=== PATIENT | female | born 1985 | race Caucasian/White ===

== ENCOUNTER 2019-04-04 11:52 | Inpatient (IN) | payer OTHER, SELFPAY ==
[2019-04-04 12:27] VITALS: BMI 28.7
[2019-04-04] MEDS: Lactated Ringers 1,000 ML 50 ML IV ×2 (12:40→21:36)
[2019-04-04 13:03] LABS: Absolute Lymphocyte Count 1.14 X10^3/ul (0.83-4.51); Absolute Neutrophil Count 3.7 X10^3/uL (2.0-7.7); Basophil# 0.01 X10^3/uL; Basophil% 0.2 % (0-1); Eosinophil# 0.01 X10^3/uL; Eosinophils% 0.2 % (0-5); Hematocrit 37.2 % (37-47); Hemoglobin 12.5 g/dl (12.0-15.0); Lymphocyte # 1.14 X10^3/ul (4.0); Lymphocyte % 21.6 % (19-41); Mean Corp Hgb Conc 33.6 g/gl (32-36); Mean Corpuscular Hgb 30.5 pg (27.0-32.0); Mean Corpuscular Volume 90.7 fL (81-99); Mean Platelet Vol. 10.7 fl (6.2-12.0); Monocyte% 7.6 % (0-10); Neutrophil # 3.72 X10^3/uL (2.7-7.7); Neutrophil % 70.2 % (47-70); Platelet Count 163 K/mm3 (150-450); RBC Distribution Width CV 12.3 % (11.6-14.6); RBC Distribution Width SD 39.7 fl (35.1-43.9); White Blood Count 5.3 K/mm3 (4.4-11.0)
[2019-04-04 13:09] LABS: POSITIVE COUNT NO; POSITIVE DIFFERENTIAL NO; POSITIVE MORPHOLOGY NO
--- NOTE | 2019-04-04 18:26 | HP.PCM_ITS ---
History Date of Admission: 04/04/19 Final DOLORES: 03/27/19 Final DOLORES Source: US <20 weeks Gestational age: 41 Weeks and 1 Days History of this : This is a 33 year-old, G1, P0 at 41-1/7 weeks gestation with EDC of 03/27/2019 by last menstrual period confirmed by first trimester ultrasound presents for induction of labor. Her has been uncomplicated to date. She has had good movement. No vaginal bleeding or leaking of fluid. Allergies Penicillins Allergy (Verified 04/04/19 12:28) Rash Home Medications: Home Medications Vits [Prenatabs FA] 1 tablet PO DAILY 04/04/19 Smoking Status: Former smoker Alcohol: None Number of Fetus(es): 1 Heart Tracing: Normal baseline, moderate variability, spontaneous accelerations no decelerations. Category 1 and reactive. TOCO Analysis: Now there are frequent mild contractions with some irritability History Past Pregnancies: Past Pregnancies Delivery Date Name GA/Weeks Outcome Route Weight Infant Gender Labor Length Anesthesia Delivery Location Provider FOB Expected Delivery Method: Spontaneous Vaginal Review of Systems Constitutional: Denies: Chills, Fever Eyes: Denies: Blurred vision Cardiovascular: Denies: Chest Pain Respiratory: Denies: Cough Gynecological: Denies: Vaginal bleeding Physical Exam General: Alert, Cooperative, No apparent distress Cardiovascular: Regular rate Lungs: Normal air movement Abdomen: Soft, Non-Distended, Appropriate for Gestational Age Extremities:: Other - edema- trace [employer]: Normal external genitalia Estimated gestational size: Appropriate for gestational size Presentation: Cephalic Cervix Dilation (cm): 0.5 - firm, mid position Station: -2 Effacement (%): 50 Assessment/Plan This is a 33 year-old, avid a 1 para 1 at 41-1/7 weeks gestation for cervical ripening then induction of labor due to late term gestation. Patient received 25 mcg of Cytotec earlier, 50 mcg was placed now. Will return in several hours and see if a King catheter can be placed at that time. Will likely initiate Pitocin after this dose of Cytotec. Estimated weight is less than 4500 g clinically and pelvis is clinically adequate to expect vaginal delivery. Patient may have epidural, Nubain or nitrous oxide as needed for pain control.
[2019-04-04] MEDS: 0.9% Normal Saline 250 ML IV.SOLN. IV (21:00)
--- NOTE | 2019-04-04 21:10 | PCM.PN.BLA ---
Progress Note Some cramping pain, some contractions getting more intense, she has to breathe through some. No other c/o. Had supper. FHTs- normal baseline, moderate variability, no recurrent decels Tocos- ctxs q 2 min Parham placed over stylette in the usual sterile fashion and inflated to 30 cc. Placement over internal os confirmed. Start pitocin if ctxs space out or when parham out and it is 4+ hrs from last cytotec. Patient questions answerd. She is comfortable w/ plan.
[2019-04-04] MEDS: Nalbuphine 10 MG/ML Ampul IV (21:17)
[2019-04-05] MEDS: Nalbuphine 10 MG/ML Ampul IV ×2 (01:21→05:12)
[2019-04-05] MEDS: Ondansetron 4 MG/2 ML Vial IV ×2 (03:15→11:36)
[2019-04-05] MEDS: Oxytocin 30 units/NS 500 ml 30 UNITS/500 ML IV.SOLN IV (04:33)
[2019-04-05] MEDS: Lactated Ringers 1,000 ML 50 ML IV ×2 (06:40→13:22)
[2019-04-05] MEDS: fentaNYL-bupivacaine (epidural) 100 ML BAG EPIDURAL (07:20)
[2019-04-05] MEDS: proCHLORPERazine 10 MG/2 ML Vial IV (12:22)
[2019-04-05] MEDS: Oxytocin 30 units/NS 500 ml 30 UNITS/500 ML IV.SOLN 334 UNITS IV (16:38)
--- NOTE | 2019-04-05 16:59 | PCM.OPRPT ---
Vaginal Delivery Maternal Presentation: Medically Indicated Induction Method of Induction: Pitocin, King Bulb, Cytotec Medical Reason for Induction: - - Late term at 41-2/7 weeks gestation Amniotic Membrane Rupture Type: Spontaneous Amniotic Fluid Description: Clear Final DOLORES: 03/27/19 Gestational age: 41 Weeks and 2 Days Date of Procedure: 04/05/19 Pre-Operative Diagnosis: Labor Post-Operative Diagnosis: Labor Surgery/ Procedure Performed: Spontaneous Vaginal Delivery Type of Anesthesia: Epidural Description of Procedure: A vigorous female was delivered YOBANY over a second-degree perineal laceration. There was a tight nuchal cord, and I was unable to easily reduce it but the shoulder began to deliver spontaneously so the decision was made to deliver through the cord. The remainder the was delivered with maternal pushing and gentle traction only in less than 15 seconds. The Pitocin infusion was initiated for active management of the third stage. The cord was clamped and cut after 1 minute. The infant was attended to by the waiting nursing staff. The placenta was delivered spontaneously and intact. The cervix and vagina were intact. The second-degree perineal laceration was repaired with 3-0 Vicryl suture in a running standard fashion. Sponge and needle counts were correct. A vaginal sweep was completed by me. Presentation: YOBANY Placental Delivery Description: Spontaneous Placenta Disposition: [facility] Cord Vessel Description: 3 Vessels Nuchal Cord Compression: Without compression Cord Entanglement: Around neck x 1, tight Drain: King to straight drain Estimated Blood Loss: 500 Infant A gender: Female (1 minute): 8 (5 minute): 9 Episiotomy Description: None Laceration: 2nd degree Medications given after delivery: IV Pitocin Complications: None
[2019-04-05] MEDS: Oxytocin 30 units/NS 500 ml 30 UNITS/500 ML IV.SOLN 167 UNITS IV (17:08)
[2019-04-05] MEDS: Naproxen 250 MG Tablet 500 MG PO (18:14)
[2019-04-05 21:05] VITALS: BP 111/59; PULSE 68; RESP 16; TEMP 36.9
[2019-04-05] MEDS: Acetaminophen 500 MG Tablet 1000 MG PO (22:43)
[2019-04-06] VITALS (7 sets, daily range): BP systolic 90–135; BP diastolic 53–79; PULSE 58–83; RESP 16–18; TEMP 36.3–36.7; O2SAT 97
[2019-04-06] MEDS: Naproxen 250 MG Tablet 500 MG PO ×2 (04:37→12:11)
--- NOTE | 2019-04-06 08:21 | PCM.PN.OB ---
Subjective: Doing well per patient and nursing staff. Ambulating and taking PO without difficulty. Voiding and passing flatus. Bottle feeding. Denies increased vaginal bleeding or clots. Pain controlled. Planning D/C home tomorrow. - Physical Exam General: Alert HEENT: Atraumatic, Normocephalic Lungs: Clear to auscultation, Normal air movement, No rhonchi, No wheeze Cardiovascular: Regular rate, Regular Rhythm, No murmurs Abdomen: Bowel Sounds Present, - - Fundus firm 2 below U. Extremities: No edema Psych/Mental Status: Normal Affect, Appropriate Vital Signs Temp Pulse Resp BP 97.5 F L 58 L 16 90/63 04/06/19 07:59 04/06/19 07:59 04/06/19 07:59 04/06/19 07:59 Oxygen Delivery Method Room Air Weight: 172 lb 6.424 oz Body Mass Index (BMI) 28.7 Intake and Output for Last 24 Hours 04/04/19 04/05/19 04/06/19 23:59 23:59 23:59 Intake Total 4835 / 4835 Output Total 2049 / 2049 1000 / 1000 Balance 2785 / 2785 -1000 / -1000 Medical Necessity - Tobacco Use Smoking Status: Former smoker Assessment/Plan A: PPD #1 P: 1) Routine PP care 2) Planning D/C home tomorrow.
[2019-04-06] MEDS: Acetaminophen 500 MG Tablet 1000 MG PO ×2 (08:33→18:35)
--- NOTE | 2019-04-06 14:50 | NURSING ---
Received report from Doris Sterling RN. I will assume care of patient at this time.
[2019-04-07 02:36] VITALS: BP 92/56; PULSE 60; RESP 15; TEMP 36.6; O2SAT 97
[2019-04-07] MEDS: Naproxen 250 MG Tablet 500 MG PO (07:18)
--- NOTE | 2019-04-07 07:39 | NURSING ---
This RN has not observed any maternal contact with over night. Pt. has been emotionally involved with infant, talking sweetly to her and asking questions about care, but did not hold, feed, or change any diapers during subacute nurse. Pt. is appropriate, calm, and stable in attitude.
--- NOTE | 2019-04-07 08:26 | PCM.PN.OB ---
Subjective: Seen at bedside doing well. Patient reports good pain control. Mild lochia. Patient is bottlefeeding. No difficulty with urinating. - Physical Exam General: Alert, Oriented x3 Abdomen: Soft, Non Tender, Non-Distended, - - fundus firm Extremities: No Calf Tenderness Vital Signs Temp Pulse Resp BP Pulse Ox 97.9 F 60 15 92/56 L 97 04/07/19 02:36 04/07/19 02:36 04/07/19 02:36 04/07/19 02:36 04/07/19 02:36 Oxygen Delivery Method Room Air Weight: 78.2 kg Body Mass Index (BMI) 28.7 Intake and Output for Last 24 Hours 04/05/19 04/06/19 04/07/19 23:59 23:59 23:59 Intake Total 4835 / 4835 Output Total 2049 / 2049 1000 / 1000 Balance 2785 / 2785 -1000 / -1000 Medical Necessity - Tobacco Use Smoking Status: Former smoker Assessment/Plan PPD#2, doing well routine care pain mgmt ambulation dc home
--- NOTE | 2019-04-07 08:28 | DCINST_ITS ---
Discharge Diet: No Restrictions Discharge Activity: Return to Normal Activity, May not drive while taking narcotic pain medications., May Shower May resume sexual activity in: 4-6 weeks Additional Activity Instructions:: Nothing in the vagina for 4-6 weeks. You may return to work/school in 6 weeks. Call your doctor if your incision/area has: Continuous Slow Oozing, Sudden Increased Bleeding, Increased Pain/ Swelling, Increased Redness, Foul Smelling Discharge Additional Instructions: If you experience any of the following, contact your healthcare provider. * Bleeding that soaks a pad every hour for 2 hours * Fever 100.4 or higher * Unrelieved incision or abdominal pain * Swelling, redness, discharge or bleeding from your incision or episiotomy site * Your incision begins to separate * Problems urinating (including inability to urinate or burning while urinating). * Visual changes * Severe headache * Flu-like symptoms * Pain or redness in one of both of your breasts * Pain, warmth, tenderness or swelling in your legs, especially the calf area * Frequent nausea and vomiting * Symptoms of depression or anxiety If you experience any of the following, call 911 or go to the nearest Emergency Room. * Chest pain * Problems breathing * Seizure activity * Partial or complete paralysis of a body part, slurred speech, weakness or drooping of the face, or a sudden inability to walk or hold your balance Allergies/Adverse Reactions: Allergies Penicillins Allergy (Verified 04/04/19 12:28) Rash Medications to take at Discharge Vits [Prenatabs FA ] 1 tablet PO DAILY 04/04/19 Naproxen [Naprosyn] 500 mg PO Q8H PRN PRN #30 tablet 04/07/19 The following prescriptions were given: Naproxen [Naprosyn] 500 mg PO Q8H PRN PRN #30 tablet PRN Reason: MILD PAIN (1-01/25) When: Call to make an appointment with your doctor in 6 weeks. If you had elevated Blood Pressure or 4th degree laceration you will need to be seen in 2 weeks. Test Results: Test results from this visit will be discussed in further detail at your follow- up appointment, if applicable.
[2019-04-07 08:49] VITALS: BP 114/74; PULSE 71; RESP 18; TEMP 36.6; O2SAT 100
[2019-04-07] MEDS: Senna/Docusate Sodium 1 Tablet PO (09:04)
[2019-04-07] MEDS: Acetaminophen 500 MG Tablet 1000 MG PO (09:04)
[2019-04-07 12:53] VITALS: BP 112/70; PULSE 68; RESP 18; TEMP 36.9; O2SAT 99
--- NOTE | 2019-04-11 14:16 | NURSING ---
No answer on follow up phone call. Unable to leave message.
== END 2019-04-07 14:50 | disposition home or self-care (01) | DRG 807 ==
PROVIDERS: Admitting Provider Obstetrics & Gynecology; Referring Provider Obstetrics & Gynecology; Visit Provider Obstetrics & Gynecology
DX: O48.0 Post-term pregnancy (principal); O70.1 Second degree perineal laceration during delivery; O69.1XX0 Labor and delivery complicated by cord around neck, with compression, not applicable or unspecified; Z88.0 Allergy status to penicillin; Z87.891 Personal history of nicotine dependence; Z3A.41 41 weeks gestation of pregnancy; Z37.0 Single live birth
CPT/HCPCS: 59025; 59050; 85025; 86850; 86900; 99218; J7050; J7120; G0378; J2405

== ENCOUNTER → 2019-09-18 15:22 | Outpatient (CLI) | payer OTHER, SELFPAY ==
[2019-09-18 18:24] LABS: CRP < 2.90 mg/L (0.0-3.0); T4 Total, Thyroxin 6.1 ug/dL (4.8-13.9); Thyroid Stim Hormone (TSH) 2.24 uIU/mL (0.358-3.74)
[2019-09-21 16:07] LABS: Endomysial Antibody IgA Negative (Negative)
[2019-09-21 18:53] LABS: Immunoglobulin A 106 mg/dL (87-352); t-Transglutaminase IgA <2 U/mL (0-3)
== END ==
PROVIDERS: Family Provider Physician Assistant; PCP Physician Assistant; Referring Provider Internal Medicine Gastroenterology; Visit Provider Internal Medicine Gastroenterology
DX: K59.00 Constipation, unspecified (principal); R14.0 Abdominal distension (gaseous)
CPT/HCPCS: 36415; 82784; 83516; 84436; 84443; 86140; 86255

== ENCOUNTER → 2019-11-05 06:01 | Outpatient (CLI) | payer OTHER, SELFPAY ==
--- NOTE | 2019-11-08 03:00 | RAD_ITS ---
HISTORY: Colonic transit study. 5 images of the abdomen. No comparison imaging. Findings: Within the first image multiple metallic loops are present throughout the colon. The first image was performed at 6:05 AM on 11/08/2019. I image 2 and 11/10 there are persistent loops within the colon but less. On image 3 performed on 11/12 there are 3 loops if not one or 2 more remaining. One is within the cecum, and 2 within the sigmoid colon. Another image from 1226 demonstrates one within the splenic flexure. RAD/Colonic Trans GI/w Mul Image IMPRESSION: Study began on 11/08. By 11/12 for rings remain. 1 within the cecum, one within the splenic flexure of colon, and 2 within the sigmoid colon. at 0612 Reported and signed by: Isidro Hobson MD Electronically Signed: Isidro Hobson MD at 6:11 EST Tel , Service support ,
== END ==
PROVIDERS: Family Provider Physician Assistant; PCP Physician Assistant; Referring Provider Internal Medicine Gastroenterology; Visit Provider Internal Medicine Gastroenterology
DX: K59.00 Constipation, unspecified (principal); R10.9 Unspecified abdominal pain
CPT/HCPCS: 74245

== ENCOUNTER → 2020-06-10 10:00 | Outpatient (CLI) | payer OTHER, SELFPAY ==
--- NOTE | 2020-06-10 10:08 | NM_ITS ---
CLINICAL: 35-year-old female with clinically suspected gastroparesis. SEMI-SOLID PHASE 99m Tc SULFUR COLLOID GASTRIC EMPTYING STUDY COMPARISON: None available FINDINGS: The patient was administered 1.1 mCi of 99m Tc sulfur colloid mixed with oatmeal and consumed per os. Image acquisitions in the anterior-posterior projections for a total of sixty minutes. There is prompt visualization of the stomach. There is no gastroesophageal reflux identified. The T1/2 linear fit was calculated to be 35.66 minutes, (Normal: 12-56 minutes). NM/Gastric Emptying Study IMPRESSION: 1. NORMAL 99m Tc sulfur colloid semi-solid phase (oatmeal) gastric emptying imaging examination. A. There is normal and preserved semi-solid phase gastric emptying compared to normal controls. (Abdifatah et al, J Nucl Med Tech 38: 186, 2010). Electronically Signed: Brock Avery DO at 11:09 EDT Tel , Service support ,
== END ==
PROVIDERS: PCP Physician Assistant; Referring Provider Internal Medicine Gastroenterology; Visit Provider Internal Medicine Gastroenterology
DX: K59.00 Constipation, unspecified (principal); R10.84 Generalized abdominal pain
CPT/HCPCS: 78264; A9541

== ENCOUNTER 2022-03-22 08:50 | Day surgery (SDC) | payer OTHER, SELFPAY ==
[2022-03-22] VITALS (7 sets, daily range): BP systolic 85–98; BP diastolic 50–78; PULSE 48–68; RESP 16; TEMP 36.3–36.5; O2SAT 99–100; BMI 22.7
--- NOTE | 2022-03-22 | IMM_PTH ---
PATIENT: MARICHUY LEDEZMA LOC: EN U#:[id number] AGE/SX: 36/F ROOM: RE03/22/[address]: Dr. Navi Decker DO : 1985 BED: DIS: 03/22/2022 SPEC #: [id number] RECD: 03/22/22 12:48 STATUS: MAGDIEL REQ #: [id number] RODOLFO: 03/22/22 00:[address]: Navi Decker DEPT: IMMUNOHISTOCHEMISTRY RECD BY: Mayra Demarco ENTERED: 03/22/22 12:48 SP TYPE: IMMUNO OTHR DR: MARCELLO De La Garza Tissues: Gastric mucous membrane Procedures: H Pylori (initial) PHYSICIAN & INSTITUTION [place] [id number] SPECIMEN INFORMATION: Tissue Source: B - Gastric Antrum Biopsy Clinical Info: IBS Specimen Number: [id number] CPT code: 11995 METHODOLOGY: Deparaffinized sections of prefer/formalin-fixed tissue or PAP/DQ stained slides are incubated with monoclonal/polyclonal antibodies/oligonucleotide probes. Localization is made via biotin free immunoperoxidase method. Appropriate controls are performed and reacted as expected. Results on target cell population are indicated in the following table: RESULTS: ANTIBODY / CLONE RESULT Block B H Pylori (polyclonal) negative These tests were developed and their performance characteristics determined by [facility]. They may not have been cleared or approved by the U.S. Food and Drug Administration. The FDA has determined that such clearance or approval is not necessary. The above immunohistochemical/dualISH markers are ordered and reviewed by the Pathologist. INTERPRETATION: B. Gastric antrum, biopsy: Negative for Helicobacter pylori organisms. SJ:marina 03/23/2022
[2022-03-22 09:15] LABS: Internal QC Validated? YES +Cl - CLEAR BKGD; Pregnancy, Urine Negative Negative
[2022-03-22] MEDS: Lactated Ringers 1,000 ML 15 ML IV (09:24)
--- NOTE | 2022-03-22 10:00 | EGD_PTH ---
PATIENT: MARICHUY LEDEZMA LOC: EN U#:[id number] AGE/SX: 36/F ROOM: RE03/22/[address]: Dr. Navi Decker DO : 1985 BED: DIS: 03/22/2022 SPEC #: [id number] RECD: 03/22/22 10:49 STATUS: MAGDIEL REAngel #: [id number] RODOLFO: 03/22/22 10:[address]: Navi Decker DEPT: SURGICAL PATHOLOGY RECD BY: Mayra eDmarco ENTERED: 03/22/22 11:46 SP TYPE: EGD BIOPSY OT DR: MARCELLO De La Garza Tissues: A - Duodenum, NOS B - Gastric mucous membrane C - Esophagus, NOS Procedures: Special Stain Group II Surgery Specimen Level IV Alcian Blue/PAS (control) HEADER OPERATION: [place] [place]OP DIAGNOSIS: Irritable bowel syndrome TISSUE SUBMITTED: A ? Duodenum biopsy, B - Gastric Antrum for H. pylori and pathology, C - Distal Esophagus biopsy MICROSCOPIC DIAGNOSIS A. Duodenum, biopsy: Fragments of duodenal mucosa, no pathologic diagnosis. B. Gastric antrum, biopsy: Mild gastritis. See microscopic description and comment. C. Distal esophagus, biopsy: Fragments of gastroesophageal mucosa with mild chronic inflammation. Intestinal metaplasia (goblet cell metaplasia) not identified. See comment. SJ:rg 03/23/2022 COMMENT B. The results of immunohistochemistry for Helicobacter pylori will be reported separately ([id number]). C. Alcian blue/PAS stain with matched control is used in the evaluation of the specimen. MICROSCOPIC DESCRIPTION Slides are reviewed. B. The specimen shows fragments of gastric mucosa with chronic inflammatory cell infiltrates in the lamina propria consisting of lymphocytes and plasma cells, consistent with mild chronic gastritis. GROSS DESCRIPTION A - Received in fixative is one container labeled with the patient's name and designated biopsy duodenum. The specimen consists of multiple irregular fragments of light hoffmann soft tissue that in aggregate measure 1.3 x 0.3 x 0.1 cm. The specimen is totally submitted in one cassette. B - Received in fixative is one container labeled with the patient's name and designated gastric antrum biopsy. The specimen consists of two irregular fragments of light hoffmann soft tissue that in aggregate measure 0.3 x 0.3 x 0.1 cm. The specimen is totally submitted in one cassette. C - Received in fixative is one container labeled with the patient's name and designated biopsy distal esophagus. The specimen consists of multiple irregular fragments of light hoffmann soft tissue that in aggregate measure 0.5 x 0.4 x 0.1 cm. The specimen is totally submitted in one cassette. / SJ:rg 03/22/2022 TC:3 CPT: 57309 x3, 78019
--- NOTE | 2022-03-22 10:04 | PCM.HP.BLA ---
History and Physical Date of Admission: 03/22/22 AICHA LEDEZMA, is a 36 F who presents to the office today for 6-week follow-up IBS with constipation She states she feels exhausted. Her middle insomnia has worsened. The insomnia began after we started her on duloxetine for her IBS. Duloxetine has not helped with her GI symptoms. Her anxiety is worse than before. She would like to go off the duloxetine. GI sxs about the same. Feels best in AM, then worse in afternoon and evening--bloating, feet get cold, nausea, gas, not pain but uncomfortable across mid and lower abd, brain fog. Had EGD age 21, diagnosed hiatal hernia. She is interested in updating the EGD. Acid reflux occurs at night, maybe once a week, she avoids foods that cause this for her. GI History: Diagnosed with IBS. She has been evaluated by 2 gastroenterologists prior to coming to [facility]. She has tried Linzess, Amitiza, Motegrity, and Zelnorm; Zelnorm is reported as effective but too expensive. Her testing has been negative for celiac disease. History of parasitic infection following travel to the [place] resulting in diarrhea in 2018. Then constipation began. Colonic transit study performed 1218--imaging found persistent loops within the colon. Sitzmarker test--4 markers remained at [address] Lyles performed colonoscopy with reported normal results in 2019 Gastric Emptying study performed 2019 found to be normal at 35.66 minutes (normal 12-56). ROS Const Constitutional: Positive for fatigue and weakness; No fever(s), headache(s), weight change, sleep problems, abnormal sleep pattern or change in appetite ENT ENT: No headache(s), difficulty swallowing, hoarseness or sore throat Resp Respiratory: No cough, hemoptysis or shortness of breath Cardio Cardiology: No chest pain at rest or generalized swelling Gastro GI: Positive for abdominal pain, bloating, constipation, diarrhea, heartburn and nausea/dyspepsia; No belching, change in bowel habits, change in stool character, coffee ground emesis, cramping, difficulty swallowing, feeling full early, incontinent of stools, Vomiting blood/hematemesis, Blood in stool, loose stools, Black,tarry stools, pain with swallowing or vomiting Genitourinary-Female: Positive for urinary frequency and urinary urgency Musc Musculoskeletal: Positive for back pain and stiffness; No joint pain, joint swelling, numbness or tingling Skin Skin: No itchy eyes or rash Neuro Neurology: Positive for weakness; No behavioral changes, confusion, headache(s), numbness or tingling Psych Psychiatric: No abnormal sleep pattern, Positive for anxiety, No behavioral changes, No change in appetite, No confusion, No depression, Positive for hyperactivity, Positive for inattentiveness and Positive for obsessions/compulsions Endo Endocrine: Positive for fatigue; No cold intolerance, heat intolerance, increased thirst/drinking or weight change Aller/Imm Allergy/Immunologic: No food intolerance or itchy eyes Jeffery/Lymp Hematologic/Lymphatic: Positive for easy bruising; No easy bleeding or enlarged lymph nodes Exam Const General: cooperative, well developed, well groomed, acute distress (tearful and upset at end of visit) and anxious Quality Reporting Tobacco Screening ([facility] 138) Smoking Status: Former smoker Assessment and Plan Assessment and Plan (1) IBS (irritable bowel syndrome): Status: Acute Qualifiers: Irritable bowel syndrome type: with constipation Qualified Code(s): K58.1 - Irritable bowel syndrome with constipation Plan: Aicha became tearful when I told her the first available EGD appt is 03/21/22. She states she will f/u with her PCP, and would like to go elsewhere for GI care. We had already discussed plan to taper off duloxetine since GI sxs not improved and she now has insomnia--40 mg daily x 7 days, then 20 mg daily x 7 days, then stop. Plan Details Other Medications: New: duloxetine 20 mg PO; 40 mg (2 capsules) daily x 1 wk, then 20 mg (1 capsule) daily x 1 wk, then stop 21 caps 0RF
--- NOTE | 2022-03-22 10:45 | OP.CCLET_ITS ---
08/17/2022 Lisa Hadley Re : Upper GI endoscopy procedure for Aicha Smith Butch Hadley This procedure was performed on March. My impressions and recommendations are as follows: Impressions : - LA Grade A reflux esophagitis. Biopsied. - Erythematous mucosa in the stomach. Biopsied. - Erythematous duodenopathy. Recommendations : - Discharge patient to home. - Resume previous diet. - Continue present medications. - Await pathology results. - Repeat upper endoscopy in 1 year for surveillance based on pathology results. - Return to GI office in 1 week. My findings are described in the full procedure note, which is enclosed. If I can be of further assistance, please feel free to contact me at . Sincerely, Navi Decker, 03/22/2022 10:44:48 AM This report has been signed electronically.
--- NOTE | 2022-03-22 10:45 | OP.EGD_ITS ---
Patient Name: Aicha Smith Procedure Date: 03/22/2022 10:15 AM Date of : 1985 Age: 36 Procedure: Upper GI endoscopy Indications: Epigastric abdominal pain, Heartburn Providers: Navi Decker DO Medicines: Monitored Anesthesia Care Patient Profile: This is a 36 year old female. Refer to note in patient chart for documentation of history and physical. Patient has symptoms of chronic abdominal cramping, chronic abdominal distention, acute epigastric abdominal pain and chronic dyspepsia. Complications: No immediate complications. Procedure: Pre-Anesthesia Assessment: - Prior to the procedure, a History and Physical was performed, and patient medications and allergies were reviewed. The patient is competent. The risks and benefits of the procedure and the sedation options and risks were discussed with the patient. All questions were answered and informed consent was obtained. Patient identification and proposed procedure were verified by the physician in the pre-procedure area. Mental Status Examination: alert and oriented. Airway Examination: normal oropharyngeal airway and neck mobility. Respiratory Examination: clear to auscultation. CV Examination: normal. Prophylactic Antibiotics: The patient does not require prophylactic antibiotics. Prior Anticoagulants: The patient has taken no previous anticoagulant or antiplatelet agents. ASA Grade Assessment: II - A patient with mild systemic disease. After reviewing the risks and benefits, the patient was deemed in satisfactory condition to undergo the procedure. The anesthesia plan was to use moderate sedation / analgesia (conscious sedation). Immediately prior to administration of medications, the patient was re-assessed for adequacy to receive sedatives. The heart rate, respiratory rate, oxygen saturations, blood pressure, adequacy of pulmonary ventilation, and response to care were monitored throughout the procedure. The physical status of the patient was re-assessed after the procedure. After obtaining informed consent, the endoscope was passed under direct vision. Throughout the procedure, the patient's blood pressure, pulse, and oxygen saturations were monitored continuously. The gastroscope was introduced through the mouth, and advanced to the second part of duodenum. The upper GI endoscopy was accomplished without difficulty. The patient tolerated the procedure well. Scope In: 10:19:45 AM Scope Out: 10:26:02 AM Total Procedure Duration Time 0 hours 6 minutes 17 seconds Findings: LA Grade A (one or more mucosal breaks less than 5 mm, not extending between tops of 2 mucosal folds) esophagitis with no bleeding was found 36 to 39 cm from the incisors. Biopsies were taken with a cold forceps for histology. Verification of patient identification for the specimen was done. Estimated blood loss was minimal. Patchy mildly erythematous mucosa without bleeding was found in the stomach. Biopsies were taken with a cold forceps for histology. Verification of patient identification for the specimen was done. Estimated blood loss was minimal. Localized mildly erythematous mucosa without active bleeding and with no stigmata of bleeding was found in the duodenal bulb. Impression: - LA Grade A reflux esophagitis. Biopsied. - Erythematous mucosa in the stomach. Biopsied. - Erythematous duodenopathy. Recommendation: - Discharge patient to home. - Resume previous diet. - Continue present medications. - Await pathology results. - Repeat upper endoscopy in 1 year for surveillance based on pathology results. - Return to GI office in 1 week. Procedure Code(s): --- Professional --- 95211, LT, Esophagogastroduodenoscopy, flexible, transoral; with biopsy, single or multiple CPT copyright 2017 [employer]. All rights reserved. The codes documented in this report are preliminary and upon welt wheeler review may be revised to meet current compliance requirements. Navi Decker DO 03/22/2022 10:44:48 AM This report has been signed electronically. Number of Addenda: 1 Note Initiated On: 03/22/2022 10:15 AM Addendum Number: 1 Addendum Date: 08/17/2022 6:29:49 AM MAC was used as sedation for this procedure. Navi Decker DO 08/17/2022 6:29:55 AM This report has been signed electronically.
== END 2022-03-22 11:17 | disposition home or self-care (01) ==
LOC: EN 08:55 → AC 08:55
PROVIDERS: Anesthesiology; PCP Physician Assistant; Referring Provider Physician Assistant; Visit Provider Internal Medicine Gastroenterology
PROC: 0DJ08ZZ Inspection of Upper Intestinal Tract, Via Natural or Artificial Opening Endoscopic (ICD-10-PCS; CPT 43235; principal; 2022-03-22 09:55)
DX: K21.00 Gastro-esophageal reflux disease with esophagitis, without bleeding (principal); K58.1 Irritable bowel syndrome with constipation; R12 Heartburn; F41.9 Anxiety disorder, unspecified; Z87.891 Personal history of nicotine dependence; K29.70 Gastritis, unspecified, without bleeding
CPT/HCPCS: 43239; 81025; 88305; 88313; 88342; J7120; J2405

== ENCOUNTER → 2022-04-07 | Outpatient (CLI) | payer OTHER, SELFPAY ==
[2022-04-07 07:45] LABS: Absolute Lymphocyte Count 1.37 X10^3/uL (0.83-4.51); Absolute Neutrophil Count 3.1 X10^3/uL (2.0-7.7); Basophil# 0.03 X10^3/uL; Basophil% 0.6 % (0-1); Eosinophil# 0.15 X10^3/uL; Hematocrit 39.1 % (37-47); Lymphocyte # 1.37 X10^3/ul (0.83-4.51); Lymphocyte % 27.1 % (19-41); Mean Corp Hgb Conc 33.2 g/dL (32-36); Mean Corpuscular Hgb 30.4 pg (27.0-32.0); Mean Corpuscular Volume 91.6 fL (81-99); Mean Platelet Vol. 10.1 fl (6.2-12.0); Monocyte# 0.39 X10^3/uL; Monocyte% 7.7 % (0-10); NRBC Flagged by Analyzer 0 % (0-5); Neutrophil % 61.2 % (47-70); Platelet Count 206 K/mm3 (150-450); RBC Distribution Width CV 11.5 % (11.6-14.6); RBC Distribution Width SD 38.5 fl (35.1-43.9); Red Blood Count 4.27 M/mm3 (4.2-5.4); White Blood Count 5.1 K/mm3 (4.4-11.0)
[2022-04-07 07:48] LABS: Erythrocyte Sedimentation Rate 1 mm/hr (0-30)
[2022-04-07 08:03] LABS: ALB/GLOB Ratio 1.2 RATIO (0.9-2.4); AST(SGOT) 14 U/L (15-37); Alanine Aminotransfer ALT/SGPT 14 U/L (13-56); Alkaline Phosphatase 27 U/L (45-117); Amylase 54 U/L (25-115); Anion Gap 2 (5-15); BUN 16 mg/dL (7-18); BUN/Creat Ratio 16.7 RATIO (10-20); CRP < 2.90 mg/L (0.0-3.0); Calcium,Total 9.1 mg/dL (8.5-10.1); Chloride 105 mmol/L (98-107); Creatinine, Serum 0.96 mg/dL (0.55-1.02); EST Glomerular Filtration Rate 71 mL/min (>60); Est Glom Filt Rate - Afr Amer 85 mL/min (>60); Globulin 3.3 g/dL (2.2-4.2); Glucose 84 mg/dL (74-106); LDH 155 U/L (84-246); Lipase 118 U/L (73-393); Potassium 3.9 mmol/L (3.5-5.1); Protein, Total 7.3 g/dL (6.4-8.2); Sodium Level 139 mmol/L (136-145)
[2022-04-09 14:09] LABS: Anti-Centromere B Ab <0.2 AI (0.0-0.9); Anti-Chromatin 0.2 AI (0.0-0.9); Anti-Jo <0.2 AI (0.0-0.9); Anti-Scleroderma-70 AB <0.2 AI (0.0-0.9); RNP Ab <0.2 AI (0.0-0.9); SJOGREN'S Anti-SS-A test < 0.2 AI (0.0-0.9); SJOGREN'S Anti-SS-B test < 0.2 AI (0.0-0.9); Smith Ab <0.2 AI (0.0-0.9)
[2022-04-09 18:46] LABS: Anti-dsDNA Ab <1 IU/mL (0-9)
[2022-04-15 16:07] LABS: Albumin 4.3 g/dL (2.9-4.4); Alpha-1-Globulins 0.2 g/dL (0.0-0.4); Alpha-2-Globulins 0.6 g/dL (0.4-1.0); Cytoplasmic Ab (C-ANCA) <1:20 titer (Neg:<1:20); Gamma Globulin 1.1 g/dL (0.4-1.8); Immunoglobulin A 113 mg/dL (87-352); Immunoglobulin E 81 IU/mL (6-495); Immunoglobulin G 1058 mg/dL (586-1602); Immunoglobulin M 83 mg/dL (26-217); PROEL- TOTAL PROTEIN 7.1 g/dL (6.0-8.5)
[2022-04-16 16:46] LABS: Perinuclear Ab (P-ANCA) <1:20 titer (Neg:<1:20)
== END | disposition home or self-care (01) ==
LOC: LAB 07:04
PROVIDERS: PCP Physician Assistant; Referring Provider Internal Medicine Gastroenterology; Visit Provider Internal Medicine Gastroenterology
DX: R19.7 Diarrhea, unspecified (principal)
CPT/HCPCS: 36415; 80053; 82150; 82784; 82785; 83615; 83690; 84165; 85025; 85652; 86140; 86225; 86235; 86256; 86334

== ENCOUNTER → 2022-04-08 | Outpatient (CLI) | payer OTHER, SELFPAY ==
[2022-04-11 10:20] LABS: Giardia Lamblia, Stool EIA Negative (Negative)
[2022-04-11 19:45] LABS: Calprotectin, Stool 35 ug/g (0-120)
== END | disposition home or self-care (01) ==
LOC: LAB 11:55
PROVIDERS: PCP Physician Assistant; Referring Provider Internal Medicine Gastroenterology; Visit Provider Internal Medicine Gastroenterology
DX: K58.9 Irritable bowel syndrome, unspecified (principal); R19.7 Diarrhea, unspecified
CPT/HCPCS: 83630; 83993; 87177; 87209; 87329; 87493; 87506

== ENCOUNTER → 2022-05-08 | Outpatient (CLI) | payer OTHER, SELFPAY ==
--- NOTE | 2022-05-08 17:32 | CT_ITS ---
EXAM: CT ABDOMEN AND PELVIS WITH INTRAVENOUS CONTRAST CLINICAL INDICATION: lower abdominal pain, diarrhea, constipation -- Oral and IV TECHNIQUE: Helically acquired images were obtained of the abdomen and pelvis with intravenous contrast. This CT exam was performed using one or more of the following dose reduction techniques: automated exposure control, adjustment of the mA and/or kV according to patient size, and/or use of iterative reconstruction technique. This report was created using [employer] report generation technology. CONTRAST: 100 cc of Isovue-300. Redicat oral contrast. RADIATION DOSE: CTDIvol = 13.45 mGy, DLP = 523.63 mGy-cm. COMPARISON: None. FINDINGS: LOWER THORAX: Unremarkable. Lung bases are clear. No cardiomegaly. No significant pericardial effusion. ABDOMEN: LIVER: Unremarkable. Homogeneous. No focal mass. GALLBLADDER AND BILE DUCTS: Unremarkable. No calcified gallstones. No gallbladder distention or wall edema. No intra- or extrahepatic biliary ductal dilation. PANCREAS: Unremarkable. No focal cystic or solid mass. SPLEEN: Unremarkable. Normal size without focal cystic or solid mass. ADRENALS: Unremarkable. No nodules. KIDNEYS AND URETERS: Unremarkable. Normal renal size and position. No hydronephrosis. STOMACH AND BOWEL: Unremarkable. No stomach or bowel distention. No focal inflammatory change. PELVIS: APPENDIX: No evidence of acute appendicitis. BLADDER: Unremarkable. REPRODUCTIVE: Unremarkable as visualized. No mass. ABDOMEN and PELVIS: INTRAPERITONEAL SPACE: Trace nonspecific low density free fluid in the low pelvis. No free air. BONES/JOINTS: Unremarkable. No suspicious lytic or blastic abnormality. SOFT TISSUES: Unremarkable. No discrete abdominal or pelvic wall hernia. VASCULATURE: Unremarkable. Abdominal aorta is non-dilated. LYMPH NODES: Unremarkable. No enlarged lymph nodes. CT/Abdomen/Pelvis WITH Contrast IMPRESSION: Trace nonspecific low density free fluid in the low pelvis. No specific acute abdominal pelvic abnormality. Electronically Signed: Fady Nation MD at 4:56 EDT ,
== END | disposition home or self-care (01) ==
PROVIDERS: PCP Physician Assistant; Referring Provider Nurse Practitioner Adult Health; Visit Provider Nurse Practitioner Adult Health
DX: R10.30 Lower abdominal pain, unspecified (principal); R19.7 Diarrhea, unspecified; K59.00 Constipation, unspecified
CPT/HCPCS: 74177; Q9967

== ENCOUNTER → 2022-07-11 | Outpatient (CLI) | payer OTHER, SELFPAY ==
--- NOTE | 2022-07-11 06:42 | MRI_ITS ---
STUDY: MRI BRAIN WITH AND WITHOUT CONTRAST REASON FOR EXAM: Female, 37 years old. DIZZINESS, HEADACHES TECHNIQUE: Standardized multiplanar fat and water weighted pulse sequences were obtained. IV 13ml Clariscan was administered for the contrast portion of the examination. COMPARISON: None. FINDINGS: Normal size of the ventricles and extra-axial spaces for the patient''s age. Normal white matter tracts of the supratentorial brain. Normal bilateral basal ganglia. Normal thalami. There is no extra-axial fluid accumulation. Normal flow voids within the major intracranial circulation suggesting patency by spin echo criteria. Normal venous enhancement. There is no enhancing intra-axial or extra-axial abnormality. Normal sella turcica, pituitary gland, infundibular stalk, optic chiasm and hypothalamus. Normal tectal plate and pineal gland. Normal midbrain, keaton and medulla. Normal cerebellum. Normal basal cisterns. Normal bilateral temporal bones. Normal bilateral internal auditory canals. No demonstrated orbital abnormality, within the constraints of a routine brain study. Normal visualized paranasal sinuses. Normal calvarium and skull base. Normal visualized soft tissue structures. Normal visualized upper cervical spine. MRI/Brain W/WO Contrast IMPRESSION: Normal unenhanced and enhanced MRI of the brain. Electronically Signed: Hernán Espinoza MD at 8:47 EDT ,
--- NOTE | 2022-07-11 06:42 | MRI_ITS ---
STUDY: MRA OF THE HEAD WITHOUT CONTRAST REASON FOR EXAM: Female, 37 years old. DIZZINESS, HEADACHES TECHNIQUE: 3-D [id number] (TOF) imaging was performed with MIPs. The study was performed unenhanced. COMPARISON: None. FINDINGS: Normal bilateral petrous carotid arteries. Normal right cavernous carotid artery with a normal supraclinoid bifurcation. Normal left cavernous carotid artery with a normal supraclinoid bifurcation. Normal right A1 segment of the anterior cerebral artery. Normal left A1 segment of the anterior cerebral artery. Normal intact anterior communicating artery (ACOM). Normal bilateral A2 segments of the anterior cerebral arteries. Normal right M1 and M2 segments of the middle cerebral arteries, with a normal M1 bifurcation. Normal left M1 and M2 segments of the middle cerebral arteries, with a normal M1 bifurcation. Normal right posterior communicating artery (PCOM). Normal left posterior communicating artery (PCOM). Normal bilateral vertebral arteries. The right vertebral artery is hypoplastic. Normal basilar artery with a normal basilar bifurcation. The right superior cerebellar artery is hypoplastic when compared to the left. Normal bilateral P1, P2 and visualized P3 segments of the posterior cerebral arteries. There is no demonstrated aneurysm of the [place] of [place]. There is no major vessel occlusion or hemodynamically significant stenosis. There is no demonstrated abnormality of the visualized brain. MRI/MRA Head ONLY without Contrast IMPRESSION: Normal MRA of the head Electronically Signed: Hernán Espinoza MD at 8:45 EDT ,
== END | disposition home or self-care (01) ==
LOC: MRI 06:26
PROVIDERS: PCP Physician Assistant; Visit Provider Psychiatry & Neurology Neurology
DX: R42 Dizziness and giddiness (principal); R51.9 Headache, unspecified
CPT/HCPCS: 70544; 70553; A9575

== ENCOUNTER → 2022-07-12 | Outpatient (CLI) | payer OTHER, SELFPAY ==
--- NOTE | 2022-07-12 08:29 | ECHOD_ITS ---
Reason For Study: Dizziness Procedure This was a 2D Doppler, Color Flow transthoracic echocardiogram. Exam performed in department. Left Ventricle Normal LV size. The estimated ejection fraction is 55 %. No evidence for diastolic dysfunction. No regional wall motion abnormalities noted. Right Ventricle Normal RV size. Normal systolic function. Atria Normal left atrium. Normal right atrium. No doppler evidence for ASD. Mitral Valve There is no mitral valve stenosis. No mitral valve insufficiency. Tricuspid Valve There is no tricuspid stenosis. Trivial tricuspid valve insufficiency. Pulmonary artery systolic pressure is 15 mmHg. Aortic Valve Trisinus/trileaflet aortic valve. There is no aortic stenosis. No aortic valve insufficiency. Pulmonic Valve There is no pulmonic valvular stenosis. No pulmonic valve insufficiency. Great Vessels Normal aortic root. Pericardium/Pleural No pericardial effusion. MMode/2D Measurements & Calculations LVIDd: 4.8 cm IVSd: 0.70 cm Ao root diam: 3.2 cm LVIDs: 3.4 cm LVPWd: 0.60 cm LA dimension: 2.8 cm RVDd: 3.1 cm FS: 29.3 % LAV(MOD-bp): 27.7 ml LA A4 area: 13.7 cm2 RA A4 area: 12.4 cm2 LAV(MOD-bp) Indexed: 16.2 ml/m2 LAV(MOD-sp2): 24.4 ml LAV(MOD-sp4): 30.2 ml Time Measurements MV dec time: 0.25 sec Doppler Measurements & Calculations MV E max gama: 60.1 cm/sec Lat Peak E' Gama: 15.3 cm/sec Med Peak E' Gama: 13.3 cm/sec MV A max gama: 39.4 cm/sec E/E' lat: 3.9 E/E' med: 4.5 MV E/A: 1.5 MV V2 max: 80.0 cm/sec MV P1/2t max gama: 80.0 cm/sec Ao V2 max: 80.4 cm/sec MV max P.6 mmHg MV P1/2t: 107.4 msec Ao max P.6 mmHg MV V2 mean: 36.9 cm/sec MV dec slope: 218.0 cm/sec2 Ao V2 mean: 58.6 cm/sec MV mean P.71 mmHg MVA(P1/2t): 2.0 cm2 Ao mean P.5 mmHg MV V2 VTI: 28.0 cm Ao V2 VTI: 20.2 cm LV V1 max: 68.0 cm/sec PA V2 max: 67.5 cm/sec TR max gama: 151.7 cm/sec LV V1 max P.8 mmHg PA V2 mean: 47.9 cm/sec TR max P.3 mmHg ECHO/Echo Complete Interpretation Summary The estimated ejection fraction is 55 %. No evidence for diastolic dysfunction. Ordering Physician: SONYA YANEZ Referring Physician: SONYA YANEZ Performed By: Noel Phoenix RCS
--- NOTE | 2022-07-12 09:22 | TELEMED_ITS ---
[facility] has confirmed receipt of a request for visit. This document confirms receipt of the order initiating the consult. To find the results of the consultation, please view the patient's reports for the scanned Telemed Consult.
== END | disposition home or self-care (01) ==
LOC: CVS 08:25
PROVIDERS: PCP Physician Assistant; Referring Provider Psychiatry & Neurology Neurology; Visit Provider Psychiatry & Neurology Neurology
DX: R42 Dizziness and giddiness (principal)
CPT/HCPCS: 93306; 95819

== ENCOUNTER → 2022-10-25 | Outpatient (CLI) | payer OTHER, SELFPAY ==
[2022-10-25 14:55] LABS: hCG Titer Quant., Serum < 1 mIU/mL (1-3)
[2022-10-25 14:57] LABS: Free T3 1.8 pg/mL (2.18-3.98); T4 Free Direct 0.82 ng/dL (0.76-1.46); Thyroid Stim Hormone (TSH) 1.51 uIU/mL (0.358-3.74)
[2022-10-30 00:07] LABS: Endomysial Antibody IgA Negative (Negative); Immunoglobulin A 109 mg/dL (87-352); Thyroid Stim Immunoglob <0.10 IU/L (0.00-0.55)
[2022-10-30 16:35] LABS: Anti-Thyroglobulin AB < 1.0 IU/mL (0.0-0.9); Thyroglobulin, Serum Qt. 27.2 ng/mL (1.5-38.5); Thyroid Peroxidase AB 74 IU/mL (0-34); t-Transglutaminase IgA <2 U/mL (0-3)
== END | disposition home or self-care (01) ==
PROVIDERS: PCP Physician Assistant
DX: E06.3 Autoimmune thyroiditis (principal); K63.9 Disease of intestine, unspecified
CPT/HCPCS: 36415; 82784; 83516; 84432; 84439; 84443; 84445; 84481; 84702; 86255; 86376; 86800

== ENCOUNTER → 2023-09-07 | Outpatient (CLI) | payer OTHER, SELFPAY ==
--- NOTE | 2023-09-07 10:43 | US_ITS ---
STUDY: ABDOMINAL ULTRASOUND REASON FOR EXAM: Female, 38 years old. ABD PAIN TECHNIQUE: Transabdominal ultrasound was performed with real-time and static cole scale imaging. TECHNICAL QUALITY: Adequate. COMPARISON: None. FINDINGS: Liver: The liver measures 17.3 cm. There is normal echogenicity of the liver. The bile ducts are within normal limits. There is hepatic color flow. The direction of portal flow is hepatopetal. There is no demonstrated mass lesion. Portal vein measurement: Gallbladder: Normal distended gallbladder. The gallbladder wall measures 2 mm. There is a negative sonographic Enriquez''s sign. There is no pericholecystic fluid. There are no gallstones. Common Bile Duct (C.B.D.): The common bile duct measures 3 mm. Pancreas: Normal size of the head, body and tail of the pancreas. There is normal echogenicity of the pancreas. There is no demonstrated pancreatic mass or cyst. Spleen: Normal size of the spleen. The spleen measures 9.3 cm. Right Kidney: Normal size of the right kidney. The right kidney measures 11.4 cm. Normal renal cortex. The right cortex measures 1.9 cm. There is no demonstrated renal mass or cyst. There is no right hydronephrosis. Left Kidney: Normal size of the left kidney. The left kidney measures 11.7 cm. Normal renal cortex. The left cortex measures 1.7 cm. There is no demonstrated renal mass or cyst. There is no left hydronephrosis. Aorta: No aortic aneurysm. I.V.C.: The IVC is patent. There is no ascites. US/Abdomen Complete IMPRESSION: Normal abdominal ultrasound examination. Electronically Signed: Brock Fishman MD at 15:47 EDT ,
== END | disposition home or self-care (01) ==
LOC: US 10:40
PROVIDERS: PCP Physician Assistant; Visit Provider Internal Medicine Gastroenterology
DX: R10.9 Unspecified abdominal pain (principal)
CPT/HCPCS: 76700

== ENCOUNTER → 2023-09-10 | Outpatient (CLI) | payer OTHER, SELFPAY ==
--- NOTE | 2023-09-10 09:49 | NM_ITS ---
CLINICAL: 38-year-old female with history of abdominal pain. RADIONUCLIDE HEPATOBILIARY SCINTIGRAPHY COMPARISON: Abdominal ultrasound report 09/07/2023 FINDINGS: Following the intravenous administration of 5.0 mCi of 99m Tc Mebrofenin, hepatobiliary images reveal: 1. Relatively prompt and homogeneous radiopharmaceutical concentration is noted by a normal sized liver. No parenchymal defects are identified. 2. Gallbladder activity is identified at 60 minutes post radiopharmaceutical administration. 3. Small intestinal tract is observed at 20 minutes following tracer injection. 4. Washout of the radiopharmaceutical by the hepatic parenchyma is qualitatively normal. 5. There is transient duodenal-gastric reflux initiating at approximately 30 minutes post tracer injection and not visualized on the 90 minute pre-CCK acquisition. Cholecystokinin (0.02 ug/kg) was administered intravenously over a 30-minute period. The post CCK gallbladder ejection fraction calculated at 20 minutes following Cholecystokinin administration was noted to be < 5 % (normal greater than 35%). VT/Hepatobilliary Img w/Pharm Int IMPRESSION: 1. ABNORMAL 99m Tc Mebrofenin hepatobiliary imaging examination with Cholecystokinin. A. A gallbladder ejection fraction calculated to be less than 35% following the administration of Cholecystokinin is consistent with the presence of functional hepatobiliary disease (gallbladder and/or sphincter of Oddi dyskinesia) and/or organic hepatobiliary disease (chronic acalculous cholecystitis and/or cystic duct syndrome) in patients with intermediate to high pretest probabilities of hepatobiliary illness. (Jovani Garcia et al, Journal of Nuclear Medicine 32:1695, 1991). B. Transient duodenal gastric-reflux is demonstrated prior to cholecystokinin injection. Electronically Signed: Brock Avery DO at 22:44 EDT ,
== END | disposition home or self-care (01) ==
LOC: NM 09:46
PROVIDERS: PCP Physician Assistant; Referring Provider Internal Medicine Gastroenterology; Visit Provider Internal Medicine Gastroenterology
DX: R10.9 Unspecified abdominal pain (principal); K29.60 Other gastritis without bleeding; R19.7 Diarrhea, unspecified
CPT/HCPCS: 78227; A9537; J2805

== ENCOUNTER 2023-11-01 10:11 | Day surgery (SDC) | payer OTHER, SELFPAY ==
[2023-11-01] VITALS (8 sets, daily range): BP systolic 88–144; BP diastolic 55–99; PULSE 55–75; RESP 16; TEMP 36.9–37.4; O2SAT 94–100; BMI 38.9
--- NOTE | 2023-11-01 | GALL_PTH ---
PATIENT: MARICHUY LEDEZMA LOC: [facility] [place] U#:[id number] AGE/SX: 38/F ROOM: RE11/01/[address]: Dr. Fady Zamora MD : 1985 BED: DIS: 11/01/2023 SPEC #: [id number] RECD: 11/01/23 14:28 STATUS: MAGDIEL HARDEN #: [id number] RODOLFO: 11/01/23 00:[address]: Fady Zamora DEPT: SURGICAL PATHOLOGY RECD BY: Nito Cruz ENTERED: 11/04/23 09:30 SP TYPE: AKI STEVENS DR: MARCELLO De La Garza Tissues: Gallbladder, NOS Procedures: Surgery Specimen Level III HEADER OPERATION: Laparoscopic cholecystectomy with IOC PRE-OP DIAGNOSIS: Abnormal biliary HIDA scan, Gastritis bile acid reflux TISSUE SUBMITTED: Gallbladder MICROSCOPIC DIAGNOSIS Gallbladder, cholecystectomy: Chronic cholecystitis. See comment. OZ:marina 11/05/2023 COMMENT No stones are identified in the container or in the gallbladder. MICROSCOPIC DESCRIPTION Slides are reviewed. GROSS DESCRIPTION Received is one container labeled with the patient's name and designated gallbladder. The specimen consists of a gallbladder measuring 9.0 cm in length and up to 4.0 cm in diameter. The external surface is pink-hoffmann, smooth and glistening for the most part. Focally it is granular, hemorrhagic and contains cautery artifact. The gallbladder contains green-yellow mucoid bile and a small amount of sludge material. No stones are identified in the container or in the gallbladder. The mucosa is bile-stained and without any mass lesions. The gallbladder wall measures 0.1 cm in thickness. Lawn Sprinkler Installer sections from the gallbladder and the cystic duct are submitted in one cassette. / SJ:marina 11/04/2023 TC:3 CPT: 43392
--- NOTE | 2023-11-01 10:36 | EKG12_ITS ---
Test Reason : PRE-OP Blood Pressure : / mmHG Vent. Rate : 061 BPM Atrial Rate : 061 BPM P-R Int : 162 ms QRS Dur : 076 ms QT Int : 410 ms P-R-T Axes : 055 076 071 degrees QTc Int : 412 ms Normal sinus rhythm Normal ECG No previous ECGs available Confirmed by KIRSTIE DELACRUZ, TYRON ([id number]), digital editor ISSA ROUSSEAU ([id number]) on 11/05/2023 11:25:33 AM Referred By: Fady Zamora Confirmed By:TYRON THACKER MD
[2023-11-01 10:54] LABS: Internal QC Validated? YES +Cl - CLEAR BKGD
[2023-11-01 10:55] LABS: Pregnancy, Urine Negative Negative
[2023-11-01] MEDS: Lactated Ringers 1,000 ML 15 ML IV (10:59)
--- NOTE | 2023-11-01 11:55 | HP.PCM_ITS ---
History and Physical Date of Admission: 11/01/23 OFFICE VISIT Date of Service: 10/08/23 MR#: [id number] Acct: [id number] Name: MARICHUY SMITH Rep #: [id number] : 1985 Provider: Dr. 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: No Is patient in pain?: No Allergies Penicillins Allergy (Verified 10/08/23 13:48) Rash Medications lactobacillus combination no.4 3 billion cell capsule (Probiotic) 3,000 mmu c ells PO DAILY 03/19/22 [History Confirmed 10/08/23] lactulose 20 gram/30 mL oral solution 20 g (30 mL) PO DAILY 30 days #900 mL 09/13/23 [Rx Confirmed 10/08/23] ursodiol 300 mg capsule 300 mg PO BID 30 days #60 caps 09/13/23 [Rx Confirmed 10/08/23] PFSH Medical History Abdominal pain Alcohol use Anxiety Back pain Bloating Constipation Easy bruising Former smoker Gastritis, bile acid reflux Mak's thyroiditis History of IBS History of irregular heartbeat Lower abdominal pain Surgical History Hx of tonsillectomy Social History Smoking Status: Former smoker HPI HPI HPI: Patient is a 38-year-old female who presents for evaluation of her gallbladder after abnormal HIDA imaging. They are referred for surgical consultation from Dr. Decker of gastroenterology. Patient states that she has been under work-up for GI symptoms since a 2018 [place] trip. She notes that 2 months after this trip she began with unexplained diarrhea and was ultimately diagnosed with a parasite and treated. She is uncertain whether or not she was tested for eradication, but then in a follow-up gastroenterology evaluation she was treated with a second round of medications that were geared at eliminating any possibility of a parasite. As part of this latter work-up she completed the colonoscopy that was read as unremarkable. She has also completed gastric emptying study, CT imaging,, ultrasound imaging, and most recently an EGD with Dr. Decker where she was found to have some bile reflux gastritis as well as a mild hiatal hernia. Attempting to further investigate her symptoms for a cause she underwent HIDA imaging on 09/10/2023. This was read by nuclear medicine as abnormal due to calculated ejection fraction of less than 5%. Patient describes her symptoms as pain wrapping around her low back or ribs. She notes that it is not necessarily one side or another. It is associated with constipation, bloating, and gas. She denies any association consistently with nausea. She notes that the symptoms occur with ingestion of any food. She does confirm that it is worse with fatty foods, but reports that she has been uncomfortable for so long and at this time begins to become tearful. She denies any weight loss and notes that she may have actually gained some weight recent ly, but states that this is likely due to her ongoing stress. She also believes her newly appreciated fatigue is related to the stress. Mrs. Smith confirms that her pain was reproduced like when it is at its worst during her HIDA imaging and that she has had some benefit with her ursodiol. She shares that although she was prescribed pantoprazole she has gone off this medication because she does not believe she has true reflux. She also shares that she is using lactulose as needed for some constipation with a mixed result. ROS General General: Yes weight change and fatigue; No appetite, colon cancer, breast cancer or weakness HEENT HEENT: No difficulty swallowing, eye injury, eye surgery, swollen glands or hoarseness Endo Endocrine: No thyroid disease, diabetes mellitus, thyroid cancer, Hair loss, heat intolerance or cold intolerance Skin Skin: No rash or changing moles Breast Breast: No left breast lump, right breast lump, nipple discharge, breast pain, abnormal mammogram, abnormal US or breast enlargement Musc Musculoskeletal: No back problems, arthritis, rheumatoid arthritis, gout or joint pain Cardio Cardiovascular: No murmur, pacemaker, heart disease, atrial fibrillation, high blood pressure, heart attack, heart stent, palpitations, shortness of breat with exertion or chest pain Psych Psychiatric: Yes anxiety; No depression or hearing voices Resp Respiratory: No shortness of breath, No sleep apnea, No cough, No COPD, No asthma, No emphysema and No wheezing Gastro Gastrointestinal: Yes abdominal pain, No nausea or vomiting, No diarrhea, Yes constipation, No blood in stool, No acid reflux, Yes hemorrhoids, No ulcers, No gallbladder problem and No black,tarry stools Jeffery Hematologic: No blood thinners, No blood disorders, No bleeding, No anemia and No blood clots Neuro Neurologic: No system reviewed and no additional complaints, except as documented, No as per HPI, No abnormal gait, No abnormal hearing, No abnormal movements, No abnormal speech, No behavioral changes, No burning sensations, No confusion, No convulsions, No disequilibrium, No dizziness, No localized weakness, No frequent falls, No headache(s), No lack of coordination, No loss of vision, No memory loss, Yes numbness, No other visual disturbances, No radicular pain, No restless legs, No sensory deficit, No syncope, Yes tingling, No tremor(s), No weakness and No other Exam Const General: cooperative and anxious Orientation: alert, awake and oriented x3 Resp Effort & Inspection: normal respiratory effort GI Other: Normal habitus, no scars, no visible herniation, soft, nondistended, mildly tender to palpation over the epigastrium as well as the right upper quadrant. Negative Enriquez sign. Assessment and Plan Assessment and Plan (1) Abnormal biliary HIDA scan: Status: Acute Comment: This is a 38-year-old female with approximately 5-year history of abdominal pain and some associated symptoms that have undergone significant work-up but without clear cause. She presents today after HIDA imaging 09/10/2023 was markedly abnormal with an ejection fraction calculated less than 5%. I have tried to share with Mrs. Smith that she should be careful about becoming overly optimistic about cholecystectomy being a singular treatment for her symptoms?especially given their duration and variability, but she does confirm that her symptoms were reproduced in the presence of cholecystokinin during her imaging. I have shared with her that both this fact and her positive response to ursodiol point favorably to a positive postoperative outcome following cholecystectomy. The procedure and its attendant risks were discussed in detail. Patient is accepting of this information and wishes to proceed as described. Plan: Laparoscopic cholecystectomy with intraoperative cholangiography planned with outpatient disposition (2) Gastritis, bile acid reflux: Status: Acute Comment: Patient confirms diagnosis of bile reflux gastritis. Currently only taking ursodiol to manage this diagnosis. I have shared with her that I would recommend more faithful use of a proton pump inhibitor?especially until we can complete her surgery. Additionally, I shared that this condition can be brought on in a postcholecystectomy state and it was difficult to determine what cholecystectomy may mean for her symptoms. She was receptive of this information and, as above, wishes to proceed with scheduling surgery I have examined the patient the following changes are noted: Patient presented to preop earlier this morning and I am told her had a unresponsive event followed by convulsions representing his first seizure activity ever. He is promptly taken to the emergency department for further evaluation. Mrs. Smith shares that her was reportedly feeling unwell yesterday and had some vomiting, but was feeling better this morning. She also notes some sicknesses and her children. However, she herself denies feeling poorly and wishes to be underway with surgery. Upon reexamining her, I do identify a petechial rash across her lower chest, her upper back, her bilateral hips, and down the tibial part of both legs. She denies any irritation from this rash and relates that she experiences rashes rather frequently that seem to go [id number] with stress. She remains more convinced that this is the cause than viral etiology. It is reported by preop nursing that patient has only had administration of lactated Ringer's so it is felt unlikely that this represents a drug reaction. Still, to exclude atopy I have requested anesthesia administer some Benadryl. If the rash improves or remains the same and patient is willing to proceed we will proceed to the operating room, however, otherwise we will look to reschedule. Update: Patient's rash remains stable and distribution and she strongly wishes to proceed with surgery. She repeatedly declares that she is feeling fine and asymptomatic. I have discussed with patient possible further case to try to proceed when she is perhaps feeling better. She shares that she believes the rash is simply due to a stress response and she states that her stress will only be worsened as she is denied surgery today. Without any further demonstrable, clinical contraindications I have agreed to proceed as originally planned.
[2023-11-01] MEDS: Clindamycin 900 MG/50 ML BAG 75 MG IV (12:24)
--- NOTE | 2023-11-01 12:45 | RAD_ITS ---
INDICATION: LAP MARCOS WITH IOC EXAMINATION/TECHNIQUE: Intraoperative cholangiogram. Total Fluoroscopic Time: 23.5 seconds AND CINE Fluoroscopic Images were obtained COMPARISON: Abdominal ultrasound of 09/07/2023. FINDINGS: The common bile duct was cannulated and injected with contrast. Normal caliber common bile duct. No definite constant filling defect is seen. There is no biliary ductal dilatation. There is free passage into the duodenum. RAD/Cholangiogram/ O R,Initial IMPRESSION: No evidence of biliary dilatation or constant filling defect/retained stones. Electronically Signed: Jose Jimenez MD at 14:51 EST ,
[2023-11-01] MEDS: Bupivacaine Mpf 0.5% 30 ML VIAL (13:40)
--- NOTE | 2023-11-01 13:40 | OP.PCM_ITS ---
Report of Operation Date of Procedure: 11/01/23 Pre-Operative Diagnosis: Chronic abdominal pain with abnormal HIDA imaging show ing depressed ejection fraction Post-Operative Diagnosis: Same Surgery/Procedure Performed:: Laparoscopic cholecystectomy with intraoperative cholangiogram Description of Surgical Findings:: ? Gallbladder with minimal inflammatory change and single cystic duct/double cystic artery ? Cholangiogram showing slightly long cystic duct terminating into a nondilated common bile duct and free fluid drainage into the duodenum. Retrograde flow is seen into the common hepatic and proper hepatic ducts Surgeon: Fady Zamora supervisor dog license officer: Joao Simpson Type of Anesthesia: General/Supplemental Anesthesiologist: Herve Cheema Specimen's removed: Gallbladder Drains: None Estimated Blood Loss (mL): 20 Description of Procedure: After proper identification in the preoperative holding area the patient was brought to the operating room where she was positioned supine on the operating room table. Preoperatively SCDs were placed and antibiotics were administered with clindamycin given patient's reported penicillin allergy. General anesthesia was then induced and patient was intubated. It was noted that her rash across her upper abdomen/lower chest had cleared, but she had new findings proximal to her IV site. Patient's abdomen was prepped and draped in usual sterile fashion. A formal timeout was conducted to confirm both patient and the procedure. Procedure was begun with a supraumbilical incision which was extended deeply down to the level of the fascia. The fascia was elevated and incised, as well as the peritoneum. A finger sweep was performed to ensure there were no underlying adhesions and a 12 mm balloon trocar was inserted. Pneumoperitoneum was established at 15 mmHg. 3 additional trocars were placed in the epigastrium (5 mm) and in the right upper quadrant (2 x 5 mm). Inspection of the peritoneum revealed no inadvertent injury to the viscera below. The gallbladder was visualized with minimal inflammation. The gallbladder fundus was then grasped and elevated cephalad. Then, using careful dissection the peritoneum was opened and the structures of the hepatocystic triangle were delineated. Once the critical view of safety was obtained, the cystic duct was singly clipped and partially divided with a ductotomy. The proximal duct was milked of any debris until there was droplets of bile at the ductotomy. A cholangiocatheter was fed into the proximal segment of the cystic duct and clipped into place. Using an Peng Gely clamp, a cholangiocatheter was fed into the proximal segment of the cystic duct and clamped into place. Under fluoroscopy a cholangiogram was then obtained showing a slightly elongated, but nondilated cystic duct flowing into a nondilated common bile duct with unobstructed antegrade flow of contrast into the duodenum. There was also retrograde flow through the common hepatic duct into the right and left hepatic ducts. Satisfied with this result, the cholangiocatheter was withdrawn and the proximal cystic duct was sealed with clips and the cystic duct was completely transected. The same process was used for the cystic artery. There are numerous soft tissue attachments between the cystic plate and the gallbladder and 1 of these appeared to represent a secondary posterior cystic artery as it terminated in the gallbladder which was likewise clipped and divided. The gallbladder was then removed from the gallbladder fossa with the use of electrocautery. Selective electrocautery was used to obtain hemostasis in the gallbladder fossa. The gallbladder was placed in an Endo Catch bag and removed from the peritoneum. Morison's pouch was irrigated and the effluent was suctioned free of the peritoneum. Hemostasis was again confirmed. Pneumoperitoneum was evacuated and the fascia of the 12 mm port supraumbilical site was closed with #1Vicryl in a [id number] fashion. A total of 30 mL of anesthetic was i njected at the port sites for postoperative pain control. The skin of each port site was then closed in subcuticular fashion using 4-0 Monocryl. Steri-Strips and bandages were applied as dressings. Patient tolerated the procedure well without any apparent complications. On emergence from their anesthetic the patient was taken to PACU for ongoing recovery. Complications None Procedures Digestive [id number]: [id number] Laparo cholecystectomy/graph
--- NOTE | 2023-11-01 13:47 | DCINST_ITS ---
Discharge Instructions Diet Discharge Diet: No restrictions Activity Discharge Activity: May Not Drive (No driving while using narcotic pain medication) and May Shower (Postoperative day 1) May shower in (days): 2 Ice area for (Minutes): 20 Lifting Restrictions: No lifting greater than 15 pounds for 2 weeks after surgery Dressing / Incision Call your doctor if your incision/area has: Continuous Slow Oozing, Increased Pain/ Swelling, Increased Redness, Foul Smelling Discharge and Swelling at the incision site Call your doctor if you observe: Fever of 101 or Higher Remove Dressing in: 2 days (Please leave Steri-Strips intact until they fall off spontaneously or are taken off at your follow-up visit) Cleanse incision/area with: Soap & Water Follow Up Care Please Follow Up With: Fady Zamora MD When: 10-14 days postop Test Results: Test results from this visit will be discussed in further detail at your follow- up appointment, if applicable. Discharge Plan Admission Primary Reason for Your Visit: Cholecystectomy Attending Provider: Fady Zamora Primary Care Provider: Lisa Hadley Discharge Orders/Prescriptions Prescriptions: New oxycodone 5 mg tablet 5 mg PO Q6H PRN (Reason: pain) 3 Days Qty: 10 0RF Continued lactulose 20 gram/30 mL solution 20 g PO DAILY 30 Days Qty: 900 3RF Discontinued ursodiol 300 mg capsule 300 mg PO BID 30 Days Qty: 60 3RF Referrals / Follow Up: Fady Zamora MD [Med Staff - Active Staff] - Lisa Hadley PA [Primary Care Provider] - Disposition Disposition (needs filled in before D/C Order can be placed): Home, Self Care
[2023-11-01] MEDS: oxyCODONE 5 MG Tablet PO (15:10)
== END 2023-11-01 16:00 | disposition home or self-care (01) ==
LOC: SDC 10:13 → AC 10:15
PROVIDERS: Anesthesiology; PCP Physician Assistant; Referring Provider Surgery; Visit Provider Surgery
PROC: (CPT 47610; principal; 2023-11-01 11:40)
DX: K81.1 Chronic cholecystitis (principal); Z87.891 Personal history of nicotine dependence; G89.29 Other chronic pain; K29.60 Other gastritis without bleeding; Z87.19 Personal history of other diseases of the digestive system
CPT/HCPCS: 47563; 00790; 74300; 76000; 81025; 88304; 93005; J7120; J2405

== ENCOUNTER → 2024-11-21 | Outpatient (CLI) | payer OTHER, SELFPAY ==
--- NOTE | 2024-11-21 08:18 | US_ITS ---
STUDY: THYROID ULTRASOUND REASON FOR EXAM: Female, 39 years old. MARLON''S DISEASE TECHNIQUE: Ultrasound evaluation of the thyroid was performed with real-time and static cole-scale imaging. COMPARISON: None. FINDINGS: RIGHT LOBE: The right lobe of the thyroid gland is enlarged and measures 5.6 cm x 1.8 cm x 1.3 cm. There is a heterogeneous echotexture. There are no demonstrated solid, cystic or complex lesions. LEFT LOBE: The left lobe of the thyroid gland is enlarged and measures 5.2 cm x 1.9 cm x 1.3 cm. There is a heterogeneous echotexture. There are no demonstrated solid, cystic or complex lesions. ISTHMUS: The isthmus measures 2 mm. The regional lymph nodes are normal. US/Thyroid IMPRESSION: There is evidence of heterogeneous enlargement of both lobes of the thyroid gland. Electronically Signed: Ramy Allen MD at 11:09 EST ,
[2024-11-21 09:11] LABS: Free T3 1.5 pg/mL (2.18-3.98); T4 Free Direct 0.74 ng/dL (0.76-1.46)
== END | disposition home or self-care (01) ==
PROVIDERS: PCP Physician Assistant
DX: E06.3 Autoimmune thyroiditis (principal)
CPT/HCPCS: 36415; 76536; 84439; 84443; 84481

== ENCOUNTER → 2025-03-26 | Outpatient (CLI) | payer OTHER, SELFPAY ==
[2025-03-26 08:37] LABS: Free T3 1.9 pg/mL (2.18-3.98)
== END | disposition home or self-care (01) ==
PROVIDERS: PCP Physician Assistant
DX: E06.3 Autoimmune thyroiditis (principal)
CPT/HCPCS: 84439; 84443; 84481

== ENCOUNTER → 2025-07-31 | Outpatient (CLI) | payer OTHER, SELFPAY ==
--- OUTSIDE RECORDS SUMMARY | 2025-07-31 07:31 | XMS RPT_ITS | CCD ---
Author Organization [facility] Care Team Providers Care Bass Viol Repairer Name Role Phone MARCELLO Armendariz Primary Care Provider MARCELLO Armendariz Referring Provider Carrington HEATH, DIRECTOR OF RETAIL MARKETING-C Kinza Sherwood Attending Provider Dr. Shae Portillo Attending Provider MARCELLO Armendariz Primary Care Provider MARCELLO Armendariz Referring Provider Carrington HEATH, DIRECTOR OF RETAIL MARKETING-C Kinza Sherwood Attending Provider Dr. Nuzhat Solis Attending Provider MARCELLO Armendariz Primary Care Provider Dr. Nuzhat Solis Attending Provider Unavailable Primary Care Provider Unavailabl e MARCELLO Armendariz Primary Care Provider MARCELLO Armendariz Referring Provider Dr. Shae Portillo Attending Provider LISA HADLEY Consulting Unavailable PATRICIA PHILLIPS Attending Unavailable PATRICIA PHILLIPS Primary Care Unavailable PATRICIA PHILLIPS Admitting Unavailable PROVIDER, UNKNOWN Consulting Unavailable SHAE PORTILLO Attending Unavailable SHAE PORTILLO Primary Care Unavailable SHAE PORTILLO Admitting Unavailable LISA HADLEY Consulting Unavailable PROVIDER, UNKNOWN Consulting Unavailable Jomar FLOYD, Lisa J Unavailable Shara Hadley PA-Cissa J Unavailable Gastroenterology Provider Unavailable Maria Guadalupe navarro Neurology Provider Unavailable Unavailable Brianne, Dr. Mcelroy Unavailable Endocrinology Provider Unavailable Unavailab amor Pickens RADIOLOGIC TECHNOLOGIST, Klyah Unavailable Dean FLOYD, Kinza Park Unavailable Whitney ROMANO, Lesley Unavailable Unavailable Krzysztof RN, Marisol Hernandez Unavailable Unavaila kb Mayes MA, Emily Unavailable Unavailable Hoda FINISH PAINTER, Esther Unavailable Unavailable Darien RADIOLOGIC TECHNOLOGIST, Az M Unavailable Unavailab amor Padilla MA, Temitope Unavailable Unavailable Wengerd RADIOLOGIC TECHNOLOGIST, Taylor Unavailable Unavailabl e Unavailable Unavailable Kelsey ELIZALDEN, Nanette Unavailable Unavailabl e Unavailable Primary Care Provider Unavailabl e MARCELLO Armendariz Primary Care Provider MARCELLO Armendariz Referring Provider Dr. Shae Portillo Attending Provider Dr. Fady Zamora Attending Provider Dr. Shae Portillo Referring Provider Dr. Fady Zamora Referring Provider [phone] Dr. Fady Zamora Other Provider Lita Schofield Unavailable Unavailable Lisa Armendariz Primary Care Provider JEREMI PHILLIPS Attending Provider JEREMI PHILLIPS Referring Provider GOODMAN DELACRUZ~[id number] PATRICIA Admitting Unavailable GOODMAN DELACRUZ~[id number] PATRICIA Attending Unavailable LISA HADLEY Primary Care Unavailable PATRICIA PHILLIPS MD Consulting Unavailable PATRICIA PHILLIPS MD Consulting Unavailable GOODMAN DELACRUZ~[id number] PATRICIA Admitting Unavailable GOODMAN DELACRUZ~[id number] PATRICIA Attending Unavailable PATRICIA PHILLIPS MD Consulting Unavailable LISA HADLEY Primary Care Unavailable PATRICIA PHILLIPS MD Consulting Unavailable Trung KINSEY, Temitope Unavailable Unavailable SABINO FARIA Attending Unavailable GALE COPELAND Attending Unavailable GALE COPELAND Attending Unavailable SABINO FARIA Attending Unavailable POOJA SEALS Referring Unavailable POOJA SEALS Attending Unavailable Lisa Armendariz Primary Care Unavailable PATRICK HAWKINS Attending Unavailable PATRICK HAWKINS Referring Unavailable Lisa Armendariz Primary Care Unavailable PATRICK HAWKINS Attending Unavailable Lisa Armendariz Primary Care Unavailable PATRICK HAWKINS Attending Unavailable PATRICK HAWKINS Referring Unavailable Allergies Allergy Classification Reported Allergen(s) Allergy Type Date of Onset Reaction(s) Facility (20 sources) Penicillins; Translations: [PENICILLINS] Allergy to substance 01-06-2013 Rash [facility] Work Phone: (1 source) Penicillin Drug Allergy [facility] Repository (20 sources) Penicillin V Drug Allergy [facility] Medications Current Medications Medication Drug Class(es) Dates Sig (Normalized) Sig (Original) Advanced Trs (11 sources) Start: 03-19-2022 take 1 spray(s) by mouth once daily Advanced Trs Active 1 SPRAY SL/PO DAILY March 19, 2022 12:46pm Start: 03-19-2022 End: 10-08-2023 Advanced Trs Discontinued 1 NMA SL/PO DAILY March 19, 2022 12:00am October 08, 2023 2:48pm Start: 03-19-2022 End: 10-08-2023 take 1 spray(s) by mouth once daily Advanced Trs Discontinued 1 SPRAY SL/PO DAILY March 18, 2022 11:00pm October 08, 2023 1:48pm Start: 03-19-2022 take 1 spray(s) by m outh once daily Advanced Trs Active 1 SPRAY SL/PO DAILY March 18, 2022 11:00pm Start: 03-19-2022 take 1 spray(s) by m outh once daily Advanced Trs Active 1 SPRAY SL/PO DAILY March 19, 2022 12:00am busPIRone hydrochloride 5 mg oral tablet (20 sources) Start: 02-26-2025 End: 06-17-2025 busPIRone 5 mg tablet ; 1 (one) tablet BID for 0 days Quantity: 60 {Tablet} Refills: 1 Ordered: 26-Feb-2025 MARIEL Hadley Start: 26-Feb-2025 digestive enzymes combo no.7 (SUPERIOR DIGESTIVE ENZYME) cap (18 sources) digestive enzyme s combo no.7 (SUPERIOR DIGESTIVE ENZYME) cap Take by mouth. Active iodine 0.15 mg oral tablet (18 sources) take 1 tablet by mouth once daily iodine (KELP, IODINE,) 150 mcg tab Take 150 tablets by mouth once daily. Active Lactobacillus Combination No.4 (Probiotic) 3 billion cell Capsule (9 sources) Start: 03-19-2022 take 3 capsules by mouth once daily Lactobacillus Combination No.4 (Probiotic) 3 billion cell Capsule Active 3000 MMU CELLS PO DAILY March 19, 2022 12:46pm Start: 03-19-2022 take 3 capsules by m outh once daily Lactobacillus Combination No.4 (Probiotic) 3 billion cell Capsule Active 3000 MMU CELLS PO DAILY March 18, 2022 11:00pm Start: 03-19-2022 take 3 capsules by m outh once daily Lactobacillus Combination No.4 (Probiotic) 3 billion cell Capsule Active 3000 MMU CELLS PO DAILY March 19, 2022 12:00am lactulose 667 mg/ml oral solution (4 sources) Osmotic Laxative Start: 09-13-2023 take 20 g by mouth once daily Lactulose 20 gram/30 mL solution Active 20 g PO DAILY September 13, 2023 12:00am Magnesium (20 sources) Magnesium 200 mg tab Take by mouth. Active take 1 tablet by mouth once rebecca y Magnesium 200 MG Oral Tablet ; 1 daily (200 MG) Magnesium 200 mg tab Take by mouth. 0 Active Comment on above: Take by mouth. magnesium glycinate 100 mg oral tablet (18 sources) Magnesium Glycin ate 100 mg tab Take by mouth. Active melatonin 10 mg oral capsule (18 sources) melatonin 10 mg cap Take by mouth. Active nystatin [id number] unt/ml oral suspension (8 sources) Polyene Antifungal Start: 5 take 1 mL by mouth every six hours nystatin (MYCOSTATIN) 100,000 units/mL oral liquid Take 1 mL by mouth every 6 hours. 200 mL 2 06/16/2025 Active oxyCODONE hydrochloride 5 mg oral tablet (2 sources) Opioid Agonist Start: 3 take 1 tablet by mouth every six hours as needed for pain Oxycodone 5 mg tablet Active 5 mg PO EVERY 6 HOURS as needed for pain 10 3 November 01, 2023 Super B Maxi Complex 0.4 mg tablet (11 sources) Super B Maxi Com plex 0.4 mg tablet ; daily (0.4 mg) Tenapanor (Ibsrela) 50 mg tablet (2 sources) Start: take 1 tablet by mouth once daily at dinner Tenapanor (Ibsrela) 50 mg tablet Active 50 mg PO TWICE A DAY 60 May 05, 2024 10:49am must administer immediately before first meal of day/breakfast and dinner Start: 01-22-2024 End: 05-05-2024 take 1 tablet by mouth once daily at dinner Tenapanor (Ibsrela) 50 mg tablet Discontinued 50 mg PO TWICE A DAY 60 January 22, 2024 1:00am May 05, 2024 10:50am must administer immediately before first meal of day/breakfast and dinner vitamin b12 1 mg/ml injectable solution (20 sources) Vitamin B12 Start: 05-19-2025 cyanocobalamin , vitamin B-12, 1,000 mcg/mL kit Indications: B12 deficiency 1 dose by INJECTION(UNSPECIFIED PARENTERAL ROUTES) route one time a week. B12 injection weekly for 1 month= total of 4 injections in 1 month 1 kit 05/19/2025 Active Start: 05-14-2025 cyanocobalamin , vitamin B-12, 1,000 mcg/mL kit Indications: B12 deficiency 1 dose by INJECTION(UNSPECIFIED PARENTERAL ROUTES) route one time a week. 1 kit 05/14/2025 Active Start: 05-13-2025 End: 04-21-2026 cyanocobalamin 1,000 mcg inj ection Completed/Discontinued Medications Medication Drug Class(es) Dates Sig (Normalized) Sig (Original) amphetamine aspartate 1.25 mg / amphetamine sulfate 1.25 mg / dextroamphetamine saccharate 1.25 mg / dextroamphetamine sulfate 1.25 mg oral tablet (20 sources) Central Nervous System Stimulant Start: 05-04-2025 End: 06-03-2025 AdderalL 5 mg tablet ; 1 (one) tablet BID for 30 days Quantity: 60 {Tablet} Refills: 0 Ordered: 04-May-2025 Start: 04-May-2025 End: 03-Jun-2025 Status: Inactive Start: 02-24-2025 End: 03-26-2025 AdderalL 5 mg tablet ; 1 (on e) tablet BID for 30 days Quantity: 60 {Tablet} Refills: 0 Ordered: 24-Feb-2025 MARIEL Hadley Start: 24-Feb-2025 End: 26-Mar-2025 Status: Inactive Start: 12-21-2024 End: 01-20-2025 AdderalL 5 mg tablet ; 1 (on e) tablet BID for 30 days Quantity: 60 {Tablet} Refills: 0 Ordered: 21-Dec-2024 MARIEL Hadley Start: 21-Dec-2024 End: 20-Jan-2025 Status: Inactive Start: 11-23-2024 AdderalL 5 mg tablet ; 1 (one) tablet BID for 30 days Quantity: 60 {Tablet} Refills: 0 Ordered: 23-Nov-2024 AMELIE Ledezma Start: 23-Nov-2024 Start: 11-16-2024 End: 11-21-2024 AdderalL 5 mg tablet ; 1 (on e) tablet BID for 5 days Quantity: 10 {Tablet} Refills: 0 Ordered: 16-Nov-2024 MARIEL Hadley Start: 16-Nov-2024 End: 21-Nov-2024 Status: Inactive End: 06-17-2025 take 1 tablet by mouth once daily dextroamphetamine-amphetamine (ADDERALL) 5 mg tablet Take 5 mg by mouth once daily. 0 06/17/2025 Discontinued (Course of therapy completed) azithromycin 250 mg oral tablet (20 sources) Macrolide Antimicrobial Start: 09-15-2020 End: 12-28-2020 Zithromax Z-Abel 250 MG Oral Tablet ; 2 (two) Tabs day one, then one daily for 4 days for 0 days Quantity: 1 {Package} Refills: 0 Ordered: 28-Dec-2020 MARIEL Hadley Start: 15-Sep-2020 End: 28-Dec-2020 Status: Inactive calcium carbonate 800 mg / famotidine 10 mg / magnesium hydroxide 165 mg chewable tablet (20 sources) Histamine-2 Receptor Antagonist take 1 tablet by mouth twice daily Pepcid Complete 10-800-165 MG Oral Tablet Chewable ; 1 bid (10-800-165 MG) Status: Inactive cefdinir 300 mg oral capsule (20 sources) Cephalosporin Antibacterial Start: 06-14-2022 End: 06-24-2022 take 1 capsule by mouth twice daily Cefdinir 300 MG Oral Capsule ; 1 (one) Capsule BID for 10 days Quantity: 20 {Capsule} Refills: 0 Ordered: 14-Jun-2022 MARIEL Hadley Start: 14-Jun-2022 End: 24-Jun-2022 Status: Inactive cephalexin 500 mg oral tablet (20 sources) Cephalosporin Antibacterial Start: 05-01-2018 End: 05-01-2018 take 1 tablet by mouth three times daily Cephalexin 500 MG Oral Tablet ; 1 (one) Tablet TID for 7 days Quantity: 21 {Tablet} Refills: 0 Ordered: 01-May-2018 MARIEL Hadley Start: 01-May-2018 End: 01-May-2018 Status: Inactive doxycycline hyclate 100 mg oral tablet (20 sources) Tetracycline-class Drug Start: 06-08-2022 End: 06-14-2022 take 1 tablet by mouth twice daily Doxycycline Hyclate 100 MG Oral Tablet ; 1 (one) Tablet two times daily for 10 days Quantity: 20 {Tablet} Refills: 0 Ordered: 14-Jun-2022 MARIEL Hadley Start: 08-Jun-2022 End: 14-Jun-2022 Status: Inactive DULoxetine 20 mg delayed release oral capsule (11 sources) Serotonin and Norepinephrine Reuptake Inhibitor Start: 10-27-2021 End: 01-19-2022 take 1 capsule by mouth once daily Duloxetine 20 mg capsule,delayed release(DR/EC) Discontinued 20 mg PO DAILY October 27, 2021 1:00am January 19, 2022 11:08am escitalopram 10 mg oral tablet (20 sources) Serotonin Reuptake Inhibitor Start: 07-09-2023 End: 02-05-2024 Lexapro 10 mg tablet ; 1 (one) Tablet daily for 0 days Quantity: 30 {Tablet} Refills: 5 Ordered: 05-Feb-2024 AMELIE Ledezma Start: 09-Jul-2023 End: 05-Feb-2024 Status: Inactive FLUoxetine 20 mg oral tablet (20 sources) Serotonin Reuptake Inhibitor Start: 10-22-2024 End: 12-03-2024 FLUoxetine 20 mg tablet ; 1 (one) tablet daily for 0 days Quantity: 30 {Tablet} Refills: 5 Ordered: 03-Dec-2024 MARIEL Hadley Start: 22-Oct-2024 End: 03-Dec-2024 Status: Inactive Comments: Dose increase 10/22/24 Start: 09-21-2024 End: 05-13-2025 FLUoxetine 10 mg tablet 110 02/202405/13/2025 Discontinued (Course of therapy completed) Comment on above: Dose increase Lactobac no.41/Bifidobact no.7 (PROBIOTIC-10 ORAL) (1 source) End: 02-28-2023 Lactobac no.41/Bifidobact no.7 (PROBIOTIC-10 ORAL) Take by mouth. 0 02/28/2023 Discontinued Comment on above: Take by mouth. Lactobacillus acidophilus (3 sources) Start: 03-19-2022 End: 05-13-2025 Lactobacillus acidophilus (PROBIOTIC ORAL) Take by mouth. 03/19/2022 05/13/2025 Discontinued (Course of therapy completed) Start: 03-19-2022 Lactobacillus acidophilus (PROBIOTIC ORAL) Take by mouth. 03/19/2022 Active metroNIDAZOLE (20 sources) Nitroimidazole Antimicrobial MetroNIDAZOLE ; 1 tid Status: Inactive naproxen 250 mg oral tablet (11 sources) Nonsteroidal Anti-inflammatory Drug Start: 04-07-20 End: 12-01-19 take 2 tablets by mouth every eight hours as needed for pain Naproxen 250 MG tablet Discontinued 500 mg PO EVERY 8 HOURS NEEDED as needed for MILD PAIN (-01/25) April 07, 2019 12:00am December 01, 2021 10:48am Start: 04-07-2019 End: 12-01-2021 take 500 mg by mouth every eight hours as needed Naproxen Discontinued 500 MG PO EVERY 8 HOURS NEEDED April 06, 2019 11:00pm December 01, 2021 9:48am omeprazole 40 mg delayed release oral capsule (20 sources) Proton Pump Inhibitor Start: 01-19-2021 End: 08-14-2021 Omeprazole 40 MG Oral Capsule Delayed Release ; 1 (one) Capsule 30 minutes before first meal of day for 0 days Quantity: 30 {Capsule} Refills: 1 Ordered: 14-Aug-2021 MARIEL Hadley Start: 19-Jan-2021 End: 14-Aug-2021 Status: Inactive pantoprazole 40 mg delayed release oral tablet (20 sources) Proton Pump Inhibitor Start: 05-31-2022 End: 10-08-2023 take 1 tablet by mouth once daily in the morning Pantoprazole (Protonix) 40 mg tablet,delayed release (DR/EC) Discontinued 40 mg PO EVERY MORNING May 31, 2022 10:33am October 08, 2023 2:48pm Start: 03-27-2022 End: 05-31-2022 Pantoprazole (Protonix) 40 m g tablet,delayed release (DR/EC) Discontinued 40 mg PO TWICE A DAY March 27, 2022 12:00am May 31, 2022 10:34am take two times a day for eight weeks then daily Comment on above: Dr. Portillo predniSONE 20 mg oral tablet (20 sources) Start: 05-01-2018 End: 05-15-2018 take 3 tablets by mouth once daily, then take 2 tablets by mouth once daily, then take 1 tablet by mouth once daily, then take 0.5 tablet by mouth once daily PredniSONE 20 MG Oral Tablet ; 1 (one) Tablet as directed for 0 days Quantity: 20 {Tablet} Refills: 0 Ordered: 15-May-2018 AMELIE Gonzalez Start: 01-May-2018 End: 15-May-2018 Status: Inactive Comments: Take 3tabs qd for 3 days thenTake 2tabs qd for 3 days thenTake 1tab qd for 3 days thenTake 1/2tab qd for 4 days. Comment on above: Take 3tabs qd for 3 days thenTake 2tabs qd for 3 days thenTake 1tab qd for 3 days thenTake 1/2tab qd for 4 days. Vit,[id number] c (Prenatabs Fa) 1 TABLET tablet (11 sources) Start: 04-04-2019 End: 12-01-2021 take 1 tablet by mouth once daily Vit,[id number]-Lvtsl (Prenatabs Fa) 1 TABLET tablet Discontinued 1 TABLET PO DAILY April 04, 2019 12:29pm December 01, 2021 10:48am Start: 04-04-2019 End: 12-01-2021 take 1 tablet by mouth once daily Vit,[id number]-Eypfm (Prenatab s Fa) 1 TABLET tablet Discontinued 1 {tbl} PO DAILY April 04, 2019 12:00am December 01, 2021 10:48am Start: 04-04-2019 End: 12-01-2021 take 1 tablet by mouth once daily Vit,[id number]-Boblm (Prenatab s Fa) 1 TABLET tablet Discontinued 1 TABLET PO DAILY April 03, 2019 11:00pm December 01, 2021 9:48am Start: 04-04-2019 End: 12-01-2021 take 1 tablet by mouth once daily Vit,[id number]-Tejv-Uoyag (Prenatab s Fa) 1 TABLET tablet Discontinued 1 TABLET PO DAILY April 04, 2019 12:00am December 01, 2021 10:48am [id number] 27 mg iron- 1 mg-400 mg cap (1 source) Start: 07-31-2018 End: 02-28-2023 take 1 capsule by mouth once daily [id number] 27 mg iron- 1 mg-400 mg cap Take 1 capsule by mouth once daily. 30 capsule 11 07/31/2018 02/28/2023 Discontinued Comment on above: Take 1 capsule by [facility] once daily. raNITIdine 150 mg oral tablet (20 sources) Histamine-2 Receptor Antagonist Start: 05-15-2018 End: 2018 take 1 tablet by mouth twice daily RaNITidine HCl 150 MG Oral Tablet ; 1 (one) Tablet BID for 5 days Quantity: 10 {Tablet} Refills: 0 Ordered: 15-May-2018 MARIEL Hadley Start: 15-May-2018 End: 20-May-2018 Status: Inactive sertraline 50 mg oral tablet (16 sources) Serotonin Reuptake Inhibitor Start: 12-03-2024 End: 02-26-2025 sertraline 50 mg tablet ; 1 (one) tablet daily for 0 days Quantity: 30 {Tablet} Refills: 5 Ordered: 26-Feb-2025 MARIEL Hadley Start: 03-Dec-2024 End: 26-Feb-2025 Status: Inactive Comments: Pt is doing direct switch from fluoxetine to zoloft Comment on above: Pt is doing direct s witch from fluoxetine to zoloft sucralfate 1000 mg oral tablet (20 sources) Aluminum Complex Start: 03-28-2022 End: 05-31-2022 take 1 tablet by mouth before mealtime Sucralfate 1 gram tablet Discontinued 1 g PO before meals March 28, 2022 12:00am May 31, 2022 10:34am Start: 03-27-2022 End: 03-28-2022 Sucralfate 100 mg/mL suspens ion Discontinued 10 mL PO before meals 999March 27, 2022 12:00am March 28, 2022 1:45pm take one hour before meals and two hours away from other medication three times a day for thirty days. Start: 03-27-2022 End: 03-28-2022 Sucralfate Discontinued 10 M L PO before meals 999March 26, 2022 11:00pm March 28, 2022 12:45pm take one hour before meals and two hours away from other medication three times a day for thirty days. sulfamethoxazole 800 mg / trimethoprim 160 mg oral tablet (20 sources) Dihydrofolate Reductase Inhibitor Antibacterial, Sulfonamide Antimicrobial Start: 05-01-2018 End: 05-08-2018 take 1 tablet by mouth twice daily Bactrim DS 800-160 MG Oral Tablet ; 1 (one) Tablet BID for 7 days Quantity: 14 {Tablet} Refills: 0 Ordered: 01-May-2018 MARIEL Hadley Start: 01-May-2018 End: 08-May-2018 Status: Inactive triamcinolone acetonide 1 mg/ml topical cream (20 sources) Corticosteroid Start: 04-28-2018 End: 05-15-2018 Triamcinolone Acetonide 0.1 % External Cream ; 1 (one) Application to affected areas QID for 0 days Quantity: 60 {Gram} Refills: 0 Ordered: 15-May-2018 AMELIE Gonzalez Start: 28-Apr-2018 End: 15-May-2018 Status: Inactive ursodiol 300 mg oral capsule (4 sources) Bile Acid Start: 09-13-2023 End: 11-01-2023 take 1 capsule by mouth twice daily Ursodiol 300 mg capsule Discontinued 300 mg PO TWICE A DAY 60 September 13, 2023 12:00am November 01, 2023 2:48pm Problems Active Problems Problem Classification Problem Date Documented Date Episodic/Chronic Abdominal hernia (20 sources) Hiatal hernia; Translations: [Diaphragmatic hernia without obstruction or gangrene] 05-15-2018 Episodic Abdominal pain (20 sources) Abdominal pain; Translations: [Unspecified abdominal pain] 06-14-2022 Episodic Administrative/socia l admission (6 sources) Patient encounter status; Translations: [Persons encountering health services in other specified circumstances] 05-17-2025 Episodic Allergic reactions (20 sources) Inflammatory dermatosis; Translations: [Dermatitis, unspecified] 05-01-2018 Episodic Anxiety disorders (20 sources) Anxiety; Translations: [Anxiety disorder, unspecified] Chronic Attention-deficit, conduct, and disruptive behavior disorders (20 sources) Attention deficit hyperactivity disorder; Translations: [Attention-deficit hyperactivity disorder, unspecified type] 11-16-2024 Chronic Conditions associated with dizziness or vertigo (20 sources) Lightheadedness; Translations: [Dizziness and giddiness] 05-16-2022 Episodic Gastritis and duodenitis (20 sources) Bile-induced gastritis; Translations: [Other gastritis without bleeding] Episodic Immunizations and screening for infectious disease (20 sources) Autoantibody titer positive; Translations: [Other specified abnormal immunological findings in serum] 11-08-2023 Episodic Malaise and fatigue (20 sources) Chronic fatigue syndrome; Translations: [Chronic fatigue syndrome] 11-08-2023 Chronic Malaise and fatigue (20 sources) Fatigue; Translations: [Other fatigue] 06-14-2022 Episodic Mood disorders (20 sources) Depressive disorder; Translations: [Depressive disorder, not elsewhere classified] 11-08-2023 Chronic Mycoses (1 source) Candidiasis; Translations: [Candidiasis, unspecified] 06-16-2025 Episodic Nutritional deficiencies (4 sources) Cobalamin deficiency; Translations: [Deficiency of other specified B group vitamins] Onset: 025 05-13-2025 Episodic Other gastrointestinal disorders (11 sources) Irritable bowel syndrome; Translations: [Irritable bowel syndrome without diarrhea] 12-01-2021 Chronic Other gastrointestinal disorders (15 sources) Irritable bowel syndrome without diarrhea; Translations: [Irritable bowel syndrome] Chronic Other gastrointestinal disorders (4 sources) Irritable bowel syndrome characterized by constipation; Translations: [Irritable bowel syndrome with constipation] 05-13-2025 Chronic Other gastrointestinal disorders (20 sources) Diarrhea; Translations: [Diarrhea, unspecified] 08-28-2023 Episodic Other gastrointestinal disorders (20 sources) Finding of abdomen; Translations: [Other specified symptoms and signs involving the digestive system and abdomen] 06-14-2022 Episodic Other gastrointestinal disorders (20 sources) Constipation; Translations: [Constipation, unspecified] 09-07-2018 Episodic Other gastrointestinal disorders (1 source) Small bowel bacterial overgrowth syndrome; Translations: [Small intestinal bacterial overgrowth] 06-16-2025 Episodic Other gastrointestinal disorders (1 source) Slow transit constipation; Translations: [Slow transit constipation] 06-16-2025 Episodic Other gastrointestinal disorders (2 sources) Abdominal bloating; Translations: [Abdominal distension (gaseous)] 06-16-2025 Episodic Other nervous system disorders (20 sources) Paresthesia of hand ; Translations: [Anesthesia of skin] 06-14-2022 Episodic Other screening for suspected conditions (not mental disorders or infectious disease) (20 sources) Imaging of biliary tract abnormal; Translations: [Abnormal results of function studies of other organs and systems] 09-13-2023 Episodic Comment on above: This is a 38-year-ol d female with approximately 5-year history of abdominal pain and some associated symptoms that have undergone significant work-up but without clear cause. She presents today after HIDA imaging 09/10/2023 was markedly abnormal with an ejection fraction calculated less than 5%. I have tried to share with Mrs. Ledezma that she should be careful about becoming overly optimistic about cholecystectomy being a singular treatment for her symptoms especially given their duration and variability, but she does confirm that her symptoms were reproduced in the presence of cholecystokinin during her imaging. I have shared with her that both this fact and her positive response to ursodiol point favorably to a positive postoperative outcome following cholecystectomy. The procedure and its attendant risks were discussed in detail. Patient is accepting of this information and wishes to proceed as described. Other upper respiratory disease (20 sources) Nasal congestion; Translations: [Nasal congestion] 06-14-2022 Episodic Other upper respiratory disease (1 source) Congestion of nasal sinus; Translations: [Nasal congestion] 06-16-2025 Episodic Other upper respiratory infections (20 sources) Maxillary sinusitis; Translations: [Chronic maxillary sinusitis] 11-08-2023 Chronic Other upper respiratory infections (20 sources) Acute sinusitis; Translations: [Acute sinusitis, unspecified] 06-08-2022 Episodic Residual codes; unclassified (20 sources) Heterozygous methylenetetrahydrofolate reductase mutation; Translations: [Genetic susceptibility to other disease] 12-03-2024 Episodic Residual codes; unclassified (1 source) Hereditary disorder of endocrine system; Translations: [Genetic susceptibility to other disease] 06-16-2025 Episodic Thyroid disorders (7 sources) Autoimmune thyroiditis; 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 Unclassified (20 sources) Vertigo - The onset of the vertigo has been acute and has been occurring in an intermittent pattern for 5 days. The course has been decreasing. The vertigo is characterized as feeling in the head (when she moves too fast). The symptoms include headache. The symptoms are exacerbated by head turning. Note for Vertigo: Pt had sore throat last week for 2 days and then other sx started. Had some nasal congestion for about a day. Was really tired until Saturday. Still has a bit of a stiff neck. Had a headache in back of head last night. No fever. No rash. No known tick bite.H/o of covid about 1 year ago.Did at home covid test on Saturday (would have been on day 2 of symptoms at that time) - it was negative; didn't do the repeat.Feels like it is a bit harder to concentrate - has to think more intently on what she is doing.No known tick bite.Weight is down 12 pounds since Dec --- has been seeing natural doctor and doing dietary changes which has been helping with her chronic abd pain. 08-14-2021 Unclassified (20 sources) Abdominal pain - The onset of the abdominal pain has been gradual and has been occurring in a persistent pattern for 1 week. The course has been decreasing. The pain is described as a mild (was severe) pressure sensation (has moments of sharp pain- upper abdomen). The pain is located in the upper abdomen (it started in her back last week; does have times that it is at her sides of her abdomen and they are dull feeling). The symptoms are aggravated by meals (1/2 to 1 hour after eating) (anything with seasoning; states ok with bland food). The symptoms have been associated with diarrhea, heartburn and nausea, while the symptoms have not been associated with constipation (at first), dysuria, fever, hematuria or vomiting. Note for Abdominal pain: Still has gallbladder. Tried pepto bismol which did help.Initially stooling was 6 times a day and it is down to only about once a day but watery/loose with mucous. No blood. The smell is not the same as normal stool; light brown/green.+ bloating; chronic (worse now).Has a hiatal hernia.Early April she was seen at urgent care and O and P showed a parasite. She was treated with flagyl.Was on bactrim recently.Had chills yesterday but didn't check her temp. 05-15-2018 Unclassified (20 sources) Follow up for chronic condition - The patient is here for follow-up of depression. The patient always takes the prescribed medications. No side effects noted. The patient engages in regular exercise program 3-5 times per week. The patient states that weight has decreased and mood is unchanged. The patient states that the disease has no overall impact. Note for Chronic condition follow-up: Does admit to anxiety.Feels like she has a lot of tabs open in her mind and constantly goes back and forth. Was on a stimulant approx 10 years ago without improvement. Mom on anti-depressant and more of a nervous person. Maternal gpa is on lithium for bipolar. 10-22-2024 Unclassified (1 source) Follow up for multiple chronic conditions - The patient is here for follow-up of depression and other condition(s) (ADHD). The patient always takes the prescribed medications. No side effects noted (started taking Adderall BID is helping mentally but is having trouble sleeping since taking it in the afternoon). The patient engages in regular exercise program 3-5 times per week. The patient states that there is no recent angina or dyspnea, weight has decreased and they do not have headaches. The patient states that the disease has no overall impact. Note for Multiple chronic conditions follow-up: Has appt with Dr. Phillips next week for f/u on thyroid US and labs. 11-26-2024 Unclassified (17 sources) Follow up for multiple chronic conditions - The patient is here for follow-up of depression and other condition(s) (ADHD). The patient always takes the prescribed medications. No side effects noted (started taking Adderall BID is helping mentally but is having trouble sleeping since taking it in the afternoon). The patient engages in regular exercise program 3-5 times per week. The patient states that there is no recent angina or dyspnea, weight has decreased and they do not have headaches. The patient states that the disease has no overall impact. Note for Multiple chronic conditions follow-up: Has appt with Dr. Phillips next week for f/u on thyroid US and labs.Has noticed improvement in the past couple of days since taking adderall BID but has had trouble sleeping since doing that. 11-26-2024 Past or Other Problems Problem Classification Problem Date Documented Da te Episodic/Chronic Genitourinary symptoms and ill-defined conditions (20 sources) Increased frequency of urination; Translations: [Frequency of micturition] Onset: 03-15-2023 Episodic Other connective tissue disease (20 sources) Muscle weakness; Translations: [Muscle weakness (generalized)] Onset: 03-15-2023 Episodic Other gastrointestinal disorders (20 sources) H/O: abdominal hernia; Translations: [Personal history of other diseases of the digestive system] Onset: 07-31-2018 07-31-2018 Episodic Other gastrointestinal disorders (3 sources) Diarrhea, unspecified; Translations: [Diarrhea] 08-28-2023 Episodic Other and delivery including normal (20 sources) Normal in primigravida; Translations: [Encounter for supervision of normal first , unspecified trimester] Onset: 07-31-2018 Resolved: 02-24-2019 02-24-2019 Episodic Residual codes; unclassified (20 sources) Other specified health status; Translations: [Other specified conditions influencing health status] Onset: 07-31-2018 07-31-2018 Episodic Screening and history of mental health and substance abuse codes (20 sources) H/O: anxiety state; Translations: [Personal history of other mental and behavioral disorders] Onset: 07-31-2018 07-31-2018 Episodic Unclassified (20 sources) Cold Symptoms - Symptoms include nasal congestion, runny nose, ear fullness, hoarseness, dry cough, headache and facial pain, but do not include productive cough, wheezing, fever, chills or general malaise. The onset was gradual 5 day(s) ago. The symptoms occur frequently. The patient describes this as moderate in severity and worsening. Current treatment includes acetaminophen. The patient has been exposed to an individual with similar symptoms (Family members). Medical history includes recurrent sinusitis and tonsillectomy, but patient denies history of seasonal allergies, recurrent strep pharyngitis or recurrent ear infections. 11-08-2023 Unclassified (20 sources) Follow up for chronic condition - The patient is here for follow-up of depression. The patient has an active lifestyle but no regular exercise program. Note for Chronic condition follow-up: Discontinued Lexapro as it didn't seem like it was helping and it was keeping her awake at night.Also having sinus symptoms - scratchy throat, nasal congestion, feels like it is in her chest a little tight for the past weekhas taken flonase, mucinex. Improving.Feels is doing really good with retraining limbic system.All workup from neuro was normal.Still planning to see endo next month as scheduled.Fatigue has lifted unless is feeling stressed.Sleeping better.No more dizziness. 09-20-2022 Unclassified (20 sources) Depression (Follow-up) - The last clinic visit was 1 month(s) ago. Since diagnosis the disease has been unchanged. The patient describes this as unchanged. Symptoms are exacerbated by emotional stress. By report there is good compliance with treatment. The first initial diagnosis of depression was 1 month(s) ago. Note for Depression: has not noticed any change since starting the medicationalso is still having sinus symptoms would like checked again - given rx for doxy but never started it.Does feel like she has improved since starting counseling - doing a retraining of her mindset.Saw neuro - is going to have EEG, brain MRI, and labs done. If normal will have a tilt table test.Endo appt is scheduled in October. 06-14-2022 Unclassified (20 sources) Ear pain - The onset of the pain has been sudden and has been occurring in a persistent pattern for 2 days. The course has been constant. The pain is described as a moderate sharp pain. The pain is described as being located in the inner ear and behind the ear (over mastoid). The pain is felt in both ears. The symptoms have been associated with non-purulent discharge from ear (did notice some clear ear drainage but did put some drops in her ear yesterday), sore throat (for the past day has felt sore along with post nasal drainage), runny nose (some sinus pressure and nasal congestion for the past 1-2 weeks.) and vertigo, while the symptoms have not been associated with chills, decreased hearing, fever, purulent discharge from ear, cough or tinnitus. Medical History includes seasonal allergies (seems to be struggling more with seasonal allergies the past few years), but there is no history of ear infections or recurrent sinusitis. Note for Ear pain: Been taking Ibuprofen. Did try taking Joy yesterday. For the past 1 1/2 weeks being doing saline nasal rinse. 06-04-2022 Unclassified (20 sources) Follow up laboratory test results - Lab results returned on : (04/07/2022) . Current symptoms include other (Brain fog, difficulty concentrating and feels like she is going to pass out.). Note for Laboratory test results follow-up: Symptoms have been worse over the past 10 days or so.Was on cymbalta per GI which helped but she had trouble sleeping on it so stopped taking it.Symptoms are worsened by cognitive activity especially. does notice some slower response times to answers on occasion. Sleep is not refreshing - even on nights when she sleeps well.Has f/u with GI in a couple of weeks. 05-16-2022 Unclassified (20 sources) Abdominal pain - The onset of the abdominal pain has been gradual and has been occurring in a persistent pattern for 2 years. The course has been constant. The pain is described as a moderate pressure sensation and fullness. Note for Abdominal pain: Pt had been treated for parasite several years ago and since then has trouble with bloating and discomfort after eating certain foods. Pt has decreased energy over the past 3 weeks (not sleepy). Pt had colonoscopy last year -normal. Pt saw 2 [address] Dr's for this.Sitz Marker Study was normal.Negative celiac testing. Normal TSH and CRP.Has taken probiotics, linzess, motegrity (felt like it helped but not worth the cost), amitiza, zelnorm, and xifaxan. H/o hiatal hernia around age [age]. Feels bad within 10 min of eating - feels like food just sits in upper abd and doesn't get digested.No problem with liquids. Worse with greasy foods, apples, and nuts - but this varies and sometimes these foods do not bother her. Bloated.Heartburn x few weeks.Hot tea and having a BM do give relief until she eats again. 12-28-2020 Unclassified (20 sources) Cold Symptoms - Symptoms include nasal congestion, runny nose, headache and facial pain, but do not include sneezing, purulent discharge, ear pain, ear fullness, sore throat, dry cough, productive cough, wheezing, fever, chills or general malaise. The onset was 5 day(s) ago. The symptoms occur constantly. The patient describes this as unchanged. Current treatment includes non-prescription cold medication (Patient states that this is not helping much) and NSAIDs. The patient has been exposed to an individual with similar symptoms (Patient states that has similar symptoms). Medical history includes seasonal allergies, but patient denies history of recurrent sinusitis. Note for Upper respiratory infection: Patient denies being in contact with anyone who as tested positive for COVID-19. 09-13-2020 Unclassified (20 sources) Hand pain - The onset of the hand pain has been gradual (3 wks -numbness of right hand -digits 2-4- says its worse if she is laying on her right side at night and when she wakes; does get better some as day goes on but then by afternoon it's starting back. 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 The hand pain is characterized as a moderate. There has been no associated painful ROM. There have been no previous diagnostic tests. Previous evaluations have been completed by a chiropractor. There has been no previous occupational therapy. There have been no previous surgeries. There has been no use of assistive devices. Note for Hand pain: No meds taken. Did hit her neck and had some neck discomfort after that. Initially had some numbness/tingling even in upper arm but that has resolved with health care social worker. 06-21-2019 Unclassified (20 sources) Back pain - The onset of the back pain has been gradual and has been occurring in a persistent pattern for 1 week (Was seen back in April for abdominal pain and had a parasite which she had treated (and repeat urine studies were negative). She has constipation - no further diarrhea. Just never felt like gut returned to normal.). The course has been increasing. The pain is characterized as a dull ache (earlier this week was a sharp stabbing pain). The pain is located in the lower back (and hips) and radiates to the upper abdomen (somtimes). The symptoms have no relieving factors. The pain has been associated with abdominal pain (constipation), while there has been no associated dysuria or fever. Note for Back pain: She also sometimes feels bloated. She is 11wks (had US and eveything is normal; seeing CC in [place]).Bloated a lot. Exercise and having a BM helps with this. Often doesn't feel like she empties completely. Back pain down to buttocks. No numbness/tingling. Nausea but now having pain. 09-07-2018 Unclassified (20 sources) Rash - The onset of the rash has been acute and has been occurring in a persistent pattern for 4 days. The course has been constant. The rash is characterized as red and raised above the skin. The rash was first seen on the upper extremity (anterior left arm). There has been no progression. There has been associated itching, erythema and edema. Note for Rash: Used cortizone cream yesterday but not helping.No bites but [place] the bike trail [place] lot and the mosquitoes have been bad so not sure about that.On flagyl for intestinal infection - only has 2 days left; stomach issues have resolved. 04-28-2018 Unclassified (1 source) Well adult female 02-05-2024 Unclassified (20 sources) Well adult female - The patient does not feel well, has decreased energy level and is sleeping well. The patient is not using any method of contraception at this time. The patient has a balanced diet and takes supplemental vitamins. The patient exercises daily. The patient sleeps 7 hours per night. Note for Well adult female: Pt had gallbladder removed in Oct and had no improvement. Has f/u appt with Dr. Portillo mid February - apparently there is another medication that they might try on her.Pt stopped taking Lexapro, had insomnia while taking thisPap smears are done through [facility]. 02-05-2024 Unclassified (1 source) Well adult female - The patient feels well with minor complaints (still having G.I issues), has decreased energy level and is sleeping well. The first day of the last menstrual period was : (02/04/25). The patient is not using any method of contraception at this time. The patient has a balanced diet and takes supplemental vitamins. The patient exercises daily. The patient sleeps 7 hours per night. 02-26-2025 Unclassified (10 sources) Well adult female - The patient feels well with minor complaints (still having GI issues), has decreased energy level and is sleeping well. The first day of the last menstrual period was : (02/04/25). The patient is not using any method of contraception at this time. The patient has a balanced diet and takes supplemental vitamins. The patient exercises daily. The patient sleeps 7 hours per night. 02-26-2025 Results Test Name Value Interpretation Reference Range Facility [facility] 05-18-2025 [facility] Telephone ([facility]) AICHA LEDEZMA ([id number]) 1985 F Date Time Provider Department 05/18/25 SABINO FARIA [facility] During your visit today, we recorded the following information about you: Guerita Hull 05/18/2025 10:59 AM Signed Name of caller: PATIENT: Aicha Ledezma Call back name: Aicha Acevedolabach Call back number: [phone] Patient called last week for clarification of B12 injection and needle size. The [facility] pharmacy has not gotten the information Pharmacy # [phone] Routed to: JUAN ANTONIO Hull 05/18/2025 Allergies As of Date: 05/18/2025 Noted Allergy Reaction PENICILLINS 01/06/2013 2 - Rash Date Reviewed: 05/13/2025 Reviewed by: Luz Marina Casey OCCA - Fully Assessed Order(s):cyanocobalami n 1,000 mcg injectionDisp: Rfl: Prescriptions as of 2025 - Safety Dumas (BD SAFETYGLIDE NEEDLE) 25 gauge x 1 ndle 1 syringe one time a week. - cyanocobalamin, vitamin B-12, 1,000 mcg/mL kit 1 dose by INJECTION(UNSPECIFIED PARENTERAL ROUTES) route one time a week. B12 injection weekly for 1 month= total of 4 injections in 1 month - Syringe with Needle, Disp, (MONOJECT SYRINGE) 3 mL 21 gauge x 1 1/2 syrg 1 syringe one time a week. - iodine (KELP, IODINE,) 150 mcg tab Take 150 tablets by mouth once daily. - busPIRone (BUSPAR) 5 mg tablet Take 5 mg by mouth two times a day. - dextroamphetamine-amph etamine (ADDERALL) 5 mg tablet Take 5 mg by mouth once daily. - Magnesium Glycinate 100 mg tab Take by mouth. - melatonin 10 mg cap Take by mouth. - digestive enzymes combo no.7 (SUPERIOR DIGESTIVE ENZYME) cap Take by mouth. - Magnesium 200 mg tab Take by mouth. Facility-Administered Medications as of 2025 - cyanocobalamin 1,000 mcg injection Problem List As Of Date 05/18/2025 Noted Resolved History of anxiety [Z86.59] 07/31/2018 Patient travels [Z78.9] 07/31/2018 History of hiatal hernia [Z87.19] 07/31/2018 Supervision of normal first [Z34.00] 07/31/2018 02/24/2019 care, antepartum [Z34.90] 07/31/2018 09/12/2018 Urinary frequency [R35.0] 03/15/2023 Muscle weakness [M62.81] 03/15/2023 Prescriptions ordered this encounter Disp Refills Start End CYANOCOBALAMIN (VIT B-12) 1,000 MCG/* 2025 04/21/2026 Route: IM Encounter Status:Closed by SABINO FARIA on 05/20/25 [facility] Adriana 05-14-2025 [facility] Telephone ([facility]) AICHA LEDEZMA ([id number]) 1985 F Date Time Provider Department 05/14/25 SABINO FARIA During your visit today, we recorded the following information about you: Guerita Hull 05/14/2025 11:26 AM Signed Name of caller: PHARMACY: Reason: Medication order clarification Pharmacy name: [facility] pharmacy Pharmacy phone number: [phone] Call back name: Cr Medication in question: Has a question on the dosage for the B12 injection and also needs clarification on the needles ordered. Routed to: JUAN ANTONIO Hull 05/14/2025 Aldo Coto MA 05/14/2025 11:46 AM Signed Called back the [facility] pharmacy ([phone]) They need a clarification on the 1 kit for B12 injections RX. What is the quantity? And how often, is it 1 time per week? Also the syringes ordered are too big for IM for the patient. They stated the recommended syringes are 3 mL 25 gauge x 1 inch. Will update / Te. Spoke with Cr. JUAN ANTONIO Andrews Wei, MA 2025 6:01 PM Signed Contacted [facility] pharmacy to clarify that new prescription for B12 injections and Syringes were sent on 05/19/2025. Patient already picked up the medication. Carmine Hou MA Allergies As of Date: 05/14/2025 Noted Allergy Reaction PENICILLINS 01/06/2013 2 - Rash Date Reviewed: 05/13/2025 Reviewed by: Luz Marina Casey OCCA - Fully Assessed Reason for Visit: Pharmacy request for call, clarification on B12 RX [Other] Prescriptions as of 2025 - Safety Dumas (BD SAFETYGLIDE NEEDLE) 25 gauge x 1 ndle 1 syringe one time a week. - cyanocobalamin, vitamin B-12, 1,000 mcg/mL kit 1 dose by INJECTION(UNSPECIFIED PARENTERAL ROUTES) route one time a week. B12 injection weekly for 1 month= total of 4 injections in 1 month - Syringe with Needle, Disp, (MONOJECT SYRINGE) 3 mL 21 gauge x 1 1/2 syrg 1 syringe one time a week. - iodine (KELP, IODINE,) 150 mcg tab Take 150 tablets by mouth once daily. - busPIRone (BUSPAR) 5 mg tablet Take 5 mg by mouth two times a day. - dextroamphetamine-amph etamine (ADDERALL) 5 mg tablet Take 5 mg by mouth once daily. - Magnesium Glycinate 100 mg tab Take by mouth. - melatonin 10 mg cap Take by mouth. - digestive enzymes combo no.7 (SUPERIOR DIGESTIVE ENZYME) cap Take by mouth. - Magnesium 200 mg tab Take by mouth. Facility-Administered Medications as of 2025 - cyanocobalamin 1,000 mcg injection Problem List As Of Date 05/14/2025 Noted Resolved History of anxiety [Z86.59] 07/31/2018 Patient travels [Z78.9] 07/31/2018 History of hiatal hernia [Z87.19] 07/31/2018 Supervision of normal first [Z34.00] 07/31/2018 02/24/2019 care, antepartum [Z34.90] 07/31/2018 09/12/2018 Urinary frequency [R35.0] 03/15/2023 Muscle weakness [M62.81] 03/15/2023 Encounter Status:[facility] (MEDN ) AICHA LEDEZMA ([id number]) 1985 F Date Time Provider Department 05/13/25 8:45 AM SABINO FARIA MEDN During your visit today, we recorded the following information about you: Pulse Blood pressure Weight Height 75/minute 101/64 60.2 kg 1.651 m Sabino Faria, 05/13/2025 10:07 AM Signed FUNCTIONAL MEDICINE INITIAL ASSESSMENT Patient: Aicha Ledezma Recording using ambient AI software for draft documentation of the visit was discussed with the patient/authorized inside sales account representative; all questions welcomed and answered. Patient/authorized inside sales account representative agreed to proceed Assessment and Plan: Using a systems biology approach and matching our assessment to the patient stated goals of care, we have detected historical evidence for Aicha Ledezma is a 39-year-old female with a history of Marlon's thyroiditis, anxiety, and IBS-C, presenting for evaluation of chronic digestive issues, brain fog, and anxiety. . DIAGNOSIS/ASSESSMENT: Digestive Issues: - Chronic digestive issues x7 years, including diarrhea, constipation, and bloating. - Initial symptoms began after a trip to the [place] and exposure to cow manure, followed by a Giardia infection. - Treated with antibiotics for Giardia; symptoms persisted. - Diagnosed with IBS-C by a housekeeping and laundry team leader; multiple medications tried with no relief. - Underwent colonoscopy and endoscopy; both were clear except for mucus and heartburn. - Cholecystectomy in October 2023 did not improve symptoms. - Reports mucus in stool and bloating, especially in the lower abdomen. - Avoids processed, greasy, and high-fat foods; experiences bloating and discomfort with certain foods like avocado and peanut butter. - Drinks black coffee and water; prefers cooked vegetables over raw. - Takes digestive enzymes with meals. - Reports feeling better in the mornings and worse after eating. - Has tried various treatments, including pelvic floor therapy and chiropractic adjustments, with temporary relief. - Recent stool test showed gut dysbiosis. Brain Fog: - Reports significant brain fog, difficulty concentrating, and memory issues. - Feels unable to express thoughts clearly and struggles with stress management. - Taking Adderall 10 mg in the morning; initially noticed improvement, but now unsure of its effectiveness. - Has tried various supplements, including a super B complex, with no improvement. Anxiety: - Longstanding history of anxiety, worsened by chronic digestive issues. - Feels restless, on edge, and easily irritated. - Previously took fluoxetine 20 mg, but no longer on this medication. - Recent chest tightness led to an ER visit; MRI showed concerning findings, but neurologist deemed it within normal limits. Marlon's Thyroiditis: - Diagnosed with Marlon's thyroiditis; sees an fisher trawl line regularly. - Recent labs showed improvement in thyroid levels; next appointment in 4 months. - Taking an iodine supplement for low iodine levels. Family History: - Mother had thyroid cancer; otherwise healthy during Aicha's childhood. - Father has sarcoidosis, back and neck surgeries, and low energy levels. - Aicha is the youngest of three siblings. Social History: - Lives in [place], [place]. - Works in [employer] at [employer]; describes job as busy and stressful. - Exercises daily. - Enjoys reading and spending time on a [employer] boat. - Drinks alcohol occasionally (about once a month, one beer). - No history of drug abuse. - Has a supportive relationship with her , who is present during the visit. Systems-based discussion: 1. B12 deficiency (E53.8) - Recent lab results indicate low B12 levels at 254 pg/mL (normal range: 250-911 pg/mL). - Initiated B12 injections, 1 injection per week for 4 weeks to replenish B12 stores. - Advised patient to obtain injections from primary care office or urgent care. - Discussed importance of B12 in energy metabolism and cognitive function. - Follow-up in one month to reassess B12 levels and overall progress. Sabino Faria DO [facility] Wellness and Preventive Medicine Board Certified AB, AOBFP - History of Present Illness: The patient states a current chief concern of Aicha Ledezma is a 39-year-old female with a history of Marlon's thyroiditis, anxiety, and IBS-C, presenting for evaluation of chronic digestive issues, brain fog, and anxiety. . To support this assessment a medical timeline approach was utilized. Were you born vaginal delivery? , term Were you breastfed?no Were you exposed to secondhand smoke? Mother did not smoke. Father did drugs. Were you in and out of a doctor's care for illnesses, such as for i (more content not included)... Normal [facility] Adriana [facility]13[facility] DARIENAICHA ([id number]) 1985 F Date Time Provider Department 05/13/25 SABINO FARIA During your visit today, we recorded the following information about you: Avani Hawkins 05/13/2025 3:17 PM Signed Name of caller: PATIENT: Orders for cyanocobalamin 1,000 mcg injection Patient stated Dr. Faria sent over a medication for B12 injection but she stated when she contacted the pharmacy they never received an order but she wanted to confirm was the medication sent over to the correct pharmacy. [address] [address] Call back name: Aicha Ledezma Call back number: [phone] Routed to: JUAN ANTONIO Griffithmellisa Yosef 05/13/2025 Allergies As of Date: 05/13/2025 Noted Allergy Reaction PENICILLINS 01/06/2013 2 - Rash Date Reviewed: 05/13/2025 Reviewed by: Luz Marina Casey OCCA - Fully Assessed Prescriptions as of 05/13/2025 - iodine (KELP, IODINE,) 150 mcg tab Take 150 tablets by mouth once daily. - busPIRone (BUSPAR) 5 mg tablet Take 5 mg by mouth two times a day. - dextroamphetamine-amph etamine (ADDERALL) 5 mg tablet Take 5 mg by mouth once daily. - Magnesium Glycinate 100 mg tab Take by mouth. - melatonin 10 mg cap Take by mouth. - digestive enzymes combo no.7 (SUPERIOR DIGESTIVE ENZYME) cap Take by mouth. - Magnesium 200 mg tab Take by mouth. Facility-Administered Medications as of 05/13/2025 - cyanocobalamin 1,000 mcg injection Problem List As Of Date 05/13/2025 Noted Resolved History of anxiety [Z86.59] 07/31/2018 Patient travels [Z78.9] 07/31/2018 History of hiatal hernia [Z87.19] 07/31/2018 Supervision of normal first [Z34.00] 07/31/2018 02/24/2019 care, antepartum [Z34.90] 07/31/2018 09/12/2018 Urinary frequency [R35.0] 03/15/2023 Muscle weakness [M62.81] 03/15/2023 Encounter Status:Closed by ALDO COTO on 05/13/25 [facility] Adriana 04-16-2025 [facility] AICHA LEDEZMA ([id number]) 1985 F Date Time Provider Department 04/16/25 SABINO FARIA [facility] During your visit today, we recorded the following information about you: Allergies As of Date: 04/16/2025 Noted Allergy Reaction PENICILLINS 01/06/2013 2 - Rash Date Reviewed: 10/02/2024 Reviewed by: Pooja Seals MD - Fully Assessed Prescriptions as of 04/16/2025 - FLUoxetine 10 mg tablet - Lactobacillus acidophilus (PROBIOTIC ORAL) Take by mouth. - Magnesium 200 mg tab Take by mouth. Problem List As Of Date 04/16/2025 Noted Resolved History of anxiety [Z86.59] 07/31/2018 Patient travels [Z78.9] 07/31/2018 History of hiatal hernia [Z87.19] 07/31/2018 Supervision of normal first [Z34.00] 07/31/2018 02/24/2019 care, antepartum [Z34.90] 07/31/2018 09/12/2018 Urinary frequency [R35.0] 03/15/2023 Muscle weakness [M62.81] 03/15/2023 Encounter Status:Closed by CARMINE HOU on 04/16/25 [facility] [id number] 03-30-2025 [facility] Misc. COMMENT Normal . [facility] Comment on above: Order Comment: ROOM TEMP [id number] IODINE, URINE RANDOM Result Comment: Test Ordered: [id number] Iodine, Random Urine Test(s) [id number], Urine was developed and its performance characteristics determined by [employer]. It has not been cleared or approved by the Food and Drug Administration. Iodine, Urine 28.5 ug/L Reference Range: 28.0-544.0 Limit of quantitation = 20 Performed at: [address] [id number] Receiving Tank Operator: Polo Miller MD, Phone: [phone] Performed at: [address] [id number] Receiving Tank Operator: Cj Woodall PhD, Phone: [phone] Performed By: #### L 501.9520, L506.0400, L3410.9992, L501.44966 #### [facility] [address] [place], [address] Free T3on 03-26-2025 Free T3 [Mass/Vol] 1.9 pg/mL Low 2.18-3.98 [facility] Comment on above: Performed By: #### L 501.9520, L506.0400, L3410.9992, L501.88374 #### [facility] [address] [place], [address] Free T3 [Mass/Vol] 1.9 pg/mL Low 2.18-3.98 [facility] T4 Free Directon 03-26-2025 T4 FREE DIRECT 1.10 ng/dL Normal 0.76-1.46 [facility] Comment on above: Performed By: #### L 501.9520, L506.0400, L3410.9992, L501.45474 #### [facility] [address] [place], [address] T4 freeon 03-26-2025 Free T4 [Mass/Vol] 1.10 ng/dL 0.76-1.46 [facility] TSH DL <= 0.005 mIU/L Qnon 0 03-26-2025 TSH Qn 2.690 uIU/mL 0.300-4.200 [facility] Thyroid Stim Hormone (TSH)on 03-26-2025 TSH 2.690 uIU/mL Normal 0.300-4.200 [facility] Comment on above: Performed By: #### L 501.9520, L506.0400, L3410.9992, L501.13250 #### [facility] [address] [place], [address] COMPREHENSIVE METABOLIC PANE Titi 02-17-2025 Albumin [Mass/Vol] 4.9 g/dL Normal 3.6-5.1 [facility] Comment on above: Performed By: #### 7 600, 87137, 10691, 496, 466 #### [facility] [place] [address] Community Health Worker: Alfredo Rodriguez MD Albumin/Globulin [Mass ratio] 2.1 {ratio} Normal 1.0-2.5 [facility] Comment on above: Performed By: #### 7 600, 36592, 82638, 496, 466 #### [facility] [place] [address] Community Health Worker: Alfredo Rodriguez MD ALP [Catalytic activity/Vol] 26 U/L Low 31-125 [facility] Comment on above: Performed By: #### 7 600, 72950, 58315, 496, 466 #### [facility] [place] [address] Community Health Worker: Alfredo Rodriguez MD ALT [Catalytic activity/Vol] 12 U/L Normal 6-29 [facility] Comment on above: Performed By: #### 7 600, 30596, 56086, 496, 466 #### [facility] [place] [address] Community Health Worker: Alfredo Rodriguez MD AST [Catalytic activity/Vol] 20 U/L Normal 10-30 [facility] Comment on above: Performed By: #### 7 600, 47877, 68268, 496, 466 #### [facility] [place] [address] Community Health Worker: Alfredo Rodriguez MD Bilirubin [Mass/Vol] 0.4 mg/dL Normal 0.2-1.2 [facility] Comment on above: Performed By: #### 7 600, 35125, 43888, 496, 466 #### [facility] [place] [address] Community Health Worker: Alfredo Rodriguez MD BUN/CREATININE RATIO SEE NOTE: Normal 6-22 [facility] Comment on above: Result Comment: Not Reported: BUN and Creatinine are within reference range. Performed By: #### 7 600, 68217, 25856, 496, 466 #### [facility] [place] [address] Community Health Worker: Alfredo Rodriguez MD Calcium [Mass/Vol] 9.4 mg/dL Normal 8.6-10.2 [facility] Comment on above: Performed By: #### 7 600, 69083, 95553, 496, 466 #### [facility] [place] [address] Community Health Worker: Alfredo Rodriguez MD Chloride [Moles/Vol] 102 mmol/L Normal 98-110 [facility] Comment on above: Performed By: #### 7 600, 15650, 53711, 496, 466 #### [facility] [place] [address] Community Health Worker: Alfredo Rodriguez MD CO2 [Moles/Vol] 29 mmol/L Normal 20-32 [facility] Comment on above: Performed By: #### 7 600, 67478, 66981, 496, 466 #### [facility] [place] [address] Community Health Worker: Alfredo Rodriguez MD Creatinine [Mass/Vol] 0.80 mg/dL Normal 0.50-0.[address] [facility] Comment on above: Performed By: #### 7 600, 81441, 40641, 496, 466 #### [facility] [place] [address] Community Health Worker: Alfredo Rodriguez MD GFR/1.73 sq M.predicted among non-blacks MDRD (S/P/Bld) [Vol rate/Area] 97 mL/min/{1.73_m2} Normal > OR = 60 [facility] Comment on above: Performed By: #### 7 600, 55578, 95196, 496, 466 #### [facility] [place] [address] Community Health Worker: Alfredo Rodriguez MD Globulin (S) [Mass/Vol] 2.3 g/dL Normal 1.9-3.7 [facility] Comment on above: Performed By: #### 7 600, 84686, 23646, 496, 466 #### [facility] [place] [address] Community Health Worker: Alfredo Rodriguez MD Glucose [Mass/Vol] 81 mg/dL Normal 65-99 [facility] Comment on above: Result Comment: Fasting reference interval Performed By: #### 7 600, 59232, 47243, 496, 466 #### [facility] [place] [address] Community Health Worker: Alfredo Rodriguez MD Potassium [Moles/Vol] 4.2 mmol/L Normal 3.5-5.[address] [facility] Comment on above: Performed By: #### 7 600, 82673, 82177, 496, 466 #### [facility] [place] [address] Community Health Worker: Alfredo Rodriguez MD Protein [Mass/Vol] 7.2 g/dL Normal 6.1-8.1 [facility] Comment on above: Performed By: #### 7 600, 59701, 66213, 496, 466 #### [facility] [address] Community Health Worker: Alfredo Rodriguez MD Sodium [Moles/Vol] 139 mmol/L Normal 135-146 [facility] Comment on above: Performed By: #### 7 600, 86858, 33135, 496, 466 #### [facility] [address], [address] [place] [address] Community Health Worker: Alfredo Rodriguez MD Urea nitrogen [Mass/Vol] 14 mg/dL Normal 7-25 [facility] Comment on above: Performed By: #### 7 600, 65677, 79136, 496, 466 #### [facility] [address], [address] [place] [address] Community Health Worker: Alfredo Rodriguez MD FOLATE, SERUMon 02-17-2025 Folate [Mass/Vol] 8.5 ng/mL Normal [facility] Comment on above: Result Comment: Refe rence Range Low: <3.4 Borderline: 3.4-5.4 Normal: >5.4 Performed By: #### 7 600, 06584, 40226, 496, 466 #### [facility] [address], [address] [place] [address] Community Health Worker: Alfredo Rodriguez MD HEMOGLOBIN A1con 02-17-2025 HEMOGLOBIN A1c 5.1 % of total Hgb Normal <5.7 [facility] Comment on above: Result Comment: For the purpose of screening for the presence of diabetes: <5.7% Consistent with the absence of diabetes 5.7-6.4% Consistent with increased risk for diabetes (prediabetes) > or =6.5% Consistent with diabetes This assay result is consistent with a decreased risk of diabetes. Currently, no consensus exists regarding use of hemoglobin A1c for diagnosis of diabetes in children. According to [place] Diabetes Association (ADA) guidelines, hemoglobin A1c <7.0% represents optimal control in non- diabetic patients. Different metrics may apply to specific patient populations. Standards of Medical Care in Diabetes(ADA). Performed By: #### 7 600, 47381, 04743, 496, 466 #### [facility] [address], [address] [place] [address] Community Health Worker: Alfredo Rodriguez MD HOMOCYSTEINEon 02-17-2025 HOMOCYSTEINE 11.2 umol/L High <10.4 [facility] Comment on above: Result Comment: Homo cysteine is increased by functional deficiency of folate or vitamin B12. Testing for methylmalonic acid differentiates between these deficiencies. Other causes of increased homocysteine include renal failure, folate antagonists such as methotrexate and phenytoin, and exposure to nitrous oxide. Emily Park, et al., Chica Filler Sifter Helper Med. 1999;131(5):331-9. Performed By: #### 7 600, 15666, 86550, 496, 466 #### [facility] [address], [address] [place] [address] Community Health Worker: Alfredo Rodriguez MD LIPID PANEL, STANDARDon Cholesterol [Mass/Vol] 196 mg/dL Normal <200 [facility] Comment on above: Performed By: #### 7 600, 71529, 05132, 496, 466 #### [facility] [place] [address] Community Health Worker: Alfredo Rodriguez MD Cholesterol in HDL [Mass/Vol] 58 mg/dL Normal > OR = 50 [facility] Comment on above: Performed By: #### 7 600, 05452, 62866, 496, 466 #### [facility] [place] [address] Community Health Worker: Alfredo Rodriguez MD Cholesterol in LDL [Mass/Vol] 123 mg/dL High [facility] Comment on above: Result Comment: Refe rence range: <100 Desirable range <100 mg/dL for primary prevention; <70 mg/dL for patients with CHD or diabetic patients with > or = 2 CHD risk factors. LDL-C is now calculated using the Raf calculation, which is a validated novel method providing better accuracy than the Friedewald equation in the estimation of LDL-C. Cl MAC et al. OTILIO. 2013;310(19): 2884-2046 (http://education.Excorda.Pixim/faq/DDF591) Performed By: #### 7 600, 85938, 35242, 496, 466 #### [facility] [address], [address] [place] [address] Community Health Worker: Alfredo Rodriguez MD Cholesterol.total/Choles terol in HDL [Mass ratio] 3.4 {ratio} Normal <5.0 [facility] Comment on above: Performed By: #### 7 600, 11920, 83199, 496, 466 #### [facility] [address], [address] [place] [address] Community Health Worker: Alfredo Rodriguez MD NON HDL CHOLESTEROL 138 mg/dL (calc) High <130 [facility] Comment on above: Result Comment: For patients with diabetes plus 1 major ASCVD risk factor, treating to a non-HDL-C goal of <100 mg/dL (LDL-C of <70 mg/dL) is considered a therapeutic option. Performed By: #### 7 600, 42864, 92615, 496, 466 #### [facility] [place] [address] Community Health Worker: Alfredo Rodriguez MD Triglyceride [Mass/Vol] 55 mg/dL Normal <150 [facility] Comment on above: Performed By: #### 7 600, 23088, 80979, 496, 466 #### [facility] [place] [address] Community Health Worker: Alfredo Rodriguez MD Laboratory - Chemistry and C hemistry - challengeon 02-16-2025 Albumin [Mass/Vol] 4.9 g/dL Normal 3.6 - 5.1 g/dL [facility], [facility] Albumin/Globulin [Mass ratio] 2.1 {ratio} Normal 1.0 - 2.5 [facility], [facility].; [facility] ALP [Catalytic activity/Vol] 26 U/L Abnormal 31 - 125 U/L [facility], [facility].; [facility] ALT [Catalytic activity/Vol] 12 U/L Normal 6 - 29 U/L [facility], [facility].; [place] [facility] AST [Catalytic activity/Vol] 20 U/L Normal 10 - 30 U/L [facility], [facility].; [facility], [facility]. Bilirubin [Mass/Vol] 0.4 mg/dL Normal 0.2 - 1 .2 mg/dL [facility], [facility].; [facility], [facility]. Calcium [Mass/Vol] 9.4 mg/dL Normal 8.6 - 10. 2 mg/dL [facility], [facility].; [facility], [facility]. Chloride [Moles/Vol] 102 mmol/L Normal 98 - 11 0 mmol/L [facility], [facility].; [facility] Cholesterol [Mass/Vol] 196 mg/dL Normal [facility].; [facility], [facility] Cholesterol in HDL [Mass/Vol] 58 mg/dL Normal [facility], [facility].; [facility], [facility]. Cholesterol in LDL [Mass/Vol] 123 mg/dL Abnormal [facility], [facility].; [facility], [facility]. CO2 [Moles/Vol] 29 mmol/L Normal 20 - 32 mmol/L [facility], [facility].; [facility], [facility]. Creatinine [Mass/Vol] 0.80 mg/dL Normal 0.50 - 0.97 mg/dL [facility], [facility].; [facility], [facility]. Folate [Mass/Vol] 8.5 ng/mL Normal [facility], [facility].; [place] [facility], [facility]. GFR/1.73 sq M.predicted among non-blacks MDRD (S/P/Bld) [Vol rate/Area] 97 mL/min/{1.73_m2} Normal [facility], [facility].; [facility] Glucose [Mass/Vol] 81 mg/dL Normal 65 - 99 mg/dL [facility], [facility].; [place] [facility] Potassium [Moles/Vol] 4.2 mmol/L Normal 3.5 - 5.3 mmol/L [facility], [facility].; [facility] Protein [Mass/Vol] 7.2 g/dL Normal 6.1 - 8.1 g/dL [facility], [facility].; [place] [facility] Sodium [Moles/Vol] 139 mmol/L Normal 135 - 146 mmol/L [facility], [facility].; [facility], [facility]. Triglyceride [Mass/Vol] 55 mg/dL [facility].; [facility], [facility] Urea nitrogen [Mass/Vol] 14 mg/dL Normal 7 - 25 mg/dL [facility], [facility]. Laboratory - Hematology and Cell countson 02-16-2025 HbA1c (Bld) [Mass fraction] 5.1 % Normal [facility].; [facility] No Panel Informationon 02-16 BUN/CREATININE RATIO SEE NOTE: Normal 6 - 22 [facility] [place] [facility], [facility]. CHOL/HDLC RATIO 3.4 Normal [facility]; [facility], [facility]. GLOBULIN 2.3 Normal 1.9 - 3.7 [facility].; [facility], [facility] HOMOCYSTEINE 11.2 umol/L Abnormal [facility].; [place] [facility], [facility] NON HDL CHOLESTEROL 138 Abnormal [facility] [place] [facility], [facility]. Free T3on 11-21-2024 Free T3 [Mass/Vol] 1.5 pg/mL Low 2.18-3.98 [facility] Comment on above: Order Comment: N Performed By: #### L 506.0400, L501.29860, L501.9520 #### [facility] [address] [place], [address] T4 Free Directon 11-21-2024 T4 FREE DIRECT 0.74 ng/dL Low 0.76-1.46 [facility] Comment on above: Order Comment: N Performed By: #### L 506.0400, L501.97769, L501.9520 #### [facility] [address] [place], [address] Thyroidon 11-21-[address] [facility] Imaging Services [address] [place], [place] [id number] Thyroid MR#: [id number] Acct: [id number] Name: AICHA LEEDZMA #: [id number] : 1985 F 39 From: Ramy jackson MD PCP: MARCELLO De La Garza Status: REG CLI Study: Thyroid Date of Exam: 11/21/24 Exam# [id number] Ordering Dr: PATRICIA PHILLIPS [id number] STUDY: THYROID ULTRASOUND REASON FOR EXAM: Female, 39 years old. MARLON''S DISEASE TECHNIQUE: Ultrasound evaluation of the thyroid was performed with real-time and static cole-scale imaging. COMPARISON: None. FINDINGS: RIGHT LOBE: The right lobe of the thyroid gland is enlarged and measures 5.6 cm x 1.8 cm x 1.3 cm. There is a heterogeneous echotexture. There are no demonstrated solid, cystic or complex lesions. LEFT LOBE: The left lobe of the thyroid gland is enlarged and measures 5.2 cm x 1.9 cm x 1.3 cm. There is a heterogeneous echotexture. There are no demonstrated solid, cystic or complex lesions. ISTHMUS: The isthmus measures 2 mm. The regional lymph nodes are normal. US/Thyroid IMPRESSION: There is evidence of heterogeneous enlargement of both lobes of the thyroid gland. Electronically Signed: Ramy Allen MD at 11:09 EST , CC: PATRICIA PHILLIPS; MARCELLO De La Garza Hand Plate Stacker: Signed Normal [facility] Thyroid Stim Hormone (TSH)on 11-21-2024 TSH 1.760 uIU/mL Normal 0.358-3.740 [facility] Comment on above: Order Comment: N Performed By: #### L 506.0400, L501.18229, L501.9520 #### [facility] [place], [address] CNOVon 10-02-2024 CNOV Office Visit (OBGYWM ) AICHA LEDEZMA ([id number]) 1985 F Date Time Provider Department 10/02/24 3:40 PM [facility] During your visit today, we recorded the following information about you: Blood pressure Weight Height Last Period 100/62 64.9 kg 1.651 m 09/11/24 Pooja Seals MD 10/02/2024 3:55 PM Signed Aicha is a 39 year old who presents for an annual gynecologic exam. Menses: cycles every 28-30 days and 7 days of flow. 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 History LMP: 09/11/2024 (Within Days), Having periods Age at Menarche: Age at First : Age at Menopause: Erp Engineer History Comments: Sexual Activity: Yes; Male Contraception: Condom PAST MEDICAL HISTORY Diagnosis Date Abnormal Pap smear of cervix 2012 LGSIL Anxiety Giardia 02/2018 Hiatal hernia Mental disorder PAST SURGICAL HISTORY Procedure Laterality Date EGD REMOVAL GALLBLADDER 10/2023 TONSILLECTOMY HX FAMILY HISTORY Problem Relation Age of Onset other (thyroid cancer) Mother Diabetes Father other (hydrocephalus) Father No Known Problems Sister No Known Problems Sister No Known Problems Maternal Grandmother Bipolar disorder Maternal Grandfather Heart Attack Paternal Grandmother Diabetes Paternal Grandfather SOCIAL HISTORY Social History Tobacco Use Smoking status: Former Current packs/day: 0.00 Types: Cigarettes Start date: 11/18/2007 Quit date: 11/18/2009 Years since quittin.8 Smokeless tobacco: Never Vaping Use Vaping status: Never Used Substance Use Topics Alcohol use: Yes Drug use: No REVIEW OF SYSTEMS Abdomen:stable GI issues - working with PCP Bladder: No dysuria, gross hematuria, urinary frequency, urinary urgency, or incontinence. Breast: No breast lumps, nipple d/c, overlying skin changes, redness or skin retraction. Allergies and current medication updated:Yes SENSITIVE EXAM: The sensitive examination was discussed with the Patient or Patient's Authorized Certified Ethical Hacker. As applicable, any other physician, advance practice provider, medical student, or other health professional student that will be observing or involved in the sensitive examination for educational or training purposes was discussed with the Patient or Authorized Certified Ethical Hacker. The Patient or Authorized Certified Ethical Hacker has agreed to proceed with the sensitive examination. (Sensitive examination includes inspection and/or palpation of the breasts, pelvis, prostate and anorectal regions). EXAM: BP 100/62 Ht 5' 5 (1.65m) Wt 143 lb (64.9kg) LMP 09/11/2024 BMI 23.80 kg/(m2). GENERAL: pleasant, female in no apparent distress BREAST: soft, non-tender, symmetric, no dominant mass, normal nipple-areolar complex, no lymphadenopathy, and no nipple discharge CHEST: Normal inspiratory effort ABDOMEN: soft, non-tender, and no masses PELVIC: external genitalia normal, normal Bartholin's glands, urethra, Woody's glands, no vulvar lesions, no cervical lesions, good vaginal support, physiologic discharge present, normal appearing perineal body and perianal region BIMANUAL: uterus normal size, shape and consistency, no adnexal masses, and non-tender RECTOVAGINAL: deferred. NEURO: alert and oriented x3,exam grossly non-focal EXTREMITIES: normal ASSESSMENT/PLAN: 1) Health maintenance: Pap done with HPV. Mammogram starting age 40. Nutrition, exercise and routine health maintenance exams reviewed. 2) Contraception: condoms. Contraceptive options reviewed and information provided. 3) Follow up one year or sooner as needed Pooja Seals MD Referring Provider: POOJA SEALS [[id number]] Allergies As of Date: 10/02/2024 Noted Allergy Reaction PENICILLINS 01/06/2013 2 - Rash Date Reviewed: 10/02/2024 Reviewed by: Pooja Seals MD - Fully Assessed Reason for Visit: Yearly Exam [187] Primary Visit Diagnosis:Encounter for gynecological examination (general) (routine) without abnormal findings [Z01.419] Other Visit Diagnoses:Encounter for screening for malignant neoplasm of cervix [Z12.4] Special screening examination for human papillomavirus (HPV) [Z11.51] Abnormal glandular Papanicolaou smear of cervix [R87.619] Order(s):PAP TEST [DOF2813] Order #: [id number] Prescriptions as of 10/02/2024 - FLUoxetine 10 mg tablet - Lactobacillus acidophilus (PROBIOTIC ORAL) Take by mouth. - Magnesium 200 mg tab Take by mouth. Problem List As Of Date 10/02/2024 Noted Resolved History of anxiety [Z86.59] 07/31/2018 Patient travels [Z78.9] 07/31/2018 History of hiatal hernia [Z87.19] 07/31/2018 Supervision of normal first [Z34.00] (more content not included)... Normal [facility] HIGH RISK HUMAN PAPILLOMA MERLE (HPV), PCR FOR DETECTION AND GENOTYPINGon 10-02-2024 HPV 16 Ag Ql (Unsp spec) Not detected Normal Not detected [facility] Comment on above: Order Comment: Speci men Type: FLUID SPECIMENOrdering Facility: [facility] Address: [address] [place] [address] Performed By: #### H PVHRT ####[facility] LABIA [id number] [place] [address] [place] HPV 18 Ag Ql (Unsp spec) Not detected Normal Not detected [facility] Comment on above: Order Comment: Speci men Type: FLUID SPECIMENOrdering Facility: [facility] Address: [address] [place] [address] Performed By: #### H PVHRT ####[facility] LABIA [id number] [place] [address] [place] HPV 31+33+35+39+45+51+52+56+ 58+59+66+68 DNA DANETTE+probe Ql (Cvx) Not detected Normal Not detected [facility] Comment on above: Order Comment: Speci men Type: FLUID SPECIMENOrdering Facility: [facility] Address: [address] [place] [address] Result Comment: High Risk HPV Other Type includes HPV types 31, 33, 35, 39, 45, 51, 52, 56, 58, 59, 66 and 68. Performed By: #### H PVHRT ####[facility] LABCLIA [id number] [place] [address] [place] PAP TESTon 10-02-2024 ADEQUACY Satisfactory for interpretation. Normal [facility] Comment on above: Order Comment: Speci men Type: FLUID SPECIMENOrdering Facility: [facility] Address: [address] [place] [address] Performed By: #### L [id number] ####[facility] LABCLIA [id number] [place] [address] [place] CASE REPORT Normal [facility] Comment on above: Order Comment: Speci men Type: FLUID SPECIMENOrdering Facility: [facility] Address: [address] [place] [address] Result Comment: Gyne cologic Cytology Report Case: [id number] Authorizing Provider: Pooja Seals MD Collected: 10/02/2024 04:07 PM Ordering Location: OB/Gynecology Received: 10/02/2024 04:33 PM First Screen: Flores, [place]ox[place], CT, ASCP Specimen: Pap Test, ThinPrep, Cervix Performed By: #### L [id number] ####[facility] LABCLIA [id number] [place] [address] [place] CLINICAL HISTORY, CYTOLOGY, LUGGAGE REPAIRER Routine Exam Normal [facility] Comment on above: Order Comment: Speci men Type: FLUID SPECIMENOrdering Facility: [facility] Address: [address] [place] [address] Result Comment: Prev ious Abnormal Pap Performed By: #### L [id number] ####[facility] LABCLIA [id number] [place] [address] [place] FINAL PERFORMING LAB Normal [facility] Comment on above: Order Comment: Speci men Type: FLUID SPECIMENOrdering Facility: [facility] Address: [address] [place] [address] Result Comment: Tech nical component, conversion worker screening performed at [facility], [address] [place] [address] CLIA# [id number] Diagnostic interpretation performed at [facility], [address] [facility] [address] CLIA# [id number] Certified Medical Coder: Ilya Corona M.D. Performed By: #### L [id number] ####[facility] LABCLIA [id number] [place] [address] [place] INTERPRETATION, CYTOLOGY, LUGGAGE REPAIRER Normal [facility] Comment on above: Order Comment: Speci men Type: FLUID SPECIMENOrdering Facility: [facility] Address: [address] [place] [address] Result Comment: Nega tive for intraepithelial lesion or malignancy. Performed By: #### L [id number] ####[facility] LABCLIA [id number] [place] [address] [place] LMP 09/11/2024 Normal [facility] Comment on above: Order Comment: Speci men Type: FLUID SPECIMENOrdering Facility: [facility] Address: [address] [place] [address] Performed By: #### L [id number] ####[facility] LABCLIA [id number] [place] [address] [place] PAP DISCLAIMER COMMENT The Pap Smear is a screening test for cervical cancer. False negative results occur with all screening tests, emphasizing the need for rescreening at recommended intervals, and clinical correlation. Normal [facility] Comment on above: Order Comment: Speci men Type: FLUID SPECIMENOrdering Facility: [facility] Address: [address] [place] [address] Performed By: #### L [id number] ####[facility] LABCLIA [id number] [place] [address] [place] PAP REFERENCE TEST CLERK COMMENT This specimen has be en analyzed by the ThinPrep Imaging System, an automated imaging and review system, which assists the laboratory in evaluating cells on ThinPrep Pap tests. Following automated imaging, selected harris from every slide are reviewed by a conversion worker. Normal [facility] Comment on above: Order Comment: Speci men Type: FLUID SPECIMENOrdering Facility: [facility] Address: [address] [place] [address] Performed By: #### L [id number] ####[facility] LABCLIA [id number] [place] Laboratory - Chemistry and C hemistry - challengeon 01-28-2024 Albumin [Mass/Vol] 5.5 g/dL Abnormal 3.6 - 5.1 g/dL [facility], [facility].; [employer], [facility]. Albumin/Globulin [Mass ratio] 2.4 {ratio} Normal 1.0 - 2.5 [place] [employer], [facility].; [employer] ALP [Catalytic activity/Vol] 26 U/L Abnormal 31 - 125 U/L [facility], [facility].; [employer] ALT [Catalytic activity/Vol] 16 U/L Normal 6 - 29 U/L [employer], [facility].; [employer] AST [Catalytic activity/Vol] 22 U/L Normal 10 - 30 U/L [facility], [facility].; [employer] Bilirubin [Mass/Vol] 0.6 mg/dL Normal 0.2 - 1 .2 mg/dL [facility] [facility], [facility].; [employer] Calcium [Mass/Vol] 10.0 mg/dL Normal 8.6 - 10. 2 mg/dL [facility] [facility], [facility].; [employer] Chloride [Moles/Vol] 98 mmol/L Normal 98 - 11 0 mmol/L [facility].; [facility], [employer]. Cholesterol [Mass/Vol] 260 mg/dL Abnormal [facility], [facility].; [facility], [facility] Cholesterol in HDL [Mass/Vol] 77 mg/dL Normal [facility].; [facility], [facility]. Cholesterol in LDL [Mass/Vol] 167 mg/dL Abnormal [facility], [facility].; [facility], [facility] CO2 [Moles/Vol] 28 mmol/L Normal 20 - 32 mmol/L [facility], [facility].; [facility], [facility]. Creatinine [Mass/Vol] 0.77 mg/dL Normal 0.50 - 0.97 mg/dL [facility], [facility].; [facility], [facility]. Free T4 [Mass/Vol] 0.9 ng/dL Normal 0.8 - 1.8 ng/dL [facility], [facility].; [facility], [facility]. GFR/1.73 sq M.predicted among non-blacks MDRD (S/P/Bld) [Vol rate/Area] 102 mL/min/{1.73_m2} Normal [facility], [facility].; [place] [employer] [facility] Glucose [Mass/Vol] 76 mg/dL Normal 65 - 99 mg/dL [facility], [facility].; [facility], [facility]. Potassium [Moles/Vol] 4.1 mmol/L Normal 3.5 - 5.3 mmol/L [facility], [facility].; [facility], [facility]. Protein [Mass/Vol] 7.8 g/dL Normal 6.1 - 8.1 g/dL [facility], [facility].; [place] [employer] Sodium [Moles/Vol] 135 mmol/L Normal 135 - 146 mmol/L [facility], [facility].; [place] [employer] [facility], [facility]. Triglyceride [Mass/Vol] 64 mg/dL Normal [facility], [facility].; [place] [employer] [facility], [facility]. TSH Qn 1.55 m[IU]/L Normal [facility], [facility].; [place] [employer] [facility] Urea nitrogen [Mass/Vol] 15 mg/dL Normal 7 - 25 mg/dL [facility], [facility].; [place] [employer], [facility]. Laboratory - Hematology and Cell countson 01-28-2024 Basophils (Bld) [#/Vol] 0.029 10*3/uL Normal 0 - 200 {cells/uL} [facility].; [facility] Basophils/100 WBC (Bld) 0.7 % Normal [facility].; [facility], [facility] Eosinophils (Bld) [#/Vol] 0.109 10*3/uL Normal 15 - 500 {cells/uL} [facility].; [facility] Eosinophils/100 WBC (Bld) 2.6 % Normal [facility].; [facility], [facility] Erythrocyte distribution width (RBC) [Ratio] 12.6 % Normal 11.0 - 15.0 % [facility].; [facility], [facility] Hematocrit (Bld) [Volume fraction] 43.1 % Normal 35.0 - 45.0 % [facility], [facility].; [facility], [facility] Hemoglobin (Bld) [Mass/Vol] 14.0 g/dL Normal 11.7 - 15.5 g/dL [facility].; [facility], [facility] Lymphocytes (Bld) [#/Vol] 1.365 10*3/uL Normal 850 - 3900 {cells/uL} [facility].; [facility], [facility] Lymphocytes/100 WBC (Bld) 32.5 % Normal [facility].; [place] [employer], [facility] MCH (RBC) [Entitic mass] 29.9 pg Normal 27. 0 - 33.0 pg [facility].; [place] [employer], [facility]. MCHC (RBC) [Mass/Vol] 32.5 g/dL Normal 32.0 - 36.0 g/dL [facility], [facility].; [place] [employer] [facility], [facility]. MCV (RBC) [Entitic vol] 92.1 fL Normal 80.0 - 100.0 fL [facility].; [place] [employer] [facility], [facility]. Monocytes (Bld) [#/Vol] 0.273 10*3/uL Normal 200 - 950 {cells/uL} [facility].; [place] [employer] Monocytes/100 WBC (Bld) 6.5 % Normal [facility].; [facility] Neutrophils (Bld) [#/Vol] 2.423 10*3/uL Normal 1500 - 7800 {cells/uL} [facility].; [place] [employer] [facility], [facility]. Neutrophils/100 WBC (Bld) 57.7 % Normal [facility].; [place] [employer] [facility], [facility] Platelet mean volume (Bld) [Entitic vol] 10.5 fL Normal 7.5 - 12.5 fL [facility].; [place] [employer], [facility] Platelets (Bld) [#/Vol] 230 10*3/uL Normal 140 - 400 [facility]; [place] [employer] [facility], [facility]. RBC (Bld) [#/Vol] 4.68 10*6/uL Normal 3.80 - 5.1 0 {Million/uL } [facility].; [place] [employer], [facility]. WBC (Bld) [#/Vol] 4.2 10*3/uL Normal 3.8 - 10.8 [facility].; [place] [employer] No Panel Informationon 01-27 BUN/CREATININE RATIO SEE NOTE: Normal 6 - 22 [facility].; [place] [employer] [facility], [facility]. CHOL/HDLC RATIO 3.4 Normal [facility]; [place] [employer] GLOBULIN 2.3 Normal 1.9 - 3.7 [facility].; [place] [employer], [facility] NON HDL CHOLESTEROL 183 Abnormal [facility].; [place] [employer] [facility]. T3, FREE [CCL]on 11-15-2023 Free T3 [Mass/Vol] 2.2 pg/mL Low 2.3-4.1 [facility] Comment on above: Result Comment: [address] [address] Ilya Corona III, M.D. [id number] Performed By: #### 2 [id number] #### [facility],[address] [place] [address] T4-FREE (FREE THYROXINE)on 01-15-2023 Free T4 [Mass/Vol] 0.83 ng/dL Normal 0.76 - 1.46 [facility] Comment on above: Result Comment: P otential of falsely elevated results when biotin concentrations are > 10 ng/mL. Performed By: #### 2 [id number] #### [facility],[address] [place] [address] TSHon 11-14-2023 TSH Qn 2.08 m[IU]/L Normal 0.35 - 3.74 [facility] Comment on above: Performed By: #### 2 [id number] #### [facility],[address] [place], [place] [id number] Laboratory - Chemistry and C hemistry - challengeOrdered By: Herve Cheema on 11-01-2023 HCG ( test) Ql (U) Negative [facility] Comment on above: Very dilute urine sp ecimens, as indicated by a low specificgravity, may not contain inside sales account representative levels of hCG. If is still suspected, a first morning urinespecimen should be collected 48 hours later and tested. PANCREATIC ELASTASE, FECAL [ CCL]on 07-08-2023 Panc Elastase, Fecal 686 ug/g Normal >=100 [facility] Comment on above: Result Comment: REFE RENCE INTERVAL: Pancreatic Elastase Fecal by Immunoassay Less than 100 ug/g............Severe insufficiency 100 - 199 ug/g................Moderate insufficiency 200 ug/g or greater...........Normal INTERPRETIVE INFORMATION: Pancreatic Elastase Fecal by Immunoassay Reference intervals do not apply for infants less than one month old. Performed By: [employer] [address] [place] [address] Certified Medical Coder: Rafy Hadley MD, PhD CLIA Number: [id number] [facility] [address] [place] [address] Ilya Corona III, M.D. [id number] Performed By: #### 2 [id number] #### [facility],[address] [id number] UA DIP, URINE (POC)on 2022 BILIRUBIN UA (POCT) Negative Negative [facility] CLARITY UA (POCT) Clear [facility] COLOR UA (POCT) Yellow [facility] GLUCOSE UA (POCT) Negative Negative mg/dL [facility] HEMOGLOBIN/BLOOD UA (POCT) Negative Negative [facility] KETONE UA (POCT) Negative Negative mg/dL [facility] LEUKOCYTES UA (POCT) Negative Negative [facility] NITRITE UA (POCT) Negative Negative [facility] PH UA (POCT) 5.5 4.5 - 8.0 [facility] Protein Ql (U) Negative Negative mg/dL [facility] SPECIFIC GRAVITY UA (POCT) <=1.005 Abnormal 1.005 - 1.030 [facility] UROBILINOGEN UA (POCT) 0.2 E.U./dL Jagruti l E.U./dL [facility] Laboratory - Chemistry and C hemistry - challengeon 10-25-2022 Free T4 [Mass/Vol] 0.82 ng/dL 0.76-1.46 [facility] Work Phone: No Panel Informationon 10-25 Endomysial IgA Antibody Negative Negative [facility] Work Phone: Free Triiodothyronine (T3) pg/dL 1.8 pg/mL 2.18-3.98 [facility] Work Phone: Thyroglobulin Antibody < 1.0 IU/mL 0.0-0.9 [facility] Work Phone: Comment on above: Thyroglobulin Antibo dy measured by Abhijit [employer] Thyroglobulin Level 27.2 ng/mL 1.5-38.5 [facility] Work Phone: Comment on above: According to the [facility] Academy of Clinical Biochemistry,the reference interval for Thyroglobulin (TG) should berelated to euthyroid patients and not for patients whounderwent thyroidectomy. TG reference intervals for thesepatients depend on the residual mass of the thyroid tissueleft after surgery. Establishing a post-operative baselineis recommended. The assay limit of quantitation is 0.1ng/mLThyroglobulin measured by Abhijit Floris [employer] Thyroid Stimulating Hormone (TSH) 1.51 uIU/mL 0.358-3.74 [facility] Work Phone: Serum IgA measurement (units /volume)on 10-25-2022 IgA Qn (S) 109 mg/dL 87-352 [facility] Work Phone: Serum or plasma choriogonado tropin detectionon 10-25-2022 HCG ( test) Ql < 1 mIU/mL <4 W [facility] Work Phone: Comment on above: hCG levels with Gest ational AgeGestational Age hCG mIU/mL (IU/L)0.2 - 1 week 5 - 501-2 weeks 50 - 5002-3 weeks 100 - 49047-6 weeks 500 - 427889-8 weeks 1000 - 074022-1 weeks 94720 - 100,0006-8 weeks 47857 - 200,0002-3 months 87688 - 100,000 Serum or plasma thyroperoxid ase antibody assay (units/volume)on 10-25-2022 TPO Ab Qn 74 [IU]/mL 0-34 [facility] Work Phone: Comment on above: Performed at: [address] [id number] Director: Cj Woodall PhD, Phone: [phone] at: [facility] Lab[address] [id number] Director: Polo Miller MD, Phone: [phone] Serum tissue transglutaminas e IgA antibody assay (units/volume)on 10-25-2022 tTG IgA Qn (S) <2 U/mL 0-3 [facility] Work Phone: Comment on above: Negative 0 - 3 Weak Positive 4 - 10 Positive >10 Tissue Transglutaminase (tTG) has been identified as the endomysial antigen. Studies have demonstr- ated that endomysial IgA antibodies have over 99% specificity for gluten sensitive enteropathy. Thyroid stimulating immunogl obulins detectionon 10-25-2022 Thyroid stimulating immunoglobulins Ql (S) <0.10 IU/L 0.00-0.55 [facility] Work Phone: Laboratory - Chemistry and C hemistry - challengeon 05-27-2022 Creatinine [Mass/Vol] 37 mg/dL Normal [facility], [facility].; [facility], [facility] Creatinine [Mass/Vol] 38 mg/dL Normal [facility].; [facility] No Panel Informationon 05-27 Catecholamines, UrineInterp See Note Normal [facility].; [facility]. Creatinine Ur, per 24h 962 mg/d Normal 700 - 1600 mg/d [facility].; [place] [employer] [facility], [employer]. Creatinine Ur, per 24h 988 mg/d Normal 700 - 1600 mg/d [facility].; [place] [employer], [employer]. Dopamine, Urine per 24hour 133 ug/d Normal 71 - 485 ug/d [facility].; [place] [employer], [employer]. Dopamine, Urine pervolume 51 ug/L Normal [facility].; [place] [employer]. Dopamine, Urine ratio toCRT 138 {ug/g_CRT} Normal 0 - 250 {ug/g_CRT} [facility].; [place] [employer], [employer]. Epinephrine, Urine geu55ar <3 Normal 1 - 14 ug/d [facility].; [place] [employer], [employer]. Epinephrine, Urine pervolume <1 Normal [facility].; [place] [employer], [employer]. Epinephrine, Urine ratioto COAT FELLER <3 Normal 0 - 20 {ug/g_CRT} [facility].; [employer], [employer]. Hours Collected 24 {hr} Normal [facility] [facility].; [place] [employer] Metanephrines,Urine 62 {ug/24_hr} Normal 52 - 34 1 {ug/24_hr} [facility], [employer].; [place] [employer] Norepinephrine, Urineper 24hr 21 ug/d Normal 14 - 120 ug/d [facility].; [place] [employer] Norepinephrine, Urineper volume 8 ug/L Normal [employer] Norepinephrine, Urineratio to COAT FELLER 22 {ug/g_CRT} Normal 0 - 45 {ug/g_CRT} [employer] NORMETANEPHRINES, UR 117 {ug/24_hr} Normal 88 - 444 {ug/24_hr} [employer]. Period (HRS) 24 {hours} Normal [facility] [employer] [facility].; [employer]. Total Metanephrines 179 {ug/24_hr} Normal 140 - 785 {ug/24_hr} [employer]. Total Volume 2600 mL Normal [employer] [facility].; [employer]. UR Octavio Free Interp See Note Normal [facility] [employer] [facility].; [employer]. UR Octavio Free ug/d 36.7 ug/d Normal [employer]. UR Octavio Free ug/L 14.10 ug/L Normal [employer]. UR Cortisol ug/g university librarian 37.11 {ug/g_CRT} Normal [employer]. Volume (ML) 2600 mL Normal [employer]. Giardia lamblia ag stool EIA on 04-08-2022 G. lamblia Ag IA Ql (Stl) Negative Negative [facility] Work Phone: Comment on above: Performed at: [facility] [address] [id number] Director: Cj Woodall PhD, Phone: [phone] No Panel Informationon 04-08 Stool Calprotectin 35 ug/g 0-120 [facility] Work Phone: Comment on above: Concentration Interp retation Follow-Up<16 - 50 ug/g Normal None>50 -120 ug/g Borderline Re-evaluate in 4-6 weeks >120 ug/g Abnormal Repeat as clinically indicatedPerformed at: [facility] - [facility] [id number] Director: Polo Miller MD, Phone: [phone] Enteric Bacteriology [facility] Work Phone: Absolute lymphocyte counton 04-07-2022 Lymphocytes Auto (Unsp spec) [#/Vol] 1.37 10*3/uL 0.83-4.51 [facility] Work Phone: Albumin Elph [Mass/Vol]on Albumin [Mass/Vol] 4.3 g/dL 2.9-4.4 [facility] Work Phone: Atypical perinuclear antineu trophil cytoplasmic antibodies measurementon 04-07-2022 Neutrophil cytoplasmic Ab.perinuclear.atypical IF (S) [Titer] <1:20 titer Neg:<1:20 [facility] Work Phone: Comment on above: The atypical pANCA p attern has been observed in asignificant percentage of patients with ulcerative colitis,primary sclerosing cholangitis and autoimmune hepatitis.Performed at: [facility] [employer] [id number] Director: Cj Woodall PhD, Phone: [phone] at: [employer] [id number] Director: Polo Miller MD, Phone: [phone] Basophil percentageon 2021 Amylase [Catalytic activity/Vol] 54 U/L 25-115 [facility] Work Phone: Basophil percentage < 0.2 AI 0.0-0.9 [facility] Work Phone: Basophils/100 WBC (Bld) 0.6 % 0-1 [facility] Work Phone: Bilirubin [Mass/Vol] 0.30 mg/dL 0.20-1.00 [facility] Work Phone: Comment on above: For patients on eltr ombopag therapy, use of Dimension [place] TBIL is not recommended. Chloride [Moles/Vol] 105 mmol/L 98-107 [facility] Work Phone: Eosinophils/100 WBC (Bld) 3.0 % 0-5 [facility] Work Phone: Glucose [Mass/Vol] 84 mg/dL 74-106 [facility] Work Phone: [phone] Neutrophils (Bld) [#/Vol] 3.1 10*3/uL 2.0-7.7 [facility] Work Phone: Neutrophils/100 WBC (Bld) 61.2 % 47-70 [facility] Work Phone: Potassium [Moles/Vol] 3.9 mmol/L 3.5-5.1 [facility] Work Phone: [phone] Protein [Mass/Vol] 7.3 g/dL 6.4-8.2 [facility] Work Phone: [phone] Sodium [Moles/Vol] 139 mmol/L 136-145 [facility] Work Phone: [phone] WBC (Bld) [#/Vol] 5.1 10*3/uL 4.4-11.0 [facility] Work Phone: [phone] Blood erythrocytes count (nu mber/volume)on 04-07-2022 RBC (Bld) [#/Vol] 4.27 10*6/uL 4.2-5.4 [facility] Work Phone: [phone] Blood hemoglobin measurement (mass/volume)on 04-07-2022 Hemoglobin (Bld) [Mass/Vol] 13.0 g/dL 12.0-15.0 [facility] Work Phone: Blood lymphocytes/100 leukoc yteson 04-07-2022 Lymphocytes/100 WBC (Bld) 27.1 % 19-41 [facility] Work Phone: Blood monocytes/100 leukocyt eson 04-07-2022 Monocytes/100 WBC (Bld) 7.7 % 0-10 W [facility] Work Phone: Blood platelet mean volumeon 04-07-2022 Platelet mean volume (Bld) [Entitic vol] 10.1 fL 6.2-12.0 [facility] Work Phone: Determination of erythrocyte mean corpuscular volume (MCV)on 04-07-2022 MCV (RBC) [Entitic vol] 91.6 fL 81-99 W [facility] Work Phone: Erythrocyte sedimentation ra richard 04-07-2022 ESR (Bld) [Velocity] 1 mm/h 0-30 [facility] Work Phone: Hematocrit Auto (Bld) [Volum e fraction]on 04-07-2022 Hematocrit (Bld) [Volume fraction] 39.1 % 37-47 [facility] Work Phone: Interpretation of serum or p lasma protein pattern by immunofixation (narrative resulton 04-07-2022 Protein Fractions Immunofixation Demetrius [Interp] See comment [facility] Work Phone: Comment on above: NOT OBSERVED Laboratory - Chemistry and C hemistry - challengeon 04-07-2022 ALP [Catalytic activity/Vol] 27 U/L 45-117 [facility] Work Phone: ALT [Catalytic activity/Vol] 14 U/L 13-56 [facility] Work Phone: CO2 [Moles/Vol] 32.0 mmol/L 21.0-32.0 [facility] Work Phone: Globulin (S) [Mass/Vol] 3.3 g/dL 2.2-4.2 W [facility] Work Phone: Lipase [Catalytic activity/Vol] 118 U/L 73-393 [facility] Work Phone: Urea nitrogen/Creatinine [Mass ratio] 16.7 mg/mg 10-20 [facility] Work Phone: Laboratory - Hematology and Cell countson 04-07-2022 Erythrocyte distribution width (RBC) [Entitic vol] 38.5 fL 35.1-43.9 [facility] Work Phone: Erythrocyte distribution width (RBC) [Ratio] 11.5 % 11.6-14.6 [facility] Work Phone: Immature granulocytes/100 WBC (Bld) 0.400 % 0.0-0.9 [facility] Work Phone: Comment on above: IG% - Immature Granu locytes (promyelocytes, myelocytes and metamyelocytes) > 1% indicates that a LEFT SHIFT is Present. MCH (RBC) [Entitic mass] 30.4 pg 27.0-32.0 [facility] Work Phone: Nucleated RBC/100 WBC (Bld) [Ratio] 0 % 0-5 [facility] Work Phone: MCHC Auto (RBC) [Mass/Vol]on 04-07-2022 MCHC (RBC) [Mass/Vol] 33.2 g/dL 32-36 [facility] Work Phone: No Panel Informationon 04-07 Addendum Document Comment . [facility] Work Phone: Comment on above: Protein electrophore sis scan will follow via computer,mail, or certified alcohol drug counselor delivery. Centromere B Antibody <0.2 AI 0.0-0.9 [facility] Work Phone: Estimated GFR (MDRD) Amer 85 mL/min >60 [facility] Work Phone: Comment on above: GFR Calc Estimated GFR (MDRD) Non-Af Amer 71 mL/min >60 [facility] Work Phone: Comment on above: Non- GFR Calc Immunoglobulin E 81 IU/mL 6-495 [facility] Work Phone: INSTRUMENT SHOP SUPERVISOR Antibody <0.2 AI 0.0-0.9 [facility] Work Phone: Platelets bldon 04-07-2022 Platelets (Bld) [#/Vol] 206 10*3/uL 150-450 [facility] Work Phone: Serum DNA double strand anti body assay (units/volume)on 04-07-2022 DNA double strand Ab Qn (S) [IU]/mL 0-9 [facility] Work Phone: Comment on above: Negative <5 Equivoca l 5 - 9 Positive >9 Serum Jolly-1 antibody assay (u nits/volume)on 04-07-2022 Jolly-1 extractable nuclear Ab Qn (S) <0.2 AI 0.0-0.9 [facility] Work Phone: Serum Scl-70 extractable nuc lear antibody assay (units/volume)on 04-07-2022 SCL-70 extractable nuclear Ab Qn (S) <0.2 AI 0.0-0.9 [facility] Work Phone: Serum Bass extractable nucl ear antibody detectionon 04-07-2022 Bass extractable nuclear Ab Ql (S) <0.2 AI 0.0-0.9 [facility] Work Phone: Serum [id number]-[id number] measu rement by electrophoresison 04-07-2022 Alpha 1 globulin Elph [Mass/Vol] 0.2 g/dL 0.0-0.4 [facility] Work Phone: Alpha 1 globulin Elph [Mass/Vol] 0.6 g/dL 0.4-1.0 [facility] Work Phone: Serum classic neutrophil cyt oplasmic antibody assay (units/volume)on 04-07-2022 Neutrophil cytoplasmic Ab.classic Qn (S) <1:20 titer Neg:<1:20 [facility] Work Phone: Serum globulin measurement ( mass/volume)on 04-07-2022 Globulin (S) [Mass/Vol] 2.8 g/dL 2.2-3.9 W [facility] Work Phone: Serum or plasma C reactive p rotein measurement (mass/volume)on 04-07-2022 CRP [Mass/Vol] mg/L 0.0-3.0 [facility] Work Phone: Comment on above: C-Reactive Protein ( CRP) provides useful information for thediagnosis, therapy and monitoring of inflammatory processesand associated diseases. For the evaluation of Relative Riskfor Cardiovascular Disease, a High Sensitivity CRP (HSCRP)should be ordered. Serum or plasma IgA measurem ent (mass/volume)on 04-07-2022 IgA [Mass/Vol] 113 mg/dL 87-352 [facility] Work Phone: Serum or plasma IgG measurem ent (mass/volume)on 04-07-2022 IgG [Mass/Vol] 1058 mg/dL [phone] [facility] Work Phone: Serum or plasma IgM measurem ent (mass/volume)on 04-07-2022 IgM [Mass/Vol] 83 mg/dL 26-217 [facility] Work Phone: Serum or plasma albumin kirsten urement (mass/volume)on 04-07-2022 Albumin [Mass/Vol] 4.0 g/dL 3.2-5.0 [facility] Work Phone: Serum or plasma albumin/glob ulin mass ratioon 04-07-2022 Albumin/Globulin [Mass ratio] 1.2 {ratio} 0.9-2.4 [facility] Work Phone: Serum or plasma beta globuli n measurement by electrophoresis (mass/volume)on 04-07-2022 Beta globulin Elph [Mass/Vol] 0.8 g/dL 0.7-1.3 [facility] Work Phone: Serum or plasma calcium kirsten urement (mass/volume)on 04-07-2022 Calcium [Mass/Vol] 9.1 mg/dL 8.5-10.1 [facility] Work Phone: Serum or plasma creatinine m easurement (mass/volume)on 04-07-2022 Creatinine [Mass/Vol] 0.96 mg/dL 0.55-1.02 [facility] Work Phone: Comment on above: The validity of the calculated GFR & GFRAA in patients over 70 years has not been determined. Clinical correlation is essential. Serum or plasma gamma globul in measurement by electrophoresis (mass/volume)on 04-07-2022 Gamma globulin Elph [Mass/Vol] 1.1 g/dL 0.4-1.8 [facility] Work Phone: Serum or plasma immunoelectr ophoresis interpretation (nominal result)on 04-07-2022 Interpretation IEP [Interp] Comment . [facility] Work Phone: Comment on above: No monoclonality det ected. Serum or plasma urea nitroge n measurement (mass/volume)on 04-07-2022 Urea nitrogen [Mass/Vol] 16 mg/dL 7-18 [facility] Work Phone: Serum perinuclear neutrophil cytoplasmic antibody titer by immunofluorescenceon 04-07-2022 Neutrophil cytoplasmic Ab.perinuclear IF (S) [Titer] <1:20 titer Neg:<1:20 [facility] Work Phone: Comment on above: The presence of posi tive fluorescence exhibiting P-ANCA orC-ANCA patterns alone is not specific for the diagnosis ofWegener's Granulomatosis (WG) or microscopic polyangiitis.Decisions about treatment should not be based solely onANCA IFA results. The [employer] ANCA [employer] Consensusrecommends follow up testing of positive sera with both LA-3 and MPO-ANCA enzyme immunoassays. As many as 5% serumsamples are positive only by EIA. Ref. AM J Clin Mxzfyp2390;111:507-513. Thin prep Papanicolaou smear with manual screeningon 04-07-2022 Thin prep Papanicolaou smear with manual screening 14 U/L 15-37 [facility] Work Phone: Thin prep Papanicolaou smear with manual screening 2 5-15 [facility] Work Phone: Thin prep Papanicolaou smear with manual screening 155 U/L 84-246 [facility] Work Phone: Thin prep Papanicolaou smear with manual screening 1.6 0.7-1.7 [facility] Work Phone: Total protein bloodon 2021 Protein [Mass/Vol] 7.1 g/dL 6.0-8.5 [facility] Work Phone: Laboratory - Chemistry and C hemistry - challengeon 03-22-2022 HCG ( test) Ql (U) Negative [facility] Work Phone: Comment on above: Very dilute urine sp ecimens, as indicated by a low specificgravity, may not contain inside sales account representative levels of hCG. If is still suspected, a first morning urinespecimen should be collected 48 hours later and tested. Laboratory - Chemistry and C hemistry - challengeon 02-21-2022 Cobalamin (Vitamin B12) [Mass/Vol] 329 pg/mL Normal 200 - 1100 pg/mL [facility], [facility].; [facility], [facility] Free T4 [Mass/Vol] 0.9 ng/dL Normal 0.8 - 1.8 ng/dL [facility].; [facility], [facility]. TSH Qn 1.56 m[IU]/L Normal [facility]; [place] [employer], [facility]. Laboratory - Hematology and Cell countson 02-21-2022 Basophils (Bld) [#/Vol] 0.03 10*3/uL Normal 0 - 200 {cells/uL} [facility], [facility].; [facility] [employer], [facility]. Basophils/100 WBC (Bld) 0.8 % Normal [facility].; [facility], [facility] Eosinophils (Bld) [#/Vol] 0.137 10*3/uL Normal 15 - 500 {cells/uL} [facility], [facility].; [facility] [employer], [facility]. Eosinophils/100 WBC (Bld) 3.7 % Normal [facility].; [place] [employer], [facility] Erythrocyte distribution width (RBC) [Ratio] 12.4 % Normal 11.0 - 15.0 % [facility], [facility].; [employer] [place] [employer], [employer] Hematocrit (Bld) [Volume fraction] 39.6 % Normal 35.0 - 45.0 % [facility].; [facility], [facility]. Hemoglobin (Bld) [Mass/Vol] 12.9 g/dL Normal 11.7 - 15.5 g/dL [facility], [facility].; [facility], [facility]. Lymphocytes (Bld) [#/Vol] 1.188 10*3/uL Normal 850 - 3900 {cells/uL} [facility], [facility].; [facility], [facility]. Lymphocytes/100 WBC (Bld) 32.1 % Normal [facility], [facility].; [facility], [facility]. MCH (RBC) [Entitic mass] 30.5 pg Normal 27. 0 - 33.0 pg [facility], [facility].; [place] [employer] [facility], [facility]. MCHC (RBC) [Mass/Vol] 32.6 g/dL Normal 32.0 - 36.0 g/dL [facility], [facility].; [place] [employer], [facility]. MCV (RBC) [Entitic vol] 93.6 fL Normal 80.0 - 100.0 fL [facility], [facility].; [facility], [facility]. Monocytes (Bld) [#/Vol] 0.248 10*3/uL Normal 200 - 950 {cells/uL} [facility], [facility].; [place] [employer], [facility]. Monocytes/100 WBC (Bld) 6.7 % Normal [facility].; [facility], [facility]. Neutrophils (Bld) [#/Vol] 2.098 10*3/uL Normal 1500 - 7800 {cells/uL} [facility], [facility].; [place] [employer], [facility]. Neutrophils/100 WBC (Bld) 56.7 % Normal [facility].; [place] [employer], [facility]. Platelet mean volume (Bld) [Entitic vol] 11.1 fL Normal 7.5 - 12.5 fL [facility], [facility].; [place] [employer], [facility]. Platelets (Bld) [#/Vol] 200 10*3/uL Normal 140 - 400 [facility], [facility].; [place] [employer], [facility]. RBC (Bld) [#/Vol] 4.23 10*6/uL Normal 3.80 - 5.1 0 {Million/uL } [place] [employer] [facility]; [facility] WBC (Bld) [#/Vol] 3.7 10*3/uL Abnormal 3.8 - 10.8 [facility]; [facility] No Panel Informationon 02-21 CHRISSY PATTERN Nuclear, Speckled Abnormal [facility]; [facility], [facility] Work Phone: CHRISSY SCREEN, IFA Positive Abnormal [facility]; [facility] CHRISSY TITER 1:80 Abnormal [facility]; [facility] Work Phone: VITAMIN D,25-OH,TOTAL,IA 34 ng/mL Normal 30 - 100 ng/mL [facility]; [facility] Laboratory - Chemistry and C hemistry - challengeon 12-28-2020 Cobalamin (Vitamin B12) [Mass/Vol] 359 pg/mL Normal 200 - 1100 pg/mL [facility]; [facility] TSH Qn 1.64 m[IU]/L Normal [facility]; [place] [employer] [facility] Laboratory - Hematology and Cell countson 12-28-2020 Basophils (Bld) [#/Vol] 0.022 10*3/uL Normal 0 - 200 {cells/uL} [facility]; [facility]. Basophils/100 WBC (Bld) 0.4 % Normal [facility]; [facility] Eosinophils (Bld) [#/Vol] 0.078 10*3/uL Normal 15 - 500 {cells/uL} [facility].; [facility] Eosinophils/100 WBC (Bld) 1.4 % Normal [facility]; [facility] Erythrocyte distribution width (RBC) [Ratio] 12.3 % Normal 11.0 - 15.0 % [facility]; [facility], [facility] Hematocrit (Bld) [Volume fraction] 40.4 % Normal 35.0 - 45.0 % [facility]; [facility] [employer] Hemoglobin (Bld) [Mass/Vol] 13.7 g/dL Normal 11.7 - 15.5 g/dL [facility], [facility].; [facility], [facility]. Lymphocytes (Bld) [#/Vol] 1.574 10*3/uL Normal 850 - 3900 {cells/uL} [facility], [facility].; [facility] [employer] Lymphocytes/100 WBC (Bld) 28.1 % Normal [facility], [facility].; [facility], [facility]. MCH (RBC) [Entitic mass] 30.9 pg Normal 27. 0 - 33.0 pg [facility], [facility].; [place] [employer], [facility]. MCHC (RBC) [Mass/Vol] 33.9 g/dL Normal 32.0 - 36.0 g/dL [facility], [facility].; [place] [employer], [facility]. MCV (RBC) [Entitic vol] 91.0 fL Normal 80.0 - 100.0 fL [facility], [facility].; [facility], [facility]. Monocytes (Bld) [#/Vol] 0.381 10*3/uL Normal 200 - 950 {cells/uL} [facility], [facility].; [place] [employer] Monocytes/100 WBC (Bld) 6.8 % Normal [facility].; [facility], [facility]. Neutrophils (Bld) [#/Vol] 3.545 10*3/uL Normal 1500 - 7800 {cells/uL} [facility], [facility].; [place] [employer], [facility]. Neutrophils/100 WBC (Bld) 63.3 % Normal [facility], [facility].; [place] [employer], [facility]. Platelet mean volume (Bld) [Entitic vol] 10.9 fL Normal 7.5 - 12.5 fL [place] [employer], [facility].; [place] [employer], [facility]. Platelets (Bld) [#/Vol] 216 10*3/uL Normal 140 - 400 [facility], [facility].; [place] [employer] RBC (Bld) [#/Vol] 4.44 10*6/uL Normal 3.80 - 5.1 0 {Million/uL } [place] [employer] [facility] [place] [employer] WBC (Bld) [#/Vol] 5.6 10*3/uL Normal 3.8 - 10.8 [facility].; [place] [employer] No Panel Informationon 12-28 CHRISSY PATTERN Nuclear, Speckled Abnormal [facility]; [place] [employer] [facility] Work Phone: CHRISSY PATTERN Nuclear, Discrete Nuclear Dots Abnormal [facility]; [place] [employer] Work Phone: CHRISSY SCREEN, IFA Positive Abnormal [facility]; [place] [employer] CHRISSY TITER 1:80 Abnormal [facility]; [place] [employer] Work Phone: THYROID PEROXIDASE ANTIBODIES 79 {IU/mL} Abnormal [facility]; [place] [employer] VITAMIN D,25-OH,TOTAL,IA 30 ng/mL Normal 30 - 100 ng/mL [facility]; [place] [employer] Laboratory - Chemistry and C hemistry - challengeon 05-16-2018 Lactoferrin LA Ql (Stl) LACTOFERRIN, QUALITATIVE, STOOL Normal [facility]; [place] [employer] Laboratory - Microbiology an d Antimicrobial susceptibilityon 05-16-2018 Ova and parasites identified Trichrome stain Nom (Stl) Normal [facility] [facility]; [employer] No Panel Informationon 05-16 CULTURE STOOL, C&Y Normal [facility]; [place] [employer] [facility] External Ctrl done? YES Normal [facility]; [place] [employer] [facility] Observation duration PASS [facility]; [place] [employer] [facility] Vital Signs Date Time Vital Sign Value Performing Clinician Facility 05-13-2025 08:21-0400 Body height 165.1 cm dbTwang Work Phone: [facility] 05-13-2025 08:21-0400 Body mass index (BMI) [Ratio] 22.09 kg/m2 [employer]Twang Work Phone: [facility] 05-13-2025 08:21-0400 Body weight 60.2 kg Sabino Faria DO Work Phone: [facility] 05-13-2025 08:21-0400 Diastolic blood pressure 64 mm[Hg] Sabino Faria DO Work Phone: [facility] 05-13-2025 08:21-0400 Heart rate 75 /min Sabino Faria DO Work Phone: [facility] 05-13-2025 08:21-0400 Systolic blood pressure 101 mm[Hg] Sabino Faria DO Work Phone: [facility] 02-26-2025 08:29-0400 Body height 166.37 cm Lita Lopez [facility], [facility].; [facility], [facility]. 02-26-2025 08:29-0400 Body mass index (BMI) [Ratio] 22.29 kg/m2 Lita Edwinlinda [facility].; [facility], [facility]. 02-26-2025 08:29-0400 Body surface area Derived from formula 1.69 m2 Lita Lopez [facility], [facility].; [place] [employer] [facility], [facility]. 02-26-2025 08:29-0400 Body weight 61.69 kg Lita Paullinda [facility], [facility].; [facility], [facility] 02-26-2025 08:29-0400 Diastolic blood pressure 65 mm[Hg] Lita Lopez [facility] [employer] [facility] Comment on above: Patient Position: Sitting; Cuff Location : Left Arm; Cuff Size: Standard 02-26-2025 08:29-0400 Heart rate 80 /min Lita John [facility] [employer] Comment on above: Pattern: Regular 02-26-2025 08:29-0400 Systolic blood pressure 94 mm[Hg] Lita John [facility] [employer] Comment on above: Patient Position: Sitting; Cuff Location : Left Arm; Cuff Size: Standard 11-26-2024 07:10-0500 Body height 166.37 cm Az M Darien RADIOLOGIC TECHNOLOGIST [facility].; [facility], [facility]. 11-26-2024 07:10-0500 Body mass index (BMI) [Ratio] 22.94 kg/m2 Az Cunhaach [facility], [facility].; [facility], [facility] 11-26-2024 07:10-0500 Body surface area Derived from formula 1.71 m2 Az Sherwood D[place]en [facility].; [place] [employer] [facility], [facility]. 11-26-2024 07:10-0500 Body weight 63.5 kg Az Ledezma [facility], [facility].; [place] [employer] [facility], [facility]. 11-26-2024 07:10-0500 Diastolic blood pressure 75 mm[Hg] Az Ledezma [facility], [facility].; [employer] Comment on above: Patient Position: Sitting; Cuff Location : Left Arm; Cuff Size: Standard 11-26-2024 07:10-0500 Heart rate 83 /min Az Sherwood D[place] [facility], [facility].; [employer]. Comment on above: Pattern: Regular 11-26-2024 07:10-0500 Systolic blood pressure 107 mm[Hg] Az Ledezma [facility], [facility].; [place] [employer] [facility], [employer]. Comment on above: Patient Position: Sitting; Cuff Location : Left Arm; Cuff Size: Standard 10-22-2024 07:46-0500 Body height 166.37 cm Az Cunhaach RADIOLOGIC TECHNOLOGIST [facility], [facility].; [place] [employer] [facility]. 10-22-2024 07:46-0500 Body mass index (BMI) [Ratio] 23.43 kg/m2 Az Ledezma [facility], [facility].; [place] [employer] [facility], [facility]. 10-22-2024 07:46-0500 Body surface area Derived from formula 1.72 m2 Az Sherwood [place] [facility], [facility].; [place] [employer] [facility], [facility]. 10-22-2024 07:46-0500 Body weight 64.86 kg Az [facility], [facility].; [place] [employer] [facility] 10-22-2024 07:46-0500 Diastolic blood pressure 70 mm[Hg] Az Ledezma LPN [facility], [facility].; [facility]. Comment on above: Patient Position: Sitting; Cuff Location : Left Arm; Cuff Size: Standard 10-22-2024 07:46-0500 Heart rate 66 /min Az Ledezma LPN [facility], [facility].; [employer] Comment on above: Pattern: Regular 10-22-2024 07:46-0500 Systolic blood pressure 104 mm[Hg] Az Ledezma LPN [facility], [facility].; [place] [employer] [facility]. Comment on above: Patient Position: Sitting; Cuff Location : Left Arm; Cuff Size: Standard 10-02-2024 15:35-0500 Body height 165.1 cm Pooja Seals MD Work Phone: [facility] 10-02-2024 15:35-0500 Body mass index (BMI) [Ratio] 23.8 kg/m2 Pooja Seals MD Work Phone: [facility] 10-02-2024 15:35-0500 Body weight 64.86 kg Pooja Seals MD Work Phone: [facility] 10-02-2024 15:35-0500 Diastolic blood pressure 62 mm[Hg] Pooja Seals MD Work Phone: [facility] 10-02-2024 15:35-0500 Systolic blood pressure 100 mm[Hg] Pooja Seals MD Work Phone: [facility] 02-05-2024 13:11-0400 Body height 166.37 cm Az Ledezma LPN [facility], [facility].; [place] [employer] [facility]. 02-05-2024 13:11-0400 Body mass index (BMI) [Ratio] 24.25 kg/m2 Az Ledezma LPN [facility].; [place] [employer] [facility] 02-05-2024 13:11-0400 Body surface area Derived from formula 1.75 m2 Az Ledezma LPN [facility] Inc.; [employer] [facility]. 02-05-2024 13:110400 Body weight 67.13 kg Az Sherwood [place] [employer] [facility], [facility].; [facility]. 02-05-2024 13:11-0400 Diastolic blood pressure 55 mm[Hg] Az M [place] [employer] [facility].; [place] [employer] [facility]. Comment on above: Patient Position: Sitting; Cuff Location : Left Arm; Cuff Size: Standard 02-05-2024 13:11-0400 Heart rate 68 /min Az Ledezma LPN [facility].; [facility] [employer]. Comment on above: Pattern: Regular 02-05-2024 13:11-0400 Systolic blood pressure 105 mm[Hg] Az Kaela Ledezma LPN [facility].; [facility] [employer]. Comment on above: Patient Position: Sitting; Cuff Location : Left Arm; Cuff Size: Standard 11-08-2023 09:130500 Body height 166.37 cm Lesley Olson MA [facility].; [facility]. 11-08-2023 09:13-0500 Body mass index (BMI) [Ratio] 24.25 kg/m2 Lesley Olson MA [facility].; [facility], [facility]. 11-08-2023 09:130500 Body surface area Derived from formula 1.75 m2 Lesley Olson MA [facility].; [facility]. 11-08-2023 09:130500 Body temperature 97.2 [degF] Lesley Olson MA [facility].; [place] [employer] [facility]. Comment on above: Method: Tympanic 11-08-2023 09:130500 Body weight 67.13 kg Lesley Olson MA [facility].; [facility]. 11-08-2023 09:130500 Diastolic blood pressure 67 mm[Hg] Lesley Olson MA [facility].; [place] [employer]. Comment on above: Patient Position: Sitting; Cuff Location : Left Arm; Cuff Size: Standard 11-08-2023 09:13-0500 Heart rate 93 /min Lesley Olson MA [facility].; [facility]. Comment on above: Pattern: Regular 11-08-2023 09:13-0500 Inhaled oxygen concentration 20 % Lesley Olson MA [facility].; [facility]. Comment on above: Room air 11-08-2023 09:13-0500 Inhaled oxygen concentration 21 % Lesley Olson MA [facility].; [facility]. Comment on above: Room air 11-08-2023 09:13-0500 SaO2% (BldA) [Mass fraction] 100 % Lesley Olson MA [facility].; [facility]. 11-08-2023 09:13-0500 Systolic blood pressure 93 mm[Hg] Lesley Olson MA [facility].; [facility]. Comment on above: Patient Position: Sitting; Cuff Location : Left Arm; Cuff Size: Standard 11-01-2023 15:53-0500 Body temperature 99 [degF] PA Lisa Hadley PA Work Phone: [facility] 11-01-2023 15:53-0500 Diastolic blood pressure 70 mm[Hg] PA Lisa Hadley PA Work Phone: [facility] 11-01-2023 15:53-0500 Heart rate 75 /min PA Lisa Hadley PA Work Phone: [facility] 11-01-2023 15:53-0500 Respiratory rate 16 /min PA Lisa Hadley PA Work Phone: [facility] 11-01-2023 15:53-0500 SaO2% (BldA) [Mass fraction] 100 % PA Lisa Hadley PA Work Phone: [facility] 11-01-2023 15:53-0500 Systolic blood pressure 104 mm[Hg] PA Lisa Hadley PA Work Phone: [facility] 11-01-2023 10:54-0500 Body height 165.1 cm PA Lisa Hadley PA Work Phone: [facility] 11-01-2023 10:54-0500 Body mass index (BMI) [Ratio] 38.9 kg/m2 PA Lisa Hadley PA Work Phone: [facility] 11-01-2023 10:54-0500 Body weight 106 kg PA Lisa Hadley PA Work Phone: [facility] 10-08-2023 13:46-0500 Body mass index (BMI) [Ratio] 25 kg/m2 PA Lisa Hadley PA Work Phone: [facility] 10-08-2023 13:46-0500 Body weight 68.03 kg PA Lisa Hadley PA Work Phone: [facility] 10-08-2023 13:46-0500 Diastolic blood pressure 73 mm[Hg] PA Lisa Hadley PA Work Phone: [facility] 10-08-2023 13:46-0500 Respiratory rate 16 /min PA Lisa Hadley PA Work Phone: [facility] 10-08-2023 13:46-0500 Systolic blood pressure 110 mm[Hg] PA Lisa Hadley PA Work Phone: [facility] 03-15-2023 08:00-0400 Diastolic blood pressure 78 mm[Hg] Teresemellisa TapiaJewell PT Work Phone: [facility] 03-15-2023 08:00-0400 Systolic blood pressure 114 mm[Hg] Teresemellisa TapiaJewell PT Work Phone: [facility] 02-28-2023 14:41-0400 Body height 165.1 cm Pooja Seals MD Work Phone: [facility] 02-28-2023 14:41-0400 Body weight 66.36 kg Pooja Seals MD Work Phone: [facility] 02-28-2023 14:41-0400 Diastolic blood pressure 66 mm[Hg] Pooja Seals MD Work Phone: [facility] 02-28-2023 14:41-0400 Systolic blood pressure 98 mm[Hg] Pooja Seals MD Work Phone: [facility] 09-20-2022 10:110400 Body height 166.37 cm Temitope Padilla MA [facility], [facility].; [facility]. 09-20-2022 10:110400 Body mass index (BMI) [Ratio] 23.43 kg/m2 Temitope Padilla MA [facility], [facility].; [facility]. 09-20-2022 10:110400 Body surface area Derived from formula 1.72 m2 Temitope Padilla MA [facility].; [facility]. 09-20-2022 10:11040 Body temperature 99 [degF] Temitope Padilla MA [facility].; [facility]. Comment on above: Method: Tympanic 09-20-2022 10:040 Body weight 64.86 kg Temitope Padilla MA [facility].; [facility]. 09-20-2022 10:11040 Diastolic blood pressure 68 mm[Hg] Temitope Padilla MA [facility].; [facility]. Comment on above: Patient Position: Sitting; Cuff Location : Left Arm; Cuff Size: Standard 09-20-2022 10:110400 Heart rate 60 /min Temitope Padilla MA [facility].; [place] [employer] [facility]. Comment on above: Pattern: Regular 09-20-2022 10:040 Systolic blood pressure 101 mm[Hg] Temitope Padilla MA [facility].; [facility]. Comment on above: Patient Position: Sitting; Cuff Location : Left Arm; Cuff Size: Standard 06-14-2022 10:57-0400 Body height 166.37 cm Temitope Padilla MA [facility].; [facility]. 06-14-2022 10:57-0400 Body mass index (BMI) [Ratio] 22.61 kg/m2 Temitope Padilla MA [facility].; [facility]. 06-14-2022 10:57-0400 Body surface area Derived from formula 1.7 m2 Temitope Padilla MA [facility].; [facility]. 06-14-2022 10:57-0400 Body weight 62.6 kg Temitope Padilla MA [facility].; [facility]. 06-14-2022 10:57-0400 Diastolic blood pressure 67 mm[Hg] Temitope Padilla MA [facility].; [place] [employer] [facility]. Comment on above: Patient Position: Sitting; Cuff Location : Left Arm; Cuff Size: Standard 06-14-2022 10:57-0400 Heart rate 72 /min Temitope Padilla MA [facility].; [place] [employer]. Comment on above: Pattern: Regular 06-14-2022 10:57-0400 Systolic blood pressure 98 mm[Hg] Temitope Padilla MA [facility].; [place] [employer] [facility]. Comment on above: Patient Position: Sitting; Cuff Location : Left Arm; Cuff Size: Standard 06-04-2022 13:45-0400 Body height 166.37 cm Marisol Blankenship RN [facility].; [employer]. 06-04-2022 13:45-0400 Body mass index (BMI) [Ratio] 23.11 kg/m2 Marisol Blankenship RN [place] [employer] [facility].; [employer]. 06-04-2022 13:45-0400 Body surface area Derived from formula 1.71 m2 Marisol Blankenship RN [facility].; [employer] [facility]. 06-04-2022 13:45-0400 Body temperature 99 [degF] Marisol Blankenship RN [place] [employer] [facility].; [employer]. Comment on above: Method: Tympanic 06-04-2022 13:45-0400 Body weight 63.96 kg Marisol Blankenship RN [place] [employer] [facility].; [employer]. 06-04-2022 13:45-0400 Diastolic blood pressure 64 mm[Hg] Marisol Blankenship RN [place] [employer] [facility].; [employer]. Comment on above: Patient Position: Sitting; Cuff Location : Left Arm; Cuff Size: Standard 06-04-2022 13:45-0400 Heart rate 67 /min Marisol Blankenship RN [facility].; [facility]. Comment on above: Pattern: Regular 06-04-2022 13:45-0400 Inhaled oxygen concentration 20 % Marisol Blankenship RN [facility].; [facility]. Comment on above: Room air 06-04-2022 13:45-0400 Inhaled oxygen concentration 21 % Marisol Blankenship RN [facility].; [facility]. Comment on above: Room air 06-04-2022 13:45-0400 SaO2% (BldA) [Mass fraction] 97 % Marisol Blankenship RN [facility].; [facility]. 06-04-2022 13:45-0400 Systolic blood pressure 97 mm[Hg] Marisol Blankenship RN [facility].; [facility]. Comment on above: Patient Position: Sitting; Cuff Location : Left Arm; Cuff Size: Standard 05-31-2022 10:05-0400 Body height 165.1 cm PA Lisa Hadley PA Work Phone: [facility] Work Phone: 05-31-2022 10:05-0400 Body mass index (BMI) [Ratio] 23.6 kg/m2 PA Lisa Hadley PA Work Phone: [facility] Work Phone: 05-31-2022 10:05-0400 Body weight 64.41 kg PA Lisa Hadley PA Work Phone: [facility] Work Phone: 05-31-2022 10:05-0400 Diastolic blood pressure 74 mm[Hg] PA Lisa Hadley PA Work Phone: [facility] Work Phone: 05-31-2022 10:05-0400 Heart rate 63 /min PA Lisa Hadley PA Work Phone: [facility] Work Phone: 05-31-2022 10:05-0400 SaO2% (BldA) [Mass fraction] 98 % PA Lisa Hadley PA Work Phone: [facility] Work Phone: 05-31-2022 10:05-0400 Systolic blood pressure 109 mm[Hg] PA Lisa Hadley PA Work Phone: [facility] Work Phone: 05-16-2022 10:39-0400 Body height 166.37 cm Lisa Park Hadley PA-C Work Phone: [employer]; [employer] 05-16-2022 10:39-0400 Body mass index (BMI) [Ratio] 23.17 kg/m2 Lisa [place] Hadley PA-C Work Phone: [employer]; [employer]. 05-16-2022 10:39-0400 Body surface area Derived from formula 1.72 m2 Lisa [place] Hadley PA-C Work Phone: [employer]. 05-16-2022 10:39-0400 Body weight 64.13 kg Lisa [place] Hadley PA-C Work Phone: [employer]; [employer] 05-16-2022 10:39-0400 Diastolic blood pressure 64 mm[Hg] Lisa Park Hadley PA-C Work Phone: [employer]. Comment on above: Patient Position: Sitting; Cuff Location : Left Arm; Cuff Size: Standard 05-16-2022 10:39-0400 Heart rate 64 /min Lisa [place] Hadley PA-C Work Phone: [employer]. Comment on above: Pattern: Regular 05-16-2022 10:39-0400 Systolic blood pressure 100 mm[Hg] Lisa J Hadley PA-C Work Phone: [facility] [employer] [facility]. Comment on above: Patient Position: Sitting; Cuff Location : Left Arm; Cuff Size: Standard 04-10-2022 08:42-0400 Body height 165.1 cm PA Lisa Hadley PA Work Phone: [facility] Work Phone: 04-10-2022 08:42-0400 Body mass index (BMI) [Ratio] 22.9 kg/m2 PA Lisa Hadley PA Work Phone: [facility] Work Phone: 04-10-2022 08:42-0400 Body weight 62.59 kg PA Lisa Hadley PA Work Phone: [facility] Work Phone: 04-10-2022 08:42-0400 Diastolic blood pressure 70 mm[Hg] PA Lisa Hadley PA Work Phone: [facility] Work Phone: 04-10-2022 08:42-0400 Heart rate 67 /min PA Lisa Hadley PA Work Phone: [facility] Work Phone: 04-10-2022 08:42-0400 Systolic blood pressure 110 mm[Hg] PA Lisa Hadley PA Work Phone: [facility] Work Phone: 04-10-2022 08:42-0400 Body height 165.1 cm PA Lisa Hadley PA Work Phone: [facility] Work Phone: 04-10-2022 08:42-0400 Body mass index (BMI) [Ratio] 22.9 kg/m2 PA Lisa Hadley PA Work Phone: [facility] Work Phone: 04-10-2022 08:42-0400 Body weight 62.59 kg PA Lias Hadley PA Work Phone: [facility] Work Phone: 04-10-2022 08:42-0400 Diastolic blood pressure 70 mm[Hg] PA Lisa Hadley PA Work Phone: [facility] Work Phone: 04-10-2022 08:42-0400 Heart rate 67 /min PA Lisa Hadley PA Work Phone: [facility] Work Phone: 04-10-2022 08:42-0400 Systolic blood pressure 110 mm[Hg] PA Lisa Hadley PA Work Phone: [facility] Work Phone: 03-22-2022 10:47-0400 Body temperature 97.7 [degF] PA Lisa Hadley PA Work Phone: [facility] Work Phone: 03-22-2022 10:47-0400 Diastolic blood pressure 51 mm[Hg] PA Lisa Hadley PA Work Phone: [facility] Work Phone: 03-22-2022 10:47-0400 Heart rate 55 /min PA Lisa Hadley PA Work Phone: [facility] Work Phone: 03-22-2022 10:47-0400 Respiratory rate 16 /min PA Lisa Hadley PA Work Phone: [facility] Work Phone: 03-22-2022 10:47-0400 SaO2% (BldA) [Mass fraction] 100 % PA Lisa Hadley PA Work Phone: [facility] Work Phone: 03-22-2022 10:47-0400 Systolic blood pressure 91 mm[Hg] PA Lisa Hadley PA Work Phone: [facility] Work Phone: 03-22-2022 09:19-0400 Body height 165.1 cm PA Lisa Hadley PA Work Phone: [facility] Work Phone: 03-22-2022 09:19-0400 Body mass index (BMI) [Ratio] 22.7 kg/m2 PA Lisa Hadley PA Work Phone: [facility] Work Phone: 03-22-2022 09:[id number] Body weight 62 kg PA Lisa Hadley PA Work Phone: [facility] Work Phone: 08-14-2021 14:55-0400 Body height 166.37 cm Az Ledezma LPN [facility], [facility].; [facility], [facility]. 08-14-2021 14:55-0400 Body mass index (BMI) [Ratio] 22.12 kg/m2 Az Ledezma LPN [facility], [facility].; [place] [employer] [facility], [facility]. 08-14-2021 14:55-0400 Body surface area Derived from formula 1.68 m2 Az Ledezma LPN [facility], [facility].; [place] [employer] [facility], [facility]. 08-14-2021 14:55-0400 Body temperature 98.3 [degF] Az Ledezma LPN [facility], [facility].; [employer] [facility] Comment on above: Method: Tympanic 08-14-2021 14:55-0400 Body weight 61.24 kg Az Ledezma LPN [facility], [facility].; [employer] [facility] 08-14-2021 14:55-0400 Diastolic blood pressure 66 mm[Hg] Az Ledezma LPN [facility], [facility].; [employer] [facility] Comment on above: Patient Position: Sitting; Cuff Location : Left Arm; Cuff Size: Standard 08-14-2021 14:55-0400 Heart rate 64 /min Az Ledezma LPN [facility], [facility].; [place] [employer] [facility]. Comment on above: Pattern: Regular 08-14-2021 14:55-0400 Systolic blood pressure 108 mm[Hg] Az Ledezma RADIOLOGIC TECHNOLOGIST [facility], [facility].; [employer] [facility]. Comment on above: Patient Position: Sitting; Cuff Location : Left Arm; Cuff Size: Standard 12-28-2020 13:37-0500 Body height 166.37 cm Az Ledezma [facility].; [place] [employer] [facility] 12-28-2020 13:37-0500 Body mass index (BMI) [Ratio] 24.09 kg/m2 Az Cunhaach [facility].; [place] [employer], [facility]. 12-28-2020 13:37-0500 Body surface area Derived from formula 1.75 m2 Az Sherwood Darien [facility].; [place] [employer] [facility], [employer]. 12-28-2020 13:37-0500 Body weight 66.68 kg Az Sherwood Darien [facility].; [place] [employer] [facility], [facility]. 12-28-2020 13:37-0500 Diastolic blood pressure 63 mm[Hg] Az Ledezma RADIOLOGIC TECHNOLOGIST [facility], [facility].; [employer]. Comment on above: Patient Position: Sitting; Cuff Location : Left Arm; Cuff Size: Standard 12-28-2020 13:37-0500 Heart rate 61 /min Az Ledezma [facility] [employer] Comment on above: Pattern: Regular 12-28-2020 13:37-0500 Systolic blood pressure 101 mm[Hg] Az Cunhaach RADIOLOGIC TECHNOLOGIST [facility], [facility].; [employer]. Comment on above: Patient Position: Sitting; Cuff Location : Left Arm; Cuff Size: Standard 09-13-2020 10:05-0400 Body height 166.37 cm Emily Mayes MA [facility], [employer].; [employer]. 09-13-2020 10:05-0400 Body mass index (BMI) [Ratio] 23.6 kg/m2 Emily Mayes MA [facility], Inc.; [employer]. 09-13-2020 10:05-0400 Body surface area Derived from formula 1.73 m2 Emily [facility]es MA [facility].; [employer]. 09-13-2020 10:05-0400 Body temperature 98.3 [degF] Emily Gerber [facility].; [place] [employer]. 09-13-2020 10:05-0400 Body weight 65.32 kg Emily Maeys MA [facility].; [place] [employer]. 09-13-2020 10:05-0400 Diastolic blood pressure 76 mm[Hg] Emily Mayes MA [facility].; [employer]. Comment on above: Patient Position: Sitting; Cuff Location : Left Arm; Cuff Size: Standard 09-13-2020 10:05-0400 Heart rate 72 /min Emily Mayes MA [facility], [employer].; [employer]. Comment on above: Pattern: Regular 09-13-2020 10:05-0400 Inhaled oxygen concentration 20 % Emily Mayes MA [facility].; [employer]. Comment on above: Room air 09-13-2020 10:05-0400 Inhaled oxygen concentration 21 % Emily Mayes MA [facility].; [employer]. Comment on above: Room air 09-13-2020 10:05-0400 SaO2% (BldA) [Mass fraction] 99 % Emily Mayes MA [facility].; [employer]. 09-13-2020 10:05-0400 Systolic blood pressure 110 mm[Hg] Emily Mayes MA [facility].; [employer]. Comment on above: Patient Position: Sitting; Cuff Location : Left Arm; Cuff Size: Standard 06-19-2019 [id number] Body height 166.37 cm Taylor Gonzalez LPN [facility], [employer].; [employer]. 06-19-2019 09:07-0400 Body mass index (BMI) [Ratio] 24.58 kg/m2 Taylor Gonzalez LPN [facility], Inc.; [employer]. 06-19-2019 09:07-0400 Body surface area Derived from formula 1.76 m2 Taylor Gonzalez LPN [facility] [employer] 06-19-2019 09:07-0400 Body weight 68.04 kg Taylor Weantonio KINSEY [facility], [facility].; [employer] 06-19-2019 09:07-0400 Diastolic blood pressure 68 mm[Hg] Taylor Gonzalez LPN [facility], [facility].; [employer] Comment on above: Patient Position: Sitting; Cuff Location : Left Arm; Cuff Size: Standard 06-19-2019 09:07-0400 Heart rate 75 /min Taylor Gonzalez LPN [place] [employer] [facility] [employer] Comment on above: Pattern: Regular 06-19-2019 09:07-0400 Systolic blood pressure 96 mm[Hg] Taylor Gonzalez LPN [place] [employer] [facility].; [employer] Comment on above: Patient Position: Sitting; Cuff Location : Left Arm; Cuff Size: Standard 09-05-2018 11:30-0400 Body height 166.37 cm Taylor Gonzalez LPN [place] [employer] [facility], [facility].; [employer] 09-05-2018 11:30-0400 Body mass index (BMI) [Ratio] 24.91 kg/m2 Taylor Gonzalez LPN [place] [employer] [facility].; [employer] 09-05-2018 11:30-0400 Body surface area Derived from formula 1.77 m2 Taylor Gonzalez LPN [place] [employer] [facility].; [employer] 09-05-2018 11:30-0400 Body weight 68.95 kg Taylor Lisa [employer] [place] [employer], Inc.; [employer] 09-05-2018 11:30-0400 Diastolic blood pressure 78 mm[Hg] Taylor Gonzalez LPN [place] [employer], [employer].; [employer] Comment on above: Patient Position: Sitting; Cuff Location : Left Arm; Cuff Size: Standard 09-05-2018 11:30-0400 Heart rate 76 /min Taylor Gonzalez LPN [place] [employer], [employer].; [employer] Comment on above: Pattern: Regular 09-05-2018 11:30-0400 Systolic blood pressure 115 mm[Hg] Taylor Abeljoserosalina AMELIE [facility], [facility].; [place] [employer], [employer] Comment on above: Patient Position: Sitting; Cuff Location : Left Arm; Cuff Size: Standard 05-15-2018 13:05-0400 Body height 166.37 cm Taylor Lisa KINSEY [facility], [facility].; [place] [employer] 05-15-2018 13:05-0400 Body mass index (BMI) [Ratio] 23.97 kg/m2 Taylor Lisa [facility] [place] [employer], [employer] 05-15-2018 13:05-0400 Body surface area Derived from formula 1.74 m2 Tayloremily Gonzalez LPN [place] [employer] [facility].; [employer] 05-15-2018 13:05-0400 Body temperature 100.1 [degF] Taylor Coltenantonio K[employer] [place] [employer] [facility].; [employer] Comment on above: Method: Tympanic 05-15-2018 13:05-0400 Body weight 66.34 kg Taylor Weantonio [employer] [place] [employer] [facility].; [employer] 05-15-2018 13:05-0400 Diastolic blood pressure 85 mm[Hg] Taylor Lisa KINSEY [place] [employer] [facility].; [employer] Comment on above: Patient Position: Sitting; Cuff Location : Left Arm; Cuff Size: Standard 05-15-2018 13:05-0400 Heart rate 79 /min Taylor Lisa K[employer]SEY [place] [employer] [facility].; [employer], [employer]. Comment on above: Pattern: Regular 05-15-2018 13:05-0400 Systolic blood pressure 115 mm[Hg] Taylor Lisa KINSEY [place] [employer] [facility].; [employer], [employer]. Comment on above: Patient Position: Sitting; Cuff Location : Left Arm; Cuff Size: Standard 04-28-2018 11:39-0400 Body height 166.37 cm Tayloremily Gonzalez LPN [facility], [facility].; [employer] 04-28-2018 11:39-0400 Body mass index (BMI) [Ratio] 24.29 kg/m2 Tayloremily Gonzalez LPN [facility], Inc.; [employer] 04-28-2018 11:39-0400 Body surface area Derived from formula 1.75 m2 Taylor Gonzalez LPN [place] [employer] [facility].; [employer] 04-28-2018 11:39-0400 Body weight 67.25 kg Tayloremily Gonzalez LPN [place] [employer] [facility], [facility].; [employer], [employer]. 04-28-2018 11:39-0400 Diastolic blood pressure 72 mm[Hg] Tayloremily [facility], [facility].; [employer], [employer]. Comment on above: Patient Position: Sitting; Cuff Location : Left Arm; Cuff Size: Standard 04-28-2018 11:39-0400 Heart rate 64 /min Taylor Gonzalez LPN [place] [employer] [facility], [employer].; [employer]. Comment on above: Pattern: Regular 04-28-2018 11:39-0400 Systolic blood pressure 106 mm[Hg] Taylor Lisa [facility] Addictive [facility], [facility].; [employer], [employer]. Comment on above: Patient Position: Sitting; Cuff Location : Left Arm; Cuff Size: Standard Encounters Encounter Date Encounter Type Care Provider Facility Start: 08-06-2025 ambulatory GOODMAN PATRICIA PHILLIPS MD~[id number] Facility:[facility] Start: 07-27-2025 ambulatory Lisa ARMENDARIZ Facil ity:[facility] Start: 07-12-2025 End: 07-14-2025 ambulatory Sabino Sherwood Faria DO Work Phone: Functional Medicine Comment on above: Question for Sabino Faria Start: 07-10-2025 End: 07-12-2025 ambulatory Sabino M Faria DO Work Phone: Functional Medicine Comment on above: Question for Sabino Faria Start: 07-07-2025 End: 07-07-[address] Nutrition therapy Gale Cop[address] RD Work Phone: Functional Medicine Comment on above: Irritable bowel synd serena with constipation (Primary Dx); Nutritional counseling; Marlon's thyroiditis; Bloating Start: 07-07-2025 End: 07-07-2025 Telemedicine consultation with patient Gale Copeland RD Work Phone: Functional Medicine Start: 07-07-2025 End: 07-07-2025 ambulatory GALE COPELAND Facility:[facility] Start: 07-03-2025 End: 07-05-2025 ambulatory Sabino Faria DO Work Phone: Functional Medicine Comment on above: Waiting List Start: 07-02-2025 End: 07-02-2025 ambulatory Sabino Faria DO Work Phone: Functional Medicine Start: 07-02-2025 End: 07-02-2025 Patient encounter procedure Sabino Faria DO Work Phone: Functional Medicine Comment on above: Next appointment-Vir tual option Start: 06-28-2025 End: 06-28-2025 Telemedicine consultation with patient [facility] ED Work Phone: Functional Medicine Start: 06-28-2025 End: 06-28-2025 ambulatory [facility] ED Work Phone: Functional Medicine Comment on above: Encounter for person encountering health services (Primary Dx) Start: 06-17-2025 End: 06-17-2025 ambulatory Sabino Faria DO Work Phone: Functional Medicine Comment on above: Prescription- Pharma cy Needs Clarification Start: 06-16-2025 End: 06-16-2025 Office outpatient visit 25 minutes Sabino Faria DO Work Phone: Functional Medicine Comment on above: Small intestinal yu terial overgrowth; Carlee infection; Slow transit constipation; Methylenetetrahydrofolate reductase (MTHFR) gene mutation; Marlon's thyroiditis; Generalized anxiety disorder; Sinus congestion; Bloating Start: 06-16-2025 End: 06-16-2025 ambulatory SABINO FARIA Facility:[facility] Start: 06-14-2025 End: 06-14-2025 ambulatory Sabino Faria DO Work Phone: Functional Medicine Comment on above: Fax number for medic al records Start: 06-10-2025 End: 06-10-2025 [facility] Start: 06-10-2025 End: 06-10-2025 ambulatory Az [facility] Work Phone: Functional Medicine Comment on above: Encounter for person encountering health services (Primary Dx) Start: 06-08-2025 End: 06-09-2025 Orders Lisa Salgadoer PA-C Work Phone: [employer] Start: 06-01-2025 End: 06-02-2025 Orders Lisa Salgadoer PA-C Work Phone: [employer] Start: 05-27-2025 End: 05-27-2025 [facility] Start: 05-27-2025 End: 05-27-2025 ambulatory [facility] ED Work Phone: Functional Medicine Comment on above: Encounter for person encountering health services (Primary Dx) Start: 05-26-2025 End: 05-26-2025 Nutrition therapy Gale Sisee RD Work Phone: Functional Medicine Comment on above: Irritable bowel synd serena with constipation (Primary Dx); Nutritional counseling Start: 05-26-2025 End: 05-26-2025 Telemedicine consultation with patient Gale Mckinleyuda RD Work Phone: Functional Medicine Start: 05-26-2025 End: 05-26-2025 ambulatory GALE SIUDA Facility:[facility] Start: 05-25-2025 End: 05-26-2025 Orders Lisa Salgadoer PA-C Work Phone: [employer] Start: 05-19-2025 End: 05-19-2025 Orders Lisa Salgadoer PA-C Work Phone: [employer] Start: 05-18-2025 End: 2025 Telephone encounter Sabino Faria DO Work Phone: Functional Medicine Start: 05-17-2025 End: 05-17-2025 Telemedicine consultation with patient Az [facility] Work Phone: Functional Medicine Start: 05-17-2025 End: 05-17-2025 ambulatory Az [facility] Work Phone: Functional Medicine Comment on above: Encounter for person encountering health services (Primary Dx) Start: 05-14-2025 End: 2025 Telephone encounter Sabino Faria DO Work Phone: Functional Medicine Comment on above: Pharmacy request for call, clarification on B12 RX Start: 05-13-2025 End: 05-13-2025 Telephone encounter Sabino Faria DO Work Phone: Functional Medicine Start: 05-13-2025 End: 05-13-2025 Office outpatient visit 40 minutes Sabino Faria DO Work Phone: Functional Medicine Comment on above: B12 deficiency (Prim darell Dx); Irritable bowel syndrome with constipation Start: 05-13-2025 End: 05-14-2025 ambulatory Sabino Faria DO Work Phone: Functional Medicine Comment on above: Prescription Status Start: 04-16-2025 End: 04-16-2025 Telephone encounter Sabino Faria DO Work Phone: Functional Medicine Start: 04-05-2025 End: 04-05-2025 Historical Summary Lisa Hadley PA-C Work Phone: [employer]. Start: 04-01-2025 ambulatory GOODMAN PATRICIA PHILLIPS MD~[id number] Facility:[facility] Start: 03-26-2025 End: 03-26-2025 ambulatory Lisa ARMENDARIZ Work Phone: [facility] Work Phone: Start: 03-26-2025 End: 03-26-2025 Patient encounter procedure Lisa ARMENDARIZ Work Phone: -Laboratory Work Phone: Start: 03-26-2025 End: 03-26-2025 ambulatory Lisa ARMENDARIZ Facility:[facility] Start: 02-26-2025 End: 02-26-2025 Patient encounter status Lisa Hadley PA-C Work Phone: [employer] [facility] [employer]. Start: 02-26-2025 End: 02-26-2025 Periodic preventive med est patient 18-39 yrs Lisa Hadley PA-C Work Phone: [employer]. Start: 02-26-2025 Review Lisa Salgadoer PA-C Work Phone: [employer]. Start: 02-24-2025 End: 02-24-2025 Medication Lisa Salgadoer PA-C Work Phone: [employer]. Start: 02-16-2025 End: 02-17-2025 Orders Lisa Salgadoer PA-C Work Phone: [employer]. Start: 01-07-2025 End: 01-07-2025 Orders Lisa Salgadoer PA-C Work Phone: [employer]. Start: 12-21-2024 End: 12-21-2024 Medication Lisa Sagladoer PA-C Work Phone: [employer]. Start: 12-03-2024 End: 12-03-2024 Orders Lisa Salgadoer PA-C Work Phone: [employer]. Start: 11-26-2024 Follow-up encounter Lisa Armendariz lmer PA-C Work Phone: [employer]. Start: 11-26-2024 End: 11-26-2024 Office outpatient visit 15 minutes Lisa Salgadoer PA-C Work Phone: [employer]. Start: 11-23-2024 End: 11-23-2024 Medication Lisa Salgadoer PA-C Work Phone: [employer] Start: 11-21-2024 End: 11-21-2024 ambulatory Lisa Hadley MARCELLO Facility:[facility] Start: 11-16-2024 End: 11-16-2024 Medication Lisa Hadley PA-C Work Phone: [employer] Start: 10-22-2024 End: 10-22-2024 Office outpatient visit 15 minutes Lisa Hadley PA-C Work Phone: [employer] Start: 10-02-2024 End: 10-02-2024 ambulatory POOJA SEALS Facility:[facility] Start: 10-02-2024 End: 10-02-2024 Patient encounter procedure Pooja Seals MD Work Phone: OB/Gynecology Comment on above: Encounter for gyneco logical examination (general) (routine) without abnormal findings (Primary Dx); Encounter for screening for malignant neoplasm of cervix; Special screening examination for human papillomavirus (HPV); Abnormal glandular Papanicolaou smear of cervix Start: 10-02-2024 End: 10-02-2024 Patient encounter status Pooja Seals MD Work Phone: [facility] Start: 09-21-2024 End: 09-21-2024 Orders Lisa Hadley PA-C Work Phone: [employer] Start: 02-05-2024 End: 02-03-2024 Historical Summary Lisa Hadley PA-C Work Phone: [employer] Start: 02-05-2024 End: 02-05-2024 Patient encounter procedure Lisa Hadley PA-C Work Phone: [employer]; [employer]. Start: 02-05-2024 End: 02-05-2024 Periodic preventive med est patient 40-64yrs Lisa Salgadoer PA-C Work Phone: [employer] Start: 02-05-2024 Patient encounter status Az Ledezma LPN [facility].; [facility] Start: 02-05-2024 Review Lisa Hadley PA-C Work Phone: [facility]. Start: 01-28-2024 End: 01-29-2024 Orders Lisamaribell Salgadoer PA-C Work Phone: [facility] Start: 01-22-2024 End: 01-22-2024 Orders Lisa Hadley PA-C Work Phone: [facility] Start: 11-14-2023 End: 11-14-2023 ambulatory LISA HADLEY [facility] Start: 11-08-2023 End: 11-08-2023 Office outpatient visit 15 minutes Lisa Hadley PA-C Work Phone: [facility] Start: 11-01-2023 Non-patient / Non-visit PA Shara ARMENDARIZ Work Phone: [facility] Start: 11-01-2023 End: 11-01-2023 Admission to same day surgery center PA Lisamaribell Salgadojama ARMENDARIZ Work Phone: [facility] Start: 11-01-2023 End: 11-01-2023 ambulatory PA Lisamaribell Salgadojama ARMENDARIZ Work Phone: [facility] Work Phone: Start: 10-08-2023 End: 10-08-2023 Patient encounter procedure PA Lisamaribell Salgadoer PA Work Phone: [facility] Work Phone: Start: 09-10-2023 End: 09-10-2023 ambulatory PA Lisamaribell Salgadoer PA Work Phone: [facility] Work Phone: Start: 09-10-2023 End: 09-10-2023 Patient encounter procedure PA Lisa ARMENDARIZ Work Phone: [facility]-Nuclear Medicine, [facility] Work Phone: Start: 09-07-2023 End: 09-07-2023 ambulatory MARCELLO ARMENDARIZ Work Phone: [facility] Work Phone: Start: 09-07-2023 End: 09-07-2023 Patient encounter procedure MARCELLO ARMENDARIZ Work Phone: [facility] Work Phone: Start: 08-28-2023 End: 08-28-2023 Patient encounter procedure MARCELLO ARMENDARIZ Work Phone: [facility] [facility] Work Phone: Start: 07-09-2023 End: 07-09-2023 Medication Lisa ARMENDARIZ-C Work Phone: [facility] Start: 07-04-2023 End: 07-04-2023 ambulatory SHAE STONY RIDGE Andrew [facility] Start: 04-19-2023 End: 04-19-2023 ambulatory Terese Tapiaell PT Work Phone: [facility] Comment on above: Urinary frequency (P rimary Dx); Muscle weakness Start: 03-29-2023 End: 03-29-2023 ambulatory Terese Jewell PT Work Phone: [facility] Comment on above: Urinary frequency (P rimary Dx); Muscle weakness Start: 03-15-2023 End: 03-15-2023 ambulatory Terese Jewell PT Work Phone: [facility] Comment on above: Urinary frequency (P rimary Dx); Muscle weakness Start: 02-28-2023 End: 02-28-2023 Patient encounter procedure Pooja Seals MD Work Phone: OB/Gynecology Comment on above: Encounter for gyneco logical examination without abnormal finding (Primary Dx); Urinary frequency Start: 02-28-2023 End: 02-28-2023 Patient encounter status Pooja Seals MD Work Phone: OB/Gynecology Start: 10-25-2022 End: 10-25-2022 ambulatory PA Lisamaribell Hadley PA Work Phone: [facility] Work Phone: Start: 10-25-2022 End: 10-25-2022 Patient encounter procedure PA Lisa Hadley PA Work Phone: [facility]-Laboratory Start: 09-20-2022 End: 09-20-2022 Patient encounter procedure Lisa Hadley PA-C Work Phone: [facility] Start: 07-12-2022 Non-patient / Non-visit PA Shara Hadley PA Work Phone: [facility] Start: 07-12-2022 End: 07-12-2022 ambulatory PA Lisamaribell Salgadoer PA Work Phone: [facility] Work Phone: Start: 07-12-2022 End: 07-12-2022 Patient encounter procedure PA Lisa Hadley PA Work Phone: [facility]-Cardiovascular Services Start: 07-11-2022 End: 07-11-2022 ambulatory PA Lisamaribell Salgadoer PA Work Phone: [facility] Work Phone: Start: 07-11-2022 End: 07-11-2022 Patient encounter procedure PA Lisa Hadley PA Work Phone: [facility] Start: 06-14-2022 End: 06-14-2022 Patient encounter procedure Lisa Hadley PA-C Work Phone: [employer] [facility]. Start: 06-08-2022 End: 06-08-2022 Medication Lisa Hadley PA-C Work Phone: [employer] [facility]. Start: 06-04-2022 End: 06-04-2022 Office outpatient visit 15 minutes Lisa Hadley PA-C Work Phone: [facility]. Start: 05-31-2022 End: 05-31-2022 Patient encounter procedure MARCELLO ARMENDARIZ Work Phone: [facility] Start: 05-28-2022 End: 05-29-2022 Orders Lisa ARMENDARIZ-C Work Phone: [facility]. Start: 05-24-2022 End: 05-24-2022 Telephone follow-up Lisa ARMENDARIZ-Tamara Work Phone: [employer]. Start: 05-23-2022 End: 05-23-2022 Orders Lisa ARMENDARIZ-C Work Phone: [facility] [employer]. Start: 05-23-2022 End: 05-23-2022 Orders Lisa ARMENDARIZ-C Work Phone: [facility] [employer] Start: 05-16-2022 End: 05-16-2022 Office outpatient visit 25 minutes Lisa ARMENDARIZ-Tamara Work Phone: [facility] [employer] Start: 05-08-2022 End: 05-08-2022 Patient encounter procedure MARCELLO ARMENDARIZ Work Phone: [facility] Start: 04-30-2022 End: 04-30-2022 Orders Lisa ARMENDARIZ-C Work Phone: [facility] [employer]. Start: 04-10-2022 End: 04-10-2022 Patient encounter procedure MARCELLO ARMENDARIZ Work Phone: [facility] Gastroenterology Start: 04-08-2022 End: 04-08-2022 Patient encounter procedure MARCELLO ARMENDARIZ Work Phone: [facility]-Laboratory Start: 04-07-2022 End: 04-07-2022 Patient encounter procedure MARCELLO ARMENDARIZ Work Phone: [facility]-Laboratory Start: 03-22-2022 Non-patient / Non-visit MARCELLO ARMENDARIZ Work Phone: [facility]-BG[facility] Start: 03-22-2022 End: 03-22-2022 Admission to same day surgery center MARCELLO ARMENDARIZ Work Phone: [facility]-Endoscopy Start: 02-21-2022 End: 02-21-2022 Orders Lisa Hadley PA-C Work Phone: [employer]. Start: 01-19-2022 End: 01-19-2022 Patient encounter procedure PA Lisa ARMENDARIZ Work Phone: [facility] Gastroenter[facility] Start: 12-01-2021 End: 12-01-2021 Patient encounter procedure PA Lisa ARMENDARIZ Work Phone: [facility] G[facility] Start: 10-04-2021 End: 10-04-2021 Orders Lisa Salgadoer PA-C Work Phone: [employer]. Start: 08-14-2021 End: 08-14-2021 Office outpatient visit 15 minutes Lsia Hadley PA-C Work Phone: [employer]. Start: 12-28-2020 End: 12-28-2020 Patient encounter procedure Lisa Hadley PA-C Work Phone: [employer]. Start: 09-15-2020 End: 09-15-2020 Medication Lisa Hadley PA-C Work Phone: [employer]. Start: 09-13-2020 End: 09-13-2020 Office outpatient visit 15 minutes Lisa Hadley PA-C Work Phone: [employer]. Start: 07-14-2020 End: 07-14-2020 Historical Summary Lisa Hadley PA-C Work Phone: [employer] Start: 01-13-2020 End: 01-13-2020 Historical Summary Lisa Hadley PA-C Work Phone: [employer] Start: 12-10-2019 End: 12-10-2019 Orders Lisa Hadley PA-C Work Phone: [employer]. Start: 08-12-2019 End: 08-12-2019 Orders Lisa Hadley PA-C Work Phone: [employer]. Start: 06-19-2019 End: 06-21-2019 Office outpatient visit 15 minutes Lisa Hadley PA-C Work Phone: [employer]. Start: 04-08-2019 End: 04-08-2019 Telephone follow-up Lisa Hadley PA-C Work Phone: [employer]. Start: 09-05-2018 End: 09-07-2018 Office outpatient visit 15 minutes Lisa Hadley PA-C Work Phone: [employer]. Start: 05-15-2018 End: 05-15-2018 Office outpatient visit 15 minutes Lisa Hadley PA-C Work Phone: [employer]. Start: 05-01-2018 End: 05-01-2018 Medication Lisa Hadley PA-C Work Phone: [employer]. Start: 05-01-2018 End: 05-01-2018 Medication Lisa Hadley PA-C Work Phone: [employer]. Start: 04-28-2018 End: 04-28-2018 Office outpatient new 10 minutes Lisa Hadley PA-C Work Phone: [employer]. Follow-up encounter Lisa Armendariz lmer PA-C Work Phone: [employer]. Follow-up encounter Lisa Park Marcello lmer PA-C Work Phone: [employer]. Patient encounter procedure Lita NIEVES [employer]. Procedures Date Procedure Procedure Detail Performing Clinician Start: 06-08-2025 End: 06-08-2025 Vitamin b12 injection Lisa J Hadley MARCELLO-C Work Phone: Start: 06-01-2025 End: 06-01-2025 Vitamin b12 injection Lisa Hadley PA-C Work Phone: Start: 05-25-2025 End: 05-25-2025 Vitamin b12 injection Lisa Hadley PA-C Work Phone: Start: 05-19-2025 End: 05-19-2025 Vitamin b12 injection Lisa Hadley PA-C Work Phone: Start: 03-26-2025 Procedure Lisa Hadley MARCELLO Work Phone: Comment on above: Test Ordered: [id number] Iodine, Random Urin eTest(s) [id number], Urinewas developed and its performance characteristicsdetermined by [employer]. It has not been cleared or approvedby the Food and Drug Administration.Iodine, Urine 28.5 ug/L Reference Range: 28.0-544.0 Limit of quantitation = 20Performed at: [facility] [employer] [id number] Director: Polo Miller MD, Phone: [phone] at: [facility] [employer] [id number] Director: Cj Woodall PhD, Phone: [phone] Start: 02-26-2025 End: 02-26-2025 Depression screening Lisa Park Jomar ARMENDARIZ-Tamara Work Phone: Start: 02-26-2025 End: 02-26-2025 Pos clin depres scrn f/u doc Lisa Park Jeovanny ARMENDARIZ-Tamara Work Phone: Start: 12-02-2024 End: 12-02-2024 Most Recent Endo Report Lisa Jomar ARMENDARIZ-C Work Phone: Start: 02-05-2024 End: 02-05-2024 Depression screening Lisa Park Jomar ARMENDARIZ-C Work Phone: Start: 02-05-2024 End: 02-05-2024 No Known Past Surgical History Az Kaela Ledezma LPN Start: 02-05-2024 End: 02-05-2024 Pos clin depres scrn f/u doc Lisa Up tanvi PA-C Work Phone: Start: 02-05-2024 End: 02-05-2024 Scr dep neg, no plan reqd Lisa Salgado jama PA-C Work Phone: Start: 01-28-2024 End: 01-28-2024 Lab findings surveillance Az Kaela Ledezma LPN Comment on above: 76 CMP Start: 01-28-2024 End: 01-28-2024 Lipid panel Az Ledezma LPN Comment on above: TC 260, HDL 77, LDL 167, Trig 64 Start: 01-28-2024 End: 01-28-2024 Thyrotropin [Units/volume] in Serum or Plasma Az Ledezma LPN Comment on above: 1.55 Start: 11-01-2023 Cholangiogram PA Lisa Hadley PA Work Phone: Start: 11-01-2023 Fluoroscopic guidance PA Lisa Hadley PA Work Phone: Start: 11-01-2023 Total cholecystectomy and exploration of common bile duct PA Lisa Hadley PA Work Phone: Start: 10-18-2023 End: 10-18-2023 Cholecystectomy Az Kaela Ledezma LPN Start: 09-10-2023 Radionuclide imaging of liver and/or biliary tract using radioactive isotope PA Lisa Hadley PA Work Phone: Start: 09-07-2023 CT of abdomen PA Lisa Hadley PA Work Phone: Start: 02-28-2023 Urnls dip stick/tablet rgnt auto w/o microscopy Pooja Seals MD Work Phone: Start: 07-11-2022 Magnetic resonance angiography of head without contrast PA Lisa Hadley PA Work Phone: Start: 07-11-2022 MRI of brain with contrast MARCELLO OlmedoLisamaribell Salgadojama ARMENDARIZ Work Phone: Start: 05-28-2022 End: 06-14-2022 Us soft tissue head & neck real time imge docm Lisa Hadley MARIEL Work Phone: Start: 05-16-2022 End: 05-25-2022 Ecg routine ecg w/least 12 lds i&r only Lisa Hadley MARCELLO-Tamara Work Phone: Comment on above: Sinus bradycardia. Start: 05-08-2022 Computed tomography of abdomen and pelvis with contrast MARCELLO Lisa Jomar ARMENDARIZ Work Phone: Start: 04-08-2022 End: 04-08-2022 Clostridium difficile detection MARCELLO Deloris hogan Jomar ARMENDARIZ Work Phone: Start: 04-08-2022 Enteric Bacteriology MARCELLO Lisa Salgadojama ARMENDARIZ Work Phone: Start: 04-08-2022 End: 04-08-2022 Lactoferrin measurement MARCELLO Lisa Jomar ARMENDARIZ Work Phone: Start: 03-22-2022 Esophagogastroduodenoscopy MARCELLO OlmedoLisa Jomar ARMENDARIZ Work Phone: Start: 11-18-2021 End: 11-18-2021 Microscopic examination of cervical Papanicolaou smear Az Ledezma LPN Comment on above: [facility] Shea Start: 07-14-2020 End: 07-14-2020 Physical/Wellness Esther Drummond CMA Comment on above: Refused. Start: 01-06-2020 End: 01-06-2020 Screening colonoscopy Esther Drummond CMA Comment on above: diagnostic-Trevor Guerrero MD Start: 04-28-2018 End: 04-28-2018 No Known Past Surgical History Marisol Blankenship RN History of cholecystectomy S/P l aparoscopic cholecystectomy MARCELLO ARMENDARIZ Work Phone: Ova OR parasites identification MARCELLO ARMENDARIZ Work Phone: Plan of Treatment Date Care Activity Detail Author Start: 10-02-2029 Screening for malign ant neoplasm of cervix Cervical Cancer Screening [facility] Start: 02-13-2029 Urine microalbumin profile [facility] Start: 09-28-2026 HPV TESTING HPV TESTING [facility] Start: 09-28-2026 PAP TESTING PAP TESTING [facility] Start: 09-28-2026 Screening for malign ant neoplasm of cervix Cervical Cancer Screening [facility] Start: 08-09-2025 End: 08-09-2025 Nutrition therapy 08/09/2025 11:45 AM EDT [facility] Functional Medicine [address] [address] Gale Copeland, DEENA [address] [place] [address] nutrition f/up Functional Medicine Comment on above: nutrition f/up Start: 08-04-2025 End: 08-04-2025 Patient encounter procedure 08/04/2025 3:15 PM EDT Office Visit Functional Medicine [address] [place] [id number] [place] [address] [place] [phone] follow up Functional Medicine Comment on above: follow up Start: 07-29-2025 End: 07-29-2025 Patient encounter procedure 07/29/2025 4:20 PM EDT Office Visit OB/Gynecology [address] [place] [address] Pooja Seals MD [address] [place] [address] Missed menses - requesting hormone testing. Not sexually active OB/Gynecology Comment on above: Missed menses - requ esting hormone testing. Not sexually active Start: 07-21-2025 End: 07-21-2025 ambulatory 07/21/2025 11:30 AM EDT [facility] Functional Medicine [address] [place] [address] [facility] [address] [place] [address] health polo coach fu weekly goals Functional Medicine Comment on above: health polo coach fu week ly goals Start: 07-19-2025 [facility] Start: 07-07-2025 End: 07-07-2025 Nutrition therapy 07/07/2025 3:45 PM EDT [facility] [address] [address] Gale Copeland, RD [address] [place] [address] Nutrition Functional Medicine Comment on above: Nutrition Start: 06-28-2025 End: 06-28-2025 ambulatory 06/28/2025 5:15 PM EDT [facility] [address] [place] [address] [facility] [address] [place] [address] health polo coach fu weekly goals Functional Medicine Comment on above: health polo coach fu week ly goals Start: 06-16-2025 End: 06-16-2025 Follow-up encounter 06/16/2025 2:45 PM EDT [facility] [address] [place] [phone] [place] [address] [place] [address] follow up 1 month Functional Medicine Comment on above: follow up 1 month Start: 06-10-2025 End: 06-10-2025 ambulatory 06/10/2025 5:15 PM EDT [facility] [address] [place] [address] Az Morrow, [facility] ED [address] [place] [address] health polo coach fu set 3 months Functional Medicine Comment on above: health polo coach fu set 3 months Start: 06-08-2025 Nursing evaluation o f patient and report Medical; Nurse visit - b12 [facility] Start: 08-Jun-2025 08:00-04:00 NURSE, FLOAT Appointment Request [employer]. Start: 06-01-2025 Nursing evaluation o f patient and report Medical; Nurse visit - b12 [employer]. Start: 01-Jun-2025 08:20-04:00 NURSE FLOAT Appointment Request [employer]. Start: 05-27-2025 End: 05-27-2025 ambulatory 05/27/2025 4:30 PM EDT [facility] [address] [place] [address] Az Morrow, [facility] ED [address] [place] [address] health polo coach alexandru wobruce Functional Medicine Comment on above: health polo coach alexandru wow Start: 05-26-2025 End: 05-26-2025 ambulatory 05/26/2025 1:55 PM EDT [facility] [address] [address] Gale Copeland, RD [address] [place] [address] new fmi Functional Medicine Comment on above: new fmi Start: 05-25-2025 Nursing evaluation o f patient and report Medical; Nurse visit - b12 [employer]. Start: 25-May-2025 08:00-04:00 NURSE, ERASTOAT Appointment Request [employer]. Start: 05-17-2025 End: 05-17-2025 ambulatory 05/17/2025 4:30 PM EDT [facility] [address] [place] [address] Az Morrow, Health ED [address] [place] [address] new fmi Functional Medicine Comment on above: new fmi Start: 05-13-2025 End: 05-13-2025 ambulatory 05/13/2025 9:45 AM EDT Results Only [facility] [address] [place] [address] lab [facility] Comment on above: lab Start: 05-13-2025 End: 05-13-2025 Patient encounter procedure 05/13/2025 8:45 AM EDT Office Visit Functional Medicine [address] [address] [place] [address] [facility] [place] [phone] est care - chronic fatigue and chronic abd pain, pos thryroid antibody and MDD Functional Medicine Comment on above: est care - chronic f atigue and chronic abd pain, pos thryroid antibody and MDD Start: 02-26-2025 Patient encounter procedure Medical; PHYSICAL - physical [employer]. Start: 26-Feb-2025 08:20-04:00 MARIEL Hadley Appointment Request [employer]. Start: 02-16-2025 Comprehensive metabo lic panel CMP w/ GFR* (62370) Start: 16-Feb-2025 09:02-04:00 Request [employer]. Start: 02-16-2025 Hemoglobin glycosyla aidan a1c HEMOGLOBIN A1C* (00728) Start: 16-Feb-2025 09:02-04:00 Request [employer].; [employer]. Start: 02-16-2025 Lipid panel LIPID PANEL (8 0061) Start: 16-Feb-2025 09:02-04:00 Request [employer].; [employer]. Start: 02-16-2025 Assay of homocysteine Homocyst kendal Blood (85049) Start: 16-Feb-2025 09:02-04:00 Request [employer]. Start: 02-16-2025 Assay of folic acid serum FOLATE (56691) Start: 16-Feb-2025 09:02-04:00 Request [employer].; [employer]. Start: 02-16-2025 Nursing evaluation o f patient and report Medical; Nurse visit - fasting labs--MJP [employer]. Start: 16-Feb-2025 09:00-04:00 NURSE, FLOAT Appointment Request [employer] Start: 01-16-2025 Assay of folic acid serum FOLATE (86352) Start: 16-Jan-2025 Request [employer]; [employer]. Start: 01-16-2025 Assay of homocysteine Homocyst kendal Blood (22393) Start: 16-Jan-2025 Request [employer].; [employer]. Start: 01-16-2025 Comprehensive metabo lic panel CMP w/ GFR* (60184) Start: 16-Jan-2025 Request [employer]. Start: 01-16-2025 Hemoglobin glycosyla aidan a1c HEMOGLOBIN A1C* (13938) Start: 16-Jan-2025 Request [employer]. Start: 01-16-2025 Lipid panel LIPID PANEL (8 0061) Start: 16-Jan-2025 Request [employer]; [employer]. Start: 11-26-2024 Patient encounter procedure [place] [employer] Start: 07-19-2024 Covid-19 Vaccine ( season) Covid-19 Vaccine () [facility] Start: 07-19-2024 Influenza vaccination Influenza Vacc ine (#1) [facility] Start: 02-05-2024 Patient encounter procedure Medical; PHYSICAL - awv [employer] Start: 05-Feb-2024 13:10-04:00 MARIEL Hadley Appointment Request [employer] Start: 02-05-2024 Cytp cerv/vag auto t hin layer prep mnl screen [employer]; [employer]. Start: 01-28-2024 Assay of free thyroxine T4 ARTURO E (92648) Start: 28-Jan-2024 Request [employer]; [employer]. Start: 01-28-2024 Assay of thyroid stimulating hormone tsh TSH (THYROID STIMULATING HORMONE) (38854) Start: 28-Jan-2024 Request [employer]; [employer]. Start: 01-28-2024 Blood count complete auto&auto difrntl wbc CBC, PLATELETS & AUT DIFF (F) (60227) Start: 28-Jan-2024 Request [employer]; [employer]. Start: 01-28-2024 Comprehensive metabo lic panel CMP w/ GFR* (33770) Start: 28-Jan-2024 Request [employer]; [employer]. Start: 01-28-2024 Lipid panel LIPID PANEL (8 0061) Start: 28-Jan-2024 Request [employer]; [employer]. Start: 01-28-2024 Nursing evaluation o f patient and report Medical; [facility] [employer]. Start: 28-Jan-2024 08:30-04:00 ROOM, PROCEDURE (DRAW) Appointment Request [employer] Start: 11-01-2023 Patient discharge [facility] Start: 07-19-2023 Influenza vaccination INFLUENZA (Sea son Ended) [facility] Start: 11-18-2022 DEPRESSION ASSESSMENT [facility] Start: 10-25-2022 Procedure [facility] Work Phone: Start: 03-22-2022 Egd transoral biopsy single/multiple EGD BIOPSY SINGLE/MULTIPLE [facility] Work Phone: Start: 11-24-2021 COVID-19 VACCINE (3 - Booster for Moderna series) COVID-19 VACCINE (3 - Booster for Moderna series) [facility] Start: 2014 HPV Vaccine (1 - 3-d ose SCDM series) HPV Vaccine (1 - 3-dose SCDM series) [facility] Start: 2006 Hepatitis B Vaccine (1 of 3 - 19+ 3-dose series) Hepatitis B Vaccine (1 of 3 - 19+ 3-dose series) [facility] Start: 2005 Anxiety Screening Anxiety Screening [facility] Start: 2005 [facility] Start: 2005 HEPATITIS C SCREENING HEPATITIS C [facility] Start: 2005 Hepatitis C screening Hepatitis C [facility] Start: 1987 HEPATITIS B (1 of 3 - 3-dose series) HEPATITIS B (1 of 3 - 3-dose series) [facility] CT Abdomen [facility] PAP TEST PAP TEST Lab Mariama greenberg Encounter for gynecological examination (general) (routine) without abnormal findings Encounter for screening for malignant neoplasm of cervix Special screening examination for human papillomavirus (HPV) Abnormal glandular Papanicolaou smear of cervix 10/02/2024 4:07 PM EST [facility] Work Phone: Patient referral [facility] Work Phone: Procedure [facility] Work Phone: [facility] cyanocobalamin ( vit B-12) 1,000 mcg/mL injection solution Ordered: 19-May-2025 MARIEL Hadley [facility] cyanocobalamin ( vit B-12) 1,000 mcg/mL injection solution Ordered: 25-May-2025 MARIEL Hadley [facility] cyanocobalamin ( vit B-12) 1,000 mcg/mL injection solution Ordered: 01-Jun-2025 MARIEL Hadley [facility] cyanocobalamin ( vit B-12) 1,000 mcg/mL injection solution Ordered: 08-Jun-2025 MARIEL Hadley [facility] Immunizations Immunization Date Immunization Notes Care Provider Agus pfeiffer 09-29-2021 COVID-Moderna (100 MCG/0.5 ML) Lisa Hadley PA-C Work Phone: [facility]. 08-31-2021 COVID-Moderna (100 MCG/0.5 ML) Lisa Hadley PA-C Work Phone: [facility] 02-13-2019 Diptheria,Tetanus,Pe rtu ssis Vaccine MARCELLO ARMENDARIZ Work Phone: [facility] 02-13-2019 tetanus toxoid, redu rodrigo diphtheria toxoid, and acellular pertussis vaccine, adsorbed Pooja Seals MD Work Phone: [facility] Payers Date Payer Category Payer Self-pay [id number] 2024 Self-pay [id number] 2020 Private Health Insurance [employer] [id number] 2020 Unknown [id number] 2020 Unknown [id number] 1987 Unknown [id number] 1987 Unknown [id number] 1987 Unknown [id number] 1987 Unknown [id number] Unknown [id number] Unknown [id number] Unknown [id number] Social History Date Type Detail Facility [facility] Work Phone: Start: 03-19-2022 End: 10-16-2023 Tobacco smoking status [facility] Unknown if ever smoked [facility] Start: 04-04-2019 None [facility] Start: 1985 Sex Assigned At Female [facility] Start: 02-28-2023 End: 02-26-2024 Tobacco smoking status [facility]IS Ex-smoker [facility] Start: 11-18-2007 End: 11-18-2009 History of tobacco use Current smoker [facility] Start: 11-18-2007 End: 11-18-2009 History of tobacco use Cigarette Smoker [facility] Start: 02-28-2023 Tobacco use and exposure Smokeless tobacco non-user [facility] Start: 02-28-2023 End: 10-02-2024 Alcohol intake Current drinker of alcohol (finding) [facility] Start: 1987 Sex Assigned At Not on file [facility] Start: 10-02-2024 End: 05-13-2025 [facility]. 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 [id number] Start: 05-14-2025 1 syringe one time a week. [id number] Start: 05-19-2025 End: 06-18-2025 Goals Date Patient Goal Desired Activity /State Functional Status Date Assessment Result Facility 02-28-2015 Are you deaf, or do you have serious difficulty hearing No 02/28/2015 1:07 PM EDT Edda Martin RN No [facility] 02-28-2015 Are you blind, or do you have serious difficulty seeing, even when wearing glasses No 02/28/2015 1:07 PM EDT Edda Martin RN No [facility] 02-28-2015 Do you have serious difficulty walking or climbing stairs No 02/28/2015 1:07 PM EDT Edda Martin RN No [facility] 02-28-2015 Do you have difficul ty dressing or bathing No 02/28/2015 1:07 PM EDT Edda Martin RN No [facility] 02-28-2015 Because of a physica l, mental, or emotional condition, do you have difficulty doing errands alone such as visiting a physician's office or shopping No 02/28/2015 1:07 PM EDT Edda Martin RN No [facility] Mental Status Date Assessment Result Facility 11-01-2023 Cognitive function Level Of Cons ciousness Awake;Appropriate [facility] Work Phone: 11-01-2023 Cognitive function Voice/Name [facility] Work Phone: 03-22-2022 Cognitive function Voice/Name [facility] Work Phone: 02-28-2015 Because of a physica l, mental, or emotional condition, do you have serious difficulty concentrating, remembering, or making decisions No 02/28/2015 1:07 PM EDT Edda Martin, ANA No [facility] Clinical Notes 07-31-2018 to 07-07-[address] - 07/07/2025 3:46 PM EDTPatient [facility]ructions[facility] - 06/28/2025 5:15 PM EDTPatient Sabino Justice DO - 06/16/2025 3:02 PM EDT Note Date & Type Note Facility 07-07-[address] - 07/07/2025 5:30 PM EDT [facility] MEDICINE FOLLOW UP NUTRITION INSTRUCTIONS Nutrition Follow-up: In [address] Your Prescribed Nutrition Plan: Food Plan: Gluten Free, Dairy Free[4week trial], Core Limit to 1 total tablespoon suhial seeds daily 2. Incorporate one of the following daily for 1 week 1 kiwi 3 prunes 1/2 cup berries 3. Incorporate eating strategies to aid digestion: Take 3 deep breaths before a meal Eat slowly and chew food well Maintain a calm eating environment Limit liquids consumed during meals Give digestion a head start Soft meats: cooked in broth, fluid Ground meats Fish Eggs Soak and/or cook beans longer; Try mashed or pureed beans Cook (steam, sautee) or blend vegetables to improve digestibility Choose nut/seed butters or powders, instead of whole nuts & seeds Soak nuts and seeds Incorporate gentle movement after meals to aid digestion: https://www.yogajournal.com/poses/yoga -by-benefit/digestion 4. Increase daily movement to promote motility Set a concrete goal to increase by x amount of minutes or steps daily 5. Continue gluten free 6. Please Keep A Food-Symptom Journal For At Least 1-2 Weeks Food symptom journals can help individuals identify patterns between their diet and symptoms, making it easier to pinpoint potential triggers or intolerances. By tracking meals, ingredients, and reactions, people can make informed decisions to improve their health and well-being. Log the following information each day: All food Drinks Supplements Medications Alcoholic intake Document the presence of any of the following symptoms each day, if they are applicable to you: Bowel movements, or absence of Diarrhea, constipation Abdominal pain Nausea/vomiting Acid reflux Occurrence of headaches Joint pain Symptoms of anxiety/anxiousness Congestion/sinus flare ups Brain fog Energized Fatigue Other types of pain Any other relevant symptoms 7. Please avoid all dairy-containing foods for a 4 week trial Avoid These Foods Butter Cheese- all types Cottage cheese Cream Curds Custards Dairy Creamer Ghee Half & Half Ice Cream Milk- non fat, fat free, low fat, skim, whole Nougat Pudding Sherbert Sour Cream Yogurt, Yogurt Powder Whey - all forms of whey Chocolate Margarine Mayonnaise Artificial butter, butter flavor Consider using: Dairy Free Products Nut milk (Carson, Three Trees, Malk) Coconut milk Hemp milk Coconut yogurt- siggis, cocoyo, cocojune ADDITIONAL INSTRUCTIONS: How to Contact Your Functional Medicine Team (Open M-F 8am-5pm): 1. MyChart is the BEST form of communication to reach the Functional Medicine Team, see test results and request refills. Please allow 72 business hours for a response. Directions for signing up are included in your New Patient Folder. (Or you can go to [email or web address]) 2. For nutrition related questions or concerns, [employer] message your physician and include Attn: Gale Copeland RD at the top of the message. [employer] messaging is meant to support implementation of previously outlined nutrition care plans. In the interest of safe, effective and personalized care, you are asked to schedule a follow-up appointment if: It has been >6 months since your last nutrition appointment Your question requires reassessment or involves a new plan of care Your question concerns a new diagnosis, symptoms(s) and/or health concern documented in this encounter [facility] 07-07-2025 Note HNO ID: [id number] Author: GALE COPELAND RD Service: ? Author Type: Registered Dietitian Type: Progress Notes Filed: 07/07/2025 17:30 Note Text: [facility] [place] for Functional Medicine Nutrition Therapy: Follow-Up Assessment (Individual) VIRTUALVISITPN I have communicated my name and active licensure. The patient's identity and physical location were verified at the time of this visit. Either the patient or their legal inside sales account representative has been informed of the risks and benefits of -- and alternatives to -- treatment through a remote evaluation and consents to proceed with the evaluation remotely. Patient is located in the [facility] at the time of the virtual visit. Patient Name: Aicha Ledezma Past Medical History: PAST MEDICAL HISTORY Diagnosis Date Abnormal Pap smear of cervix 2012 LGSIL Anxiety Giardia 02/2018 Hiatal hernia Mental disorder Allergies: Penicillins Current Medications/Supplements Current Outpatient Medications on File Prior to Visit Medication Sig nystatin (MYCOSTATIN) 100,000 units/mL oral liquid Take 1 mL by mouth every 6 hours. cyanocobalamin, vitamin B-12, 1,000 mcg/mL kit 1 dose by INJECTION(UNSPECIFIED PARENTERAL ROUTES) route one time a week. B12 injection weekly for 1 month= total of 4 injections in 1 month Syringe with Needle, Disp, (MONOJECT SYRINGE) 3 mL 21 gauge x 1 1/2 syrg 1 syringe one time a week. iodine (KELP, IODINE,) 150 mcg tab Take 150 tablets by mouth once daily. Magnesium Glycinate 100 mg tab Take by mouth. melatonin 10 mg cap Take by mouth. digestive enzymes combo no.7 (SUPERIOR DIGESTIVE ENZYME) cap Take by mouth. Magnesium 200 mg tab Take by mouth. Current Facility-Administered Medications on File Prior to Visit Medication cyanocobalamin 1,000 mcg injection Primary ICD-10 Diagnosis Addressed: Irritable bowel syndrome with constipation [K58.1] Provider Nutrition Notes:35g fiber daily Status of Chief Concerns 1. IBS-C 2. Hashimotos 3. Brain fog Nutrition Assessment (updated 07/07/25) Feeling bloating had decreased, lead to better sleep the first week, but currently does not feel rested when wakes up in the morning, does not stay asleep Pt states she has not had a menstrual cycle for 6 weeks Digestive- Currently feels bloated and constipated Fiber sources- suhail seeds, black beans Pt states she eats fast Takes digestive enzymes with ox bile, takes with peanut butter and every meal Denies belching while eating, notices undigested food particles in stools Has avoided drinking as much during meals- a little less bloated by doing this Over eating= more bloating PA- treadmill, youtube workouts, yoga, tries to walk around, 5k steps per day Eats 4x-5x daily From 05-26-25 Digestive symptoms: Every other day BM - Treated with antibiotics for Giardia; symptoms exacerbated - Cholecystectomy in October 2023 did not improve symptoms. Reports mucus in stool and bloating, especially in the lower abdomen. Other relevant symptoms: Supplements-digestive enzymes (with ox bile), iodine, mct oil, magnesium, melatonin, neuro needs, pepzin gi Symptoms- fatigue, chest tightness, brain fog Feels afraid to eat due to not knowing if they will cause symptoms PA- works out daily 30-40 minutes daily (weights, bands, abs squats, treadmill), standing desk at work, but does not move that much during day Pt states she was told by Dr. Faria that she has yeast overgrowth based on visual mouth exam From provider 05-13 MTHFR - advised patient to DC premier protein shakes due to cyanocobalamin and folic acid ingredients Food and Nutrition History (special diet(s) or nutritional program): Gluten free, dairy free, sugar free, alcohol free- felt less bloated but did not help brain fog Adverse Reactions to Foods: - Avoids processed, greasy, and high-fat foods; bloating and discomfort- avocado and peanut butter (had in a snack). Diet Recall: Yes 24 Hour Recall Breakfast: truvani protein powder shake with banana and mct oil and coconut milk or 1 tablespoon suhail Lunch: pumpkin suhail pudding 1 tbs suhail seeds, walnuts, peanut butter Dinner: chicken fajitas with cassva flour tortillas, watermelon Snacks: chocolate Beverages: 2-3 of the 32 oz Anthropometrics LMP 09/11/2024 (Within Days) Last Height: Last 1 Encounter Ht Readings: Date: Ht: 05/13/2025 165.1 cm (5' 5) Last Weight: Last Wt 05/13/25 : 60.2 kg (132 lb 11.5 oz) 10/02/24 : 64.9 kg (143 lb) 02/28/23 : 66.4 kg (146 lb 4.8 oz) Wt: 60.2 kg (132 lb 11.5 oz) BMI: 22.09 kg/(m2) Learning Needs Assessment: Barriers to Learning: Ready to Learn (no barriers noted) Assessed motivation to learn: high Biochemical and Laboratory Data Conventional/Advanced Testing No new relevant/available Laboratory Values Addressed: None addressed today Nutrition Prescription Energy: Resting Metabolic Rate: 1285 Protein: 1.0g/ (more content not included)... [facility] 07-07-2025 History of Present illness Narrative [facility] [place] for Functional Medicine Nutrition Therapy: Follow-Up Assessment (Individual) VIRTUALVISITPN I have communicated my name and active licensure. The patient's identity and physical location were verified at the time of this visit. Either the patient or their legal inside sales account representative has been informed of the risks and benefits of -- and alternatives to -- treatment through a remote evaluation and consents to proceed with the evaluation remotely. Patient is located in the [facility] at the time of the virtual visit. Patient Name: Aicha Ledezma Past Medical History: PAST MEDICAL HISTORY Diagnosis Date Abnormal Pap smear of cervix 2012 LGSIL Anxiety Giardia 02/2018 Hiatal hernia Mental disorder Allergies: Penicillins Current Medications/Supplements Current Outpatient Medications on File Prior to Visit Medication Sig nystatin (MYCOSTATIN) 100,000 units/mL oral liquid Take 1 mL by mouth every 6 hours. cyanocobalamin, vitamin B-12, 1,000 mcg/mL kit 1 dose by INJECTION(UNSPECIFIED PARENTERAL ROUTES) route one time a week. B12 injection weekly for 1 month= total of 4 injections in 1 month Syringe with Needle, Disp, (MONOJECT SYRINGE) 3 mL 21 gauge x 1 1/2 syrg 1 syringe one time a week. iodine (KELP, IODINE,) 150 mcg tab Take 150 tablets by mouth once daily. Magnesium Glycinate 100 mg tab Take by mouth. melatonin 10 mg cap Take by mouth. digestive enzymes combo no.7 (SUPERIOR DIGESTIVE ENZYME) cap Take by mouth. Magnesium 200 mg tab Take by mouth. Current Facility-Administered Medications on File Prior to Visit Medication cyanocobalamin 1,000 mcg injection Primary ICD-10 Diagnosis Addressed: Irritable bowel syndrome with constipation [K58.1] Provider Nutrition Notes:35g fiber daily Status of Chief Concerns 1. IBS-C 2. Hashimotos 3. Brain fog Nutrition Assessment (updated 07/07/25) Feeling bloating had decreased, lead to better sleep the first week, but currently does not feel rested when wakes up in the morning, does not stay asleep Pt states she has not had a menstrual cycle for 6 weeks Digestive- Currently feels bloated and constipated Fiber sources- suhail seeds, black beans Pt states she eats fast Takes digestive enzymes with ox bile, takes with peanut butter and every meal Denies belching while eating, notices undigested food particles in stools Has avoided drinking as much during meals- a little less bloated by doing this Over eating= more bloating PA- treadmill, youtube workouts, yoga, tries to walk around, 5k steps per day Eats 4x-5x daily From 05-26-25 Digestive symptoms: Every other day BM - Treated with antibiotics for Giardia; symptoms exacerbated - Cholecystectomy in October 2023 did not improve symptoms. Reports mucus in stool and bloating, especially in the lower abdomen. Other relevant symptoms: Supplements-digestive enzymes (with ox bile), iodine, mct oil, magnesium, melatonin, neuro needs, pepzin gi Symptoms- fatigue, chest tightness, brain fog Feels afraid to eat due to not knowing if they will cause symptoms PA- works out daily 30-40 minutes daily (weights, bands, abs squats, treadmill), standing desk at work, but does not move that much during day Pt states she was told by Dr. Faria that she has yeast overgrowth based on visual mouth exam From provider 05-13 MTHFR - advised patient to DC premier protein shakes due to cyanocobalamin and folic acid ingredients Food and Nutrition History (special diet(s) or nutritional program): Gluten free, dairy free, sugar free, alcohol free- felt less bloated but did not help brain fog Adverse Reactions to Foods: - Avoids processed, greasy, and high-fat foods; bloating and discomfort- avocado and peanut butter (had in a snack). Diet Recall: Yes 24 Hour Recall Breakfast: truvani protein powder shake with banana and mct oil and coconut milk or 1 tablespoon suhail Lunch: pumpkin suhail pudding 1 tbs suhail seeds, walnuts, peanut butter Dinner: chicken fajitas with cassva flour tortillas, watermelon Snacks: chocolate Beverages: 2-3 of the 32 oz Anthropometrics LMP 09/11/2024 (Within Days) Last Height: Last 1 Encounter Ht Readings: Date: Ht: 05/13/2025 165.1 cm (5' 5) Last Weight: Last Wt 05/13/25 : 60.2 kg (132 lb 11.5 oz) 10/02/24 : 64.9 kg (143 lb) 02/28/23 : 66.4 kg (146 lb 4.8 oz) Wt: 60.2 kg (132 lb 11.5 oz) BMI: 22.09 kg/(m^2) Learning Needs Assessment: Barriers to Learning: Ready to Learn (no barriers noted) Assessed motivation to learn: high Biochemical and Laboratory Data Conventional/Advanced Testing No new relevant/available Laboratory Values Addressed: None addressed today Nutrition Prescription Energy: Resting Metabolic Rate: 1285 Protein: 1.0g/kg Nutrients of Concern: fiber Nutrition Diagnosis: Altered GI Difficulty related to dysbiosis as evidenced by IBS-C, constipation Status: Ongoing Nutrition Intervention (New and Reinforcement): Current Nutrition Goal(s): reduce diet-related inflammation or food sensitivities suspected as symptom trigger and improve nutritional inadequacies suspected as symptom or disease contributor Food Plan: Gluten Free, Dairy Free[4week trial], Core Limit to 1 total tablespoon suhail seeds daily 2. Incorporate one of the following daily for 1 week 1 kiwi 3 prunes 1/2 cup berries 3. Incorporate eating strategies to aid digestion: Take 3 deep breaths before a meal Eat slowly and chew food well Maintain a calm eating environment Limit liquids consumed during meals Give digestion a head start Soft meats: cooked in broth, fluid Ground meats Fish Eggs Soak and/or cook beans longer; Try mashed or pureed beans Cook (steam, sautee) or blend vegetables to improve digestibility Choose nut/seed butters or powders, instead of whole nuts & seeds Soak nuts and seeds Incorporate gentle movement after meals to aid digestion: https://www.yogajournal.com/poses/yoga -by-benefit/digestion 4. Increase daily movement to promote motility Set a concrete goal to increase by x amount of minutes or steps daily 5. Continue gluten free 6. Please Keep A Food-Symptom Journal For At Least 1-2 Weeks Food symptom journals can help individuals identify patterns between their diet and symptoms, making it easier to pinpoint potential triggers or intolerances. By tracking meals, ingredients, and reactions, people can make informed decisions to improve their health and well-being. Log the following information each day: All food Drinks Supplements Medications Alcoholic intake Document the presence of any of the following symptoms each day, if they are applicable to you: Bowel movements, or absence of Diarrhea, constipation Abdominal pain Nausea/vomiting Acid reflux Occurrence of headaches Joint pain Symptoms of anxiety/anxiousness Congestion/sinus flare ups Brain fog Energized Fatigue Other types of pain Any other relevant symptoms 7. Please avoid all dairy-containing foods for a 4 week trial Avoid These Foods Butter Cheese- all types Cottage cheese Cream Curds Custards Dairy Creamer Ghee Half & Half Ice Cream Milk- non fat, fat free, low fat, skim, whole Nougat Pudding Sherbert Sour Cream Yogurt, Yogurt Powder Whey - all forms of whey Chocolate Margarine Mayonnaise Artificial butter, butter flavor Consider using: Dairy Free Products Nut milk (Carson, Three Trees, Malk) Coconut milk Hemp milk Coconut yogurt- siggis, cocoyo, cocojune Resources/Educational Materials Provided not applicable Adherence Potential to Goals/Care Plan: High Nutrition Monitoring & Evaluation: bloating, Bms Future considerations: probiotic, ra, elimination, fodmaps Criteria: Laboratory Data, MSQ, Dietary Recall Follow up: 4 weeks Time Spent with patient: 35 minutes (3:52-4:27) Consult Billing Type: Reassessment/15 minutes, 2 increment(s), 30 minutes Number of Increments: 2 (30 minutes) Referred/Supervised by: Sabino Faria DO Signed by: Gale Copeland RD documented in this encounter [facility] 06-28-2025 Instructions Az [facility]row, [facility] - 06/28/2025 5:37 PM EDT From this visit: New Weekly Goals Jun 29 - Jul 3 Write at least one thing I am grateful for in my Gratitude Journal at lunchtime at least 3 days each week In the evening at least 3 days a week, put the phone aside and work on my sewing project for at least 20 minutes. Move to a space where I can be alone. Set a timer. Put the phone away between 7-8pm Mon-Fri and be present with my daughter. Yours in health, Nicole Morrow, [facility] [employer] documented in this encounter [facility] 06-28-2025 History of Present illness Narrative [facility] Health Coaching Session VIRTUALVISITPN Patient was part of an individual health polo coach session. Patient participated in discussion about modifiable lifestyle factors, healthy habits and goal setting within the functional medicine model and the Wheel of Wellness. Other topics of discussion included review of progress toward lifestyle goals and strengths, values and environments patient will leverage to move forward. ...................................... ...................................... ........................... See details in After Visit Summary Recommended Follow-up: as scheduled Time Spent with patient: 30 minutes Consult Billing Type: 1 increment (30 minutes) Number of Increments: 1 (30 minutes) Signed by: Az Morrow, [facility] [employer] ---- Notes Health Coaching - accountability Daughter 6 yrs old One Change that would have biggest impact on my current health and wellbeing: Mindset shift so I can get out of my head What are you currently doing to support your health and wellbeing? - Exercises daily at 430a;mix of cardio and strength. (in bed by 10p) - Takes supplements, meditates, gives self several hours in the day to myself - Enjoys reading and spending time on a [employer] ([employer] boat. TOP 2-3 AREAS OF FOCUS: Stress Resilience, Mindset Wellness Vision (desired outcomes) I don't think about my health because I feel well I am excited about the day, looking forward to going to work I play with my daughter happily and with energy I go on dates with my I enjoy food; not afraid of choices I want to make I am social and spend time with family and others I am present and don't avoid situations I confidently handle any situation I trust my decisions and my choices I feel well Brainstorm -- actions I can take that will help me realize my desired outcomes (Vision) Focus my attention on mindful activities Plan dates with Get to bed by 930p every night Eat GF Continue to exercise daily Daily breathing practice 2 times a day Stop researching health things and substitute something else Connect with family members at least 2 times a week via text, etc Try one new recipe every 2 weeks' Meal planning 4 meals each week Three Month Goals Jun - Sep Every day, do 1 Mindful activity for at least 15 minutes, broken up through the day. Until Jul 07, eat GF for all meals and snacks. Follow RDs recommendations. Read labels to be sure no gluten. Try one new dinner recipe for the family each week and one recipe just for me New Weekly Goals Jun 29 - Jul 3 Write at least one thing I am grateful for in my Gratitude Journal at lunchtime at least 3 days each week In the evening at least 3 days a week, put the phone aside and work on my [employer] project for at least 20 minutes. Move to a space where I can be alone. Set a timer. Put the phone away between 7-8pm Mon-Fri and be present with my daughter. documented in this encounter [facility] 06-28-2025 Note HNO ID: [id number] Author: AZ MORRWO [facility] Service: ? Author Type: Health Educator Type: Progress Notes Filed: 06/28/2025 17:38 Note Text: [facility] Coaching Session VIRTUALVISITPN Patient was part of an individual health polo coach session. Patient participated in discussion about modifiable lifestyle factors, healthy habits and goal setting within the functional medicine model and the Wheel of Wellness. Other topics of discussion included review of progress toward lifestyle goals and strengths, values and environments patient will leverage to move forward. ...................................... ...................................... .... ....................... See details in After Visit Summary Recommended Follow-up: as scheduled Time Spent with patient: 30 minutes Consult Billing Type: 1 increment (30 minutes) Number of Increments: 1 (30 minutes) Signed by: Az Morrow, [facility] [employer] ---- Notes Health Coaching - accountability Daughter 6 yrs old One Change that would have biggest impact on my current health and wellbeing: Mindset shift so I can get out of my head What are you currently doing to support your health and wellbeing? - Exercises daily at 430a;mix of cardio and strength. (in bed by 10p) - Takes supplements, meditates, gives self several hours in the day to myself - Enjoys reading and spending time on a [employer] ([employer] boat. TOP 2-3 AREAS OF FOCUS: Stress Resilience, Mindset Wellness Vision (desired outcomes) I don't think about my health because I feel well I am excited about the day, looking forward to going to work I play with my daughter happily and with energy I go on dates with my I enjoy food; not afraid of choices I want to make I am social and spend time with family and others I am present and don't avoid situations I confidently handle any situation I trust my decisions and my choices I feel well Brainstorm -- actions I can take that will help me realize my desired outcomes (Vision) Focus my attention on mindful activities Plan dates with Get to bed by 930p every night Eat GF Continue to exercise daily Daily breathing practice 2 times a day Stop researching health things and substitute something else Connect with family members at least 2 times a week via text, etc Try one new recipe every 2 weeks' Meal planning 4 meals each week Three Month Goals Jun - Sep Every day, do 1 Mindful activity for at least 15 minutes, broken up through the day. Until Jul 07, eat GF for all meals and snacks. Follow RDs recommendations. Read labels to be sure no gluten. Try one new dinner recipe for the family each week and one recipe just for me New Weekly Goals Jun 29 - Jul 3 Write at least one thing I am grateful for in my Gratitude Journal at lunchtime at least 3 days each week In the evening at least 3 days a week, put the phone aside and work on my [employer] project for at least 20 minutes. Move to a space where I can be alone. Set a timer. Put the phone away between 7-8pm Mon-Fri and be present with my daughter. [facility] 06-17-2025 Instructions Sabino Faria, DO - 06/17/2025 7:45 AM EDT - Nystatin oral suspension 1 mL every 6 hours: swish on your tongue and swallow for 2 weeks; sent to [facility]. - Take Nu-Ease supplement once a day when your gut is bothering you. - Finish the current Neuroneeds Active Needs powder this month and note any benefit; do not reorder unless it helps. If you notice improvement, switch afterward to Neuroneeds Energy Needs capsules. - Continue licorice root and slippery elm tea each morning and evening. - Use magnesium glycinate in the evening (avoid magnesium citrate or oxide to prevent diarrhea and bloating). - Continue melatonin in the evening as you have been. - Keep taking MCT oil twice daily (morning and evening) at the dose you tolerate. - Take zinc carnosine morning and evening for 2-3 months for gut healing; you can stop after that period. - For sinus congestion, use oregano tablets twice a day to help loosen mucus. - Work toward 35 grams of fiber daily--track your intake, include high-fiber foods (for example, suhail seeds), and avoid protein bars or artificial sweeteners that may worsen gut symptoms. - Maintain a gluten-free, dairy-free diet as recommended. - Use methylated folate and methylated B12 during episodes of anxiety, brain fog, or when you feel unwell, given your MTHFR C677T heterozygosity. - Keep your follow-up appointment with the dietitian on July 07. - Schedule a return visit in about 2 months to review your gut-healing progress, supplement effects, and diet changes. documented in this encounter [facility] 06-16-2025 Note HNO ID: [id number] Author: SABINO FARIA DO Service: ? Author Type: Physician Type: Progress Notes Filed: 06/17/2025 07:46 Note Text: FUNCTIONAL MEDICINE INITIAL ASSESSMENT Patient: Aicha Ledezma I have communicated my name and active licensure. The patient's identity and physical location were verified at the time of this visit. Either the patient or their legal inside sales account representative has been informed of the risks and benefits of -- and alternatives to -- treatment through a remote evaluation and consents to proceed with the evaluation remotely. Recording using City Notes software for draft documentation of the visit was discussed with the patient/authorized inside sales account representative; all questions welcomed and answered. Patient/authorized inside sales account representative agreed to proceed Assessment and Plan: Using a systems biology approach and matching our assessment to the patient stated goals of care, we have detected historical evidence for Aicha Ledezma is a 40-year-old female with a history of Marlon's thyroiditis, anxiety, and digestive issues, presenting for follow-up. . DIAGNOSIS/ASSESSMENT: Digestive Issues: - Recent dietary changes include going gluten-free, initially improving sleep but later causing bloating and discomfort. - Reports a significant release of symptoms on Saturday, describing it as awful and great at the same time. - Experiences daily bowel movements but feels incomplete evacuation; recent consumption of an oatmeal bar worsened symptoms. - Current symptoms include lower abdominal bloating and a weird taste in the mouth. - Taking licorice root and Ahuja Elm Tea, magnesium, melatonin, MCT oil, and zinc carnosine. - Recent B12 injections did not result in noticeable improvement. - Following a ad setter's advice, consuming 2 tablespoons of suhail seeds daily; Aicha has a follow-up appointment with the ad setter on July 07. - Taking Neuroneeds by Active Needs, 3 scoops daily, without significant improvement; reports high cost of $122 per container. Anxiety: - Recently discontinued Adderall and buspirone without noticing a difference in symptoms. Sinus Congestion: - Reports frequent sinus congestion, stuffiness, mucus, and sinus pressure. Systems-based discussion: 1. Small intestinal bacterial overgrowth (K63.8219) 2. Carlee infection (B37.9) 3. Slow transit constipation (K59.01) 4. Bloating (R14.0) - Ongoing GI symptoms with partial improvement on gluten-free diet; persistent bloating and incomplete evacuation. - Start nystatin 1 mL Q6H PO for 2 weeks; swish and swallow. - Increase dietary fiber intake to 35 grams/day; avoid artificial sweeteners. - Continue zinc carnosine BID; discontinue after 2-3 months if improved. - Use Nu-Ease supplement PRN for symptomatic relief. - Continue licorice root and slippery elm tea BID. - Switch to magnesium glycinate for constipation management. - Follow-up in 2 months to reassess GI symptoms and response to interventions. 5. 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 - Advised to continue methylated B12 and folic acid supplementation. - Finish current supply of Neuroneeds by Active Needs; may switch to Energy Needs capsules if beneficial effects noted. - Educated on importance of avoiding processed foods to reduce symptom burden. 6. 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 Generalized anxiety disorder (F41.1) - Advised to use methylated B12 and folic acid supplementation for anxiety and brain fog as needed. 8. Sinus congestion (R09.81) - Advised to take oregano tablets BID for symptomatic relief. Sabino Faria DO [facility] Board Certified ABFM, AOBFP ____ History of Present Illness: The patient states a current chief concern of Aicha Ledezma is a 40-year-old female with a history of Marlon's thyroiditis, anxiety, and digestive issues, presenting for follow-up. . ____ Patient Entered Questionnaires PROMIS Global Health Summary 03/14/2023 05/06/2025 06/10/2025 Physical Health Summary Score Components Physical health GOOD FAIR GOOD Everyday physical activity Completely Completely Mostly Fatigue Moderate Moderate Moderate Pain 4 4 4 Social activities and roles Fair Fair Good Physical Health T-Score 44.9 (Good) 42.3 (Good) 42.3 (Good) Physical Health Percentile 31 22 22 Patient-reported 03/14/2023 05/06/2025 06/10/2025 Physical Health Summary Score Components Physical health GOOD FAIR GOOD Everyday physical activity Completely Completely Mostly Fatigue Moderate Moderate Moderate Pain 4 4 4 Social activities and roles Fair Fair Good Physical Health (more content not included)... [facility] 06-16-2025 History of Present illness Narrative Images from the original note were not included. FUNCTIONAL MEDICINE INITIAL ASSESSMENT Patient: Aicha Ledezma I have communicated my name and active licensure. The patient's identity and physical location were verified at the time of this visit. Either the patient or their legal inside sales account representative has been informed of the risks and benefits of -- and alternatives to -- treatment through a remote evaluation and consents to proceed with the evaluation remotely. Recording using City Notes software for draft documentation of the visit was discussed with the patient/authorized inside sales account representative; all questions welcomed and answered. Patient/authorized inside sales account representative agreed to proceed Assessment and Plan: Using a systems biology approach and matching our assessment to the patient stated goals of care, we have detected historical evidence for Aicha Ledezma is a 40-year-old female with a history of Marlon's thyroiditis, anxiety, and digestive issues, presenting for follow-up. . DIAGNOSIS/ASSESSMENT: Digestive Issues: - Recent dietary changes include going gluten-free, initially improving sleep but later causing bloating and discomfort. - Reports a significant release of symptoms on Saturday, describing it as awful and great at the same time. - Experiences daily bowel movements but feels incomplete evacuation; recent consumption of an oatmeal bar worsened symptoms. - Current symptoms include lower abdominal bloating and a weird taste in the mouth. - Taking licorice root and Ahuja Elm Tea, magnesium, melatonin, MCT oil, and zinc carnosine. - Recent B12 injections did not result in noticeable improvement. - Following a ad setter's advice, consuming 2 tablespoons of suhail seeds daily; Aicha has a follow-up appointment with the ad setter on July 07. - Taking Neuroneeds by Active Needs, 3 scoops daily, without significant improvement; reports high cost of $122 per container. Anxiety: - Recently discontinued Adderall and buspirone without noticing a difference in symptoms. Sinus Congestion: - Reports frequent sinus congestion, stuffiness, mucus, and sinus pressure. Systems-based discussion: 1. Small intestinal bacterial overgrowth (K63.8219) 2. Carlee infection (B37.9) 3. Slow transit constipation (K59.01) 4. Bloating (R14.0) - Ongoing GI symptoms with partial improvement on gluten-free diet; persistent bloating and incomplete evacuation. - Start nystatin 1 mL Q6H PO for 2 weeks; swish and swallow. - Increase dietary fiber intake to 35 grams/day; avoid artificial sweeteners. - Continue zinc carnosine BID; discontinue after 2-3 months if improved. - Use Nu-Ease supplement PRN for symptomatic relief. - Continue licorice root and slippery elm tea BID. - Switch to magnesium glycinate for constipation management. - Follow-up in 2 months to reassess GI symptoms and response to interventions. 5. 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 - Advised to continue methylated B12 and folic acid supplementation. - Finish current supply of Neuroneeds by Active Needs; may switch to Energy Needs capsules if beneficial effects noted. - Educated on importance of avoiding processed foods to reduce symptom burden. 6. 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 Generalized anxiety disorder (F41.1) - Advised to use methylated B12 and folic acid supplementation for anxiety and brain fog as needed. 8. Sinus congestion (R09.81) - Advised to take oregano tablets BID for symptomatic relief. Sabino Faria DO [facility] Board Certified AB, AOASHLEIGHP History of Present Illness: The patient states a current chief concern of Aicha Ledezma is a 40-year-old female with a history of Marlon's thyroiditis, anxiety, and digestive issues, presenting for follow-up. . Patient Entered Questionnaires PROMIS Global Health Summary 03/14/2023 05/06/2025 06/10/2025 Physical Health Summary Score Components Physical health GOOD FAIR GOOD Everyday physical activity Completely Completely Mostly Fatigue Moderate Moderate Moderate Pain 4 4 4 Social activities and roles Fair Fair Good Physical Health T-Score 44.9 (Good) 42.3 (Good) 42.3 (Good) Physical Health Percentile 31 22 22 Patient-reported 03/14/2023 05/06/2025 06/10/2025 Physical Health Summary Score Components Physical health GOOD FAIR GOOD Everyday physical activity Completely Completely Mostly Fatigue Moderate Moderate Moderate Pain 4 4 4 Social activities and roles Fair Fair Good Physical Health T-Score 44.9 (Good) 42.3 (Good) 42.3 (Good) Physical Health Percentile 31 22 22 Patient-reported 03/14/2023 05/06/2025 06/10/2025 Mental Health Summary Score Components Quality of life Fair Poor Fair Mental health (mood, thinking) Poor Poor Poor Social satisfaction Fair Poor Fair Emotional problems (anxious,depressed) Often Always Always Mental Health T-Score 31.3 (Fair) 21.2 (Poor) 28.4 (Poor) Mental Health Percentile 3 0 2 Patient-reported 03/14/2023 05/06/2025 06/10/2025 Other In general, health is: Good Fair Fair 05/06/2025 PROMIS NEUROQOL COGNITIVE T-SCORE PROMIS Neuroqol Cognitive T-Score 22 (severe dysfunction) 03/14/2023 04/18/2023 PROMIS PHYSICAL FUNCTION T-SCORE PROMIS Physical Function T-Score 56 (within normal limits) 48 (within normal limits) 05/06/2025 PROMIS PAIN INTERFERENCE T-SCORE PROMIS Pain Interference T-Score 59 (mild) Anxiety Screening(KWAN-7) 05/06/2025 KWAN-7 Score 21 (Severe Anxiety Disorder) 05/06/2025 Sleep Apnea Probability Snores loudly: No Tired, fatigued or sleepy in daytime: Yes Stops breathing or choking/gasping during sleep: No High blood pressure: No Sleep Apnea Probability Score: (Sleep study not recommended) 05/06/2025 Sleep Apnea Probability Score Probability (%) 7 (Sleep study not recommended) Depression Screening (PHQ-9) 05/06/2025 PHQ-9 Score 17 05/06/2025 PHQ-9 Self Harm Question 9 Not at all PHQ-9 Levels: PHQ-9 Self-Harm (Item 9) response options: 0-4 Minimal depression 0 Not at all 5-9 Mild depression 1 Several days 10-14 Moderate depression 2 More than half the days 15-19 Moderately severe depression 3 Nearly every day 20-27 Severe depression ANTHROPOMETRICS: BMI: There is no height or weight on file to calculate BMI. RMR: Resting Metabolic Rate: 1285 Height: Last 1 Encounter Ht Readings: Date: Ht: 05/13/2025 165.1 cm (5' 5) Waist measurement: No waist measurement recorded. BP: There were no vitals filed for this visit. OTHER: ALLERGIES: Penicillins OUTPATIENT MEDS: Current Outpatient Medications Medication Sig Dispense Refill nystatin (MYCOSTATIN) 100,000 units/mL oral liquid Take 1 mL by mouth every 6 hours. 200 mL 2 Safety Dumas (BD SAFETYGLIDE NEEDLE) 25 gauge x 1 ndle 1 syringe one time a week. 4 each 0 cyanocobalamin, vitamin B-12, 1,000 mcg/mL kit 1 dose by INJECTION(UNSPECIFIED PARENTERAL ROUTES) route one time a week. B12 injection weekly for 1 month= total of 4 injections in 1 month 1 kit 0 Syringe with Needle, Disp, (MONOJECT SYRINGE) 3 mL 21 gauge x 1 1/2 syrg 1 syringe one time a week. 10 each 2 iodine (KELP, IODINE,) 150 mcg tab Take 150 tablets by mouth once daily. busPIRone (BUSPAR) 5 mg tablet Take 5 mg by mouth two times a day. dextroamphetamine-amphetamine (ADDERALL) 5 mg tablet Take 5 mg by mouth once daily. 0 Magnesium Glycinate 100 mg tab Take by mouth. melatonin 10 mg cap Take by mouth. digestive enzymes combo no.7 (SUPERIOR DIGESTIVE ENZYME) cap Take by mouth. Magnesium 200 mg tab Take by mouth. Current Facility-Administered Medications Medication Dose Route Frequency Provider Last Rate Last Admin cyanocobalamin 1,000 mcg injection 1,000 mcg INTRAMUSCULAR q 4 WEEKS Sabino Faria DO PMH: PAST MEDICAL HISTORY Diagnosis Date Abnormal Pap smear of cervix 2012 LGSIL Anxiety Giardia 02/2018 Hiatal hernia Mental disorder PSHx: PAST SURGICAL HISTORY Procedure Laterality Date EGD REMOVAL GALLBLADDER 10/2023 TONSILLECTOMY HX Social History: Social History Tobacco Use Smoking status: Former Current packs/day: 0.00 Types: Cigarettes Start date: 11/18/2007 Quit date: 11/18/2009 Years since quittin.5 Smokeless tobacco: Never Vaping Use Vaping status: Never Used Substance Use Topics Alcohol use: Yes Drug use: No EVALUATION: SUBJECTIVE ROS: Ears/Nose/Mouth/Throat: (+) nasal congestion, (+) sinus pressure, (+) increased nasal mucus, (+) dysgeusia Gastrointestinal: (+) abdominal bloating, (+) sensation of incomplete evacuation Neurological: (+) cognitive difficulty MSQ Initial Ears/Nose/Mouth/Throat: (+) nasal congestion, (+) sinus pressure, (+) increased nasal mucus, (+) dysgeusia Gastrointestinal: (+) abdominal bloating, (+) sensation of incomplete evacuation Neurological: (+) cognitive difficulty PHYSICAL EXAM: Dual Rate Supervisor offered: Patient declines. GENERAL: NAD, alert and oriented. SKIN: Unremarkable, no rash or skin lesions. HEAD: Normocephalic. EYES: PERRLA, EOMI, conjunctiva clear. EARS: External ears normal, canals clear, TM's normal. NOSE/SINUSES: Nares normal. Septum midline. OROPHARYNX: Lips, mucosa, and tongue normal, good dentition. No oral lesions noted. NECK: Supple, no lymphadenopathy, normal thyroid, no carotid bruits. LUNGS: Clear to auscultation bilaterally, no wheezes/rhonchi/rales. HEART: Regular rate and rhythm, no murmurs. No ectopy. EXTREMITIES: Normal, no deformities, no skin discoloration, no edema. NEURO: Awake, alert and oriented x3, cranial nerves II-XII grossly intact, normal gait, no involuntary motions. Sabino Faria, DO Time spent with patient: I spent a total of 20 minutes on the date of the service which included preparing to see the patient, [id number] patient care, completing clinical documentation, obtaining and/or reviewing separately obtained history, performing a medically appropriate examination, counseling and educating the patient/family/caregiver, and ordering medications, tests, or procedures. Follow Up Instructions: - Nystatin oral suspension 1 mL every 6 hours: swish on your tongue and swallow for 2 weeks; sent to [facility]. - Take Nu-Ease supplement once a day when your gut is bothering you. - Finish the current Neuroneeds Active Needs powder this month and note any benefit; do not reorder unless it helps. If you notice improvement, switch afterward to Neuroneeds Energy Needs capsules. - Continue licorice root and slippery elm tea each morning and evening. - Use magnesium glycinate in the evening (avoid magnesium citrate or oxide to prevent diarrhea and bloating). - Continue melatonin in the evening as you have been. - Keep taking MCT oil twice daily (morning and evening) at the dose you tolerate. - Take zinc carnosine morning and evening for 2-3 months for gut healing; you can stop after that period. - For sinus congestion, use oregano tablets twice a day to help loosen mucus. - Work toward 35 grams of fiber daily--track your intake, include high-fiber foods (for example, suhail seeds), and avoid protein bars or artificial sweeteners that may worsen gut symptoms. - Maintain a gluten-free, dairy-free diet as recommended. - Use methylated folate and methylated B12 during episodes of anxiety, brain fog, or when you feel unwell, given your MTHFR C677T heterozygosity. - Keep your follow-up appointment with the dietitian on July 07. - Schedule a return visit in about 2 months to review your gut-healing progress, supplement effects, and diet changes. documented in this encounter [facility] 06-10-2025 Instructions Az Morrow, [facility] - 06/10/2025 5:58 PM EDT From this visit: Three Month Goals Jun - Sep 18 Every day, do 1 Mindful activity for at least 15 minutes, broken up through the day. Until Jul 07, eat GF for all meals and snacks. Follow RDs recommendations. Read labels to be sure no gluten. Try one new dinner recipe for the family each week and one recipe just for me Weekly Goals June 11 - Jun 28 Write at least one thing I am grateful for in my Gratitude Journal in the evening before bed at least 3 days each week Plan one in-person event and reach out to at least one person (besides my ) and invite Yours in health, Nicole Morrow, [facility] [employer] documented in this encounter [facility] 06-10-2025 History of Present illness Narrative [facility] Health Coaching Session VIRTUALVISITPN Patient was part of an individual health polo coach session. Patient participated in discussion about modifiable lifestyle factors, healthy habits and goal setting within the functional medicine model and the Wheel of Wellness. Other topics of discussion included review of progress toward lifestyle goals and strengths, values and environments patient will leverage to move forward. ...................................... ...................................... ........................... See details in After Visit Summary Recommended Follow-up: as scheduled Time Spent with patient: 30 minutes Consult Billing Type: 1 increment (30 minutes) Number of Increments: 1 (30 minutes) Signed by: Az Morrow, [facility] [employer] ---- Notes Health Coaching - accountability Daughter 6 yrs old One Change that would have biggest impact on my current health and wellbeing: Mindset shift so I can get out of my head What are you currently doing to support your health and wellbeing? - Exercises daily at 430a;mix of cardio and strength. (in bed by 10p) - Takes supplements, meditates, gives self several hours in the day to myself - Enjoys reading and spending time on a [employer] boat. TOP 2-3 AREAS OF FOCUS: Stress Resilience, Mindset Wellness Vision (desired outcomes) I don't think about my health because I feel well I am excited about the day, looking forward to going to work I play with my daughter happily and with energy I go on dates with my I enjoy food; not afraid of choices I want to make I am social and spend time with family and others I am present and don't avoid situations I confidently handle any situation I trust my decisions and my choices I feel well Brainstorm -- actions I can take that will help me realize my desired outcomes (Vision) Focus my attention on mindful activities Plan dates with Get to bed by 930p every night Eat GF Continue to exercise daily Daily breathing practice 2 times a day Stop researching health things and substitute something else Connect with family members at least 2 times a week via text, etc Try one new recipe every 2 weeks' Meal planning 4 meals each week Three Month Goals Jun - Sep Every day, do 1 Mindful activity for at least 15 minutes, broken up through the day. Until Jul 07, eat GF for all meals and snacks. Follow RDs recommendations. Read labels to be sure no gluten. Try one new dinner recipe for the family each week and one recipe just for me Weekly Goals June 11 - Jun 28 Write at least one thing I am grateful for in my Gratitude Journal in the evening before bed at least 3 days each week Plan one in-person event and reach out to at least one person (besides my ) and invite documented in this encounter [facility] 06-10-2025 Note HNO ID: [id number] Author: AZ MORROW [facility] Service: ? Author Type: Health Educator Type: Progress Notes Filed: 06/10/2025 17:59 Note Text: [facility] Functional Medicine Health Coaching Session VIRTUALVISITPN Patient was part of an individual health polo coach session. Patient participated in discussion about modifiable lifestyle factors, healthy habits and goal setting within the functional medicine model and the Wheel of Wellness. Other topics of discussion included review of progress toward lifestyle goals and strengths, values and environments patient will leverage to move forward. ...................................... ...................................... .... ....................... See details in After Visit Summary Recommended Follow-up: as scheduled Time Spent with patient: 30 minutes Consult Billing Type: 1 increment (30 minutes) Number of Increments: 1 (30 minutes) Signed by: Az Morrow [facility] [employer] ---- Notes Health Coaching - accountability Daughter 6 yrs old One Change that would have biggest impact on my current health and wellbeing: Mindset shift so I can get out of my head What are you currently doing to support your health and wellbeing? - Exercises daily at 430a;mix of cardio and strength. (in bed by 10p) - Takes supplements, meditates, gives self several hours in the day to myself - Enjoys reading and spending time on a [employer] TOP 2-3 AREAS OF FOCUS: Stress Resilience, Mindset Wellness Vision (desired outcomes) I don't think about my health because I feel well I am excited about the day, looking forward to going to work I play with my daughter happily and with energy I go on dates with my I enjoy food; not afraid of choices I want to make I am social and spend time with family and others I am present and don't avoid situations I confidently handle any situation I trust my decisions and my choices I feel well Brainstorm -- actions I can take that will help me realize my desired outcomes (Vision) Focus my attention on mindful activities Plan dates with Get to bed by 930p every night Eat GF Continue to exercise daily Daily breathing practice 2 times a day Stop researching health things and substitute something else Connect with family members at least 2 times a week via text, etc Try one new recipe every 2 weeks' Meal planning 4 meals each week Three Month Goals Jun - Sep Every day, do 1 Mindful activity for at least 15 minutes, broken up through the day. Until Jul 07, eat GF for all meals and snacks. Follow RDs recommendations. Read labels to be sure no gluten. Try one new dinner recipe for the family each week and one recipe just for me Weekly Goals June 11 - Jun 28 Write at least one thing I am grateful for in my Gratitude Journal in the evening before bed at least 3 days each week Plan one in-person event and reach out to at least one person (besides my ) and invite [facility] 05-27-[address] - 05/27/2025 6:14 PM EDT [facility] FUNCTIONAL MEDICINE FOLLOW UP NUTRITION INSTRUCTIONS Nutrition Follow-up: In [address]. Your Prescribed Nutrition Plan: Food Plan: Gluten Free, Core Continue Dr. Faria's recommendation for gut-soothing tea daily combining raw licorice root, slippery elm bark, and zinc carnosine. Discard the first boil, then steep again. Add cup of aloe juice, and drink 4 oz in the morning and 4 oz in the evening 2. Ways to Improve Constipation, Which Is Needed To Detoxify Increase movement by 2000 steps per day, on top of your current physical activity routine 1 tablespoon suhail seeds daily for 2 weeks to start, continue if helpful Continue digestive enzymes with ox bile 15 minutes before meals ro foods with fat Space apart eating windows about every 4 hours. This may help to allow the migrating motor complex to sweep contents through the digestive tract, which may help improve bowel movements. 3. Protein powder recommendations as alternatives to Premier Protein Passed Consumer Labs heavy metals test* *-Now Sports Pea Protein -Pure Unflavored *-Truvani PlantBased Protein -Vanilla Flavored *-Nutiva HempProtein Powder *-Orgain OrganicProtein -CreamyChocolateFudge Flavored *-PlantFusion CompleteProtein - Vanilla 4. Incorporate more prebiotic rich foods into your diet to stimulate the growth of short chain fatty acids: Incorporate 2 servings daily. -Apple (with the peel) -Asparagus -Banana (green-tinged peel) -[place]ock -Chicory -[place] -Carob -Dandelion greens -Eggplant -Endive -Flaxseed -Garlic -Honey -Elliott artichoke (sunchoke) -Jicama -Konjac -Misael -Legumes -Onion -Peas -Radicchio -Whole grains -Yacon Food-Based Ideas for Incorporation of pre-biotic rich foods: Dandelion greens: add to stir-lutz or in salad Endive: enjoy as appetizer with goat cheese Chicory or Dandelion Root: consume as hot beverage (Case Teeluis): https://RedSeguro/products/croatian-r bhoz-eparqf-uxoqsf [place]: 90-100% dark chocolate after meals Radicchio: toss in a salad before a meal Recipes: Endive & radicchio salad with citrus: https://www.The Pocket Agency/endive-sa lad/ Braised white beans and leeks: https://www.gastronotherapy.com/braise d-nvtzl-abxal-leeks/#recipe Baked jicama fries: https://AGNITiOpesPrecision for Medicine/jicama -fries/#recipe Roasted sunchokes: https://www.Spiration.Pixim/roaste d-sunchokes/ Konjac (miracle noodle) Pad Vietnamese: https://Webjam/Blog/lchf/easy -kufmy-gzi-ndik#preptime 5. Emphasize Antifungal Food Compounds: Aim for 2 tsp total daily -Clove -Oregano -Garlic -Thyme -Cinnamon -Cumin -Chamomile -Peppermint -[place] peel -Lemon grass -Oregano -Yojana -Peppercorn -Cloves -Bedford oil -Coconut -Cranberry -Mushrooms (shitake, oyster, white button, crimini, portobello) -Apple Cider Vinegar -Tea (black, green, oolong) 6.Please avoid gluten containing grains during your food plan due to Hashimotos Thyroiditis and to help decrease inflammation Avoid Eat (substitutes for gluten-containing grains) Barley Bulgar (bulgur) Chapatti flour Couscous Durum Silvia Rod Malt (malt beverages, extract, flavoring, syrup, vinegar, etc.) Oats not certified GF (incl. oat bran, oat syrup) [place] Seitan ( wheat meat ) [place]olina Spelt Textured vegetable protein (typically contains gluten) Triticale Wheat, all varieties (bran, germ, starch) Amaranth Arrowroot Moran flours (garbanzo, sakshi, Valadez, etc.) Buckwheat, buckwheat groats (kasha) Cassava flour Suhail seeds Flax Manioc flour [place] flour Millet Nut flours and meals (almond, coconut, hazelnut, etc.) Oats (gluten-free) Quinoa Rice (all) Tapioca flour Teff [place] Certified gluten free labels will indicate that the product is gluten free, or, check that the product is made from only from the Eat column. Read labels closely to ensure that none of the 'avoid' words are listed in your foods' ingredient lists. Minimally Refined gluten-free bread/wrap options Keep in mind that many gluten-free bread substitutes are nutrient-poor. By using whole grains, nuts, and seeds you can increase the nutritional benefit! Traditionally made (gluten-free) sourdough bread (without yeast), due to the fermentation process, also tends to have less available starch and a lower blood sugar impact. Tortillas/Wraps Brands Very Venice Art for Life Brown Rice Tortillas: https://www.Signpost/product/to rtillas/fsvjg-qkoe-tjcfzcjnb Siete [place] Flour Tortillas: https://Munogenics/products/6-pack -xtrfbe-pbktb-drvmecavo Nuco Coconut Wraps: http://www.PlanviewutmetraTec/coconut-wraps / Gluten-Free Pastas Banza Chickpea Pasta: https://www.PassivSystems/ Jovial Brand Brown Rice Pasta: https://Hotelicopter/gluten-free/br oni-sbji-mzywa/ Jovial Brand Cassava Pasta: https://Hotelicopter/grain-free/nadira sava-pasta/ Explore Cuisine Moran Based Pastas: https://Sava TransmediacuGridco/ (skip edamame) Multimedia Plus | QuizScore Brown Rice Pasta: https://Teros.View2Gether/products/org pqob-goikn-lucw-spaghetti-pasta Helmi Technologies 100% Buckwheat Noodles:https://store.Wildfire Korea/so ob-194-wpjdbifle/ Angy Foods Sun Diagnostics : Angy Foods Organic Millet and Brown Rice Ramen Noodles - Gluten Free Instant Ramen Noodles, Vegan, Low Sodium, Made with Brown Rice Flour and Millet Flour, Ready in 4 Minutes - 10 Oz Bag (Pack of 1) : Grocery & Gourmet Food Recipes Cassava Flour Tortillas (Downshiftology): https://Calendly.Pixim/recipes/nadira awka-xefpj-dwdslmplc/ Brown Rice Tortillas (Salted [place]): https://Voxeet.Pixim/aewht-sdgl-um hvcwhpf-xlzwue-dkcy-vegan/ [place] Flour Tortillas (Nutrition Refined): https://nutritionrefined.com/almond-fl our-tortillas/ Coconut Flour Tortillas (PowerHungry): https://www.Kintech Lab.Pixim//2- lwynbgugme-lvwwson-ofvov-tortillas-veg an/ Breads Brands Base Culture Bread (contains eggs): https://AthleteNetwork.Pixim/collections/sl iced-bread/products/0-waa-vnog-bread?v lnqbmo=56155904589038 Bread SRSLY: https://breadsrsAerify Media/ New Grains Gluten-free Sourdough: https://HubCast.Pixim/product/gluten-f vma-dvbf-rxpjw/ Simple Kneads Gluten-Free Sourdough: https://www.Energid Technologiesds.Pixim/ Food for Life: ttps://www.Signpost/products/gl uten-free Odd Bagel: https://www.Musikki/shop Mixes JoCotyal Brand Whole Grain Gluten Free Bread Mix: https://MyMiniLife.Pixim/uukez-ltjya-lv odho-puiq-fherf-flour/ Simple Shaw Artisan Bread Mix (asks for eggs): https://www.Marinelayer/Shop/Produ ct/Zsgcogu-Pnqwg-Wwc.aspx Recipes Gluten-free Sourdough (Cultures for Health): https://www.Longfan Media.Pixim/lear n/recipe/vn-pbsxnjgjl-ptjpszg/gluten-f mrn-bilpqjryt-jsyqv-ffmad-aidgt-foenuw ch-bread/ Nourishing Nut & Seed Bread (Nutrition Stripped): https://nutritionstripped.com/nourishi zc-wvs-jodx-bread/ Paleo [place] Bread (Paleo Running Momma): https://www.paleorunningFundgrazing.Pixim/pale n-vkbhftdl-nwieu/ Resources Yella Rewards Gluten-free Sourdough Starter: https://Teros.Secpanel/pro ducts/wbbzgd-wesf-edemnfhwe-starter Gluten-free Artisan bread in 5 minutes per day: https://wwwXimoXi/book/show/19 001293-xfqikr-ciml-btwzlrb-brmle-wa-br lp-yasbsrp-x-day Simple Shaw- all products (crackers, pizza dough, snacks) The following is an example list of Foods that MAY contain GLUTEN unless labeled gluten free: Ales/Lagers/Joiner Helper s Yeast Broth/Boullion Candy / Licorice Communion wafer Condiments Croutons Dates (rolled in oat flour) Gravies Green Powders Flavored Nuts Flavored Teas and coffee Food Starch Imitation Seafood Imitation Cole Marinades Matzoh Miso Natural Juices Non Dairy Creamer Soba Noodles Salad Dressings/Sauces Soy Sauce / Tamari (use gluten free soy sauce or coconut aminos instead) Spices: Single spices are safer than mixed Processed Meats (Cole/Deli Meat) Rice Pilaf Soup stock Supplements Wheat Starch GLUTEN FREE APPS: Eating Out G-Free: Offers tips on how to find a gluten-free menu, create a gluten-free shopping list, lists of foods to avoid and how to stay gluten-free while dining away from the home. Supplements The G-Free Diet, by Aminata Esparza Gluten Free Daily: An online guide built to provide education and resources about following a gluten-free diet Find Me Gluten Free: Lists restaurants ratings and reviews based on how gluten-friendly the businesses are in the area Gluten Freed-Gluten Free Dining for Health and Celiac: Acts as a gluten-free restaurant finder for those with celiac disease or gluten intolerance. Adapted from: http://www.eatright.org/Media/content DINING OUT AND TRAVEL WEBSITES: (See apps above) www.glutenfreeAvro Technologiesbook.com www.xgipwf-qjbwc-ghjeldeqt.com www.glutenfreepassport.com www.allergyfreepassport.com www.triumphdining.com www.glutenfreerestaurantsawarenessprog cristopher.com. www.glutenfreetravelsite.com www.glutenfreeregistry.com www.allergymagazine.com - Allergy magazine www.Intrallect.Pixim -Gluten free and dairy free recipes ADDITIONAL INSTRUCTIONS: How to Contact Your Functional Medicine Team (Open M-F 8am-5pm): 1. Three Screen Gameshart is the BEST form of communication to reach the Functional Medicine Team, see test results and request refills. Please allow 72 business hours for a response. Directions for signing up are included in your New Patient Folder. (Or you can go to [email or web address]) 2. For nutrition related questions or concerns, ThermoAura message your physician and include Attn: Gale Copeland RD at the top of the message. ThermoAura messaging is meant to support implementation of previously outlined nutrition care plans. In the interest of safe, effective and personalized care, you are asked to schedule a follow-up appointment if: It has been >6 months since your last nutrition appointment Your question requires reassessment or involves a new plan of care Your question concerns a new diagnosis, symptoms(s) and/or health concern documented in this encounter [facility] 05-27-2025 Instructions Az Morrow [facility] ED - 05/27/2025 5:20 PM EDT Images from the original note were not included. Check this out for easy Meal Planning: https://www.Ceram Hyd.Pixim/ [facility] HEALTH ENVIRONMENTAL SOLUTIONS ENGINEER FOLLOW-UP Staff Health President Finance Company Follow-Up: In 2 weeks with AZ MORROW [facility]. Schedule through ThermoAura or by calling the Center for Functional Medicine. [phone] option #1 TOP 2-3 AREAS OF FOCUS: Stress Resilience, Mindset Wellness Vision (desired outcomes) I don't think about my health because I feel well I am excited about the day, looking forward to going to work I play with my daughter happily and with energy I go on dates with my I enjoy food; not afraid of choices I want to make I am social and spend time with family and others I am present and don't avoid situations I confidently handle any situation I trust my decisions and my choices I feel well Brainstorm -- actions I can take that will help me realize my desired outcomes (Vision) Focus my attention on mindful activities Plan dates with Get to bed by 930p every night Eat GF Continue to exercise daily Daily breathing practice 2 times a day Stop researching health things and substitute something else Connect with family members at least 2 times a week via text, etc Try one new recipe every 2 weeks' Meal planning 4 meals each week Three Month Goals May - Sep 01 (in progress; complete next session) Focus my attention on mindful activities Eat GF Connect with family members at least 2 times a week via text, etc ...................................... ...................................... ...................................... ................. ADDITIONAL INSTRUCTIONS: We offer group coaching sessions focused on Mindfulness in the areas of Mindset, Stress, Movement, or Sleep. How to [place] for the Mindfulness Group Coaching Program -Choose from topics: Mindset, Stress, Movement, or Sleep. - Call the appointment line [phone], option #1 How to Contact Your Functional Medicine Team (Open M-F 8am-5pm): MyChart is the BEST form of communication to reach the Functional Medicine Team, see test results and request refills. Please allow 72 business hours for a response. Directions for signing up are included in your New Patient Folder. (Or you can go to [email or web address]) Yours in health, Nicole Morrow, [facility] Ed Health President Finance Company New patients to the Dialogfeed will need to enter the provider code [id number] to register their account. documented in this encounter [facility] 05-27-2025 History of Present illness Narrative Health Coaching [facility] Reassessment? (No Prior Goals/Plan: WHEEL OF WELLNESS: Nutrition Satisfaction: 3 Neutral (Eating healthy but disappointed not feeling great from it) Sleep Satisfaction: 2 Dissatisfied (Needs to be in bed by 930pm) Stress Resilience Satisfaction: 1 Extremely Dissatisfied (#1 priority. Gets flustered if things don't run smoothly) Social Connection and Relationships Satisfaction: 2 Dissatisfied (Don't communicate with a lot of people outside of work) Mindset Satisfaction: 1 Extremely Dissatisfied (#2 priority. By end of day I am worn down. Every day is the same. Beginning of the day I am hopeful.) Physical Actvity Satisfaction: 4 Satisfied (Exercises every day doing a mix of cardio and strength at home in the mornings) Total Score: 13 ...................................... ...................................... ...................................... ................. Current Focus: Nutrition: lifestyle domain not prioritized today Social Support: lifestyle domain not prioritized today Stress: #1 Physical Activity: lifestyle domain not prioritized today Mindset: #2 Sleep: lifestyle domain not prioritized today ...................................... ...................................... ...................................... ................One Change that would have biggest impact on my current health and wellbeing: Mindset shift so I can get out of my head Wellness Vision: (desired outcomes) I don't think about my health because I feel well I am excited about the day, looking forward to going to work I play with my daughter happily and with energy I go on dates with my I enjoy food; not afraid of choices I want to make I am social and spend time with family and others I am present and don't avoid situations I confidently handle any situation I trust my decisions and my choices I feel well Three Month Goals: Start Date: May - Sep 01 (in progress; complete next session) 1. Focus my attention on mindful activities 2. Eat GF 3. Connect with family members at least 2 times a week via text, etc ...................................... ...................................... ...................................... ................. Recommended Follow-up: as scheduled Time Spent with patient: 30 minutes Consult Billing Type: 1 increment (30 minutes) Number of Increments: 1 (30 minutes) Signed by: AZ MORROW, [facility] Health President Finance Company ---- Notes Health Coaching - accountability Daughter 6 yrs old One Change that would have biggest impact on my current health and wellbeing: Mindset shift so I can get out of my head What are you currently doing to support your health and wellbeing? - Exercises daily at 430a;mix of cardio and strength. (in bed by 10p) - Takes supplements, meditates, gives self several hours in the day to myself - Enjoys reading and spending time on a [employer] TOP 2-3 AREAS OF FOCUS: Stress Resilience, Mindset Wellness Vision (desired outcomes) I don't think about my health because I feel well I am excited about the day, looking forward to going to work I play with my daughter happily and with energy I go on dates with my I enjoy food; not afraid of choices I want to make I am social and spend time with family and others I am present and don't avoid situations I confidently handle any situation I trust my decisions and my choices I feel well Brainstorm -- actions I can take that will help me realize my desired outcomes (Vision) Focus my attention on mindful activities Plan dates with Get to bed by 930p every night Eat GF Continue to exercise daily Daily breathing practice 2 times a day Stop researching health things and substitute something else Connect with family members at least 2 times a week via text, etc Try one new recipe every 2 weeks' Meal planning 4 meals each week Three Month Goals May - Sep 01 (in progress; complete next session) Focus my attention on mindful activities Eat GF Connect with family members at least 2 times a week via text, etc Weekly Goals Complete next session documented in this encounter [facility] 05-27-2025 Note HNO ID: [id number] Author: AZ MORROW, [facility] ED Service: ? Author Type: Health Educator Type: Progress Notes Filed: 05/27/2025 18:23 Note Text: Health Coaching Follow-up [facility] 3-Month Reassessment? (No Prior Goals/Plan: WHEEL OF WELLNESS: Nutrition Satisfaction: 3 Neutral (Eating healthy but disappointed not feeling great from it) Sleep Satisfaction: 2 Dissatisfied (Needs to be in bed by 930pm) Stress Resilience Satisfaction: 1 Extremely Dissatisfied (#1 priority. Gets flustered if things don't run smoothly) Social Connection and Relationships Satisfaction: 2 Dissatisfied (Don't communicate with a lot of people outside of work) Mindset Satisfaction: 1 Extremely Dissatisfied (#2 priority. By end of day I am worn down. Every day is the same. Beginning of the day I am hopeful.) Physical Actvity Satisfaction: 4 Satisfied (Exercises every day doing a mix of cardio and strength at home in the mornings) Total Score: 13 ...................................... ...................................... .... ...................................... ............. Current Focus: Nutrition: lifestyle domain not prioritized today Social Support: lifestyle domain not prioritized today Stress: #1 Physical Activity: lifestyle domain not prioritized today Mindset: #2 Sleep: lifestyle domain not prioritized today ...................................... ...................................... .... ...................................... ............One Change that would have biggest impact on my current health and wellbeing: Mindset shift so I can get out of my head Wellness Vision: (desired outcomes) I don't think about my health because I feel well I am excited about the day, looking forward to going to work I play with my daughter happily and with energy I go on dates with my I enjoy food; not afraid of choices I want to make I am social and spend time with family and others I am present and don't avoid situations I confidently handle any situation I trust my decisions and my choices I feel well Three Month Goals: Start Date: May - Sep 01 (in progress; complete next session) 1. Focus my attention on mindful activities 2. Eat GF 3. Connect with family members at least 2 times a week via text, etc ...................................... ...................................... .... ...................................... ............. Recommended Follow-up: as scheduled Time Spent with patient: 30 minutes Consult Billing Type: 1 increment (30 minutes) Number of Increments: 1 (30 minutes) Signed by: AZ MORROW, [facility] Health President Finance Company ---- Notes Health Coaching - accountability Daughter 6 yrs old One Change that would have biggest impact on my current health and wellbeing: Mindset shift so I can get out of my head What are you currently doing to support your health and wellbeing? - Exercises daily at 430a;mix of cardio and strength. (in bed by 10p) - Takes supplements, meditates, gives self several hours in the day to myself - Enjoys reading and spending time on a [employer] (formerly [employer] boat. TOP 2-3 AREAS OF FOCUS: Stress Resilience, Mindset Wellness Vision (desired outcomes) I don't think about my health because I feel well I am excited about the day, looking forward to going to work I play with my daughter happily and with energy I go on dates with my I enjoy food; not afraid of choices I want to make I am social and spend time with family and others I am present and don't avoid situations I confidently handle any situation I trust my decisions and my choices I feel well Brainstorm -- actions I can take that will help me realize my desired outcomes (Vision) Focus my attention on mindful activities Plan dates with Get to bed by 930p every night Eat GF Continue to exercise daily Daily breathing practice 2 times a day Stop researching health things and substitute something else Connect with family members at least 2 times a week via text, etc Try one new recipe every 2 weeks' Meal planning 4 meals each week Three Month Goals May - Sep 01 (in progress; complete next session) Focus my attention on mindful activities Eat GF Connect with family members at least 2 times a week via text, etc Weekly Goals Complete next session [facility] 05-26-2025 History of Present illness Narrative [facility] for Functional Medicine Nutrition Therapy: Initial Assessment (Individual) [facility] I have communicated my name and active licensure. The patient's identity and physical location were verified at the time of this visit. Either the patient or their legal inside sales account representative has been informed of the risks and benefits of -- and alternatives to -- treatment through a remote evaluation and consents to proceed with the evaluation remotely. Patient is located in the [facility] at the time of the virtual visit. Patient Name: Aicha Ledezma Past Medical History: PAST MEDICAL HISTORY Diagnosis Date Abnormal Pap smear of cervix 2012 LGSIL Anxiety Giardia 02/2018 Hiatal hernia Mental disorder Allergies: Penicillins Current Medications/Supplements Current Outpatient Medications on File Prior to Visit Medication Sig Safety Dumas (BD SAFETYGLIDE NEEDLE) 25 gauge x 1 ndle 1 syringe one time a week. cyanocobalamin, vitamin B-12, 1,000 mcg/mL kit 1 dose by INJECTION(UNSPECIFIED PARENTERAL ROUTES) route one time a week. B12 injection weekly for 1 month= total of 4 injections in 1 month Syringe with Needle, Disp, (MONOJECT SYRINGE) 3 mL 21 gauge x 1 1/2 syrg 1 syringe one time a week. iodine (KELP, IODINE,) 150 mcg tab Take 150 tablets by mouth once daily. busPIRone (BUSPAR) 5 mg tablet Take 5 mg by mouth two times a day. dextroamphetamine-amphetamine (ADDERALL) 5 mg tablet Take 5 mg by mouth once daily. Magnesium Glycinate 100 mg tab Take by mouth. melatonin 10 mg cap Take by mouth. digestive enzymes combo no.7 (SUPERIOR DIGESTIVE ENZYME) cap Take by mouth. Magnesium 200 mg tab Take by mouth. Current Facility-Administered Medications on File Prior to Visit Medication cyanocobalamin 1,000 mcg injection Primary ICD-10 Diagnosis Addressed: Irritable bowel syndrome with constipation [K58.1] Provider Nutrition Notes:Per ad setter Chief Concerns: 1. IBS-C 2. Hashimotos 3. Brain fog 4. Anxiety Nutrition Assessment (05/26/25) Digestive symptoms: Every other day BM - Treated with antibiotics for Giardia; symptoms exacerbated - Cholecystectomy in October 2023 did not improve symptoms. Reports mucus in stool and bloating, especially in the lower abdomen. Other relevant symptoms: Supplements-digestive enzymes (with ox bile), iodine, mct oil, magnesium, melatonin, neuro needs, pepzin gi Symptoms- fatigue, chest tightness, brain fog Feels afraid to eat due to not knowing if they will cause symptoms PA- works out daily 30-40 minutes daily (weights, bands, abs squats, treadmill), standing desk at work, but does not move that much during day Pt states she was told by Dr. Faria that she has yeast overgrowth based on visual mouth exam From provider 05-13 MTHFR - advised patient to DC premier protein shakes due to cyanocobalamin and folic acid ingredients Food and Nutrition History (special diet(s) or nutritional program): Gluten free, dairy free, sugar free, alcohol free- felt less bloated but did not help brain fog Adverse Reactions to Foods: - Avoids processed, greasy, and high-fat foods; bloating and discomfort- avocado and peanut butter (had in a snack). Diet Recall: Yes 24 Hour Recall Breakfast: 5am premier protein shake Lunch: salad, suhail, almond milk, oatmeal, berries Dinner: burgers on the grill Snacks: chocolate, energy ball Beverages: 60 oz water, 1-2 cups coffee per day Biochemical and Laboratory Data Conventional/Advanced Testing No new relevant/available Laboratory Values Addressed: None addressed today Anthropometrics LMP 09/11/2024 (Within Days) Last Height: Last 1 Encounter Ht Readings: Date: Ht: 05/13/2025 165.1 cm (5' 5) Last Weight: Last Wt 05/13/25 : 60.2 kg (132 lb 11.5 oz) 10/02/24 : 64.9 kg (143 lb) 02/28/23 : 66.4 kg (146 lb 4.8 oz) Wt: 60.2 kg (132 lb 11.5 oz) BMI: 22.09 kg/(m^2) Nutrition Prescription: Energy: Resting Metabolic Rate: 1285 Protein: 1.0g/kg Nutrients of Concern: protein, fiber Nutrition Diagnosis: Altered GI Difficulty related to dysbiosis as evidenced by IBS-C, constipation Learning Needs Assessment: Barriers to Learning: Ready learn Assessed motivation to learn: high Nutrition Intervention 05/26/2025: Current Nutrition Goal(s): reduce diet-related inflammation or food sensitivities suspected as symptom trigger Food Plan: Gluten Free, Core Continue Dr. Faria's recommendation for gut-soothing tea daily combining raw licorice root, slippery elm bark, and zinc carnosine. Discard the first boil, then steep again. Add cup of aloe juice, and drink 4 oz in the morning and 4 oz in the evening 2. Ways to Improve Constipation, Which Is Needed To Detoxify Increase movement by 2000 steps per day, on top of your current physical activity routine 1 tablespoon suhail seeds daily for 2 weeks to start, continue if helpful Continue digestive enzymes with ox bile 15 minutes before meals ro foods with fat Space apart eating windows about every 4 hours. This may help to allow the migrating motor complex to sweep contents through the digestive tract, which may help improve bowel movements. 3. Protein powder recommendations as alternatives to Premier Protein Passed Consumer Labs heavy metals test* *-Now Sports Pea Protein -Pure Unflavored *-Truvani PlantBased Protein -Vanilla Flavored *-Nutiva HempProtein Powder *-Orgain OrganicProtein -CreamyChocolateFudge Flavored *-PlantFusion CompleteProtein - Vanilla 4. Incorporate more prebiotic rich foods into your diet to stimulate the growth of short chain fatty acids: Incorporate 2 servings daily. -Apple (with the peel) -Asparagus -Banana (green-tinged peel) -[place]ock -Chicory -[place] -Carob -Dandelion greens -Eggplant -Endive -Flaxseed -Garlic -Honey -Elliott artichoke (sunchoke) -Jicama -Konjac -Misael -Legumes -Onion -Peas -Radicchio -Whole grains -Yacon Food-Based Ideas for Incorporation of pre-biotic rich foods: Dandelion greens: add to stir-lutz or in salad Endive: enjoy as appetizer with goat cheese Chicory or Dandelion Root: consume as hot beverage (DandyBlend, Teechino): https://RedSeguro/products/croatian-r fdar-acbuil-lubggt [place]: 90-100% dark chocolate after meals Radicchio: toss in a salad before a meal Recipes: Endive & radicchio salad with citrus: https://www.Peerlyst.Pixim/endive-sa lad/ Braised white beans and leeks: https://www.gastronotherapy.com/braise f-gyerx-jvyod-leeks/#recipe Baked jicama fries: https://healthyrecipesblogs.com/jicama -fries/#recipe Roasted sunchokes: https://www.Vocalyticseautifulplate.Pixim/roaste d-sunchokes/ Konjac (miracle noodle) Pad Vietnamese: https://Webjam/Blog/lchf/easy -zkvqw-lol-viwc#preptime 5. Emphasize Antifungal Food Compounds: Aim for 2 tsp total daily -Clove -Oregano -Garlic -Thyme -Cinnamon -Cumin -Chamomile -Peppermint -[place] peel -Lemon grass -Oregano -Yojana -Peppercorn -Cloves -Bedford oil -Coconut -Cranberry -Mushrooms (shitake, oyster, white button, crimini, portobello) -Apple Cider Vinegar -Tea (black, green, oolong) 6.Please avoid gluten containing grains during your food plan due to Hashimotos Thyroiditis and to help decrease inflammation Avoid Eat (substitutes for gluten-containing grains) Barley Bulgar (bulgur) Chapatti flour Couscous Durum Einkorn Emmer Kamut Malt (malt beverages, extract, flavoring, syrup, vinegar, etc.) Oats not certified GF (incl. oat bran, oat syrup) [place] Seitan ( wheat meat ) [place] Spelt Textured vegetable protein (typically contains gluten) Triticale Wheat, all varieties (bran, germ, starch) Amaranth Arrowroot Moran flours (garbanzo, sakshi, Valadez, etc.) Buckwheat, buckwheat groats (kasha) Cassava flour Suhail seeds Flax Manioc flour Compton flour Millet Nut flours and meals (almond, coconut, hazelnut, etc.) Oats (gluten-free) Quinoa Rice (all) Tapioca flour Teff [place] Certified gluten free labels will indicate that the product is gluten free, or, check that the product is made from only from the Eat column. Read labels closely to ensure that none of the 'avoid' words are listed in your foods' ingredient lists. Minimally Refined gluten-free bread/wrap options Keep in mind that many gluten-free bread substitutes are nutrient-poor. By using whole grains, nuts, and seeds you can increase the nutritional benefit! Traditionally made (gluten-free) sourdough bread (without yeast), due to the fermentation process, also tends to have less available starch and a lower blood sugar impact. Tortillas/Wraps Brands Food for Life Brown Rice Tortillas: https://www.Signpost/product/to rtillas/acslp-mvlb-pkpqszrce Siete [place] Flour Tortillas: https://Munogenics/products/6-pack -nhpvma-mxalm-khmgenkku Nuco Coconut Wraps: http://www.nucoconut.com/coconut-wraps / Gluten-Free Pastas Banza Chickpea Pasta: https://www.MIKESTARza.Pixim/ Jovial Brand Brown Rice Pasta: https://Hotelicopter/gluten-free/br lex-ysud-gfrrb/ Jovial Brand Cassava Pasta: https://Hotelicopter/grain-free/nadira sava-pasta/ Explore CuisMassive Health Moran Based Pastas: https://Function Space/ (skip edamame) Multimedia Plus | QuizScore Brown Rice Pasta: https://Teros.View2Gether/products/org pbgu-tskgi-uoyh-spaghetti-pasta Mary Foods 100% Buckwheat Noodles:https://SNAP Interactive, Inc..Wildfire Korea/so wc-325-atxkivxxj/ Angy Foods A LITTLE WORLDen Trust Mico.Pixim : Angy Foods Organic Millet and Brown Rice Ramen Noodles - Gluten Free Instant Ramen Noodles, Vegan, Low Sodium, Made with Brown Rice Flour and Millet Flour, Ready in 4 Minutes - 10 Oz Bag (Pack of 1) : Grocery & Gourmet Food Recipes Cassava Flour Tortillas (Downshiftology): https://Calendly.Pixim/recipes/nadira yosf-biasx-ljsxgpfto/ Brown Rice Tortillas (Salted [place]): https://saltedplBluestreak Technology.com/kmbpe-urrx-tw xgfcbcp-sxeymq-elfi-vegan/ [place] Flour Tortillas (Nutrition Refined): https://nutritionrefined.com/almond-fl our-tortillas/ Coconut Flour Tortillas (PowerHungry): https://www.Kintech Lab.Pixim//2- nboaxbsxsv-qrgfwjd-enxoi-tortillas-veg an/ Breads Brands Base Culture Bread (contains eggs): https://AthleteNetwork.Pixim/collections/sl iced-bread/products/7-bst-fwim-bread?v pmtfvs=94916151722092 Bread SRSLY: https://breadsrsly.Pixim/ New Grains Gluten-free Sourdough: https://HubCast.Pixim/product/gluten-f zip-sack-yctpu/ Simple Kneads Gluten-Free Sourdough: https://www.Oxford BioChronometricskneads.Pixim/ Food for Life: ttps://www.Signpost/products/gl uten-free Odd Bagel: https://www.Musikki/shop Mixes Myvu Corporation Brand Whole Grain Gluten Free Bread Mix: https://Hotelicopter/uhmbt-mbvco-ra nufo-mjux-eepvu-flour/ Simple Shaw Artisan Bread Mix (asks for eggs): https://www.Marinelayer/Shop/Produ ct/Khmpxes-Yecxn-Bxo.aspx Recipes Gluten-free Sourdough (Cultures for Health): https://www.Secpanel/lear n/recipe/yk-lfpokuhlw-cfiwzpu/gluten-f cvb-cysojwzpt-wkrvw-vhccm-wvffc-eirece ch-bread/ Nourishing Nut & Seed Bread (Nutrition Stripped): https://nutritionstripped.Pixim/nourishi lm-rcn-mjgw-bread/ Paleo [place] Bread (Paleo Running Momma): https://www.Zaizher.imorWAPA.Pixim/pale m-uyykqzwe-zdgeu/ Resources Cultures for Health Gluten-free Sourdough Starter: https://shop.Secpanel/pro ducts/usmwag-sqtc-aqoazfxdu-starter Gluten-free Artisan bread in 5 minutes per day: https://www.invino.Pixim/book/show/19 267868-enfxgq-exej-mckrwfn-bqfml-bh-dx zx-anzgroy-r-day Simple Shaw- all products (crackers, pizza dough, snacks) The following is an example list of Foods that MAY contain GLUTEN unless labeled gluten free: Ales/Lagers/Joiner Helper s Yeast Broth/Boullion Candy / Licorice Communion wafer Condiments Croutons Dates (rolled in oat flour) Gravies Green Powders Flavored Nuts Flavored Teas and coffee Food Starch Imitation Seafood Imitation Cole Marinades Matzoh Miso Natural Juices Non Dairy Creamer Soba Noodles Salad Dressings/Sauces Soy Sauce / Tamari (use gluten free soy sauce or coconut aminos instead) Spices: Single spices are safer than mixed Processed Meats (Cole/Deli Meat) Rice Pilaf Soup stock Supplements Wheat Starch GLUTEN FREE APPS: Eating Out G-Free: Offers tips on how to find a gluten-free menu, create a gluten-free shopping list, lists of foods to avoid and how to stay gluten-free while dining away from the home. Supplements The G-Free Diet, by Aminata Esparza Gluten Free Daily: An online guide built to provide education and resources about following a gluten-free diet Find Me Gluten Free: Lists restaurants ratings and reviews based on how gluten-friendly the businesses are in the area Gluten Freed-Gluten Free Dining for Health and Celiac: Acts as a gluten-free restaurant finder for those with celiac disease or gluten intolerance. Adapted from: http://www.eatright.org/Media/content DINING OUT AND TRAVEL WEBSITES: (See apps above) www.glutenfreeguidebook.Pixim www.habxwa-veiyf-ckedikums.com www.glutenfreepassport.com www.allergyfreepassport.com www.triumphdining.com www.glutenfreerestaurantsawarenessprog cristopher.com. www.glutenfreetravelsite.com www.glutenfreeregistry.com www.allergymagazine.com - Allergy magazine www.Intrallect.Pixim -Gluten free and dairy free recipes Resources/Educational Materials sent to patient email Adherence Potential to Goals/Care Plan: High Nutrition Monitoring & Evaluation: Adherence to food plan, changes in symptom frequency and intensity, nutrition-related laboratory data Criteria: Laboratory Data, MSQ, Dietary Recall Follow up: 6 weeks Time Spent with patient: 45 minutes (1:58-2:38) Consult Billing Type: Initial assessment/15 minutes, 3 increment(s), 45 minutes Number of Increments: 3 (45 minutes) Referred/Supervised by: Sabino Faria DO Signed by: Gale Copeland RD documented in this encounter [facility] 05-26-2025 Note HNO ID: [id number] Author: GALE COPELAND RD Service: ? Author Type: Registered Dietitian Type: Progress Notes Filed: 05/27/2025 18:15 Note Text: [facility] Functional Medicine Nutrition Therapy: Initial Assessment (Individual) VIRTUALVISITPN I have communicated my name and active licensure. The patient's identity and physical location were verified at the time of this visit. Either the patient or their legal inside sales account representative has been informed of the risks and benefits of -- and alternatives to -- treatment through a remote evaluation and consents to proceed with the evaluation remotely. Patient is located in the [facility] at the time of the virtual visit. Patient Name: Aicha Ledezma Past Medical History: PAST MEDICAL HISTORY Diagnosis Date Abnormal Pap smear of cervix 2012 LGSIL Anxiety Giardia 02/2018 Hiatal hernia Mental disorder Allergies: Penicillins Current Medications/Supplements Current Outpatient Medications on File Prior to Visit Medication Sig Safety Dumas (BD SAFETYGLIDE NEEDLE) 25 gauge x 1 ndle 1 syringe one time a week. cyanocobalamin, vitamin B-12, 1,000 mcg/mL kit 1 dose by INJECTION(UNSPECIFIED PARENTERAL ROUTES) route one time a week. B12 injection weekly for 1 month= total of 4 injections in 1 month Syringe with Needle, Disp, (MONOJECT SYRINGE) 3 mL 21 gauge x 1 1/2 syrg 1 syringe one time a week. iodine (KELP, IODINE,) 150 mcg tab Take 150 tablets by mouth once daily. busPIRone (BUSPAR) 5 mg tablet Take 5 mg by mouth two times a day. dextroamphetamine-amphetamine (ADDERALL) 5 mg tablet Take 5 mg by mouth once daily. Magnesium Glycinate 100 mg tab Take by mouth. melatonin 10 mg cap Take by mouth. digestive enzymes combo no.7 (SUPERIOR DIGESTIVE ENZYME) cap Take by mouth. Magnesium 200 mg tab Take by mouth. Current Facility-Administered Medications on File Prior to Visit Medication cyanocobalamin 1,000 mcg injection Primary ICD-10 Diagnosis Addressed: Irritable bowel syndrome with constipation [K58.1] Provider Nutrition Notes:Per ad setter Chief Concerns: 1. IBS-C 2. Hashimotos 3. Brain fog 4. Anxiety Nutrition Assessment (05/26/25) Digestive symptoms: Every other day BM - Treated with antibiotics for Giardia; symptoms exacerbated - Cholecystectomy in October 2023 did not improve symptoms. Reports mucus in stool and bloating, especially in the lower abdomen. Other relevant symptoms: Supplements-digestive enzymes (with ox bile), iodine, mct oil, magnesium, melatonin, neuro needs, pepzin gi Symptoms- fatigue, chest tightness, brain fog Feels afraid to eat due to not knowing if they will cause symptoms PA- works out daily 30-40 minutes daily (weights, bands, abs squats, treadmill), standing desk at work, but does not move that much during day Pt states she was told by Dr. Faria that she has yeast overgrowth based on visual mouth exam From provider 05-13 MTHFR - advised patient to DC premier protein shakes due to cyanocobalamin and folic acid ingredients Food and Nutrition History (special diet(s) or nutritional program): Gluten free, dairy free, sugar free, alcohol free- felt less bloated but did not help brain fog Adverse Reactions to Foods: - Avoids processed, greasy, and high-fat foods; bloating and discomfort- avocado and peanut butter (had in a snack). Diet Recall: Yes 24 Hour Recall Breakfast: 5am premier protein shake Lunch: salad, suhail, almond milk, oatmeal, berries Dinner: burgers on the grill Snacks: chocolate, energy ball Beverages: 60 oz water, 1-2 cups coffee per day Biochemical and Laboratory Data Conventional/Advanced Testing No new relevant/available Laboratory Values Addressed: None addressed today Anthropometrics LMP 09/11/2024 (Within Days) Last Height: Last 1 Encounter Ht Readings: Date: Ht: 05/13/2025 165.1 cm (5' 5) Last Weight: Last Wt 05/13/25 : 60.2 kg (132 lb 11.5 oz) 10/02/24 : 64.9 kg (143 lb) 02/28/23 : 66.4 kg (146 lb 4.8 oz) Wt: 60.2 kg (132 lb 11.5 oz) BMI: 22.09 kg/(m2) Nutrition Prescription: Energy: Resting Metabolic Rate: 1285 Protein: 1.0g/kg Nutrients of Concern: protein, fiber Nutrition Diagnosis: Altered GI Difficulty related to dysbiosis as evidenced by IBS-C, constipation Learning Needs Assessment: Barriers to Learning: Ready learn Assessed motivation to learn: high Nutrition Intervention 05/26/2025: Current Nutrition Goal(s): reduce diet-related inflammation or food sensitivities suspected as symptom trigger Food Plan: Gluten Free, Core Continue Dr. Faria's recommendation for gut-soothing tea daily combining raw licorice root, slippery elm bark, and zinc carnosine. Discard the first boil, then steep again. Add ? cup of aloe juice, and drink 4 oz in the morning and 4 oz in the evening 2. Ways to Improve Constipation, Which Is Needed To Detoxify Increase movement by 200 (more content not included)... [facility] 2025 Telephone encounter Note Contacted [facility] pharmacy to clarify that new prescription for B12 injections and Syringes were sent on 05/19/2025. Patient already picked up the medication. Carmine Hou MA [facility] 2025 Miscellaneous Notes Contacted [facility] pharmacy to clarify that new prescription for B12 injections and Syringes were sent on 05/19/2025. Patient already picked up the medication. Carmine Hou MA Called back the [facility] pharmacy ([phone]) They need a clarification on the 1 kit for B12 injections RX. What is the quantity? And how often, is it 1 time per week? Also the syringes ordered are too big for IM for the patient. They stated the recommended syringes are 3 mL 25 gauge x 1 inch. Will update Julio Faria. Spoke with Todd. Aldo Coto MA Name of caller: PHARMACY: Reason: Medication order clarification Pharmacy name: [facility] pharmacy Pharmacy phone number: [phone] Call back name: Cr Medication in question: Has a question on the dosage for the B12 injection and also needs clarification on the needles ordered. Routed to: JUAN ANTONIO Hull 05/14/2025 documented in this encounter [facility] 05-18-2025 Telephone encounter Note Name of caller: PATIENT: Aicha Ledezma Call back name: Aicha Ledezma Call back number: [phone] Patient called last week for clarification of B12 injection and needle size. The [facility] pharmacy has not gotten the information Pharmacy # [phone] Routed to: JUAN ANTONIO Millerth Della 05/18/2025 [facility] 05-18-2025 Miscellaneous Notes Name of caller: PATIENT: Aicha Ledezma Call back name: Aicha Ledezma Call back number: [phone] Patient called last week for clarification of B12 injection and needle size. The [facility] pharmacy has not gotten the information Pharmacy # [phone] Routed to: JUA NANTONIO Hull 05/18/2025 documented in this encounter [facility] 05-17-2025 Instructions Az Morrow [facility] ED - 05/17/2025 5:08 PM EDT Images from the original note were not included. [facility] HEALTH ENVIRONMENTAL SOLUTIONS ENGINEER FOLLOW-UP At the [facility], we focus on the person as a whole: Mind, Body, and Spirit. Working with your [employer] on a regular basis can help you prioritize your next steps and build a strong foundation for healing. Our goal is to ask the right questions while empowering you to discover your own solutions and determine your own path for creating the health you desire. Our focus is on establishing your desired outcomes, working with you to overcome challenges and on determining practical action steps for implementing lifestyle changes. Your desired outcomes, or wellness vision, is an inspirational statement which describes who you are at your best to direct the health-promoting, life-giving behaviors that you want to do consistently. Prior to our next health coaching session, please consider your answers to the following questions: What would your state of ideal health and optimal wellbeing look and feel like? What kind of person do you want to be when it comes to your health and wellbeing? Who do you want to be? When you look back 1 year from now, what would you like to have accomplished about your health and well-being? In 5 years? 10 years? Please feel welcome to generate ideas in various ways including: Journaling Vision boards A collage Discussion with a trusted friend Staff [employer] Follow-Up Timeframe: Within 1-2 Weeks with Functional Medicine [employer] (Olinda Aj or Nicole) Schedule your initial 1:1 health coaching appointment and/or Mindfulness group coaching session Schedule by calling the appointment center ([phone] option #1) More information about our Mindfulness group coaching program can be found here: [email or web address] - ADDITIONAL INSTRUCTIONS: How to Contact Your Functional Medicine Team (Open M-F 8am-5pm): MyChart is the BEST form of communication to reach the Functional Medicine Team, see test results and request refills. Please allow 72 business hours for a response. Directions for signing up are included in your New Patient Folder. (Or you can go to [email or web address]) documented in this encounter [facility] 05-17-2025 History of Present illness Narrative INITIAL HEALTH ENVIRONMENTAL SOLUTIONS ENGINEER EDUCATION SESSION NICHOLE Patient was part of an individual health polo coach session. Patient received education and participated in discussion about modifiable lifestyle factors and healthy habits, with emphasis on the role of the health polo coach within the functional medicine model and the Wheel of Wellness. Other topics of discussion included Functional Medicine process and scheduling for follow-up visits and support prior to next visit. ...................................... ...................................... ........................... FOLLOW UP: 30-Minute Consultation with [employer] within 1-2 weeks Time Spent with Patient: 30 minutes Signed by: [facility] documented in this encounter [facility] 05-17-2025 Note HNO ID: [id number] Author: AZ MORROW [facility] Service: ? Author Type: Health Educator Type: Progress Notes Filed: 05/17/2025 17:08 Note Text: INITIAL HEALTH ENVIRONMENTAL SOLUTIONS ENGINEER EDUCATION SESSION NICHOLE Patient was part of an individual health polo coach session. Patient received education and participated in discussion about modifiable lifestyle factors and healthy habits, with emphasis on the role of the health polo coach within the functional medicine model and the Wheel of Wellness. Other topics of discussion included Functional Medicine process and scheduling for follow-up visits and support prior to next visit. ...................................... ...................................... .... ....................... FOLLOW UP: 30-Minute Consultation with [employer] within 1-2 weeks Time Spent with Patient: 30 minutes Signed by: Alexia ESTRADA ED [facility] 05-14-2025 Telephone encounter Note Called back the [facility] pharmacy ([phone]) They need a clarification on the 1 kit for B12 injections RX. What is the quantity? And how often, is it 1 time per week? Also the syringes ordered are too big for IM for the patient. They stated the recommended syringes are 3 mL 25 gauge x 1 inch. Will update Julio Faria. Spoke with Cr. Aldo Coto MA T [facility] 05-14-2025 Telephone encounter Note Name of caller: PHARMACY: Reason: Medication order clarification Pharmacy name: [facility] Pharmacy phone number: [phone] Call back name: Cr Medication in question: Has a question on the dosage for the B12 injection and also needs clarification on the needles ordered. Routed to: JUAN ANTONIO Hull 05/14/2025 T [facility] 05-13-2025 Telephone encounter Note Name of caller: PATIENT: Orders for cyanocobalamin 1,000 mcg injection [address]. Faria sent over a medication for B12 injection but she stated when she contacted the pharmacy they never received an order but she wanted to confirm was the medication sent over to the correct pharmacy. [facility] [address] [place] [id number] Call back name: Aicha Ledezma Call back number: [phone] Routed to: JUAN ANTONIO Hawkins 05/13/2025 T [facility] 05-13-2025 Miscellaneous Notes Name of caller: PATIENT: Orders for cyanocobalamin 1,000 mcg injection Patient stated Dr. Faria sent over a medication for B12 injection but she stated when she contacted the pharmacy they never received an order but she wanted to confirm was the medication sent over to the correct pharmacy. [address] [address] Call back name: Aicha Ledezma Call back number: [phone] Routed to: JUAN ANTONIO Hawkins 05/13/2025 documented in this encounter [facility] 05-13-2025 Instructions Sabino Faria DO - 05/13/2025 10:07 AM EDT - Arrange B12 injections once weekly for four weeks. 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 - Start 1 teaspoon of MCT oil in your morning coffee daily. After one week, if tolerated and your stools remain firm, you may increase to 2 teaspoons. - One week after beginning MCT oil, start Active Needs (NeuroNeeds) supplement: take 1 tablet daily. Do not increase the dose until we review your progress. - Prepare a gut-soothing tea by combining raw licorice root, slippery elm bark, and zinc carnosine. Discard the first boil, then steep again. Add cup of aloe juice, and drink 4 oz in the morning and 4 oz in the evening. - Continue your current evening magnesium and melatonin as you have been. - Schedule a virtual visit with our ad setter to develop a [id number] dietary and gut-orthodoxy plan. - Work with a health polo coach (virtual or phone) for ongoing support in tracking your supplements, diet changes, and questions. - Return to clinic in about one month for follow-up and to adjust your plan based on how you re feeling. documented in this encounter [facility] 05-13-2025 Note HNO ID: [id number] Author: SABINO FARIA, DO Service: ? Author Type: Physician Type: Progress Notes Filed: 05/13/2025 10:07 Note Text: FUNCTIONAL MEDICINE INITIAL ASSESSMENT Patient: Aicha Ledezma Recording using ambient [employer] software for draft documentation of the visit was discussed with the patient/authorized inside sales account representative; all questions welcomed and answered. Patient/authorized inside sales account representative agreed to proceed Assessment and Plan: Using a systems biology approach and matching our assessment to the patient stated goals of care, we have detected historical evidence for Aicha Ledezma is a 39-year-old female with a history of Marlon's thyroiditis, anxiety, and IBS-C, presenting for evaluation of chronic digestive issues, brain fog, and anxiety. . DIAGNOSIS/ASSESSMENT: Digestive Issues: - Chronic digestive issues x7 years, including diarrhea, constipation, and bloating. - Initial symptoms began after a trip to the [place] and exposure to cow manure, followed by a Giardia infection. - Treated with antibiotics for Giardia; symptoms persisted. - Diagnosed with IBS-C by a housekeeping and laundry team leader; multiple medications tried with no relief. - Underwent colonoscopy and endoscopy; both were clear except for mucus and heartburn. - Cholecystectomy in October 2023 did not improve symptoms. - Reports mucus in stool and bloating, especially in the lower abdomen. - Avoids processed, greasy, and high-fat foods; experiences bloating and discomfort with certain foods like avocado and peanut butter. - Drinks black coffee and water; prefers cooked vegetables over raw. - Takes digestive enzymes with meals. - Reports feeling better in the mornings and worse after eating. - Has tried various treatments, including pelvic floor therapy and chiropractic adjustments, with temporary relief. - Recent stool test showed gut dysbiosis. Brain Fog: - Reports significant brain fog, difficulty concentrating, and memory issues. - Feels unable to express thoughts clearly and struggles with stress management. - Taking Adderall 10 mg in the morning; initially noticed improvement, but now unsure of its effectiveness. - Has tried various supplements, including a super B complex, with no improvement. Anxiety: - Longstanding history of anxiety, worsened by chronic digestive issues. - Feels restless, on edge, and easily irritated. - Previously took fluoxetine 20 mg, but no longer on this medication. - Recent chest tightness led to an ER visit; MRI showed concerning findings, but neurologist deemed it within normal limits. Marlon's Thyroiditis: - Diagnosed with Marlon's thyroiditis; sees an fisher trawl line regularly. - Recent labs showed improvement in thyroid levels; next appointment in 4 months. - Taking an iodine supplement for low iodine levels. Family History: - Mother had thyroid cancer; otherwise healthy during Aicha's childhood. - Father has sarcoidosis, back and neck surgeries, and low energy levels. - Aicha is the youngest of three siblings. Social History: - Lives in [place], [place]. - Works in [employer] at [employer]; describes job as busy and stressful. - Exercises daily. - Enjoys reading and spending time on a [employer] [place] boat. - Drinks alcohol occasionally (about once a month, one beer). - No history of drug abuse. - Has a supportive relationship with her , who is present during the visit. Systems-based discussion: 1. B12 deficiency (E53.8) - Recent lab results indicate low B12 levels at 254 pg/mL (normal range: 250-911 pg/mL). - Initiated B12 injections, 1 injection per week for 4 weeks to replenish B12 stores. - Advised patient to obtain injections from primary care office or urgent care. - Discussed importance of B12 in energy metabolism and cognitive function. - Follow-up in one month to reassess B12 levels and overall progress. Sabino Faria DO [facility] Wellness and Preventive Medicine Board Certified ABFM, AOBFP ____ History of Present Illness: The patient states a current chief concern of Aicha Ledezma is a 39-year-old female with a history of Marlon's thyroiditis, anxiety, and IBS-C, presenting for evaluation of chronic digestive issues, brain fog, and anxiety. . To support this assessment a medical timeline approach was utilized. Were you born vaginal delivery? , term Were you breastfed?no Were you exposed to secondhand smoke? Mother did not smoke. Father did drugs. Were you in and out of a doctor's care for illnesses, such as for infections or surgeries as an or toddler?good health Were you active in middle school and high school? What was that experience like? Good. Went to community college. Have you had adverse reactions to food or medications? Does not like processed foods. Av (more content not included)... [facility] 05-13-2025 History of Present illness Narrative Images from the original note were not included. FUNCTIONAL MEDICINE INITIAL ASSESSMENT Patient: Aicha Ledezma Recording using ambient [employer] software for draft documentation of the visit was discussed with the patient/authorized inside sales account representative; all questions welcomed and answered. Patient/authorized inside sales account representative agreed to proceed Assessment and Plan: Using a systems biology approach and matching our assessment to the patient stated goals of care, we have detected historical evidence for Aicha Ledezma is a 39-year-old female with a history of Marlon's thyroiditis, anxiety, and IBS-C, presenting for evaluation of chronic digestive issues, brain fog, and anxiety. . DIAGNOSIS/ASSESSMENT: Digestive Issues: - Chronic digestive issues x7 years, including diarrhea, constipation, and bloating. - Initial symptoms began after a trip to the [place] and exposure to cow manure, followed by a Giardia infection. - Treated with antibiotics for Giardia; symptoms persisted. - Diagnosed with IBS-C by a housekeeping and laundry team leader; multiple medications tried with no relief. - Underwent colonoscopy and endoscopy; both were clear except for mucus and heartburn. - Cholecystectomy in October 2023 did not improve symptoms. - Reports mucus in stool and bloating, especially in the lower abdomen. - Avoids processed, greasy, and high-fat foods; experiences bloating and discomfort with certain foods like avocado and peanut butter. - Drinks black coffee and water; prefers cooked vegetables over raw. - Takes digestive enzymes with meals. - Reports feeling better in the mornings and worse after eating. - Has tried various treatments, including pelvic floor therapy and chiropractic adjustments, with temporary relief. - Recent stool test showed gut dysbiosis. Brain Fog: - Reports significant brain fog, difficulty concentrating, and memory issues. - Feels unable to express thoughts clearly and struggles with stress management. - Taking Adderall 10 mg in the morning; initially noticed improvement, but now unsure of its effectiveness. - Has tried various supplements, including a super B complex, with no improvement. Anxiety: - Longstanding history of anxiety, worsened by chronic digestive issues. - Feels restless, on edge, and easily irritated. - Previously took fluoxetine 20 mg, but no longer on this medication. - Recent chest tightness led to an ER visit; MRI showed concerning findings, but neurologist deemed it within normal limits. Marlon's Thyroiditis: - Diagnosed with Marlon's thyroiditis; sees an fisher trawl line regularly. - Recent labs showed improvement in thyroid levels; next appointment in 4 months. - Taking an iodine supplement for low iodine levels. Family History: - Mother had thyroid cancer; otherwise healthy during Aicha's childhood. - Father has sarcoidosis, back and neck surgeries, and low energy levels. - Aicha is the youngest of three siblings. Social History: - Lives in [place], [place]. - Works in [employer] at [employer]; describes job as busy and stressful. - Exercises daily. - Enjoys reading and spending time on a [employer] boat. - Drinks alcohol occasionally (about once a month, one beer). - No history of drug abuse. - Has a supportive relationship with her , who is present during the visit. Systems-based discussion: 1. B12 deficiency (E53.8) - Recent lab results indicate low B12 levels at 254 pg/mL (normal range: 250-911 pg/mL). - Initiated B12 injections, 1 injection per week for 4 weeks to replenish B12 stores. - Advised patient to obtain injections from primary care office or urgent care. - Discussed importance of B12 in energy metabolism and cognitive function. - Follow-up in one month to reassess B12 levels and overall progress. Sabino Faria DO [facility] Wellness and Preventive Medicine Board Certified AB, AOBFP History of Present Illness: The patient states a current chief concern of Aicha Ledezma is a 39-year-old female with a history of Marlon's thyroiditis, anxiety, and IBS-C, presenting for evaluation of chronic digestive issues, brain fog, and anxiety. . To support this assessment a medical timeline approach was utilized. Were you born vaginal delivery? , term Were you breastfed?no Were you exposed to secondhand smoke? Mother did not smoke. Father did drugs. Were you in and out of a doctor's care for illnesses, such as for infections or surgeries as an or toddler?good health Were you active in middle school and high school? What was that experience like? Good. Went to [employer] college. Have you had adverse reactions to food or medications? Does not like processed foods. Avocado causes blowating. Peanut butter causes bloating Have you been exposed to toxins at home or work? no Previous functional medicine chart review: Had a GI effects Additional chart review: Vanessa to see 3 GI. Neg. What do you typically drink? Water and coffee What time of day to you have your first meal and your last food? Whole foods. Do you use supplements? Digestive enzyme with meal Do you snore? Do you wake intermittently? Do you wake unrefreshed?better than it has been. Sleeping through the night How many hours do you typically sleep?7 Do you practice mindfulness? How is your stress level? Stressed due to health issues and not feeling well What does your stool look like? How are your bowel movements?BM every other day. Long with mucus at the end. Large diameter Do you routinely exercise? daily What do you do for fun? Functional Medicine Matrix Mapping: Assimilation (Digestion, absorption, etc.) IBS C. Hx of giardia was treated with antibiotics Defense and Repair (Inflammation/Immune Function, etc.) Energy Production (mitochondrial dynamics, etc.) MTHFR Biotransformation and Elimination (Detoxification etc.) Poor methylator/ detox Communication (RAAS, HPTAG axis, etc.) Pelvic pain and emotional before periods. Structural Integrity (rash, arthritis, organ dysfunction, etc.) Transport (vascular, neurologic, etc.) Mental/Emotional/Spirtual Good support Patient Entered Questionnaires PROMIS Global Health Summary 03/14/2023 05/06/2025 Physical Health Summary Score Components Physical health GOOD FAIR Everyday physical activity Completely Completely Fatigue Moderate Moderate Pain 4 4 Social activities and roles Fair Fair Physical Health T-Score 44.9 (Good) 42.3 (Good) Physical Health Percentile 31 22 Patient-reported 03/14/2023 05/06/2025 Physical Health Summary Score Components Physical health GOOD FAIR Everyday physical activity Completely Completely Fatigue Moderate Moderate Pain 4 4 Social activities and roles Fair Fair Physical Health T-Score 44.9 (Good) 42.3 (Good) Physical Health Percentile 31 22 Patient-reported 03/14/2023 05/06/2025 Mental Health Summary Score Components Quality of life Fair Poor Mental health (mood, thinking) Poor Poor Social satisfaction Fair Poor Emotional problems (anxious,depressed) Often Always Mental Health T-Score 31.3 (Fair) 21.2 (Poor) Mental Health Percentile 3 0 Patient-reported 03/14/2023 05/06/2025 Other In general, health is: Good Fair 05/06/2025 PROMIS NEUROQOL COGNITIVE T-SCORE PROMIS Neuroqol Cognitive T-Score 22 (severe dysfunction) 03/14/2023 04/18/2023 PROMIS PHYSICAL FUNCTION T-SCORE PROMIS Physical Function T-Score 56 (within normal limits) 48 (within normal limits) 05/06/2025 PROMIS PAIN INTERFERENCE T-SCORE PROMIS Pain Interference T-Score 59 (mild) Anxiety Screening(KWAN-7) 05/06/2025 KWAN-7 Score 21 (Severe Anxiety Disorder) 05/06/2025 Sleep Apnea Probability Snores loudly: No Tired, fatigued or sleepy in daytime: Yes Stops breathing or choking/gasping during sleep: No High blood pressure: No Sleep Apnea Probability Score: 7 (Sleep study not recommended) 05/06/2025 Sleep Apnea Probability Score Probability (%) 7 (Sleep study not recommended) Depression Screening (PHQ-9) 05/06/2025 PHQ-9 Score 17 05/06/2025 PHQ-9 Self Harm Question 9 Not at all PHQ-9 Levels: PHQ-9 Self-Harm (Item 9) response options: 0-4 Minimal depression 0 Not at all 5-9 Mild depression 1 Several days 10-14 Moderate depression 2 More than half the days 15-19 Moderately severe depression 3 Nearly every day 20-27 Severe depression ANTHROPOMETRICS: BMI: Body mass index is 22.09 kg/m . RMR: Resting Metabolic Rate: 1290 Height: Last 1 Encounter Ht Readings: Date: Ht: 05/13/2025 165.1 cm (5' 5) Waist measurement: No waist measurement recorded. BP: 05/13/25 0821 BP: 101/64 OTHER: ALLERGIES: Penicillins OUTPATIENT MEDS: Current Outpatient Medications Medication Sig Dispense Refill iodine (KELP, IODINE,) 150 mcg tab Take 150 tablets by mouth once daily. busPIRone (BUSPAR) 5 mg tablet Take 5 mg by mouth two times a day. dextroamphetamine-amphetamine (ADDERALL) 5 mg tablet Take 5 mg by mouth once daily. 0 Magnesium Glycinate 100 mg tab Take by mouth. melatonin 10 mg cap Take by mouth. digestive enzymes combo no.7 (SUPERIOR DIGESTIVE ENZYME) cap Take by mouth. Magnesium 200 mg tab Take by mouth. FLUoxetine 10 mg tablet Lactobacillus acidophilus (PROBIOTIC ORAL) Take by mouth. No current facility-administered medications for this visit. PMH: PAST MEDICAL HISTORY Diagnosis Date Abnormal Pap smear of cervix 2012 LGSIL Anxiety Giardia 02/2018 Hiatal hernia Mental disorder PSHx: PAST SURGICAL HISTORY Procedure Laterality Date EGD REMOVAL GALLBLADDER 10/2023 TONSILLECTOMY HX Social History: Social History Tobacco Use Smoking status: Former Current packs/day: 0.00 Types: Cigarettes Start date: 11/18/2007 Quit date: 11/18/2009 Years since quittin.4 Smokeless tobacco: Never Vaping Use Vaping status: Never Used Substance Use Topics Alcohol use: Yes Drug use: No EVALUATION: Labs: (no date) Comprehensive blood tests: - B12: 254 (low normal) - Vitamin D: 34 (low) - Thyroid peroxidase antibody: Elevated - Homocysteine: Elevated - Iodine: Low (no date) Stool test: Marked gut dysbiosis (07/28) (04/2018) Stool test: Positive for Giardia Imaging: (no date) MRI Brain: Slight decrease in overall volume, no other acute findings Tests: (no date) Endoscopy: Excessive mucus noted, otherwise normal (no date) Colonoscopy: Normal (no date) GI motility study: Normal SUBJECTIVE ROS: Constitutional: (+) fatigue, (+) malaise Cardiovascular: (+) chest tightness Gastrointestinal: (+) abdominal bloating, (+) constipation, (+) mucus in stool, (+) decreased appetite Genitourinary: (+) pelvic pain Musculoskeletal: (+) hand swelling Skin: (+) facial hyperpigmentation Neurological: (+) brain fog, (+) memory impairment, (+) concentration difficulty, (+) word-finding difficulty Psychiatric: (+) anxiety, (+) irritability, (+) emotional lability, (+) restlessness, (+) stress intolerance MSQ Initial Total Score: 120 Constitutional: (+) fatigue, (+) malaise Cardiovascular: (+) chest tightness Gastrointestinal: (+) abdominal bloating, (+) constipation, (+) mucus in stool, (+) decreased appetite Genitourinary: (+) pelvic pain Musculoskeletal: (+) hand swelling Skin: (+) facial hyperpigmentation Neurological: (+) brain fog, (+) memory impairment, (+) concentration difficulty, (+) word-finding difficulty Psychiatric: (+) anxiety, (+) irritability, (+) emotional lability, (+) restlessness, (+) stress intolerance PHYSICAL EXAM: Dual Rate Supervisor offered: Patient declines. GENERAL: NAD, alert and oriented. SKIN: Unremarkable, no rash or skin lesions. HEAD: Normocephalic. EYES: PERRLA, EOMI, conjunctiva clear. EARS: External ears normal, canals clear, TM's normal. NOSE/SINUSES: Nares normal. Septum midline. OROPHARYNX: Lips, mucosa, and tongue normal, good dentition. No oral lesions noted. Mild erythema noted on gums. NECK: Supple, no lymphadenopathy, normal thyroid, no carotid bruits. LUNGS: Clear to auscultation bilaterally, no wheezes/rhonchi/rales. HEART: Regular rate and rhythm, no murmurs. No ectopy. EXTREMITIES: Normal, no deformities, no skin discoloration, no edema. NEURO: Awake, alert and oriented x3, cranial nerves II-XII grossly intact, normal gait, no involuntary motions. Sabino Faria DO Time spent with patient: I spent a total of 70 minutes on the date of the service which included preparing to see the patient, [id number] patient care, completing clinical documentation, obtaining and/or reviewing separately obtained history, performing a medically appropriate examination, counseling and educating the patient/family/caregiver, and ordering medications, tests, or procedures. Follow Up Instructions: - Arrange B12 injections once weekly for four weeks. 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 - Start 1 teaspoon of MCT oil in your morning coffee daily. After one week, if tolerated and your stools remain firm, you may increase to 2 teaspoons. - One week after beginning MCT oil, start Active Needs (NeuroNeeds) supplement: take 1 tablet daily. Do not increase the dose until we review your progress. - Prepare a gut-soothing tea by combining raw licorice root, slippery elm bark, and zinc carnosine. Discard the first boil, then steep again. Add cup of aloe juice, and drink 4 oz in the morning and 4 oz in the evening. - Continue your current evening magnesium and melatonin as you have been. - Schedule a virtual visit with our ad setter to develop a [id number] dietary and gut-orthodoxy plan. - Work with a health polo coach (virtual or phone) for ongoing support in tracking your supplements, diet changes, and questions. - Return to clinic in about one month for follow-up and to adjust your plan based on how you re feeling. documented in this encounter [facility] 10-02-2024 Note HNO ID: [id number] Author: POOJA SEALS MD Service: ? Author Type: Physician Type: Progress Notes Filed: 10/02/2024 15:55 Note Text: Aicha is a 39 year old who presents for an annual gynecologic exam. Menses: cycles every 28-30 days and 7 days of flow. 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 History LMP: 09/11/2024 (Within Days), Having periods Age at Menarche: Age at First : Age at Menopause: Erp Engineer History Comments: Sexual Activity: Yes; Male Contraception: Condom PAST MEDICAL HISTORY Diagnosis Date Abnormal Pap smear of cervix 2012 LGSIL Anxiety Giardia 02/2018 Hiatal hernia Mental disorder PAST SURGICAL HISTORY Procedure Laterality Date EGD REMOVAL GALLBLADDER 10/2023 TONSILLECTOMY HX FAMILY HISTORY Problem Relation Age of Onset other (thyroid cancer) Mother Diabetes Father other (hydrocephalus) Father No Known Problems Sister No Known Problems Sister No Known Problems Maternal Grandmother Bipolar disorder Maternal Grandfather Heart Attack Paternal Grandmother Diabetes Paternal Grandfather SOCIAL HISTORY Social History Tobacco Use Smoking status: Former Current packs/day: 0.00 Types: Cigarettes Start date: 11/18/2007 Quit date: 11/18/2009 Years since quittin.8 Smokeless tobacco: Never Vaping Use Vaping status: Never Used Substance Use Topics Alcohol use: Yes Drug use: No REVIEW OF SYSTEMS Abdomen:stable GI issues - working with PCP Bladder: No dysuria, gross hematuria, urinary frequency, urinary urgency, or incontinence. Breast: No breast lumps, nipple d/c, overlying skin changes, redness or skin retraction. Allergies and current medication updated:Yes SENSITIVE EXAM: The sensitive examination was discussed with the Patient or Patient's Authorized Certified Ethical Hacker. As applicable, any other physician, advance practice provider, medical student, or other health professional student that will be observing or involved in the sensitive examination for educational or training purposes was discussed with the Patient or Authorized Certified Ethical Hacker. The Patient or Authorized Certified Ethical Hacker has agreed to proceed with the sensitive examination. (Sensitive examination includes inspection and/or palpation of the breasts, pelvis, prostate and anorectal regions). EXAM: BP 100/62 Ht 5' 5 (1.65m) Wt 143 lb (64.9kg) LMP 09/11/2024 BMI 23.80 kg/(m2). GENERAL: pleasant, female in no apparent distress BREAST: soft, non-tender, symmetric, no dominant mass, normal nipple-areolar complex, no lymphadenopathy, and no nipple discharge CHEST: Normal inspiratory effort ABDOMEN: soft, non-tender, and no masses PELVIC: external genitalia normal, normal Bartholin's glands, urethra, Woody's glands, no vulvar lesions, no cervical lesions, good vaginal support, physiologic discharge present, normal appearing perineal body and perianal region BIMANUAL: uterus normal size, shape and consistency, no adnexal masses, and non-tender RECTOVAGINAL: deferred. NEURO: alert and oriented x3,exam grossly non-focal EXTREMITIES: normal ASSESSMENT/PLAN: 1) Health maintenance: Pap done with HPV. Mammogram starting age 40. Nutrition, exercise and routine health maintenance exams reviewed. 2) Contraception: condoms. Contraceptive options reviewed and information provided. 3) Follow up one year or sooner as needed Pooja Seals MD [facility] 10-02-2024 History of Present illness Narrative Aicha is a 39 year old who presents for an annual gynecologic exam. Menses: cycles every 28-30 days and 7 days of flow. 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 History LMP: 09/11/2024 (Within Days), Having periods Age at Menarche: Age at First : Age at Menopause: Erp Engineer History Comments: Sexual Activity: Yes; Male Contraception: Condom PAST MEDICAL HISTORY Diagnosis Date Abnormal Pap smear of cervix 2012 LGSIL Anxiety Giardia 02/2018 Hiatal hernia Mental disorder PAST SURGICAL HISTORY Procedure Laterality Date EGD REMOVAL GALLBLADDER 10/2023 TONSILLECTOMY HX FAMILY HISTORY Problem Relation Age of Onset other (thyroid cancer) Mother Diabetes Father other (hydrocephalus) Father No Known Problems Sister No Known Problems Sister No Known Problems Maternal Grandmother Bipolar disorder Maternal Grandfather Heart Attack Paternal Grandmother Diabetes Paternal Grandfather SOCIAL HISTORY Social History Tobacco Use Smoking status: Former Current packs/day: 0.00 Types: Cigarettes Start date: 11/18/2007 Quit date: 11/18/2009 Years since quittin.8 Smokeless tobacco: Never Vaping Use Vaping status: Never Used Substance Use Topics Alcohol use: Yes Drug use: No REVIEW OF SYSTEMS Abdomen:stable GI issues - working with PCP Bladder: No dysuria, gross hematuria, urinary frequency, urinary urgency, or incontinence. Breast: No breast lumps, nipple d/c, overlying skin changes, redness or skin retraction. Allergies and current medication updated:Yes SENSITIVE EXAM: The sensitive examination was discussed with the Patient or Patient's Authorized Certified Ethical Hacker. As applicable, any other physician, advance practice provider, medical student, or other health professional student that will be observing or involved in the sensitive examination for educational or training purposes was discussed with the Patient or Authorized Certified Ethical Hacker. The Patient or Authorized Certified Ethical Hacker has agreed to proceed with the sensitive examination. (Sensitive examination includes inspection and/or palpation of the breasts, pelvis, prostate and anorectal regions). EXAM: BP 100/62 Ht 5' 5 (1.65m) Wt 143 lb (64.9kg) LMP 09/11/2024 BMI 23.80 kg/(m^2). GENERAL: pleasant, female in no apparent distress BREAST: soft, non-tender, symmetric, no dominant mass, normal nipple-areolar complex, no lymphadenopathy, and no nipple discharge CHEST: Normal inspiratory effort ABDOMEN: soft, non-tender, and no masses PELVIC: external genitalia normal, normal Bartholin's glands, urethra, Woody's glands, no vulvar lesions, no cervical lesions, good vaginal support, physiologic discharge present, normal appearing perineal body and perianal region BIMANUAL: uterus normal size, shape and consistency, no adnexal masses, and non-tender RECTOVAGINAL: deferred. NEURO: alert and oriented x3,exam grossly non-focal EXTREMITIES: normal ASSESSMENT/PLAN: 1) Health maintenance: Pap done with HPV. Mammogram starting age 40. Nutrition, exercise and routine health maintenance exams reviewed. 2) Contraception: condoms. Contraceptive options reviewed and information provided. 3) Follow up one year or sooner as needed Pooja Seals MD documented in this encounter [facility] 11-01-2023 History and physi prasanna note Note Date/Time November 01, 2023 11:59am [facility] Medical Records Department [address] [place] [address] History & Physical Exam 11/01/23 1155 MR#: [id number] Acct: [id number] Name: AICHA LEDEZMA DEANA Rep #:[id number] : 1985 38 From: Fady Romano PCP: MARCELLO De La Garza Status:[facility] Location: [place] [address] History and Physical Date of Admission: 11/01/23 OFFICE VISIT Date of Service: 10/08/23 MR#: [id number] Acct: [id number] Name: AICHA LEDEZMA Rep #: [id number] : 1985 Provider: Dr. Fady Zamora MD Age/Sex: 38/F Location: [facility] Status: Signed Intake Vital Signs 08/28/2307:56 10/08/2313:46 Height 5 ft 5 in 5 ft 5 in Weight: 150 lb BMI 25.0 BP 110/73 Blood Pressure Location Rt brachial Position Sitting Respiration 16 Intake Visit Reasons: Abnormal Hida Scan & on-going abdominal pain Chief Complaint: hida scan abn Health Information Technician Required: No Is patient in pain?: No Allergies Penicillins Allergy (Verified 10/08/23 13:48) Rash Medications lactobacillus combination no.4 3 billion cell capsule (Probiotic) 3,000 mmu cells PO DAILY 03/19/22 [History Confirmed 10/08/23] lactulose 20 gram/30 mL oral solution 20 g (30 mL) PO DAILY 30 days #900 mL 09/13/23 [Rx Confirmed 10/08/23] ursodiol 300 mg capsule 300 mg PO BID 30 days #60 caps 09/13/23 [Rx Confirmed 10/08/23] PFSH Medical History Abdominal pain Alcohol use Anxiety Back pain Bloating Constipation Easy bruising Former smoker Gastritis, bile acid reflux Marlon's thyroiditis History of IBS History of irregular heartbeat Lower abdominal pain Surgical History Hx of tonsillectomy Social History Smoking Status: Former smoker HPI HPI HPI: Patient is a 38-year-old female who presents for evaluation of her gallbladder after abnormal HIDA imaging. They are referred for surgical consultation from Dr. Portillo of gastroenterology. Patient states that she has been under work-up for GI symptoms since a 2018 [place] trip. She notes that 2 months after this trip she began withunexplained diarrhea and was ultimately diagnosed with a parasite and treated. She is uncertain whether or not she was tested for eradication, but then in a follow-up gastroenterology evaluation she was treated with a second round of medications that were geared at eliminating any possibility of a parasite. As part of this latter work-up she completed the colonoscopy that was read as unremarkable. She has also completed gastric emptying study, CT imaging,, ultrasound imaging, and most recently an EGD with Dr. Portillo where she was foundto have some bile reflux gastritis as well as a mild hiatal hernia. Attempting to further investigate her symptoms for a cause she underwent HIDA imaging on 09/10/2023. This was read by nuclear medicine as abnormal due to calculated ejection fraction of less than 5%. Patient describes her symptoms as pain wrapping around her low back or ribs. She notes that it is not necessarily one side or another. It is associated withconstipation, bloating, and gas. She denies any association consistently with nausea. She notes that the symptoms occur with ingestion of any food. She doesconfirm that it is worse with fatty foods, but reports that she has been uncomfortable for so long and at this time begins to become tearful. She deniesany weight loss and notes that she may have actually gained some weight recently, but states that this is likely due to her ongoing stress. She also believes her newly appreciated fatigue is related to the stress. Mrs. Ledezma confirms that her pain was reproduced like when it is at its worst during her HIDA imaging and that she has had some benefit with her ursodiol. She shares that although she was prescribed pantoprazole she has gone off this medication because she does not believe she has true reflux. She also shares that she is using lactulose as needed for some constipation with a mixed result. ROS General General: Yes weight change and fatigue; No appetite, colon cancer, breast cancer or weakness HEENT HEENT: No difficulty swallowing, eye injury, eye surgery, swollen glands or hoarseness Endo Endocrine: No thyroid disease, diabetes mellitus, thyroid cancer, Hair loss, heat intolerance or cold intolerance Skin Skin: No rash or changing moles Breast Breast: No left breast lump, right breast lump, nipple discharge, breast pain, abnormal mammogram, abnormal US or breast enlargement Musc Musculoskeletal: No back problems, arthritis, rheumatoid arthritis, gout or joint pain Cardio Cardiovascular: No murmur, pacemaker, heart disease, atrial fibrillation, high blood pressure, heart attack, heart stent, palpitations, shortness of breat withexertion or chest pain Psych Psychiatric: Yes anxiety; No depression or hearing voices Resp Respiratory: No shortness of breath, No sleep apnea, No cough, No COPD, No asthma, No emphysema and No wheezing Gastro Gastrointestinal: Yes abdominal pain, No nausea or vomiting, No diarrhea, Yes constipation, No blood in stool, No acid reflux, Yes hemorrhoids, No ulcers, No gallbladder problem and No black,tarry stools Jeffery Hematologic: No blood thinners, No blood disorders, No bleeding, No anemia and No blood clots Neuro Neurologic: No system reviewed and no additional complaints, except as documented, No as per HPI, No abnormal gait, No abnormal hearing, No abnormal movements, No abnormal speech, No behavioral changes, No burning sensations, No confusion, No convulsions, No disequilibrium, No dizziness, No localized weakness, No frequent falls, No headache(s), No lack of coordination, No loss ofvision, No memory loss, Yes numbness, No other visual disturbances, No radicularpain, No restless legs, No sensory deficit, No syncope, Yes tingling, No tremor(s), No weakness and No other Exam Const General: cooperative and anxious Orientation: alert, awake and oriented x3 Resp Effort & Inspection: normal respiratory effort GI Other: Normal habitus, no scars, no visible herniation, soft, nondistended, mildly tender to palpation over the epigastrium as well as the right upper quadrant. Negative Enriquez sign. Assessment and Plan Assessment and Plan (1) Abnormal biliary HIDA scan: Status: Acute Comment: This is a 38-year-old female with approximately 5-year history of abdominal painand some associated symptoms that have undergone significant work-up but withoutclear cause. She presents today after HIDA imaging 09/10/2023 was markedly abnormal with an ejection fraction calculated less than 5%. I have tried to share with Mrs. Ledezma that she should be careful about becoming overly optimistic about cholecystectomy being a singular treatment for her symptoms?especially given their duration and variability, but she does confirm that her symptoms were reproduced in the presence of cholecystokinin during her imaging. I have shared with her that both this fact and her positive response to ursodiol point favorably to a positive postoperative outcome following cholecystectomy. The procedure and its attendant risks were discussed in detail. Patient is accepting of this information and wishes to proceed as described. Plan: Laparoscopic cholecystectomy with intraoperative cholangiography planned with outpatient disposition (2) Gastritis, bile acid reflux: Status: Acute Comment: Patient confirms diagnosis of bile reflux gastritis. Currently only taking ursodiol to manage this diagnosis. I have shared with her that I would recommend more faithful use of a proton pump inhibitor?especially until we can complete her surgery. Additionally, I shared that this condition can be jaqui in a postcholecystectomy state and it was difficult to determine what cholecystectomy may mean for her symptoms. She was receptive of this information and, as above, wishes to proceed with scheduling surgery I have examined the patient the following changes are noted: Patient presented to preop earlier this morning and I am told her had a unresponsive event followed by convulsions representing his first seizure activity ever. He is promptly taken to the emergency department for further evaluation. Mrs. Ledezma shares that her was reportedly feeling unwell yesterday and had some vomiting, but was feeling better this morning. She also notes some sicknesses and her children. However, she herself denies feeling poorly and wishes to be underway with surgery. Upon reexamining her, I do identify a petechial rash across her lower chest, her upper back, her bilateral hips, and down the tibial part of both legs. She denies any irritation from this rash and relates that she experiences rashes rather frequently that seem to go [id number] with stress. She remains more convincedthat this is the cause than viral etiology. It is reported by preop nursing that patient has only had administration of lactated Ringer's so it is felt unlikely that this represents a drug reaction. Still, to exclude atopy I have requested anesthesia administer some Benadryl. If the rash improves or remains the same and patient is willing to proceed we will proceed to the operating room, however, otherwise we will look to reschedule. Update: Patient's rash remains stable and distribution and she strongly wishes to proceed with surgery. She repeatedly declares that she is feeling fine and asymptomatic. I have discussed with patient possible further case to try to proceed when she is perhaps feeling better. She shares that she believes the rash is simply due to a stress response and she states that her stress will onlybe worsened as she is denied surgery today. Without any further demonstrable, clinical contraindications I have agreed to proceed as originally planned. 11/01/23 1217 <Electronically signed by Fady Zamora MD> Cosigner Signature (if applicable): CC: Dr. Fady Zamora MD; MARCELLO De La Garza~ Signed [facility] Work Phone: [phone]) 817-691906-02-2023 History of Present illness Narrative* Terese Jewell, PT - 04/19/2023 6:52 AM EDT Episode Visit Count: 3 Therapist That Will Accept/Oversee The Plan Of Care: Terese Best Start of Care Date: 03/15/23 Onset Date: 03/15/18 Patient Identified by Name and Date of : Yes REHABILITATION AND SPORTS THERAPY PHYSICAL THERAPY DISCONTINUANCE OF CARE PLAN OF CARE UPDATE: Assessment: Aicha Ledezma is discontinued from Physical Therapy services due to maximal benefit..Patient was seen for 3 visits from Start of Care Date: 03/15/23 to 04/19/2023 and treatment included:Therapeutic exercise, Manual therapy, and Self-detention management. Goals for Episode of Care: created on 03/15/23 Updated on: 04/19/23 Patient demonstrates independence and compliance with home exercise Program.-MET Patient to increase strength of pelvic floor to Power: at least 3/5 in order to improve bladder control.-MET Patient to urinate every 2-4 hours during waking hours to demonstrate normalized bladder function.-MET Patient reports at least 80% less bladder urgency to avoid incontinent Episodes.-MET Patient reports increased ability to fully empty bladder/bowels without straining at least 80% of the time to normalize bladder/bowel function.-PROGRESSING Patient Goals: improve bladder & bowel function SUBJECTIVE: Patient Reason for Visit: Pt reports bridges have helped to get bowels moving. Pt reports being more aware of the need to defecate when getting the urge to have a bowel movement rather than putting if off. Pt reports straining towards the end of a bowel movement to feel like she can fully empty. Pt reports all bladder concerns have resolved, good compliance with HEP, feels comfortablecontinuing on her own at home. Pain: Pain Pain Level: 0 Post Treatment Pain Post Treatment Pain Level: 0 PROMIS Scales Higher is Better 04/18/2023 03/14/2023 Phys Func - Score 48 (within normal limits) 56 (within normal limits) Phys Func - Percentile 42 % 73 % Self-Eff Symptom - Score 35 (Low) 39 (Low) Self-Eff Symptom - Percentile 7 % 14 % T-scores: mean of general population = 50. 5 points is clinically meaningfully difference Percentiles provide an indication of how the patient's score ranks in relation to the general population. Higher percentile rankings indicate better function/quality of life. 50th percentile is the average of the general population and indicates half of respondents had a worse score. OBJECTIVE MEASURES WITH LEVEL OF FUNCTION: Pelvic Floor Incomplete emptying: No Urgency: No Daytime Frequency (hours): 2 Difficulty evacuating / Excessive Straining: Sometimes Incomplete emptying: No Pelvic Floor Muscle Assessment Consent for pelvic assessment/testing and treatment: Patient was educated regarding pelvic floor physical therapy assessment/treatment which may include pelvic floor and girdle muscle assessment externally or internally (vaginal or rectal approach)., Patient verbalized consent for the above treatment approaches today. Patient understands they have control of the treatment and an opportunity to stop treatment at any time. Pelvic Floor Muscle Assessment: PERFECT, Muscle Dynamics Power: 3 Endurance: 14 Fast Reps: 10 Contracton Pressure: Moderate squeeze, felt all the way around finger surface Duration of Contraction: >3 seconds Recruitment of pelvic floor muscles: Coordinated Range of Motion: Normal Ability to Lengthen pelvic floor: Yes Pelvic Floor Manual Assessment Pelvic Floor Tenderness/Hyperactivity: Tested Vaginally in Tested Vaginally in : Supine/hooklying (No tightness/tenderness noted.) TREATMENT: Therapeutic Exercise: 1: Reassessment 2: *deep squat stretch, [id number] 3: *standing sidebend stretch, [id number] each 4: Discussed discharge planning Skilled Intervention: Patient was educated in proper exercise technique and purpose for exercises. Reviewed and educated patient on additions/changes for home exercise program as above (*). Skilled judgment was provided in selection of appropriate interventions. Provided written instruction for home exercise program to facilitate proper performance and compliance. Self-Usp Management: 1: Reviewed toileting techniques to fully empty bowels without straining 2: Reviewed bowel stimulation techniques (drinking hot liquid, increasing activity levels) Skilled Intervention: Skilled judgment in the selection of proper modification for activity of daily living/home management based on clinical presentation, deficits, and needs. Billing Therapeutic Exercise Treatment Minutes: 12 Self-Care/Home Management Treatment Minutes: 16 Total Treatment Time Minutes (timed/untimed): 28 [facility]rese Jewell PT [facility] History of Present illness Narrative* Terese Jewell PT - 03/29/2023 6:55 AM EDT Episode Visit Count: 2 Therapist That Will Accept/Oversee The Plan Of Care: Terese Jewell Start of Care Date: 03/15/23 Onset Date: 03/15/18 Patient Identified by Name and Date of : Yes REHABILITATION AND SPORTS THERAPY PHYSICAL THERAPY TREATMENT NOTE ASSESSMENT: Aicah Ledezma tolerated the session with no issues. She demonstrated improvements in bladder function, difficulty with continued straining and incomplete emptying of bowels. The patientwill continue to benefit from ongoing skilled physical therapy to progress toward set goals. PLAN FOR NEXT VISIT: assess response to colon massage, progress exercises as tolerated SUBJECTIVE: Patient Reason for Visit: Pt reports feeling better the first week after last appt. Pt reports jack blue has helped with having a bowel movement but feels this past week she's been more constipated due to not drinking enough water. Pt states that she notices when she relaxes and hasmore time, she's able to have a bowel movement without straining. When she's rushed, she can't. Pt reports improvement in urinary frequency, able to urinate every other hour. Pt reports good compliance with HEP. Pain: Pain Pain Level: 0 Post Treatment Pain Post Treatment Pain Level: 0 OBJECTIVE MEASURES WITH LEVEL OF FUNCTION: Pelvic Floor Incomplete emptying: No Urgency: No Daytime Frequency (hours): 2 Difficulty evacuating / Excessive Straining: Sometimes Incomplete emptying: Sometimes Pelvic Floor Muscle Assessment Consent for pelvic assessment/testing and treatment: Patient was educated regarding pelvic floor physical therapy assessment/treatment which may include pelvic floor and girdle muscle assessment externally or internally (vaginal or rectal approach)., Patient verbalized consent for the above treatment approaches today. Patient understands they have control of the treatment and an opportunity to stop treatment at any time. Pelvic Floor Manual Assessment External Pelvic Region Tenderness/ Hyperactivity - Trunk: Upper abdominals, Lower abdominals Upper abdominals: Bilateral (1/) Lower abdominals: Bilateral (11/18) Tissue Restriction/Tenderness Scale: 0= normal, 1= mild, 2= moderate, 3= severe TREATMENT: Therapeutic Exercise: 1: quick kegals, 1x10 2: *kegal holds, 4sec hold with 4sec rest, 2x10 3: *bridge with glute activation, 2x10 4: *BKTC stretch, [id number] Skilled Intervention: Patient was educated in proper exercise technique and purpose for exercises. Reviewed and educated patient on additions/changes for home exercise program as above (*). Skilled judgment was provided in selection of appropriate interventions. Provided written instruction for home exercise program to facilitate proper performance and compliance. Manual Therapy: 1: MFR to B upper and lower abdominals, supine Skilled Intervention: Manual skills to improve joint mobility, ROM, and decrease pain. Utilized anatomy knowledge of the therapist, and assessment of patient's response to intervention. Self-Usp Management: 1: Reviewed toileting techniques to fully empty bowels without straining 2: Reviewed bowel stimulation techniques (drinking hot liquid, increasing activity levels) 3: Reviewed importance of avoiding straining while having a bowel movement, relaxing rather than forcing a BM 4: *self-colon massage, proper direction for bowel health Skilled Intervention: Skilled judgment in the selection of proper modification for activity of daily living/home management based on clinical presentation, deficits, and needs. Billing Therapeutic Exercise Treatment Minutes: 10 Manual TherapyTreatment Minutes: 15 Self-Care/Home Management Treatment Minutes: 16 Total Treatment Time Minutes (timed/untimed): 41 Terese Jewell PT [facility] History of Present illness Narrative* Terese Jewell PT - 03/15/2023 8:44 AM EDT Episode Visit Count: 1 Therapist That Will Accept/Oversee The Plan Of Care: Terese Jewell Start of Care Date: 03/15/23 Onset Date: 03/15/18 Patient Identified by Name and Date of : Yes REHABILITATION AND SPORTS THERAPY PHYSICAL THERAPY EVALUATION PLAN OF CARE: Assessment: Aicha Ledezma presents with chief complaint of urinary frequency and incomplete bowelemptying that interferes with bladder function, bowel function . She presents with impairments in decreased pelvic floor strength; impaired bladder and bowel function. PROMIS (Patient-Reported Outcomes Measurement Information System) scores were reviewed and self efficacy domain identified as a rehabilitation concern. Prognosis for therapy is Good due to: current objective clinical presentation .She will benefit from skilled therapy services to meet the goals established for this plan of care as noted below. Goals for Episode of Care: created on 03/15/23 through 05/14/23 Patient demonstrates independence and compliance with home exercise program. Patient to increase strength of pelvic floor to Power: at least 3/5 in order to improve bladder control. Patient to urinate every 2-4 hours during waking hours to demonstrate normalized bladder function. Patient reports at least 80% less bladder urgency to avoid incontinent episodes. Patient reports increased ability to fully empty bladder/bowels without straining at least 80% of the time to normalize bladder/bowel function. Patient Goals: improve bladder & bowel function Planned Interventions, Frequency, and Duration: Current Frequency: 1x/week Duration: 4 weeks (reassess at 4 weeks and progress as indicated) Total Number of Visits Planned: 4 Planned Treatment Interventions: Therapeutic exercise (74620), Manual therapy (63921), Self-detention management (70779), Patient/Family/Caregiver Education PLAN FOR NEXT VISIT: bladder diary, progress exercises as tolerated Patient demonstrates good understanding of plan of care and treatment. The above goals and plan of care were discussed and agreed upon by patient/family. SUBJECTIVE: Pt reports having digestive issues for the past five years, started having occasional pelvic aches with periods the past year. Pt reports urinary frequency and incomplete bowel emptying started about 5 years ago, too. 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 Recreation / Current Exercise: walking, YouTube strength workouts Intake Information: Prescription present PAST MEDICAL HISTORY Diagnosis Date Abnormal Pap smear of cervix 2012 LGSIL Anxiety Giardia 02/2018 Hiatal hernia Mental disorder PAST SURGICAL HISTORY Procedure Laterality Date EGD TONSILLECTOMY HX Previous Treatment: None Falls Interview: No positive findings with falls interview Aquatic Screen: No Pain: Pain Pain Level: 0 Post Treatment Pain Post Treatment Pain Level: 0 PROMIS Scales Higher is Better 03/14/2023 Phys Func - Score 56 (within normal limits) Phys Func - Percentile 73 % Self-Eff Symptom - Score 39 (Low) Self-Eff Symptom - Percentile 14 % T-scores: mean of general population = 50. 5 points is clinically meaningfully difference Percentiles provide an indication of how the patient's score ranks in relation to the general population. Higher percentile rankings indicate better function/quality of life. 50th percentile is the average of the general population and indicates half of respondents had a worse score. OBJECTIVE MEASURES WITH LEVEL OF FUNCTION: Pelvic Floor Pregnancies: 1 Births: 1 Vaginal Delivery: Standard Pain with penetration: No Urinary/Bowel History : Urinary History, Bowel History Difficulty starting stream: No Incomplete emptying: Sometimes Stress Incontinence: No Urgency: Sometimes Frequency of Urgency Episodes: 1x/every 2 weeks Nocturia (times per night): 0 Daytime Frequency (hours): 1 Fluid Intake: Water, Coffee (8 oz measurements) Water : 8 Coffee: 2 Difficulty evacuating / Excessive Straining: Sometimes Incomplete emptying: Yes Bowel Movement Frequency: 1x/day Fecal incontinence: No Pelvic Floor Muscle Assessment Consent for pelvic assessment/testing and treatment: Patient was educated regarding pelvic floor physical therapy assessment/treatment which may include pelvic floor and girdle muscle assessment externally or internally (vaginal or rectal approach)., Patient verbalized consent for the above treatment approaches today. Patient understands they have control of the treatment and an opportunity to stop treatment at any time. Pelvic Floor Muscle Assessment: PERFECT, Muscle Dynamics Power: 2 Endurance: 10 Fast Reps: 10 Contracton Pressure: Weak squeeze, felt as flick at various points along finger surface, not all the way around Duration of Contraction: >3 seconds Recruitment of pelvic floor muscles: Coordinated Range of Motion: Normal Ability to Lengthen pelvic floor: Yes Pelvic Floor Manual Assessment Pelvic Floor Tenderness/Hyperactivity: Tested Vaginally in Tested Vaginally in : Supine/hooklying (No tightness/tenderness noted.) LE AROM R LE AROM: WFL L LE AROM: WFL LE Flexibility Flexibility: Hamstring Flexibility, Hip Adductor, Hip Internal Rotation Flexibility, Hip External Rotation Flexibility R Hamstring Flexibility: WNL L Hamstring Flexibility: WNL R Adductor Flexibility: WNL L Adductor Flexibility: WNL R Hip Internal Rotation Flexibility: WNL L Hip Internal Rotation Flexibility: WNL R Hip External Rotation Flexibility: WNL L Hip External Rotation Flexibility: WNL LE Strength Trunk Strength: Lower Abdominals: 4/5 R LE Strength: 5/5 L LE Strength: 5/5 Education: Education Learning Preferences: Demonstration, Explanation, Performance, Printed Materials Barriers: None Learning/educational needs: Home exercise program, Plan of Care Education Provided: Yes, see treatment interventions for education provided Education Provided To: Patient Education Mode/Type: Demonstration, Explanation/Discussion, Literature/Printed Materials, Performance Response to Education/Teach Back: States/Identifies, Return Demonstration TREATMENT: PT Treatment Interventions: Therapeutic Exercise, Self-Usp Management Evaluation Therapeutic Exercise: 1: *quick kegals, 3x10 2: *isometric hip adduction, 2x10 Skilled Intervention: Patient was educated in proper exercise technique and purpose for exercises. Reviewed and educated patient on additions/changes for home exercise program as above (*). Skilled judgment was provided in selection of appropriate interventions. Provided written instruction for home exercise program to facilitate proper performance and compliance. Self-Usp Management: 1: Reviewed pelvic floor anatomy and function with 3D pelvic model 2: Reviewed typical vs dysfunctional bladder and bowel health 3: Reviewed bladder irritants, importance of water intake 4: Reviewed urinary urgency suppression techniques 5: Reviewed toileting techniques to fully empty bladder and bowels without straining 6: Reviewed strategies to improve urinary frequency Skilled Intervention: Skilled judgment in the selection of proper modification for activity of daily living/home management based on clinical presentation, deficits, and needs. Provided written instruction for activities of daily living techniques to facilitate proper performance and compliance. Billing * Evaluation Low Complexity: 1 Unit Therapeutic Exercise Treatment Minutes: 5 Self-Care/Home Management Treatment Minutes: 20 Total Treatment Time Minutes (timed/untimed): 52 Terese Jewell PT [facility] History of Present illness Narrative* Pooja Seals MD - 02/28/2023 2:37 PM EDT Dual Rate Supervisor offered: Patient declines. Aicha is a 37 year old who presents for an annual gynecologic exam. Patient reports urinary frequency & some urgency. Also she feels like she has a week pelvic floor. Menses: cycles every 4-5 weeks and 6 days of flow. 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 History LMP: 02/14/2023 (Approximate), Having periods Age at Menarche: Age at First : Age at Menopause: Erp Engineer History Comments: Sexual Activity: Yes; Male Contraception: Condom PAST MEDICAL HISTORY Diagnosis Date Abnormal Pap smear of cervix 2012 LGSIL Anxiety Giardia 02/2018 Hiatal hernia Mental disorder PAST SURGICAL HISTORY Procedure Laterality Date EGD TONSILLECTOMY HX FAMILY HISTORY Problem Relation Age of Onset other (thyroid cancer) Mother Diabetes Father other (hydrocephalus) Father No Known Problems Sister No Known Problems Sister No Known Problems Maternal Grandmother Bipolar disorder Maternal Grandfather Heart Attack Paternal Grandmother Diabetes Paternal Grandfather SOCIAL HISTORY Social History Tobacco Use Smoking status: Former Years: 2.00 Types: Cigarettes Quit date: 11/18/2009 Years since quittin.2 Smokeless tobacco: Never Vaping Use Vaping Use: Never used Substance Use Topics Alcohol use: Yes Drug use: No REVIEW OF SYSTEMS Abdomen: No abdominal pain, nausea, vomiting, diarrhea, or constipation. No bloating, early satiety, indigestion, or increased flatulence. Bladder: see above Breast: No breast lumps, nipple d/c, overlying skin changes, redness or skin retraction. Allergies and current medication updated:Yes EXAM: BP 98/66 Ht 5' 5 (1.65m) Wt 146 lb 4.8 oz (66.4kg) LMP 02/14/2023 BMI 24.35 kg/(m^2). GENERAL: pleasant, female in no apparent distress BREAST: soft, non-tender, symmetric, no dominant mass, normal nipple-areolar complex, no lymphadenopathy, and no nipple discharge CHEST: Normal inspiratory effort ABDOMEN: soft, non-tender, and no masses PELVIC: external genitalia normal, normal Bartholin's glands, urethra, Woody's glands, no vulvar lesions, no cervical lesions, good vaginal support, physiologic discharge present, normal appearing perineal body and perianal region BIMANUAL: uterus normal size, shape and consistency, no adnexal masses, and non-tender RECTOVAGINAL: deferred. NEURO: alert and oriented x3,exam grossly non-focal EXTREMITIES: normal ASSESSMENT/PLAN: 1) Health maintenance: Pap/HPV up to date. Mammogram starting age 40. Nutrition, exercise and routine health maintenance exams reviewed. 2) Contraception: condoms. Contraceptive options reviewed and information provided. 3) Urinary frequency - consult to pelvic floor PT 4) Follow up one year or sooner as needed Pooja Seals MD [facility] History of Past illness Narrative* Problem Noted Date Resolved Date Supervision of normal first 07/31/2018 02/24/2019 Overview: 07/31/18 - patient requests physician care only - KJ care, antepartum 07/31/20182017 Overview: 07/31/18 - need to discuss NT again at next visit as patient undecided - KJ documented as of this encounter (statuses as of 03/01/2023) [facility] History of Past illness Narrative* Problem Noted Date Resolved Date Supervision of normal first 07/31/2018 02/24/2019 Overview: 07/31/18 - patient requests physician care only - KJ care, antepartum 07/31/20182017 Overview: 07/31/18 - need to discuss NT again at next visit as patient undecided - KJ documented as of this encounter (statuses as of 03/15/2023) [facility] History of Past illness Narrative* Problem Noted Date Resolved Date Supervision of normal first 07/31/2018 02/24/2019 Overview: 07/31/18 - patient requests physician care only - KJ care, antepartum 07/31/20182017 Overview: 07/31/18 - need to discuss NT again at next visit as patient undecided - KJ documented as of this encounter (statuses as of 03/29/2023) [facility] History of Past illness Narrative* Problem Noted Date Resolved Date Supervision of normal first 07/31/2018 02/24/2019 Overview: 07/31/18 - patient requests physician care only - KJ care, antepartum 07/31/20182017 Overview: 07/31/18 - need to discuss NT again at next visit as patient undecided - KJ documented as of this encounter (statuses as of 04/19/2023) [facility] note* Diagnosis Onset Date Resolution Status Anxiety acute IBS (irritable bowel syndrome) acute IBS (irritable bowel syndrome) acute [facility] Work Phone: evaluation note* Diagnosis Onset Date Resolution Status IBS (irritable bowel syndrome) acute Gastritis, bile acid reflux acute IBS (irritable bowel syndrome) acute [facility] Work Phone: evaluation note* Diagnosis Onset Date Resolution Status Gastritis, bile acid reflux acute IBS (irritable bowel syndrome) acute Gastritis, bile acid reflux acute IBS (irritable bowel syndrome) acute [facility] Work Phone: evaluation noteNo assessment information available [facility] Work Phone: [email or web address] note* Diagnosis Encounter for gynecological examination without abnormal finding- Primary Routine gynecological examination Urinary frequency [facility] Diagnosis Urinary frequency- Primary Muscle weakness Muscle weakness (generalized) documented in this encounter [facility] note* Diagnosis Urinary frequency- Primary Muscle weakness Muscle weakness (generalized) [facility]* Diagnosis Urinary frequency- Primary Muscle weakness Muscle weakness (generalized) [facility] Diagnosis Onset Date Resolution Status Diarrhea acute Gastritis, bile acid reflux acute IBS (irritable bowel syndrome) acute [facility] Work Phone: evaluation note* Diagnosis Encounter for gynecological examination (general) (routine) without abnormal findings- Primary Encounter for screening for malignant neoplasm of cervix Screening for malignant neoplasm of the cervix Special screening examination for human papillomavirus (HPV) Abnormal glandular Papanicolaou smear of cervix [facility]* Diagnosis Onset Date Resolution Status Diarrhea acute Gastritis, bile acid reflux acute IBS (irritable bowel syndrome) acute Abnormal biliary HIDA scan a cute Gastritis, bile acid reflux acute [facility] Work Phone: Evaluation note* Diagnosis B12 deficiency- Primary Other B-complex deficiencies Irritable bowel syndrome with constipation Irritable bowel syndrome [facility]* Diagnosis B12 deficiency- Primary Other B-complex deficiencies [facility]* Diagnosis Encounter for person encountering health services- Primary [facility]* Diagnosis Encounter for person encountering health services- Primary [facility]* Diagnosis Irritable bowel syndrome with constipation- Primary Irritable bowel syndrome Nutritional counseling [facility]* Diagnosis Small intestinal bacterial overgrowth Other specified disorder of intestines Carlee infection Candidiasis of unspecified site Slow transit constipation 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 Generalized anxiety disorder Sinus congestion Other diseases of nasal cavity and sinuses Bloating Flatulence, eructation, and gas pain documented [facility] this [facility]* Diagnosis Encounter for person encountering health services- Primary [facility]* Diagnosis Irritable bowel syndrome with constipation- Primary Irritable bowel syndrome Nutritional counseling Marlon's thyroiditis Chronic lymphocytic thyroiditis Bloating Flatulence, eructation, and gas pain documented in this encounter [facility] for referral (narrative)No reason for referral information availableWUniversity [facility] Work Phone: Chief Complaint and Reason for Visit Chief Complaint 1 M FU FU Reason for Visit Anxiety IBS (irritable bowel syndrome) IBS (irritable bowel syndrome) Chief Complaint FU EORDER 2 WK FU EGD Reason for Visit IBS (irritable bowel syndrome) Gastritis, bile acid reflux IBS (irritable bowel syndrome) Chief Complaint FU EORDER 2 WK FU EGD LOWER ABD PAIN Reason for Visit IBS (irritable bowel syndrome) Gastritis, bile acid reflux IBS (irritable bowel syndrome) Chief Complaint EORDER 2 WK FU EGD LOWER ABD PAIN 6 WK FU DIZZINESS DIZZINESS Reason for Visit Gastritis, bile acid reflux IBS (irritable bowel syndrome) Gastritis, bile acid reflux IBS (irritable bowel syndrome) Chief Complaint DIZZINESS DIZZINESS Chief Complaint Follow up Other gastritis without bleeding Other gastritis without bleeding Reason for Visit Diarrhea Gastritis, bile acid reflux IBS (irritable bowel syndrome) Chief Complaint Follow up Other gastritis without bleeding Other gastritis without bleeding Abnormal Hida Scan & on-going abdominal pain Laparoscopic, Cholecystectomy with Laparoscopic, Cholecystectomy with Reason for Visit Diarrhea Gastritis, bile acid reflux IBS (irritable bowel syndrome) Abnormal biliary HIDA scan Gastritis, bile acid reflux Advance Directives No Advanced Directives Records Found Advance Directive Response Recorded Date/ Time Living Will No March 19, 2022 12 :47pm Power of Robotic Machine Operator No March 19, 2022 12:47pm Advance Directive Response Recorded Date/ Time Living Will No March 19, 2022 11 :47am Power of Robotic Machine Operator No March 19, 2022 11:47am Advance Directive Response Recorded Date/ Time Living Will No August 28 7:56am Power of Robotic Machine Operator No August 28, 2023 7:56am Advance Directive Response Recorded Date/ Time Name of Medical Power of Robotic Machine Operator October 16, 2023 8:11am Living Will Yes October 16 8:11am Power of Robotic Machine Operator Yes October 16, 2023 8:11am Reason for Referral Specialty Diagnoses / Procedures Referred By Sheila t Referred To Contact [facility] Diagnoses Urinary frequency Procedures CONSULT TO PHYSICAL THERAPY PHYSICAL THERAPY EVALUATION HIGH COMPLEX 45 MINS Pooja Seals MD [address] [place] [address] [facility] [address] [address] Referral ID Status Reason Start Date Expiration Date Visits Requested Visits Authorized [id number] Pending Review Auto-Generat ed Referral 02/28/2023 02/28/2024 1 1 Specialty Diagnoses / Procedures Referred By Sheila lima Referred To Contact [facility] Diagnoses Urinary frequency Procedures PT REHAB FOLLOW UP ORDER THERAPEUTIC EXERCISES RE, EA 15 MIN. Terese Jewell, ROSA ISELA [address] [place] [address] [facility] [address] [address] Referral ID Status Reason Start Date Expiration Date V isits Requested Visits Authorized [id number] Closed PCP Requested Referral Auto-Generated Referral 03/15/2023 06/13/2023 1 1 Summary Purpose Family History No Family History Records Found Coronary Artery Disease Status:Active Comments :grandmother Diabetes Mellitus Type II Status:Active Commen ts:Father. grandfather, grandmother Thyroid Cancer Status:Active Comments:Mother. thyroid disease Status:Active Comments:Mother. Coronary Artery Disease Status:Active Comments :grandmother Diabetes Mellitus Type II Status:Active Commen ts:Father. grandfather, grandmother Thyroid Cancer Status:Active Comments:Mother. thyroid disease Status:Active Comments:Mother. Coronary Artery Disease Status:Active Comments :grandmother Diabetes Mellitus Type II Status:Active Commen ts:Father. grandfather, grandmother Thyroid Cancer Status:Active Comments:Mother. thyroid disease Status:Active Comments:Mother. Coronary Artery Disease Status:Active Comments :grandmother Diabetes Mellitus Type II Status:Active Commen ts:Father. grandfather, grandmother Thyroid Cancer Status:Active Comments:Mother. thyroid disease Status:Active Comments:Mother. Coronary Artery Disease Status:Active Comments :grandmother Diabetes Mellitus Type II Status:Active Commen ts:Father. grandfather, grandmother Thyroid Cancer Status:Active Comments:Mother. thyroid disease Status:Active Comments:Mother. Coronary Artery Disease Status:Active Comments :grandmother Diabetes Mellitus Type II Status:Active Commen ts:Father. grandfather, grandmother Thyroid Cancer Status:Active Comments:Mother. thyroid disease Status:Active Comments:Mother. Coronary Artery Disease Status:Active Comments :grandmother Diabetes Mellitus Type II Status:Active Commen ts:Father. grandfather, grandmother Thyroid Cancer Status:Active Comments:Mother. thyroid disease Status:Active Comments:Mother. Coronary Artery Disease Status:Active Comments :grandmother Diabetes Mellitus Type II Status:Active Commen ts:Father. grandfather, grandmother Thyroid Cancer Status:Active Comments:Mother. thyroid disease Status:Active Comments:Mother. Coronary Artery Disease Status:Active Comments :grandmother Diabetes Mellitus Type II Status:Active Commen ts:Father. grandfather, grandmother Thyroid Cancer Status:Active Comments:Mother. thyroid disease Status:Active Comments:Mother. Coronary Artery Disease Status:Active Comments :grandmother Diabetes Mellitus Type II Status:Active Commen ts:Father. grandfather, grandmother Thyroid Cancer Status:Active Comments:Mother. thyroid disease Status:Active Comments:Mother. Coronary Artery Disease Status:Active Comments :grandmother Diabetes Mellitus Type II Status:Active Commen ts:Father. grandfather, grandmother Thyroid Cancer Status:Active Comments:Mother. thyroid disease Status:Active Comments:Mother. Coronary Artery Disease Status:Active Comments :grandmother Diabetes Mellitus Type II Status:Active Commen ts:Father. grandfather, grandmother Thyroid Cancer Status:Active Comments:Mother. thyroid disease Status:Active Comments:Mother. Coronary Artery Disease Status:Active Comments :grandmother Diabetes Mellitus Type II Status:Active Commen ts:Father. grandfather, grandmother Thyroid Cancer Status:Active Comments:Mother. thyroid disease Status:Active Comments:Mother. Coronary Artery Disease Status:Active Comments :grandmother Diabetes Mellitus Type II Status:Active Commen ts:Father. grandfather, grandmother Thyroid Cancer Status:Active Comments:Mother. thyroid disease Status:Active Comments:Mother. Coronary Artery Disease Status:Active Comments :grandmother Diabetes Mellitus Type II Status:Active Commen ts:Father. grandfather, grandmother Thyroid Cancer Status:Active Comments:Mother. thyroid disease Status:Active Comments:Mother. Coronary Artery Disease Status:Active Comments :grandmother Diabetes Mellitus Type II Status:Active Commen ts:Father. grandfather, grandmother Thyroid Cancer Status:Active Comments:Mother. thyroid disease Status:Active Comments:Mother. Coronary Artery Disease Status:Active Comments :grandmother Diabetes Mellitus Type II Status:Active Commen ts:Father. grandfather, grandmother Thyroid Cancer Status:Active Comments:Mother. thyroid disease Status:Active Comments:Mother. Coronary Artery Disease Status:Active Comments :grandmother Diabetes Mellitus Type II Status:Active Commen ts:Father. grandfather, grandmother Thyroid Cancer Status:Active Comments:Mother. thyroid disease Status:Active Comments:Mother. Coronary Artery Disease Status:Active Comments :grandmother Diabetes Mellitus Type II Status:Active Commen ts:Father. grandfather, grandmother Thyroid Cancer Status:Active Comments:Mother. thyroid disease Status:Active Comments:Mother. Coronary Artery Disease Status:Active Comments :grandmother Diabetes Mellitus Type II Status:Active Commen ts:Father. grandfather, grandmother Thyroid Cancer Status:Active Comments:Mother. thyroid disease Status:Active Comments:Mother. Coronary Artery Disease Status:Active Comments :grandmother Diabetes Mellitus Type II Status:Active Commen ts:Father. grandfather, grandmother Thyroid Cancer Status:Active Comments:Mother. thyroid disease Status:Active Comments:Mother. Coronary Artery Disease Status:Active Comments :grandmother Diabetes Mellitus Type II Status:Active Commen ts:Father. grandfather, grandmother Thyroid Cancer Status:Active Comments:Mother. thyroid disease Status:Active Comments:Mother. Coronary Artery Disease Status:Active Comments :grandmother Diabetes Mellitus Type II Status:Active Commen ts:Father. grandfather, grandmother Thyroid Cancer Status:Active Comments:Mother. thyroid disease Status:Active Comments:Mother. Coronary Artery Disease Status:Active Comments :grandmother Diabetes Mellitus Type II Status:Active Commen ts:Father. grandfather, grandmother Thyroid Cancer Status:Active Comments:Mother. thyroid disease Status:Active Comments:Mother. Coronary Artery Disease Status:Active Comments :grandmother Diabetes Mellitus Type II Status:Active Commen ts:Father. grandfather, grandmother Thyroid Cancer Status:Active Comments:Mother. thyroid disease Status:Active Comments:Mother. Coronary Artery Disease Status:Active Comments :grandmother Diabetes Mellitus Type II Status:Active Commen ts:Father. grandfather, grandmother Thyroid Cancer Status:Active Comments:Mother. thyroid disease Status:Active Comments:Mother. Coronary Artery Disease Status:Active Comments :grandmother Diabetes Mellitus Type II Status:Active Commen ts:Father. grandfather, grandmother Thyroid Cancer Status:Active Comments:Mother. thyroid disease Status:Active Comments:Mother. Coronary Artery Disease Status:Active Comments :grandmother Diabetes Mellitus Type II Status:Active Commen ts:Father. grandfather, grandmother Thyroid Cancer Status:Active Comments:Mother. thyroid disease Status:Active Comments:Mother. Coronary Artery Disease Status:Active Comments :grandmother Diabetes Mellitus Type II Status:Active Commen ts:Father. grandfather, grandmother Thyroid Cancer Status:Active Comments:Mother. thyroid disease Status:Active Comments:Mother. Coronary Artery Disease Status:Active Comments :grandmother Diabetes Mellitus Type II Status:Active Commen ts:Father. grandfather, grandmother Thyroid Cancer Status:Active Comments:Mother. thyroid disease Status:Active Comments:Mother. Coronary Artery Disease Status:Active Comments :grandmother Diabetes Mellitus Type II Status:Active Commen ts:Father. grandfather, grandmother Thyroid Cancer Status:Active Comments:Mother. thyroid disease Status:Active Comments:Mother. Coronary Artery Disease Status:Active Comments :grandmother Diabetes Mellitus Type II Status:Active Commen ts:Father. grandfather, grandmother Thyroid Cancer Status:Active Comments:Mother. thyroid disease Status:Active Comments:Mother. Coronary Artery Disease Status:Active Comments :grandmother Diabetes Mellitus Type II Status:Active Commen ts:Father. grandfather, grandmother Thyroid Cancer Status:Active Comments:Mother. thyroid disease Status:Active Comments:Mother. Coronary Artery Disease Status:Active Comments :grandmother Diabetes Mellitus Type II Status:Active Commen ts:Father. grandfather, grandmother Thyroid Cancer Status:Active Comments:Mother. thyroid disease Status:Active Comments:Mother. Coronary Artery Disease Status:Active Comments :grandmother Diabetes Mellitus Type II Status:Active Commen ts:Father. grandfather, grandmother Thyroid Cancer Status:Active Comments:Mother. thyroid disease Status:Active Comments:Mother. Coronary Artery Disease Status:Active Comments :grandmother Diabetes Mellitus Type II Status:Active Commen ts:Father. grandfather, grandmother Thyroid Cancer Status:Active Comments:Mother. thyroid disease Status:Active Comments:Mother. Additional Source Comments Goals (unrecognized section and content) Goals may be documented in a n alternate sectionGoals may be documented in an alternate sectionGoals may be documented in an alternate sectionGoals may be documented in an alternate sectionGoals may be documented in an alternate sectionGoals may be documented in an alternate sectionGoals may be documented in an alternate section Source Comments (unrecognize d section and content) In the event this informatio n is protected by the Federal Confidentiality of Alcohol and Drug Abuse Patient Records regulations: The Federal rules restrict any use of the information to criminally investigate or prosecute any alcohol or drug abuse patient.[facility] the event this information is protected by the Federal Confidentiality of Alcohol and Drug Abuse Patient Records regulations: The Federal rules restrict any use of the information to criminally investigate or prosecute any alcohol or drug abuse patient.[facility] ShawIn the event this information is protected by the Federal Confidentiality of Alcohol and Drug Abuse Patient Records regulations: The Federal rules restrict any use of the information to criminally investigate or prosecute any alcohol or drug abuse patient.[facility] ShawIn the event this information is protected by the Federal Confidentiality of Alcohol and Drug Abuse Patient Records regulations: The Federal rules restrict any use of the information to criminally investigate or prosecute any alcohol or drug abuse patient.[facility] ShawIn the event this information is protected by the Federal Confidentiality of Alcohol and Drug Abuse Patient Records regulations: The Federal rules restrict any use of the information to criminally investigate or prosecute any alcohol or drug abuse patient.[facility] ShawIn the event this information is protected by the Federal Confidentiality of Alcohol and Drug Abuse Patient Records regulations: The Federal rules restrict any use of the information to criminally investigate or prosecute any alcohol or drug abuse patient.[facility] ShawIn the event this information is protected by the Federal Confidentiality of Alcohol and Drug Abuse Patient Records regulations: The Federal rules restrict any use of the information to criminally investigate or prosecute any alcohol or drug abuse patient.[facility] ShawIn the event this information is protected by the Federal Confidentiality of Alcohol and Drug Abuse Patient Records regulations: The Federal rules restrict any use of the information to criminally investigate or prosecute any alcohol or drug abuse patient.[facility] ShawIn the event this information is protected by the Federal Confidentiality of Alcohol and Drug Abuse Patient Records regulations: The Federal rules restrict any use of the information to criminally investigate or prosecute any alcohol or drug abuse patient.[facility] ShawIn the event this information is protected by the Federal Confidentiality of Alcohol and Drug Abuse Patient Records regulations: The Federal rules restrict any use of the information to criminally investigate or prosecute any alcohol or drug abuse patient.[facility] ShawIn the event this information is protected by the Federal Confidentiality of Alcohol and Drug Abuse Patient Records regulations: The Federal rules restrict any use of the information to criminally investigate or prosecute any alcohol or drug abuse patient.[facility] ShawIn the event this information is protected by the Federal Confidentiality of Alcohol and Drug Abuse Patient Records regulations: The Federal rules restrict any use of the information to criminally investigate or prosecute any alcohol or drug abuse patient.[facility] ShawIn the event this information is protected by the Federal Confidentiality of Alcohol and Drug Abuse Patient Records regulations: The Federal rules restrict any use of the information to criminally investigate or prosecute any alcohol or drug abuse patient.[facility] ShawIn the event this information is protected by the Federal Confidentiality of Alcohol and Drug Abuse Patient Records regulations: The Federal rules restrict any use of the information to criminally investigate or prosecute any alcohol or drug abuse patient.[facility] ShawIn the event this information is protected by the Federal Confidentiality of Alcohol and Drug Abuse Patient Records regulations: The Federal rules restrict any use of the information to criminally investigate or prosecute any alcohol or drug abuse patient.[facility] ShawIn the event this information is protected by the Federal Confidentiality of Alcohol and Drug Abuse Patient Records regulations: The Federal rules restrict any use of the information to criminally investigate or prosecute any alcohol or drug abuse patient.[facility] ShawIn the event this information is protected by the Federal Confidentiality of Alcohol and Drug Abuse Patient Records regulations: The Federal rules restrict any use of the information to criminally investigate or prosecute any alcohol or drug abuse patient.[facility] ShawIn the event this information is protected by the Federal Confidentiality of Alcohol and Drug Abuse Patient Records regulations: The Federal rules restrict any use of the information to criminally investigate or prosecute any alcohol or drug abuse patient.[facility] ShawIn the event this information is protected by the Federal Confidentiality of Alcohol and Drug Abuse Patient Records regulations: The Federal rules restrict any use of the information to criminally investigate or prosecute any alcohol or drug abuse patient.[facility] ShawIn the event this information is protected by the Federal Confidentiality of Alcohol and Drug Abuse Patient Records regulations: The Federal rules restrict any use of the information to criminally investigate or prosecute any alcohol or drug abuse patient.[facility] ShawIn the event this information is protected by the Federal Confidentiality of Alcohol and Drug Abuse Patient Records regulations: The Federal rules restrict any use of the information to criminally investigate or prosecute any alcohol or drug abuse patient.[facility] ShawIn the event this information is protected by the Federal Confidentiality of Alcohol and Drug Abuse Patient Records regulations: The Federal rules restrict any use of the information to criminally investigate or prosecute any alcohol or drug abuse patient.[facility] ShawIn the event this information is protected by the Federal Confidentiality of Alcohol and Drug Abuse Patient Records regulations: The Federal rules restrict any use of the information to criminally investigate or prosecute any alcohol or drug abuse patient.[facility] ShawIn the event this information is protected by the Federal Confidentiality of Alcohol and Drug Abuse Patient Records regulations: The Federal rules restrict any use of the information to criminally investigate or prosecute any alcohol or drug abuse patient.[facility] Reason for Visit (unrecogniz ed section and content) Reason Comments PT Discharge Specialty Diagnoses / Procedures Referred By Contac t Referred To Contact [facility] Diagnoses Urinary frequency Procedures CONSULT TO PHYSICAL THERAPY PHYSICAL THERAPY EVALUATION HIGH COMPLEX 45 MINS THERAPEUTIC EXERCISES RE, EA 15 MIN. Pooja Seals MD [address] [place] [address] [facility] [address] [address] Referral ID Status Reason Start Date Expiration Date Visits Requested Visits Authorized [id number] Authorized Auto-Generat ed Referral 02/28/2023 11/17/2023 99 99 Reason Onset Date Comments Yearly Exam 02/28/2023 Reason Comments PT Eval Specialty Diagnoses / Procedures Referred By Sheila t Referred To Contact [facility] Diagnoses Urinary frequency Procedures CONSULT TO PHYSICAL THERAPY PHYSICAL THERAPY EVALUATION HIGH COMPLEX 45 MINS THERAPEUTIC EXERCISES RE, EA 15 MIN. Pooja Seals MD [address] [place] [address] [facility] [address] [address] Reason Comments Physical Therapy Reason Comments Yearly Exam Reason Comments New Patient Digestive problems. Reason Comments New Patient Reason Comments Pharmacy request for call, clarification on B12 RX Reason Comments Established Patient Reason Comments Established Patient IBS-D Care Teams (unrecognized sec tion and content) Team Status: Active Member Role Status Dates MARCELLO Diaz Family Provider Active MARCELLO Diaz Primary Care Provider Active Team Status: Inactive Member Role Status Dates MARCELLO Diaz Primary Care Provider, Referring Provider Active Dr. Shae Portillo DO Attending Provider Active Team Status: Active Member Role Status Dates MARCELLO Diaz Primary Care Provider Active Dr. Shae Portillo DO Attending Provider, Referring Provider Active Team Status: Inactive Member Role Status Dates MARCELLO Diaz Primary Care Provider Active Dr. Shae Portillo DO Attending Provider Active Team Status: Inactive Member Role Status Dates MARCELLO Diaz Primary Care Provider Active Dr. Shae Portillo DO Attending Provider, Referring Provider Active Team Status: Inactive Member Role Status Dates MARCELLO Diaz Primary Care Provider Active Dr. Fady Zamora MD Attending Provider Active Dr. Shae Portillo DO Referring Provider Active Team Status: Active Member Role Status Dates MARCELLO Diaz Primary Care Provider Active Dr. Fady Zamora MD Attending Provide r, Referring Provider, Other Provider Active Team Status: Inactive Member Role Status Dates MARCELLO Diaz Primary Care Provider Active Dr. Fady Zamora MD Attending Provider, Referring P savannah Active Team Status: Active Member Role Status Dates MARCELLO Diaz Primary Care Provider Active Team Status: Inactive Member Role Status Dates MARCELLO Diaz Primary Care Provider Active Start: March 26, 2025 End: March 26, 2025 GOODMAN JEREMI Attending Provider Active Start: March 26, 2025 End: March 26, 2025 GOODMAN JEREMI Referring Provider Active Start: March 26, 2025 End: March 26, 2025 INFORMATION SOURCE (unrecogn ized section and content) DATE CREATED AUTHOR 11/16/2023 [facility] DATE CREATED AUTHOR AUTHOR'S ORGANIZ ATION 02/20/2025 [facility] DATE CREATED AUTHOR AUTHOR'S ORGANIZ ATION 04/06/2025 [facility] DATE CREATED AUTHOR AUTHOR'S ORGANIZ ATION 06/18/2025 [facility] DATE CREATED AUTHOR AUTHOR'S ORGANIZ ATION 07/09/2025 [facility] DATE CREATED AUTHOR AUTHOR'S ORGANIZ ATION 07/29/2025 [facility] FOR RECORDS PERTAINING TO PATIENTS WHO ARE OR HAVE BEEN ENROLLED IN A CHEMICAL DEPENDENCY/SUBSTANCEABUSE PROGRAM, SOME INFORMATION MAY BE OMITTED. This clinical summary was aggregated from multiple sources. Caution should be exercised in using it in the provision of clinical care. This summary normalizes information from multiple sources, and as a consequence, information in this document may materially change the coding, format and clinical context of patient data. In addition, data may be omitted in some cases. CLINICAL DECISIONS SHOULD BE BASED ON THE PRIMARY CLINICAL RECORDS. [facility] provides no warranty or guarantee of the accuracy or completeness of information in this document."
[2025-07-31 08:43] LABS: Free T3 1.7 pg/mL (2.18-3.98)
== END | disposition home or self-care (01) ==
LOC: LAB 07:28
PROVIDERS: PCP Physician Assistant
DX: E06.3 Autoimmune thyroiditis (principal)
CPT/HCPCS: 36415; 84439; 84443; 84481

== ENCOUNTER → 2025-09-30 | Outpatient (CLI) | payer OTHER, SELFPAY ==
--- NOTE | 2025-09-30 14:14 | CT_ITS ---
PROCEDURE: ABDOMEN/PELVIS WITH CONTRAST 09/30/2025 REASON FOR EXAM: ABD PAIN Chronic abdominal pain. Weight loss. TECHNIQUE: Procedure Code: [id number] Modality: CT Procedure: ABDOMEN/PELVIS WITH CONTRAST Coronal and Sagittal reconstruction series were provided. CONTRAST: Isovue-300 VOLUME: 100 mL One or more dose reduction techniques were used (e.g., Automated exposure control, adjustment of the mA and/or kV according to patient size, use of iterative reconstruction technique. RADIATION DOSE SUMMARY: CTDlvol: 8.76 mGy DLP: 428.77 mGycm COMPARISON: May 08, 2022. FINDINGS: Lung bases: The lung bases are clear. No coronary artery calcification. Liver: Minimal degree of central intrahepatic biliary ductal dilatation secondary to the post cholecystectomy state. Tiny hepatic cysts. Gallbladder: Surgically absent. Spleen: Normal size. Pancreas: Normal size without evidence of mass surrounding inflammation or ductal dilation. Adrenals: Unremarkable Kidneys: Normal renal sizes. No hydronephrosis. Bladder: The urinary bladder is distended. Reproductive Organs: Nabothian cyst is seen within the uterine cervix. Bowel: Large amount of fecal material is seen throughout the colon. Appendix: Unremarkable Lymph nodes: Unremarkable. Vasculature: The abdominal aorta and IVC are normal. Peritoneum / Retroperitoneum: Unremarkable Bones: No significant abnormality is seen. CT/Abdomen/Pelvis WITH Contrast IMPRESSION: Status post cholecystectomy with minimal degree of central intrahepatic biliary ductal dilatation. Stable tiny cysts. Large amount of fecal material is seen in the colon. Reading Location: [id number]
== END | disposition home or self-care (01) ==
LOC: CT 14:11
PROVIDERS: PCP Physician Assistant
DX: R10.85 Abdominal pain of multiple sites (principal)
CPT/HCPCS: 74177; Q9967